=== PATIENT | female | born 1965 | race Caucasian/White ===

== ENCOUNTER 2020-06-05 17:18 | Outpatient (REF) | payer OTHER, SELFPAY | END 2020-06-05 17:19 | disposition home or self-care (01) | LOC: HO.LAB 17:18 | PROVIDERS: Visit Provider Internal Medicine | DX: Z20.828 Contact with and (suspected) exposure to other viral communicable diseases (principal) | CPT/HCPCS: U0003 ==

== ENCOUNTER 2020-06-27 13:36 | Outpatient (REF) | payer OTHER, SELFPAY | END 2020-06-27 13:37 | disposition home or self-care (01) | LOC: HO.LAB 13:36 | PROVIDERS: Visit Provider Internal Medicine | DX: Z20.828 Contact with and (suspected) exposure to other viral communicable diseases (principal) | CPT/HCPCS: C9803; U0003 ==

== ENCOUNTER 2021-07-04 11:01 | Emergency (ER) | payer MEDICAID, SELFPAY ==
--- NOTE | ~2021-07-04 | XR_ITS ---
EXAMINATION: XR CHEST CLINICAL INFORMATION: Chest pain. COMPARISON: None TECHNIQUE: AP view of the chest was obtained. FINDINGS: No significant abnormality is noted involving the heart, lungs, mediastinum, bony thorax or soft tissues. XR/XR chest 1V IMPRESSION: No acute cardiopulmonary findings.
[2021-07-04 12:46] VITALS: BP 167/83; PULSE 75; RESP 20; TEMP 36.7; O2SAT 98; BMI 32.6
--- NOTE | 2021-07-04 13:14 | ECG_ITS ---
Test Reason : CHEST PAIN Blood Pressure : / mmHG Vent. Rate : 072 BPM Atrial Rate : 072 BPM P-R Int : 200 ms QRS Dur : 078 ms QT Int : 418 ms P-R-T Axes : 026 017 006 degrees QTc Int : 457 ms Normal sinus rhythm Nonspecific T wave abnormality Abnormal ECG No previous ECGs available Referred By: Freddie Lopez Electronically Signed By:Enrique Daugherty
--- NOTE | 2021-07-04 13:46 | ED_ITS ---
HPI - Chest Pain General Chief Complaint: Chest Pain Stated Complaint: PCC referral xrays Time Seen by Provider: 07/04/21 13:45 Source: patient Mode of arrival: ambulatory Limitations: no limitations History of Present Illness HPI narrative: 56-year-old female presenting with 1 week of chest pain, back pain, vomiting, shortness of breath with cough productive of green phlegm. She reports going to an urgent care clinic last night and they told her to come to the ER for additional testing for the evaluation of her symptoms. She has had no known sick contacts. She is vaccinated against COVID-19. She has had no fever or chills at home. She vomited once 2 days ago and has had none since. She reports worst part of her symptoms is the chest wall pain and back pain that occur when she coughs or moves. No pain at rest. MD complaint: chest pain and other (Productive cough, back pain, shortness of breath) Onset (ago): week(s) (1) Timing of current episode: episodic Onset: other (After coughing for a week) Pain location: left chest and right chest Pain radiation: back Severity: moderate Quality: aching Relieving factors: rest Exacerbating factors: palpation, movement and other (Coughing) Associated symptoms: vomiting (X1) and cough Treatment prior to arrival: none Risk Factors Coronary artery disease risk factors: none Thoracic aortic dissection risk factors: none Related Data On Oral Contraceptives: No Previous Rx's Medication Instructions Recorded azithromycin 250 mg tablet See Rx Instructions .ROUTE 07/04/21 (Zithromax Z-Ramirez) .COMPLEX #6 tab benzonatate 100 mg capsule 100 mg PO TID PRN #14 cap 07/04/21 prednisone 20 mg tablet 40 mg PO DAILY #10 tab 07/04/21 Allergies Allergy/AdvReac Type Severity Reaction Status Date / Time No Known Allergies Allergy Unverified 03/23/20 19:43 [No Known Allergies*] Review of Systems Review of Systems: Constitutional: No Fever, No Chills ENT/Mouth: No sore throat, No Rhinorrhea, No Swallowing Difficulty Cardiovascular: + Chest Pain, + SOB, No Orthopnea, No Edema Respiratory: + Cough, + Sputum, No Wheezing, No dyspnea Gastrointestinal: No Nausea, + Vomiting, No Diarrhea, No abdominal Pain, No Hematochezia, No Melena Genitourinary: No Dysuria, No Urinary Frequency, No Hematuria Musculoskeletal: No joint pain, + Myalgias Skin: No Skin Lesions, No rash Neuro: No Weakness, No Numbness, No Dizziness, + Headache Psych: + Anxiety/Panic, No Depression Heme/Lymph: No Bruising, No Lymphadenopathy Endocrine: No Polyuria, No Polydipsia [facility] Past Medical History Medical History (Updated 07/04/21 @ 14:46 by CARROLL Franco) Asthma Hypertension Hypothyroidism Social History Social History Patient : No Physical Exam Vital Signs: Vital Signs: Last Vital Signs Temp 98.1 F 07/04/21 12:46 Pulse 75 07/04/21 12:46 Resp 20 07/04/21 12:46 BP 167/83 H 07/04/21 12:46 Pulse Ox 98 07/04/21 12:46 BMI result Body Mass Index 32.6 Appearance: Alert. Oriented X3. No acute distress. Eyes: Pupils equal, round and reactive to light. ENT: Pharynx normal. Tonsils are normal in appearance without exudate or erythema. Normal tympanic membranes bilaterally. Neck: Normal inspection. Neck supple. No lymphadenopathy. CVS: Normal heart rate and rhythm. Pulses normal. Anterior chest wall tendern ess throughout. Respiratory: No respiratory distress. Breath sounds normal. Abdomen: Soft and nontender. +BS x4 Skin: Skin warm and dry. Normal skin color. Normal skin turgor. No rashes. Extremities: No lower extremity edema. No calf tenderness. Neuro: Oriented X 3. No motor deficit. No sensory deficit. Course Course Course Narrative: 56-year-old female presenting with productive cough, chest pain, back pain and 1 episode of vomiting a couple of days ago. Her vital signs are normal on exam she is in no respiratory distress and her examination is benign. Will check CBC, chemistry, troponin, EKG and chest x-ray. Will also check COVID swab. She states she currently has no pain at this time. Reevaluation(s) Reevaluation #1: Chest x-ray is clear. EKG without any ischemic changes. Her troponin is less than 5 which is reassuring against any cardiac etiology of her pain. This seems to be muscular in nature due to her coughing for about a week now. Encouraged to start trial of NSAID for anti-inflammatory effect. Will treat for acute bronchitis with prednisone, Z-Ramirez, Tessalon. Encourage follow- up with her primary care doctor this week. Stable for discharge home with supportive care and outpatient follow-up. MDM - Chest Pain Lab Data Result diagrams: 07/04/21 14:08 07/04/21 14:08 Labs: Lab Results 07/04/21 07/04/21 07/04/21 Range/Units 14:08 14:08 14:08 WBC 9.0 (4.8-10.8) X10*3/uL RBC 4.23 (4.20-5.50) X10*6/uL Hgb 10.9 L (12.0-16.0) g/dl Hct 35.0 L (37.0-47.0) % MCV 82.7 (80.0-98.0) fL MCH 25.8 L (27.0-33.0) pg MCHC 31.1 (31.0-35.0) g/dl RDW 17.1 H (11.0-16.0) % Plt Count 228 (160-400) X10*3/uL MPV 11.1 (9.4-12.3) fL Immature Gran % (Auto) 0.2 (0.0-0.4) % Neut % (Auto) 48.1 (45-73) % Lymph % (Auto) 38.6 (20-40) % [place] % (Auto) 6.3 (2-11) % Eos % (Auto) 6.1 H (0-4) % Baso % (Auto) 0.7 (0-2) % Lymph # (Auto) 3.5 (1.2-4.9) X10*3/uL [place] # (Auto) 0.6 (0.1-1.2) X10*3/uL Eos # (Auto) 0.6 H (0.0-0.4) X10*3/uL Baso # (Auto) 0.1 (0.0-0.2) X10*3/uL Abs Immat Gran (auto) 0.02 (0.00-0.03) X10*3/uL Absolute Neuts (auto) 4.3 (2.0-8.3) x10*3/uL Absolute Nucleated RBC 0.000 (0.0-0.012) X10*3/uL Nucleated RBC % (auto) 0.0 (0.0-0.2) /100WBC Sodium 139 (135-145) mmol/L Potassium 4.3 (3.3-5.1) mmol/L Chloride 105 (96-108) mmol/L Carbon Dioxide 28 (22-29) mmol/L Anion Gap 10 L (12-20) BUN 12 (9-16) mg/dL Creatinine 0.79 (0.5-1.4) mg/dL Estim Creat Clear Calc 96.1 Estimated GFR > 60 Random Glucose 115 (60-115) mg/dL Calcium 9.5 (8.4-10.2) mg/dL Troponin I High Sens 4.7 (<3.5-17.0) ng/L COVID-19 (NATASHA) (Negative) COVID-19 Clin Com 07/04/21 Range/Units 14:08 WBC (4.8-10.8) X10*3/uL RBC (4.20-5.50) X10*6/uL Hgb (12.0-16.0) g/dl Hct (37.0-47.0) % MCV (80.0-98.0) fL MCH (27.0-33.0) pg MCHC (31.0-35.0) g/dl RDW (11.0-16.0) % Plt Count (160-400) X10*3/uL MPV (9.4-12.3) fL Immature Gran % (Auto) (0.0-0.4) % Neut % (Auto) (45-73) % Lymph % (Auto) (20-40) % [place] % (Auto) (2-11) % Eos % (Auto) (0-4) % Baso % (Auto) (0-2) % Lymph # (Auto) (1.2-4.9) X10*3/uL [place] # (Auto) (0.1-1.2) X10*3/uL Eos # (Auto) (0.0-0.4) X10*3/uL Baso # (Auto) (0.0-0.2) X10*3/uL Abs Immat Gran (auto) (0.00-0.03) X10*3/uL Absolute Neuts (auto) (2.0-8.3) x10*3/uL Absolute Nucleated RBC (0.0-0.012) X10*3/uL Nucleated RBC % (auto) (0.0-0.2) /100WBC Sodium (135-145) mmol/L Potassium (3.3-5.1) mmol/L Chloride (96-108) mmol/L Carbon Dioxide (22-29) mmol/L Anion Gap (12-20) BUN (9-16) mg/dL Creatinine (0.5-1.4) mg/dL Estim Creat Clear Calc Estimated GFR Random Glucose (60-115) mg/dL Calcium (8.4-10.2) mg/dL Troponin I High Sens (<3.5-17.0) ng/L COVID-19 (NATASHA) Negative (Negative) COVID-19 Clin Com See Note Critical Care Time Critical Care Time Critical Care Time: No Discharge Plan Discharge Clinical Impression: Acute bronchitis Qualifiers: Bronchitis organism: unspecified organism Qualified Code(s): J20.9 - Acute bronchitis, unspecified Patient Disposition: Home, Self-Care Instructions: Acute Bronchitis (ED) Additional Instructions: Your chest x-ray was normal. You were negative for COVID-19. Your EKG and lab workup was normal. Take all of the prescribed mediations as directed for acute bronchitis. Follow up with your doctor in 1 week. If you develop new or worsening symptoms call 911 or come back to the ER for further evaluation. Prescriptions: New azithromycin [Zithromax Z-Ramirez] 250 mg tablet See Rx Instructions .ROUTE .COMPLEX Qty: 6 RF: 0 prednisone 20 mg tablet 40 mg PO DAILY Qty: 10 RF: 0 benzonatate 100 mg capsule 100 mg PO TID PRN (Reason: cough) Qty: 14 RF: 0 Interventions: ED Discharge Assessment Last Done: 07/04/21 15:11 Print Language: Turkmen
[2021-07-04 14:16] LABS: MANUAL DIFF FLAG NO
[2021-07-04 14:17] LABS: Basophils Absolute Auto 0.1 X10*3/uL (0.0-0.2); Basophils Percent Auto 0.7 % (0-2); Eosinophils Absolute Auto 0.6 X10*3/uL (0.0-0.4); Eosinophils Percent Auto 6.1 % (0-4); Hemoglobin 10.9 g/dl (12.0-16.0); Imm Gran Abs Auto 0.02 X10*3/uL (0.00-0.03); Imm Gran Pct Auto 0.2 % (0.0-0.4); Lymphocytes Absolute Auto 3.5 X10*3/uL (1.2-4.9); Lymphocytes Percent Auto 38.6 % (20-40); Mean Corpuscular HGB Conc 31.1 g/dl (31.0-35.0); Mean Corpuscular Hemoglobin 25.8 pg (27.0-33.0); Mean Corpuscular Volume 82.7 fL (80.0-98.0); Mean Platelet Volume 11.1 fL (9.4-12.3); Monocytes Absolute Auto 0.6 X10*3/uL (0.1-1.2); Monocytes Percent Auto 6.3 % (2-11); Neutrophils Absolute Auto 4.3 x10*3/uL (2.0-8.3); Neutrophils Percent Auto 48.1 % (45-73); Platelet Count 228 X10*3/uL (160-400); Red Blood Count 4.23 X10*6/uL (4.20-5.50); Red Cell Distribution Width 17.1 % (11.0-16.0)
[2021-07-04 14:29] LABS: Anion Gap 10 (12-20); Blood Urea Nitrogen 12 mg/dL (9-16); Calcium 9.5 mg/dL (8.4-10.2); Carbon Dioxide 28 mmol/L (22-29); Chloride 105 mmol/L (96-108); Creatinine Clr Calc Pharmacy 96.1; Estimated Glomerular Filt Rate > 60; Glucose Random 115 mg/dL (60-115); Potassium 4.3 mmol/L (3.3-5.1); Sodium 139 mmol/L (135-145)
[2021-07-04 14:34] LABS: COVID-19 Test Negative (Negative); IDNOW Serial# 9DD0AD1C
[2021-07-04 14:35] LABS: Troponin-I High Sensitivity 4.7 ng/L (<3.5-17.0)
== END 2021-07-04 16:11 | disposition home or self-care (01) ==
PROVIDERS: Physician Assistant; Emergency Provider Emergency Medicine
DX: J20.9 Acute bronchitis, unspecified (principal); Z20.822 Contact with and (suspected) exposure to COVID-19; I10 Essential (primary) hypertension; J45.909 Unspecified asthma, uncomplicated
CPT/HCPCS: 36415; 71045; 80048; 84484; 85025; 87635; 93005; 99283; 99284

== ENCOUNTER 2022-02-15 14:57 | Outpatient (REF) | payer MEDICAID, SELFPAY ==
[2022-02-15 15:20] LABS: Hematocrit 36.6 % (37.0-47.0); Hemoglobin 11.5 g/dl (12.0-16.0); Mean Corpuscular HGB Conc 31.4 g/dl (31.0-35.0); Mean Corpuscular Hemoglobin 26.7 pg (27.0-33.0); Mean Corpuscular Volume 84.9 fL (80.0-98.0); Mean Platelet Volume 11.9 fL (9.4-12.3); Platelet Count 247 X10*3/uL (160-400); Red Blood Count 4.31 X10*6/uL (4.20-5.50); Red Cell Distribution Width 17.2 % (11.0-16.0); White Blood Count 10.1 X10*3/uL (4.8-10.8)
[2022-02-15 15:57] LABS: TSH reflex Free T4 9.43 uIU/mL (0.32-4.0)
[2022-02-15 16:29] LABS: Free T4 (Free Thyroxine) 0.73 ng/dL (0.71-1.85)
[2022-02-16 02:46] LABS: CT PCR NOT DETECTED (Not Detect.); NG PCR NOT DETECTED (Not Detect.)
[2022-02-16 15:07] LABS: BV Int Neg Control Negative (Negative); BV Int Pos Control Positive (Positive)
[2022-02-20 22:07] LABS: HPV mRNA E6/E7 rflx Not Detected (Not Detected)
== END 2022-02-15 14:58 | disposition home or self-care (01) ==
LOC: HO.LAB 14:57
PROVIDERS: PCP Registered Nurse Community Health; Visit Provider Advanced Practice Midwife
DX: N92.0 Excessive and frequent menstruation with regular cycle (principal); Z01.411 Encounter for gynecological examination (general) (routine) with abnormal findings; Z11.51 Encounter for screening for human papillomavirus (HPV)
CPT/HCPCS: 36415; 84439; 84443; 85027; 87480; 87491; 87510; 87591; 87624; 87660; 88142; 99202

== ENCOUNTER 2022-02-18 12:53 | Outpatient (REF) | payer MEDICAID, SELFPAY ==
--- NOTE | 2022-03-28 10:28 | MHC.AU.MED ---
Medical Clearance for Hearing Instrumentation Date: 03/28/22 Patient Name: Carmen Vaughn Date of : 1965 Referring Provider: Sheri Kidd NP We have seen your patient on 02/18/22 and have determined that they are a candidate for amplification (See accompanying report). Specifically, they would benefit from: Hearing aid use in both ears There is a statute that addresses Medical Evaluation Requirements prior to fitting a patient with a hearing aid. According to [place] statute 265 CMR:6.03(1), (a) General. Except as provided in 265 CMR 6.03(1)(b), a feeder tender shall not sell a hearing aid unless the prospective user has presented to the feeder tender a written statement signed by a licensed physician that states that the patient's hearing loss has been medically evaluated and the patient may be considered a candidate for a hearing aid. The medical evaluation must have taken place within the preceding six months. Please note: Due to the [place] Statute referenced above, we cannot accept a signature other than that of a licensed physician. YARD FOREMAN and PA signatures cannot be accepted. I am in agreement with the above recommendation. There is no medical contraindication for hearing instrumentation. Physician Signature Date Physician Name (Printed)
--- NOTE | 2022-03-28 10:29 | MHC.AU.HAS ---
Hearing Aid Evaluation Date of Visit: 02/18/22 Electroencephalographic Technologist Used: Hong Konger Historical Information: Description of Hearing: Profound sensorineural hearing loss Current personal amplification information, if applicable: None Summary: Patient was seen for audiological evaluation. See separate report for details. Patient reports she has tried hearing aids a long time ago, but did not find them beneficial at the time. She communicates with spoken Hong Konger and relies almost exclusively on lip reading. She is ready to try hearing aids again, as she has been struggling significantly with her communication in daily life. Hearing Aid Prescription: Based on the individual?s shared listening needs, communication environments, dexterity, desire for connectivity, and personal preferences, the following prescription for amplification has been made: Right ear: Flavoring Oil Filterer: Phonak Model: Danielle P70-UP Battery Size: 675 Color: Silver Type of Mold: Microsonic Skeleton M2000 Left ear: Flavoring Oil Filterer: Phonak Model: Danielle P70-UP Battery Size: 675 Color: Silver Type of Mold: Microsonic Skeleton M2000 Action Taken/Action Needed: Earmold Impressions Taken Medical Clearance to be requested from PCP/ENT Hearing Instrument Fitting to be scheduled when materials arrive Patient NEEDS an in-person aerial photograph interpreter. Primary Diagnosis: H90.3 Bilateral Sensorineural Hearing Loss Signature: Provider: Pamella Willis, CCC-A
--- NOTE | 2022-03-28 10:29 | MHC.AU.AEV ---
Adult Audiological Evaluation Date of Visit: 02/18/22 Black Top Raker Used: Malaysian Reason for Appointment: History of congenital profound hearing loss. Patient communicates with spoken Malaysian and relies almost exclusively on lip reading. She has tried hearing aids in the past, but it has been many years since. She is interested in trying amplification again. She also reports severe tinnitus that she finds highly distressing. Hearing Handicap Inventory Does a hearing problem cause you to feel embarrassed when meeting new people?: Yes Does a hearing problem cause you to feel frustrated when talking to members of your family?: Yes Do you have difficulty when someone speaks in a whisper?: Yes Do you feel handicapped by a hearing problem?: Yes Does a hearing problem cause you difficulty when visiting friends, relatives, or neighbors?: Yes Does a hearing problem cause you to attend christianity service services less often than you would like?: Yes Does a hearing problem cause you to have arguments with family members?: Yes Does a hearing problem cause you difficulty when listening to TV or radio?: Yes Do you feel that any difficult with your hearing limits or hampers your personal or social life?: Yes Does a hearing problem cause you difficulty when in a restaurants with relatives or friends?: Yes HHIE SCORE: 40 Based on HHIE score, patient has: Severe perceived hearing handicap Ear History: Family History of Hearing Loss?: Yes Bothersome Tinnitus/Ringing/Noises in Ears: Both Ears History of occupational noise exposure?: No History: No Medical History: Medical History: Hypertension, history of stroke 3 years ago, speech difficulties related to the stroke Otoscopy: Right Ear: Unremarkable Left Ear: Unremarkable Tympanometry: Tympanometry performed due to: To assess integrity of the middle ear system Right Ear: Normal Middle Ear System (Type A) Left Ear: Normal Middle Ear System (Type A) Hearing Evaluation: Transducer(s) Used: Insert Earphones Method: Conventional Audiometry Stimuli Used: Pure Tones Right Ear: Description of Hearing: Profound sensorineural hearing loss Left Ear: Description of Hearing: Profound sensorineural hearing loss Speech Recognition Threshold (SRT): Could not test Word Discrimination: Could not test Recommendations: Audiological re-evaluation in one year. Patient is interested in trying hearing aids again. See Hearing Aid Evaluation report for more details. Patient is also interested in cochlear implants. She reports that awhile ago she was told she should not get cochlear implants, but is unsure why. I was unable to obtain previous ENT records. If she still feels strongly about the implants, she should follow-up with her ENT to discuss the reasons behind the decision and see if her candidacy has since changed. Diagnosis: Primary Diagnosis: H90.3 Bilateral Sensorineural Hearing Loss Signature: Provider: Pamella Willis, CCC-A
== END 2022-02-18 12:54 | disposition home or self-care (01) ==
LOC: HO.SH 12:53
PROVIDERS: PCP Registered Nurse Community Health; Visit Provider Registered Nurse Community Health
DX: H90.3 Sensorineural hearing loss, bilateral (principal)
CPT/HCPCS: 92553; 92567; 92591; V5275

== ENCOUNTER 2022-06-17 12:45 | Outpatient (REF) | payer MEDICAID, SELFPAY ==
--- NOTE | 2022-06-17 15:35 | MHC.AU.HA2 ---
Hearing Instrument Fitting- Adult- Binaural Date of Visit: 06/17/22 Hearing Instruments Dispensed: Right Ear: Make, Model, Color, Serial Number: Ekta Santos P70-UP SN: [id number] Color: Silver [employer] Technical Photographer Repair Warranty: 07/16/2025 Technical Photographer Loss and Damage Warranty: 07/16/2025 [facility] [place] Service Plan: 06/17/2023 Battery Size: 675 Earmold/Dome/CShell/SlimTip: Microsonic M35 Skeleton Left Ear: Make, Model, Color, Serial Number: Ekta Santos P70-UP SN: [id number] Color: Silver [place] Technical Photographer Repair Warranty: 07/16/2025 Technical Photographer Loss and Damage Warranty: 07/16/2025 [facility] [place] Service Plan: 06/17/2023 Battery Size: 675 Earmold/Dome/CShell/SlimTip: Microsonic M35 Skeleton Summary of Fitting: Feedback it disaster recovery manager and real ear measurements performed. Adjusted gain level to 80% at Carmen's request due to overall volume. Discussed care and use including changing battery, volume control use, and inserting/removing hearing aid and earmold. Carmen was extremely grateful for the hearing aids and ability to hear again. Explained realistic expectations in relation to severity of hearing loss as well as the acclimatization period to adjust to hearing aids again. Paired to cellphone and confirmed successful connection with a phone call in office. Carmen's inquired about a cochlear implant - advised to discuss with [facility] to determine candidacy. He reported it may be possible that she already had a CI evaluation but he was not sure. Carmen is leaving for [place] tomorrow. She returns on July 20, 2022 - a follow up appointment will be scheduled after that date. Recommendations: A hearing instrument follow-up was scheduled. Please call our clinic with any questions or concerns. Diagnosis Code(s): Primary Diagnosis: H90.3 Bilateral Sensorineural Hearing Loss Signature: Provider: Serg Stone, [facility]
== END 2022-06-17 12:46 | disposition home or self-care (01) ==
LOC: HO.HAP 12:45
PROVIDERS: Visit Provider Registered Nurse Community Health
DX: Z46.1 Encounter for fitting and adjustment of hearing aid (principal); H90.3 Sensorineural hearing loss, bilateral
CPT/HCPCS: V5011; V5020; V5160; V5261; V5264; V5266

== ENCOUNTER 2022-08-02 12:44 | Outpatient (REF) | payer MEDICAID, SELFPAY ==
--- NOTE | ~2022-08-02 | US_ITS ---
EXAMINATION: US PELVIS CLINICAL INFORMATION: Excessive and frequent menstruation with irregular cycle COMPARISON: None TECHNIQUE: Ultrasound of the pelvis is performed using both transabdominal and transvaginal transducers along with Doppler. Transvaginal imaging is performed due to inadequate visualization transabdominally. FINDINGS: Uterus: The uterus is anteverted, retroflexed and measures 10.8 x 4.8 x 4.9 cm The double wall endometrial thickness is 1.2 cm and is heterogeneous. The uterus is smooth in contour and has normal myometrial echogenicity. No visible fibroid. There are numerous anechoic cysts seen in the cervix Adnexa: Both ovaries are visualized. There is normal color flow to the adnexa. There is no ovarian torsion. There is no pelvic ascites or fluid collection. Right ovary measures 4.0 x 3.4 x 3.2 cm and volume 22.8 mL. There is anechoic simple cyst measuring 2.7 x 2.3 x 2.7 cm. Left ovary measures 2.4 x 1.7 x 2.0 cm on transabdominal view only. There is no free fluid in the cul-de-sac. US/US pelvic and transvaginal IMPRESSION: 1. Simple cyst right ovary. 2. Unremarkable left ovary. 3. Multiple nabothian cysts in the cervix. 4. The uterus is unremarkable. 5. There is no free fluid in the cul-de-sac.
== END 2022-08-02 12:45 | disposition home or self-care (01) ==
LOC: HO.US 12:44
PROVIDERS: PCP Registered Nurse Community Health; Visit Provider Advanced Practice Midwife
DX: N92.0 Excessive and frequent menstruation with regular cycle (principal)
CPT/HCPCS: 76830; 76856

== ENCOUNTER 2022-08-22 14:49 | Outpatient (REF) | payer MEDICAID, SELFPAY ==
[2022-08-22 18:04] LABS: Hematocrit 35.5 % (37.0-47.0); Hemoglobin 11.4 g/dl (12.0-16.0); Mean Corpuscular HGB Conc 32.1 g/dl (31.0-35.0); Mean Corpuscular Hemoglobin 26.8 pg (27.0-33.0); Mean Corpuscular Volume 83.3 fL (80.0-98.0); Mean Platelet Volume 12.3 fL (9.4-12.3); Platelet Count 261 X10*3/uL (160-400); Red Blood Count 4.26 X10*6/uL (4.20-5.50); Red Cell Distribution Width 15.4 % (11.0-16.0); White Blood Count 8.5 X10*3/uL (4.8-10.8)
[2022-08-23 22:28] LABS: Follicle Stimulating Hormone 4.4 mIU/mL
== END 2022-08-22 14:50 | disposition home or self-care (01) ==
LOC: HO.LAB 14:49
PROVIDERS: PCP Registered Nurse Community Health; Visit Provider Advanced Practice Midwife
DX: N92.0 Excessive and frequent menstruation with regular cycle (principal); N93.9 Abnormal uterine and vaginal bleeding, unspecified
CPT/HCPCS: 36415; 58100; 81025; 83001; 85027; 88305

== ENCOUNTER 2022-08-22 16:16 | Outpatient (REF) | payer MEDICAID, SELFPAY | END 2022-08-22 16:17 | disposition home or self-care (01) | LOC: HO.HAP 16:16 | PROVIDERS: Visit Provider Registered Nurse Community Health | DX: Z46.1 Encounter for fitting and adjustment of hearing aid (principal); H90.3 Sensorineural hearing loss, bilateral | CPT/HCPCS: V5266 ==

== ENCOUNTER → 2022-09-04 12:49 | Outpatient (BNVA) | payer MEDICAID, SELFPAY | PROVIDERS: PCP Registered Nurse Community Health; Visit Provider Advanced Practice Midwife | DX: Z71.2 Person consulting for explanation of examination or test findings (principal); N71.1 Chronic inflammatory disease of uterus; N92.0 Excessive and frequent menstruation with regular cycle | CPT/HCPCS: 99212 ==

== ENCOUNTER 2022-09-04 14:13 | Emergency (ER) | payer MEDICAID, SELFPAY ==
--- NOTE | ~2022-09-04 | XR_ITS ---
EXAMINATION: XR CHEST CLINICAL INFORMATION: Chest pain COMPARISON: July 04, 2021 TECHNIQUE: 2 views of the chest were obtained. FINDINGS: No significant abnormality is noted involving the heart, lungs, mediastinum, bony thorax or soft tissues. XR/XR chest 2V IMPRESSION: No acute disease.
[2022-09-04 14:28] VITALS: BP 173/95; PULSE 83; RESP 20; TEMP 36.8; O2SAT 98; BMI 29.0
--- NOTE | 2022-09-04 14:33 | ED.GENADULT ---
HPI - General Adult General Chief complaint: Chest Pain Stated complaint: HBP/Headache/Blurry vision Related Data Home Medications Medication Instructions Recorded Confirmed baclofen 5 mg tablet 5 mg PO TID 02/15/22 yfwdfjdaik-ewhifnhfufhyl-zundbjnl 1 - 2 tab PO Q6H PRN migraine 02/15/22 50 mg-325 mg-40 mg tablet chlorthalidone 15 mg tablet 15 mg PO DAILY 02/15/22 (Thalitone) ergocalciferol (vitamin D2) 1,250 1,250 mcg PO QWEEK 02/15/22 mcg (50,000 unit) capsule escitalopram oxalate 10 mg tablet 10 mg PO DAILY 02/15/22 ferrous sulfate 325 mg (65 mg 325 mg PO DAILY 02/15/22 iron) tablet (FeroSul) levothyroxine 112 mcg tablet 112 mcg PO DAILY 02/15/22 loratadine 10 mg tablet 10 mg PO DAILY 02/15/22 mirtazapine 30 mg tablet 30 mg PO BEDTIME 02/15/22 Previous Rx's Medication Instructions Recorded benzonatate 100 mg capsule 100 mg PO TID PRN cough #14 caps 07/04/21 Allergies Allergy/AdvReac Type Severity Reaction Status Date / Time No Known Allergies Allergy Verified 02/25/23 13:38 [No Known Allergies*] PMFSH Past Medical History Medical History Anemia Asthma Chronic back pain Depression Hearing trouble Heavy menstrual bleeding Hypertension Hypothyroidism Migraine Stroke Tinnitus Urinary incontinence in female Surgical History Hx of section Social History Social History Household Members: Spouse Housing: Apartment Alcohol intake: never Patient Tobacco Use Status: Former Tobacco user Physical Exam ED Vital Signs: BMI result Body Mass Index 29.0 Course Course Course Narrative: ROSE- 57-year-old primarily English-speaking female presents for evaluation of numerous complaints including chest pressure, headache, cough, phlegm, visual changes. She also complains of high blood pressure. History exam consistent with anxiety, however given her age and risk factors will get labs, chest xray, EKG Medical Decision Making Lab Data 09/04/22 16:25 09/04/22 16:25 Labs: Lab Results 09/04/22 09/04/22 09/04/22 Range/Units 16:25 16:25 16:25 WBC 8.9 (4.8-10.8) X10*3/uL RBC 4.39 (4.20-5.50) X10*6/uL Hgb 11.7 L (12.0-16.0) g/dl Hct 36.8 L (37.0-47.0) % MCV 83.8 (80.0-98.0) fL MCH 26.7 L (27.0-33.0) pg MCHC 31.8 (31.0-35.0) g/dl RDW 15.8 (11.0-16.0) % Plt Count 242 (160-400) X10*3/uL MPV 11.1 (9.4-12.3) fL Immature Gran % (Auto) 0.3 (0.0-0.4) % Neut % (Auto) 44.2 L (45-73) % Lymph % (Auto) 44.3 H (20-40) % [place] % (Auto) 6.4 (2-11) % Eos % (Auto) 4.0 (0-4) % Baso % (Auto) 0.8 (0-2) % Lymph # (Auto) 4.0 (1.2-4.9) X10*3/uL [place] # (Auto) 0.6 (0.1-1.2) X10*3/uL Eos # (Auto) 0.4 (0.0-0.4) X10*3/uL Baso # (Auto) 0.1 (0.0-0.2) X10*3/uL Abs Immat Gran (auto) 0.03 (0.00-0.03) X10*3/uL Absolute Neuts (auto) 3.9 (2.0-8.3) x10*3/uL Absolute Nucleated RBC 0.000 (0.0-0.012) X10*3/uL Nucleated RBC % (auto) 0.0 (0.0-0.2) /100WBC PT 12.3 (10.0-13.1) SEC INR 1.1 (0.9-1.1) APTT 29.2 (26.0-36.4) SEC Sodium 139 (135-145) mmol/L Potassium 3.8 (3.3-5.1) mmol/L Chloride 104 (96-108) mmol/L Carbon Dioxide 26 (22-29) mmol/L Anion Gap 13 (12-20) BUN 10 (9-16) mg/dL Creatinine 0.77 (0.5-1.4) mg/dL Estim Creat Clear Calc 107.9 Estimated GFR > 60 Random Glucose 91 (60-115) mg/dL Calcium 9.7 (8.4-10.2) mg/dL Magnesium 1.9 (1.6-2.6) mg/dL Total Bilirubin 0.3 (0.0-1.0) mg/dL AST 50 H (5-31) U/L ALT 80 H (0-31) U/L Alkaline Phosphatase 58 (39-117) U/L Troponin I High Sens (<3.5-17.0) ng/L Total Protein 7.9 (6.5-8.0) g/dL Albumin 4.2 (3.5-5.0) g/dL Influenza Type A (PCR) (Negative) Influenza Type B (PCR) (Negative) RSV RNA Qual (PCR) (Negative) SARS-CoV-2 RNA (RT-PCR) (Negative) 09/04/22 09/04/22 09/04/22 Range/Units 16:25 16:25 21:02 WBC (4.8-10.8) X10*3/uL RBC (4.20-5.50) X10*6/uL Hgb (12.0-16.0) g/dl Hct (37.0-47.0) % MCV (80.0-98.0) fL MCH (27.0-33.0) pg MCHC (31.0-35.0) g/dl RDW (11.0-16.0) % Plt Count (160-400) X10*3/uL MPV (9.4-12.3) fL Immature Gran % (Auto) (0.0-0.4) % Neut % (Auto) (45-73) % Lymph % (Auto) (20-40) % [place] % (Auto) (2-11) % Eos % (Auto) (0-4) % Baso % (Auto) (0-2) % Lymph # (Auto) (1.2-4.9) X10*3/uL [place] # (Auto) (0.1-1.2) X10*3/uL Eos # (Auto) (0.0-0.4) X10*3/uL Baso # (Auto) (0.0-0.2) X10*3/uL Abs Immat Gran (auto) (0.00-0.03) X10*3/uL Absolute Neuts (auto) (2.0-8.3) x10*3/uL Absolute Nucleated RBC (0.0-0.012) X10*3/uL Nucleated RBC % (auto) (0.0-0.2) /100WBC PT (10.0-13.1) SEC INR (0.9-1.1) APTT (26.0-36.4) SEC Sodium (135-145) mmol/L Potassium (3.3-5.1) mmol/L Chloride (96-108) mmol/L Carbon Dioxide (22-29) mmol/L Anion Gap (12-20) BUN (9-16) mg/dL Creatinine (0.5-1.4) mg/dL Estim Creat Clear Calc Estimated GFR Random Glucose (60-115) mg/dL Calcium (8.4-10.2) mg/dL Magnesium (1.6-2.6) mg/dL Total Bilirubin (0.0-1.0) mg/dL AST (5-31) U/L ALT (0-31) U/L Alkaline Phosphatase (39-117) U/L Troponin I High Sens < 3.5 < 3.5 (<3.5-17.0) ng/L Total Protein (6.5-8.0) g/dL Albumin (3.5-5.0) g/dL Influenza Type A (PCR) NEGATIVE (Negative) Influenza Type B (PCR) NEGATIVE (Negative) RSV RNA Qual (PCR) NEGATIVE (Negative) SARS-CoV-2 RNA (RT-PCR) NEGATIVE (Negative) Discharge Plan Discharge Clinical Impression: Chest pain Patient Disposition: Elopement Prescriptions: No Action benzonatate 100 mg capsule 100 mg PO TID PRN (Reason: cough) Qty: 14 0RF baclofen 5 mg tablet 5 mg PO TID Thalitone 15 mg tablet 15 mg PO DAILY mirtazapine 30 mg tablet 30 mg PO BEDTIME ergocalciferol (vitamin D2) 1,250 mcg (50,000 unit) capsule 1,250 mcg PO QWEEK levothyroxine 112 mcg tablet 112 mcg PO DAILY ferrous sulfate [FeroSul] 325 mg (65 mg iron) tablet 325 mg PO DAILY loratadine 10 mg tablet 10 mg PO DAILY yxuujeepzb-chdmjjgfkygyp-qssh 50-325-40 mg tablet 1 - 2 tab PO Q6H PRN (Reason: migraine) escitalopram oxalate 10 mg tablet 10 mg PO DAILY Discharge Date/Time: 09/05/22 00:45
--- NOTE | 2022-09-04 14:35 | ECG_ITS ---
Test Reason : chest pain/ tightness Blood Pressure : / mmHG Vent. Rate : 073 BPM Atrial Rate : 073 BPM P-R Int : 190 ms QRS Dur : 086 ms QT Int : 410 ms P-R-T Axes : 046 004 020 degrees QTc Int : 451 ms Normal sinus rhythm Normal ECG When compared with ECG of 04-JUL-2021 13:25, T wave inversion no longer evident in Anterior leads Referred By: Vito Gaspar Electronically Signed By:TORI LORA MD
[2022-09-04 16:31] LABS: MANUAL DIFF FLAG NO
[2022-09-04 16:33] LABS: Basophils Absolute Auto 0.1 X10*3/uL (0.0-0.2); Basophils Percent Auto 0.8 % (0-2); Eosinophils Absolute Auto 0.4 X10*3/uL (0.0-0.4); Hematocrit 36.8 % (37.0-47.0); Hemoglobin 11.7 g/dl (12.0-16.0); Imm Gran Abs Auto 0.03 X10*3/uL (0.00-0.03); Imm Gran Pct Auto 0.3 % (0.0-0.4); Lymphocytes Percent Auto 44.3 % (20-40); Mean Corpuscular HGB Conc 31.8 g/dl (31.0-35.0); Mean Corpuscular Hemoglobin 26.7 pg (27.0-33.0); Mean Corpuscular Volume 83.8 fL (80.0-98.0); Mean Platelet Volume 11.1 fL (9.4-12.3); Monocytes Absolute Auto 0.6 X10*3/uL (0.1-1.2); Monocytes Percent Auto 6.4 % (2-11); Neutrophils Absolute Auto 3.9 x10*3/uL (2.0-8.3); Neutrophils Percent Auto 44.2 % (45-73); Platelet Count 242 X10*3/uL (160-400); Red Blood Count 4.39 X10*6/uL (4.20-5.50); Red Cell Distribution Width 15.8 % (11.0-16.0); White Blood Count 8.9 X10*3/uL (4.8-10.8)
[2022-09-04 16:40] LABS: INTERNATIONAL NORM RATIO 1.1 (0.9-1.1); Prothrombin Time 12.3 SEC (10.0-13.1)
[2022-09-04 16:42] LABS: Partial Thromboplastin Time 29.2 SEC (26.0-36.4)
[2022-09-04 17:06] LABS: Alanine Aminotransferase 80 U/L (0-31); Albumin Level 4.2 g/dL (3.5-5.0); Alkaline Phosphatase 58 U/L (39-117); Anion Gap 13 (12-20); Aspartate Amino Transferase 50 U/L (5-31); Bilirubin Total 0.3 mg/dL (0.0-1.0); Blood Urea Nitrogen 10 mg/dL (9-16); Calcium 9.7 mg/dL (8.4-10.2); Carbon Dioxide 26 mmol/L (22-29); Chloride 104 mmol/L (96-108); Creatinine Clr Calc Pharmacy 107.9; Estimated Glomerular Filt Rate > 60; Glucose Random 91 mg/dL (60-115); Magnesium 1.9 mg/dL (1.6-2.6); Potassium 3.8 mmol/L (3.3-5.1); Sodium 139 mmol/L (135-145); Total Protein 7.9 g/dL (6.5-8.0)
[2022-09-04 17:10] LABS: Influenza A PCR NEGATIVE (Negative); Influenza B PCR NEGATIVE (Negative); Resp Syncy Virus RNA Qual PCR NEGATIVE (Negative); SARS COV2 PCR INHOUSE NEGATIVE (Negative)
[2022-09-04 17:13] LABS: Troponin-I High Sensitivity < 3.5 ng/L (<3.5-17.0)
[2022-09-04 21:33] LABS: Troponin-I High Sensitivity < 3.5 ng/L (<3.5-17.0)
== END 2022-09-05 00:45 | disposition left against medical advice (07) ==
PROVIDERS: Physician Assistant; Emergency Provider Emergency Medicine; PCP General Practice
DX: F41.9 Anxiety disorder, unspecified (principal); I10 Essential (primary) hypertension; R51.9 Headache, unspecified; H53.8 Other visual disturbances; Z20.822 Contact with and (suspected) exposure to COVID-19; Z20.828 Contact with and (suspected) exposure to other viral communicable diseases; Z87.891 Personal history of nicotine dependence; Z79.899 Other long term (current) drug therapy
CPT/HCPCS: 0241U; 36415; 71046; 80053; 83735; 84484; 85025; 85610; 85730; 93005; 99281; 99283

== ENCOUNTER 2022-09-27 10:51 | Outpatient (REF) | payer MEDICAID, SELFPAY | END 2022-09-27 10:52 | disposition home or self-care (01) | LOC: HO.MRI 10:51 | PROVIDERS: PCP General Practice; Visit Provider Registered Nurse | DX: Z13.89 Encounter for screening for other disorder (principal) ==

== ENCOUNTER 2022-12-05 13:51 | Outpatient (REF) | payer MEDICAID, SELFPAY | END 2022-12-05 13:52 | disposition home or self-care (01) | LOC: HO.HAP 13:51 | PROVIDERS: Visit Provider General Practice | DX: Z13.89 Encounter for screening for other disorder (principal) ==

== ENCOUNTER 2022-12-09 14:22 | Outpatient (REF) | payer MEDICAID, SELFPAY | END 2022-12-09 14:23 | disposition home or self-care (01) | LOC: HO.HAP 14:22 | PROVIDERS: Visit Provider General Practice | DX: Z46.1 Encounter for fitting and adjustment of hearing aid (principal); H90.3 Sensorineural hearing loss, bilateral | CPT/HCPCS: V5266 ==

== ENCOUNTER 2022-12-19 13:23 | Outpatient (REF) | payer MEDICAID, SELFPAY ==
--- NOTE | ~2022-12-19 | MM_ITS ---
EXAMINATION: MM SCREENING DIGITAL BREAST TOMOSYNTHESIS, BILATERAL CLINICAL INFORMATION: Screening. Asymptomatic. The lifetime risk of breast cancer based on the Tyrer-Cuzick Model is 9%. COMPARISON: Outside mammography: 02/05/2021 ([facility]) TECHNIQUE: Digital breast tomosynthesis is performed in both the craniocaudal and mediolateral oblique views along with computer-aided detection (CAD). Synthesized 2D images are generated from the tomosynthesis. FINDINGS: There are scattered areas of fibroglandular density (ACR BI-RADS breast composition Category b). There are no significant masses, abnormal calcifications, or other abnormalities. Parenchymal pattern is similar to prior outside exam. No developing density or architectural abnormality. The axilla and skin contours are unremarkable. MM/MM tomosynthesis screening BI IMPRESSION: No mammographic evidence of malignancy. ASSESSMENT: BI-RADS 1: Negative RECOMMENDATION: Routine annual mammography screening. This patient's information was entered into a reminder system with a target due date for their next mammogram.
== END 2022-12-19 13:24 | disposition home or self-care (01) ==
LOC: HO.MAMMO 13:23
PROVIDERS: PCP General Practice; Visit Provider General Practice
DX: Z12.31 Encounter for screening mammogram for malignant neoplasm of breast (principal)
CPT/HCPCS: 77063; 77067

== ENCOUNTER 2023-02-25 13:27 | Outpatient (REF) | payer MEDICAID, SELFPAY ==
[2023-02-27 21:53] LABS: HPV mRNA E6/E7 rflx Not Detected (Not Detected)
== END 2023-02-25 13:28 | disposition home or self-care (01) ==
LOC: HO.LNP 13:27
PROVIDERS: PCP General Practice; Visit Provider Advanced Practice Midwife
DX: Z01.419 Encounter for gynecological examination (general) (routine) without abnormal findings (principal); Z11.51 Encounter for screening for human papillomavirus (HPV); R32 Unspecified urinary incontinence
CPT/HCPCS: 87624; 88142; 99396

== ENCOUNTER 2023-02-25 13:27 | Outpatient (AMB) | payer MEDICAID, SELFPAY ==
--- NOTE | 2023-02-25 13:30 | A.OFFVIS_ITS ---
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 Scribed for VASILIY Talavera by Shivani York medical information officer, on 02/25/2023 at 1:48 pm EST. Marketing Assistant Required: Yes Marketing Assistant Language: Principal Systems Architect Name: Luzma Information Interpreted: non-clinical & clinical Water Resource Engineer: Water Resource Engineer Present (Luzma) Allergies No Known Allergies [No Known Allergies*] Allergy (Verified 02/25/23 13:38) Post menopausal: Yes HPI HPI Comments History of Present Illness Details She is a premenopausal woman presenting for annual exam. Reports urinary incontinence when she sneezes/coughs and has not seen Urologist; she mentioned it to her PCP. Patient admits she tries to eat a healthy diet including Calcium and Vitamin D. She stays active with exercise. Regular monthly menses lasting 6 days but flow has lessen. LMP was last month. Hx of EMB. Currently sexually active. Denies vaginal itching and irritation. STD screening offered; she declines. Denies family hx of breast, colon and ovarian cancer. Last pap smear 02/15/22. Last mammogram 12/19/22. UTD on colonoscopy. [facility] Medical History Anemia Asthma Chronic back pain Depression Hearing trouble Heavy menstrual bleeding Hypertension Hypothyroidism Migraine Stroke Tinnitus Urinary incontinence in female Surgical History Hx of section Social History Household Members: Spouse Housing: Apartment Alcohol intake: never Patient Tobacco Use Status: Former Tobacco user Female Reproductive History Menstrual Date of last pap smear: 02/15/22 ([facility] neg hpv) Date of Mammogram: 12/19/22 Physical Exam Vital Signs: Last Vital Signs BP 110/80 02/25/23 13:34 BMI result Body Mass Index 33.7 Const General: cooperative, healthy appearing, no acute distress, well developed and alert Orientation/consciousness: patient oriented x3 HEENT Head: Yes normal to inspection Eyes General: appearance normal, both eyes and all related structures Neck Neck: Yes normal visual inspection Thyroid: Thyroid normal Chest Chest palpation & inspection: normal inspection of the chest Breast/axilla inspection: normal inspection of the breasts (no puckering, dimpling, peau de orange, retraction, discharge, masses) Breast/axilla palpation: normal palpation of the breasts Resp Effort & Inspection: normal respiratory effort GI Inspection: Yes normal to inspection and Yes obesity Palpation (GI): Soft to palpation (to palpation) Rectal Exam - Female: deferred General: Yes bladder normal to inspection External Female Exam: normal external appearance and normal appearance of the urethra Speculum Exam - Vagina: normal appearance of the vagina, normal palpation and normal vaginal discharge Speculum Exam - Cervix: normal appearance of the cervix and normal palpation Bimanual exam- vagina & uterus: normal palpation and normal palpation Bimanual Exam- Adnexa, other: normal adnexae and no masses Skin General skin exam: no rashes or lesions noted Neuro General: patient oriented x3 Cognition (Neuro): normal cognition Extrem General: Yes normal to inspection Psych Attitude: cooperative Thought process: Normal thought process present Assessment & Plan Assessment & Plan (1) Encounter for well woman exam: Code(s): Z01.419 - Encounter for gynecological examination (general) (routine) without abnormal findings Plan: Discussed: Current recommendations for pap smears per ASCCP guidelines. Breast awareness and periodic self breast exams. Encouraged yearly mammograms. Maintaining a healthy lifestyle including a well balanced diet including Calcium and Vitamin D and routine exercise. Counseled re: perimenopause vs menopause. Monitor periods, report any unscheduled bleeding, bleeding episodes less than 21 days apart or heavy prolonged menstrual bleeding. FSH lab work ordered to be done in the next 6 months. All of her questions and concerns were addressed to the best of my ability RTO in 1 year for AG. (2) Urinary incontinence in female: Code(s): R32 - Unspecified urinary incontinence Plan: Referral sent to Urologist for urinary incontinence. Orders: Orders Follicle Stimulating Hormone 6 Months R23.2 - Flushing Pap Smear Today Z01.419 - Encounter for gynecological examination (general) (routine) without abnormal findings Referrals Urology Referral R32 - Unspecified urinary incontinence Coding Level of Care Code Est Pt Prev Care 40-64y(48432) Diagnoses Encounter for well woman exam Z01.419 Urinary incontinence in female R32
[2023-02-25 13:34] VITALS: BP 110/80; BMI 33.7
== END 2023-02-25 14:09 | disposition home or self-care (01) ==
LOC: HO.HWS 13:27
PROVIDERS: PCP General Practice; Visit Provider Advanced Practice Midwife
DX: Z01.419 Encounter for gynecological examination (general) (routine) without abnormal findings (principal); R32 Unspecified urinary incontinence
CPT/HCPCS: 99396

== ENCOUNTER 2023-03-03 14:44 | Outpatient (REF) | payer MEDICAID, SELFPAY ==
[2023-03-03 17:02] LABS: TSH reflex Free T4 7.47 uIU/mL (0.32-4.0)
[2023-03-03 17:45] LABS: Free T4 (Free Thyroxine) 0.66 ng/dL (0.71-1.85)
== END 2023-03-03 14:45 | disposition home or self-care (01) ==
LOC: HO.HHCL 14:44
PROVIDERS: Visit Provider General Practice
DX: E03.9 Hypothyroidism, unspecified (principal)
CPT/HCPCS: 36415; 84439; 84443

== ENCOUNTER 2023-03-03 15:09 | Outpatient (REF) | payer MEDICAID, SELFPAY ==
--- NOTE | ~2023-03-03 | XR_ITS ---
EXAMINATION: XR ELBOW, RIGHT CLINICAL INFORMATION: Pain. COMPARISON: None available. TECHNIQUE: AP, lateral, and oblique views of the right elbow. FINDINGS: The bones and soft tissues are normal. No fracture or joint effusion. Alignment is anatomic. Joint spaces are maintained. XR/XR elbow RT min 3V IMPRESSION: Normal right elbow.
--- NOTE | ~2023-03-03 | XR_ITS ---
EXAMINATION: XR SHOULDER, RIGHT CLINICAL INFORMATION: Pain. COMPARISON: None available. TECHNIQUE: AP external rotation, Grashey, scapular Y, and axillary views of the right shoulder. FINDINGS: The bones and soft tissues are normal. No fracture. Glenohumeral and acromioclavicular alignment is anatomic with normal joint space. No abnormal soft tissue calcifications. XR/XR shoulder RT min 2V IMPRESSION: Normal right shoulder.
== END 2023-03-03 15:10 | disposition home or self-care (01) ==
LOC: HO.HHCX 15:09
PROVIDERS: Visit Provider General Practice
DX: M79.601 Pain in right arm (principal)
CPT/HCPCS: 73030; 73080

== ENCOUNTER 2023-04-17 12:51 | Outpatient (REF) | payer SELFPAY | END 2023-04-17 12:52 | disposition home or self-care (01) | LOC: HO.HAP 12:51 | PROVIDERS: Visit Provider General Practice | DX: Z13.89 Encounter for screening for other disorder (principal) ==

== ENCOUNTER 2023-04-18 14:41 | Outpatient (REF) | payer MEDICAID, SELFPAY | END 2023-04-18 14:42 | disposition home or self-care (01) | LOC: HO.HAP 14:41 | PROVIDERS: Visit Provider General Practice | DX: Z46.1 Encounter for fitting and adjustment of hearing aid (principal); H90.3 Sensorineural hearing loss, bilateral | CPT/HCPCS: V5266 ==

== ENCOUNTER 2023-06-09 16:48 | Outpatient (REF) | payer MEDICAID, SELFPAY ==
[2023-06-09 18:14] LABS: TSH reflex Free T4 5.28 uIU/mL (0.32-4.0)
[2023-06-09 19:04] LABS: Free T4 (Free Thyroxine) 0.81 ng/dL (0.71-1.85)
== END 2023-06-09 16:49 | disposition home or self-care (01) ==
LOC: HO.HHCL 16:48
PROVIDERS: Visit Provider General Practice
DX: N91.2 Amenorrhea, unspecified (principal)
CPT/HCPCS: 36415; 84439; 84443

== ENCOUNTER 2023-07-28 13:45 | Outpatient (AMB) | payer MEDICAID, SELFPAY ==
[2023-07-28 14:02] VITALS: BP 130/64; PULSE 82; BMI 33.7
--- NOTE | 2023-07-28 14:02 | A.OFFVIS_ITS ---
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 pt its feeling fine she having no symptoms at the moment. Wire Preparation Worker Required: Yes Wire Preparation Worker Name: jovan/mason Accompanied by: Spouse Allergies No Known Allergies [No Known Allergies*] Allergy (Verified 02/25/23 13:38) Medication List - Last Reconciled 07/28/23 by Nicholas Cantu MD benzonatate 100 mg PO TID PRN hjbunccwaz-nebzwtzvjuron-ileb 50-325-40 mg 1 - 2 tabs PO Q6H PRN chlorthalidone (Thalitone) 15 mg PO DAILY cholecalciferol (vitamin D3) (Vitamin D3) 50 mcg PO DAILY ciprofloxacin-dexamethasone 0.3-0.1 % drps otic (ear) right cyanocobalamin (vitamin B-12) 1,000 mcg IM escitalopram oxalate 10 mg PO DAILY ferrous sulfate (FeroSul) 325 mg PO DAILY levothyroxine 112 mcg PO DAILY loratadine 10 mg PO DAILY mirtazapine 30 mg PO BEDTIME HPI HPI Comments History of Present Illness Details Carmen was referred here for symptoms of palpitations. Despite does career coordinator and her in the room she is the extremely poor historian. She said during the section she had lot of bleeding and sub sequently had suffered heart attacks. She recently started having symptoms of palpitations. On further enquiring about symptoms of palpitation she has not further able to describe but says she had rapid heart rate. This happened but is not happening currently. Was not further able to elucidate any further history. She does get exertional shortness of breath. He is referred for your further evaluation. She is longstanding history of hypertension. [facility] Medical History (Updated 07/28/23 @ 14:32 by Nicholas Cantu MD) Urinary incontinence in female Chronic back pain Tinnitus Anemia Depression Migraine Stroke Heavy menstrual bleeding Hearing trouble Hypothyroidism Hypertension Asthma Surgical History Hx of section Social History Household Members: Spouse Housing: Apartment Alcohol intake: never Patient Tobacco Use Status: Former Tobacco user Review of Systems Const Reports chills, Reports fatigue, Reports fever(s), Reports frequent falls, Reports weakness, Reports weight gain and Reports weight loss ENT Reports dizziness Card Reports chest pain, Reports leg edema, Reports lightheadedness, Reports palpitations, Reports dyspnea, Reports dyspnea on exertion and Reports orthopnea Resp Reports cough, Reports dyspnea and Reports dyspnea on exertion GI Reports bloating and Reports change in bowel habits Musc Reports muscle weakness, Reports numbness and Reports tingling Neuro Reports dizziness, Reports frequent falls, Reports numbness, Reports tingling and Reports weakness Endo Reports fatigue and Reports palpitations Physical Exam Vital Signs: Last Vital Signs Pulse 82 07/28/23 14:02 BP 130/64 07/28/23 14:02 BMI result Body Mass Index 33.7 Const General: cooperative, comfortable, no acute distress, alert and awake Nutritional Appearance: obese Orientation/consciousness: patient oriented x3 HEENT Head: Yes normocephalic and Yes atraumatic Neck Neck: Yes trachea midline, Yes supple and Yes no JVD Resp Effort & Inspection: normal respiratory effort Auscultation: clear to auscultation bilaterally Cardio Jugular venous distension: no JVD Rate: regular rate Rhythm: regular rhythm Heart sounds: S1 normal heart sound present, S2 normal heart sound present, no click, no gallops, no murmurs and no rubs GI Inspection: Yes obesity Auscultation: normal bowel sounds Skin General skin exam: no rashes or lesions noted Neuro General: patient oriented x3 and no focal motor deficits Extrem General: Yes no clubbing, cyanosis or edema Office Procedures EKG Details: EKG shows normal sinus rhythm with T-wave inversion inferior lead could represent repolarization abnormality or ischemia. [id number], Complete Assessment & Plan Assessment & Plan (1) Palpitations: Code(s): R00.2 - Palpitations Plan: Symptoms of palpitation this woman could be related to atrial fibrillation. This needs to be ruled out. Will suggest a 30 day event monitor to further assess for the same. Avoidance of stimulants was discussed. Stress mitigation strategies were discussed. Consider workup for sleep apnea. Continue aggressive risk factor modification including aggressive weight loss program uncontrolled blood pressure. This was discussed with her. Further management based on the findings of cardiac event monitor. No pharmacotherapy is being recommended at this point in time. (2) Abnormal EKG: Code(s): R94.31 - Abnormal electrocardiogram [ECG] [EKG] Plan: Abnormal EKG this woman with multiple risk factors. Will suggest a workup for structural heart disease including vasodilating myocardial perfusion imaging to rule out ischemia echocardiogram to evaluate LV systolic and diastolic function to evaluate for hypertensive heart disease and biatrial chamber size. Further management based on the findings of the test. (3) Hypertension: Code(s): I10 - Essential (primary) hypertension Plan: Hypertension which is currently well optimized advised to monitor blood pressure at home maintain a log. Goal blood pressure less than 130/84. Advised low- salt diet. Consider workup for sleep apnea. Continue current therapy. Follow up in the clinic in 6 weeks time, sooner p.r.n.. Thank you for allowing me to partake in the care Orders: Orders ECG 30 day event monitor Today R00.2 - Palpitations CA echo transthoracic complete Today R94.31 - Abnormal electrocardiogram [ECG] [EKG] CA lexiscan stress w tracie Today R94.31 - Abnormal electrocardiogram [ECG] [EKG] Coding Level of Care Code New Pt Level 4 (15137) Diagnoses Palpitations R00.2 Abnormal EKG R94.31 Hypertension I10 CPT Codes EKG - CPT: [id number], Complete ([id number])
== END 2023-07-28 14:36 | disposition home or self-care (01) ==
PROVIDERS: PCP General Practice; Referring Provider General Practice; Visit Provider Internal Medicine Cardiovascular Disease
DX: R00.2 Palpitations (principal); R94.31 Abnormal electrocardiogram [ECG] [EKG]; I10 Essential (primary) hypertension
CPT/HCPCS: 93010; 99214

== ENCOUNTER → 2023-07-28 13:45 | Outpatient (BNVA) | payer MEDICAID, SELFPAY | PROVIDERS: PCP General Practice; Visit Provider Internal Medicine Cardiovascular Disease | DX: R00.2 Palpitations (principal); R94.31 Abnormal electrocardiogram [ECG] [EKG]; I10 Essential (primary) hypertension | CPT/HCPCS: 93005; 99212 ==

== ENCOUNTER → 2023-08-18 07:47 | Outpatient (REF) | payer MEDICAID, SELFPAY ==
--- NOTE | 2023-08-18 07:54 | HM_ITS ---
Cardiac event monitor Indication: Palpitations Technique: Patient was hooked to cardiac event monitor on 08/18/2023 for total period of 30 days with poor compliance of about 27%. I was requested to read this study on 09/29/2023. Findings: Baseline was normal sinus rhythm with lowest heart rate of 42 beats per minute in sinus bradycardia and maximum heart rate of 107 beats per minute sinus tachycardia. Rare PACs noted. No other significant arrhythmias noted. No significant pauses noted Patient activated the button 20 2 times with reported 4 symptoms. One of the symptoms recorded as flutter correlated with sinus rhythm. Three symptoms of palpitation skipped heartbeat correlated with sinus rhythm. Conclusion: 1. Baseline was normal sinus rhythm with no significant pauses 2. Rare PACs noted without significant tachy or Juvencio arrhythmias 3. Patient reported 4 symptoms correlated with sinus rhythm MTDD
--- NOTE | 2023-08-18 07:54 | CA_ITS ---
Transthoracic Echocardiogram Patient (Last, First, Middle): Carmen Johnson, Gender: Female Date of : 1965 Age: 58 Procedure Date: 08/18/2023 Procedure Type: Transthoracic Echocardiogram Location: OP Height: 175.26 cm Weight: 94.35 kg BSA: 2.10 m2 Heart Rate: bpm BP: 124 / 78 mmHg Shanker Out: Referring MD: Nicholas Cantu MD Symptoms: R94.31 - Abnormal electrocardiogram [ECG] [EKG] Study Quality: Fair ECG Rhythm: Sinus Conclusions: - The left ventricular systolic function is normal. The calculated ejection fraction is 63% by biplane method. - No obvious valvular pathology seen on this study. Findings Left Ventricle Normal left ventricular cavity size. There is mildly increased left ventricular wall thickness. The left ventricular systolic function is normal. The calculated ejection fraction is 63% by biplane method. There is no evidence of regional wall motion abnormalities. Diastolic function is normal for age. Right Ventricle Normal right ventricular cavity size and systolic function. Atria Both atria are normal in size. Aortic Valve There is a normal trileaflet aortic valve. There is no aortic valve stenosis. There is no aortic valve regurgitation. Mitral Valve The mitral valve appears normal. There is no mitral valve regurgitation. There is no mitral valve stenosis. Pulmonic Valve The pulmonic valve is likely normal. Tricuspid Valve Normal tricuspid valve structure. There is no tricuspid valve regurgitation. There is no evidence of pulmonary hypertension. Great Vessels The asc aorta is normal in size. Venous The inferior vena cava is normal in size and collapses less than 50% with inspiration. Pericardium/Pleural There is no evidence of pericardial effusion. Prior Study Comparison No prior study available for comparison. Recommendations, Care & Conclusions No obvious valvular pathology seen on this study. Measurements 2D Linear Measurements IVSd: 1.15 0.6-0.9/0.6-1.0 cm LVIDd: 4.27 3.9-5.3/4.2-5.9 cm LVIDd Index: 2.03 2.4-3.2/2.2-3.1 cm/m2 LVIDs: 2.65 2.0-3.6 cm LVPWd: 1.01 0.7-1.1 cm Ao Root: 2.90 2.1-3.5 cm LA Diam: 3.10 2.7-3.8/3.0-4.0 cm LAIDs Index: 1.48 1.5-2.3 cm/m2 LV Mass: 195.51 67-162/88-224 g LV Mass Index: 93.10 43-95/49-115 g/m2 LVOT Diam: 2.00 3.0+(-)1.3 cm 2D Systolic Function EF 4C: 60.70 >55% EF 2C: 59.80 >55% EF BiP: 62.60 >55% Mitral Valve MV Pk E: 0.44 MV PK A: 0.81 MV Decel Time: 106.00 E/A: 0.50 E'Lateral: 7.62 E'Medial: 6.20 E/E' Med: 7.10 E/E' Lat: 5.80 PHT: 31.00 MVA PHT: 7.10 Decel Vilas: 7.26 Aortic Valve AoV Pk Kodi: 1.22 AoV Mn Kodi: 0.75 AoV VTI: 0.27 AoV Pk Grad: 6.00 Aov Mn Grad: 3.00 TEJINDER Cont.VTI: 2.28 LVOT LVOT Pk Kodi: 0.79 LVOT Mn Kodi: 0.57 LVOT VTI: 0.20 LVOT Pk Grad: 2.00 LVOT Mn Grad: 2.00 LVOT Diam: 2.00 LVOT Area: 3.14 Diastolic Function MV Pk E: 0.44 MV Pk A: 0.81 E/A: 0.50 E'Medial: 6.20 E/E' Med: 7.10 E' Laterial: 7.62 E/E' Lat: 5.80 Right Ventricle TAPSE (mm): 26.00 TVS' Kodi: 11.00 Tricuspid Valve TR Pk Kodi: 1.56 TR Pk Grad: 10.00 RA Press: 3.00 RVSP: 13.00 Great Vessels Aorta Ao Root-2D: 2.90 2.0-3.7 cm Ao Asc: 3.00 2.1-3.4 cm Pulmonary Valve PV Pk Kodi: 1.05 Peak PV Grad: 4.00 Updated in Other Vendor System with Status of Final Bobo De Leon MD electronically signed on 08/18/2023 6:18:18 AM with status of Final
== END ==
LOC: HO.CARD 07:47
PROVIDERS: PCP General Practice; Visit Provider Internal Medicine Cardiovascular Disease
DX: R00.2 Palpitations (principal); R94.31 Abnormal electrocardiogram [ECG] [EKG]
CPT/HCPCS: 93270; 93306

== ENCOUNTER → 2023-08-18 07:54 | Outpatient (BNV) | payer MEDICAID, SELFPAY | PROVIDERS: PCP General Practice; Visit Provider Internal Medicine | DX: R00.2 Palpitations (principal) | CPT/HCPCS: 93272; 93306 ==

== ENCOUNTER → 2023-09-04 07:49 | Outpatient (REF) | payer MEDICAID, SELFPAY | LOC: HO.CARD 07:49 | PROVIDERS: PCP General Practice; Visit Provider Internal Medicine Cardiovascular Disease | DX: Z13.89 Encounter for screening for other disorder (principal) ==

== ENCOUNTER 2023-09-04 09:26 | Outpatient (REF) | payer MEDICAID, SELFPAY | END 2023-09-04 09:27 | disposition home or self-care (01) | LOC: HO.HAP 09:26 | PROVIDERS: Visit Provider General Practice | DX: Z13.89 Encounter for screening for other disorder (principal) ==

== ENCOUNTER 2023-09-08 15:28 | Outpatient (REF) | payer MEDICAID, SELFPAY | END 2023-09-08 15:29 | disposition home or self-care (01) | LOC: HO.HAP 15:28 | PROVIDERS: Visit Provider General Practice | DX: Z46.1 Encounter for fitting and adjustment of hearing aid (principal); H90.3 Sensorineural hearing loss, bilateral | CPT/HCPCS: 92593; 99499 ==

== ENCOUNTER 2023-10-30 12:47 | Outpatient (AMB) | payer MEDICAID, SELFPAY ==
[2023-10-30 13:09] VITALS: BP 120/84; PULSE 85; BMI 33.6
--- NOTE | 2023-10-30 13:09 | MHC.OFFVIS ---
Vital Signs 10/30/23 13:09 Height 5 ft 7 in Weight 214 lb 4.629 oz BMI 33.6 BP 120/84 Blood Pressure Location Rt brachial Position Sitting Pulse 85 Pulse Source Pulse Oximeter Intake Visit Reasons: r/s 10/14/23 followup echo/holter/stress 3Rd Mate Required: Yes 3Rd Mate Language: Bonderizer Operator Name: mason Ivan [id number] Allergies No Known Allergies [No Known Allergies*] Allergy (Verified 10/30/23 13:12) Medication List - Last Reconciled 10/30/23 by Citlaly Monroe LUMBER DRIVER-C albuterol sulfate 90 mcg/actuation (Ventolin HFA) 2 puffs inhalation QID oxujdeoobo-snysajaaqqnjn-xlgf 50-325-40 mg 1 - 2 tabs PO Q6H PRN chlorthalidone (Thalitone) 15 mg PO DAILY cholecalciferol (vitamin D3) (Vitamin D3) 50 mcg PO DAILY ciprofloxacin-dexamethasone 0.3-0.1 % drps otic (ear) right cyanocobalamin (vitamin B-12) 1,000 mcg IM escitalopram oxalate 10 mg PO DAILY ferrous sulfate (FeroSul) 325 mg PO DAILY hydroxyzine pamoate 25 mg PO Q12H PRN levothyroxine 100 mcg PO QAM loratadine 10 mg PO DAILY mirtazapine 30 mg PO BEDTIME HPI HPI r/s 10/14/23 followup echo/holter/stress: Details: Carmen is a 58-year-old female with past medical history of obesity, hypertension, reported history of prior [place] who was recently evaluated for heart palpitations, exertional shortness of breath. She underwent a echocardiogram and cardiac event monitor now presents for follow-up. A nuclear stress test was ordered however she was not able to complete due to claustrophobia. Today she reports that she still feels her heart going fast at times. Her description of this is quite vague even with the use of a recruiting team lead. She is not having any clear chest discomfort. She does report shortness of breath when walking. Admits to being mostly sedentary. No lightheadedness, presyncope, syncope, falls. No PND, orthopnea or edema. is present. Certified recruiting team lead used. [facility] Medical History Urinary incontinence in female Chronic back pain Tinnitus Anemia Depression Migraine Stroke Heavy menstrual bleeding Hearing trouble Hypothyroidism Hypertension Asthma Surgical History Hx of section Social History Household Members: Spouse Housing: Apartment Alcohol intake: never Patient Tobacco Use Status: Former Tobacco user Review of Systems Const All systems reviewed & are unremarkable except as noted in HPI and below ENT Denies dizziness Card Denies chest pain, Denies chest pain at rest, Denies chest pain with activity, Reports rapid heart rate, Denies pedal edema, Denies edema, Denies leg edema, Denies lightheadedness, Denies palpitations, Denies dyspnea, Denies dyspnea on exertion and Denies orthopnea Resp Denies cough, Denies dyspnea and Denies dyspnea on exertion GI Denies hematochezia and Denies change in stool character Musc Denies abnormal gait, Denies limited range of motion, Denies muscle cramps, Denies muscle weakness, Denies numbness, Denies radiating pain into limb, Denies stiffness and Denies tingling Neuro Denies abnormal gait, Denies dizziness, Denies numbness and Denies tingling Endo Denies palpitations Physical Exam Vital Signs: Last Vital Signs Pulse 85 10/30/23 13:09 BP 120/84 10/30/23 13:09 BMI result Body Mass Index 33.6 Const General: cooperative, healthy appearing, comfortable and no acute distress Orientation/consciousness: patient oriented x3 Neck Neck: Yes normal visual inspection and Yes no JVD Resp Effort & Inspection: normal respiratory effort Auscultation: clear to auscultation bilaterally, no crackles, no rales, no rhonchi and no wheezes Cardio Jugular venous distension: no JVD Rate: regular rate Rhythm: regular rhythm Heart sounds: S1 normal heart sound present, S2 normal heart sound present, no murmurs and no rubs Neuro General: patient oriented x3 Extrem General: Yes normal to inspection and No no pedal edema Psych Appearance: grossly normal Mental Status: mental status grossly normal Speech and movement: Normal speech and movement present Assessment & Plan Assessment & Plan (1) Palpitations: Code(s): R00.2 - Palpitations Category: Medical Plan: Report of heart palpitations where her heart is going fast, vague description. EKG done last visit shows sinus rhythm with T-wave abnormality inferiorly, rate 82. She had echocardiogram on 08/18/2023 showing normal EF 63%, normal valves and no regional wall motion abnormality reported. Cardiac event monitor for 30 days done on 08/18/2023, compliance was only 27%, showing sinus rhythm with heart rate range 42 to 107, rare PACs, symptoms correlated with sinus rhythm. Test results reviewed with her in detail. Pulse is normal range today. Offered reassurance. Instructed on reduction in caffeinated beverages. Increasing physical activity as tolerated. Maintaining good hydration and getting adequate rest at night. (2) Abnormal EKG: Code(s): R94.31 - Abnormal electrocardiogram [ECG] [EKG] Category: Medical Plan: EKG done last visit did show T-wave abnormalities suggesting possible inferior ischemia. She has no reports of chest discomfort. She does report some shortness of breath with exertion which could be related to deconditioning and obesity. She was not able to complete the pharmacological nuclear stress test due to report of claustrophobia. This will also exclude getting a CTA of the coronary arteries on her. She says she can not tolerate machines or being restricted in her motion. She does ambulate steadily and is willing to try an exercise stress test. Will order an ETT to evaluate for possible ischemia. She is requesting to have this done in December as she will be going to [place] soon and not coming back until the end of November. (3) Hypertension: Code(s): I10 - Essential (primary) hypertension Category: Medical Plan: Well controlled at this time. No medication changes made. (4) Obesity: Code(s): E66.9 - Obesity, unspecified Category: Medical Plan: Benefit of weight loss and increasing physical activity reviewed with her. Plan Time spent on chart review, documentation, interview and assessment Orders: Orders CA stress test 12/08/23 R00.2 - Palpitations, R94.31 - Abnormal electrocardiogram [ECG] [EKG] Coding Level of Care Code Est Pt Level 3 (50052) Diagnoses Palpitations R00.2 Abnormal EKG R94.31 Hypertension I10 Obesity E66.9 Time Spent (min) 24
== END 2023-10-30 14:05 | disposition home or self-care (01) ==
PROVIDERS: PCP General Practice; Visit Provider Nurse Practitioner Family
DX: R00.2 Palpitations (principal); R94.31 Abnormal electrocardiogram [ECG] [EKG]; I10 Essential (primary) hypertension; E66.9 Obesity, unspecified
CPT/HCPCS: 99213

== ENCOUNTER → 2023-10-30 12:47 | Outpatient (BNVA) | payer MEDICAID, SELFPAY | PROVIDERS: PCP General Practice; Visit Provider Nurse Practitioner Family | DX: R00.2 Palpitations (principal); R94.31 Abnormal electrocardiogram [ECG] [EKG]; I10 Essential (primary) hypertension; E66.9 Obesity, unspecified; Z68.33 Body mass index [BMI] 33.0-33.9, adult | CPT/HCPCS: 99212 ==

== ENCOUNTER 2024-01-19 13:42 | Outpatient (AMB) | payer MEDICAID, SELFPAY ==
--- NOTE | 2024-01-19 13:52 | MHC.OFFVIS ---
Vital Signs 01/19/24 13:53 Height 5 ft 7 in Weight 211 lb 3.245 oz BMI 33.1 BP 122/70 Blood Pressure Location Lt brachial Position Sitting Pulse 85 Pulse Source Pulse Oximeter Intake Visit Reasons: r/s 01/01/24 3 mos followup stress test Health Care Recruiter Required: Yes Health Care Recruiter Language: Guyanese Allergies No Known Allergies [No Known Allergies*] Allergy (Verified 01/19/24 13:56) Medication List - Last Reconciled 01/19/24 by TATYANA Knox albuterol sulfate 90 mcg/actuation (Ventolin HFA) 2 puffs inhalation QID acafmykdyq-dpvczuocwqekp-qmfv 50-325-40 mg 1 - 2 tabs PO Q6H PRN chlorthalidone (Thalitone) 15 mg PO DAILY cholecalciferol (vitamin D3) (Vitamin D3) 50 mcg PO DAILY ciprofloxacin-dexamethasone 0.3-0.1 % drps otic (ear) right cyanocobalamin (vitamin B-12) 1,000 mcg IM diphenhydramine HCl (Mira-Dryl) 25 - 50 mg PO BEDTIME PRN escitalopram oxalate 10 mg PO DAILY hydroxyzine pamoate 25 mg PO Q12H PRN ketotifen fumarate 0.025%(0.035%) (Eye Itch Relief) 1 drp ophthalmic (eye) BID levothyroxine 100 mcg PO QAM loratadine 10 mg PO DAILY mirtazapine 30 mg PO BEDTIME HPI HPI r/s 01/01/24 3 mos followup stress test: Details: Carmen is a 58-year-old female with past medical history of obesity, hypertension, reported history of prior [place] who was recently evaluated for heart palpitations, exertional shortness of breath. She underwent a echocardiogram and cardiac event monitor Which showed no acute abnormalities. A nuclear stress test was ordered however she was not able to complete due to claustrophobia. On last visit an exercise stress test was ordered however not completed. Today she reports that she has had some issues with her asthma recently. She uses her pump and says it helps. She has been having occasional heart palpitations but overall this symptom is less than what was previously reported. She reports her chest is sore it at times if she presses on it. She denies getting chest discomfort that is brought on by walking. No lightheadedness, presyncope, syncope, falls. No PND, orthopnea or edema. Certified operations systems specialist used. FORMERLY [facility], 1928–1983 Medical History Urinary incontinence in female Chronic back pain Tinnitus Anemia Depression Migraine Stroke Heavy menstrual bleeding Hearing trouble Hypothyroidism Hypertension Asthma Surgical History Hx of section Social History Household Members: Spouse Housing: Apartment Alcohol intake: never Patient Tobacco Use Status: Former Tobacco user Review of Systems Const All systems reviewed & are unremarkable except as noted in HPI and below ENT Denies dizziness Card Details: occassional heart palpitations Denies chest pain, Denies chest pain at rest, Denies chest pain with activity, Denies rapid heart rate, Denies pedal edema, Denies edema, Denies leg edema, Denies lightheadedness, Denies palpitations, Reports dyspnea, Denies dyspnea on exertion and Denies orthopnea Resp Denies cough, Reports dyspnea and Denies dyspnea on exertion GI Denies hematochezia and Denies change in stool character Musc Denies abnormal gait, Denies limited range of motion, Denies muscle cramps, Denies muscle weakness, Denies numbness, Denies radiating pain into limb, Denies stiffness and Denies tingling Neuro Denies abnormal gait, Denies dizziness, Denies numbness and Denies tingling Endo Denies palpitations Physical Exam Vital Signs: Last Vital Signs Pulse 85 01/19/24 13:53 BP 122/70 01/19/24 13:53 BMI result Body Mass Index 33.1 Const General: cooperative, healthy appearing, comfortable and no acute distress Orientation/consciousness: patient oriented x3 Neck Neck: Yes normal visual inspection and Yes no JVD Resp Effort & Inspection: normal respiratory effort Auscultation: clear to auscultation bilaterally, no crackles, no rales, no rhonchi and no wheezes Cardio Jugular venous distension: no JVD Rate: regular rate Rhythm: regular rhythm Heart sounds: S1 normal heart sound present, S2 normal heart sound present, no murmurs and no rubs Neuro General: patient oriented x3 Extrem General: Yes normal to inspection and No no pedal edema Psych Appearance: grossly normal Mental Status: mental status grossly normal Speech and movement: Normal speech and movement present Assessment & Plan Assessment & Plan (1) Palpitations: Code(s): R00.2 - Palpitations Category: Medical Plan: Prior reports of heart palpitations where her heart is going fast, vague description. EKG done last visit shows sinus rhythm with T-wave abnormality inferiorly, rate 82. She had echocardiogram on 08/18/2023 showing normal EF 63%, normal valves and no regional wall motion abnormality reported. Cardiac event monitor for 30 days done on 08/18/2023, compliance was only 27%, showing sinus rhythm with heart rate range 42 to 107, rare PACs, symptoms correlated with sinus rhythm. Test results reviewed with her in detail. Today she reports that her palpitations have lessened and only occur occasionally. No Lightheadedness, presyncope, syncope. offered reassurance that no significant abnormalities identified. Reviewed reduction in caffeinated beverages. Increasing physical activity as tolerated. Maintaining good hydration and getting adequate rest at night. (2) Abnormal EKG: Code(s): R94.31 - Abnormal electrocardiogram [ECG] [EKG] Category: Medical Plan: EKG done on prior visit did show T-wave abnormalities suggesting possible inferior ischemia. She has no reports of exertionalchest discomfort. She does report some shortness of breath with exertion which could be related to asthma, deconditioning and obesity. She was not able to complete the pharmacological nuclear stress test due to report of claustrophobia. This will also exclude getting a CTA of the coronary arteries on her. She says she can not tolerate machines or being restricted in her motion. She does ambulate steadily and is willing to try an exercise stress test. Exercise stress test ordered on her last visit to evaluate for ischemia and not a completed as of yet. Will send request centralized scheduling to have them call her with appointment. Plan to review test results with her at time of procedure. Currently will plan for cardiology follow-up in 6 months, sooner if needed. (3) Hypertension: Code(s): I10 - Essential (primary) hypertension Category: Medical Plan: Well controlled at this time. No medication changes made. (4) Obesity: Code(s): E66.9 - Obesity, unspecified Category: Medical Plan: Benefit of weight loss and increasing physical activity reviewed with her. Plan Time spent on chart review, documentation, interview and assessment Coding Level of Care Code Est Pt Level 4 (40345) Diagnoses Palpitations R00.2 Abnormal EKG R94.31 Hypertension I10 Obesity E66.9 Time Spent (min) 28
[2024-01-19 13:53] VITALS: BP 122/70; PULSE 85; BMI 33.1
== END 2024-01-19 14:54 | disposition home or self-care (01) ==
PROVIDERS: PCP General Practice; Visit Provider Nurse Practitioner Family
DX: R00.2 Palpitations (principal); R94.31 Abnormal electrocardiogram [ECG] [EKG]; I10 Essential (primary) hypertension; E66.9 Obesity, unspecified
CPT/HCPCS: 99214

== ENCOUNTER → 2024-01-19 13:42 | Outpatient (BNVA) | payer MEDICAID, SELFPAY | PROVIDERS: PCP General Practice; Visit Provider Nurse Practitioner Family | DX: R00.2 Palpitations (principal); R94.31 Abnormal electrocardiogram [ECG] [EKG]; I10 Essential (primary) hypertension; E66.9 Obesity, unspecified; Z68.33 Body mass index [BMI] 33.0-33.9, adult | CPT/HCPCS: 99212 ==

== ENCOUNTER 2024-03-17 14:44 | Outpatient (REF) | payer MEDICAID, SELFPAY ==
--- NOTE | ~2024-03-17 | MM_ITS ---
EXAMINATION: MM SCREENING DIGITAL BREAST TOMOSYNTHESIS, BILATERAL CLINICAL INFORMATION: Screening. Asymptomatic. COMPARISON: Mammography: Comparison is made with available priors TECHNIQUE: Digital breast mammography with tomosynthesis is performed in both the craniocaudal and mediolateral oblique views along with computer-aided detection (CAD). FINDINGS: The breasts are heterogeneously dense, which may obscure small masses (ACR BI-RADS breast composition Category c). There are no significant masses, abnormal calcifications, or other abnormalities. MM/MM tomosynthesis screening BI IMPRESSION: No mammographic evidence of malignancy. ASSESSMENT: BI-RADS BI-RADS 1 - Negative RECOMMENDATION: Routine annual mammography screening. 1 year F/U This examination should not preclude the clinical evaluation of a suspicious palpable abnormality. This patient's information was entered into a reminder system with a target due date for their next mammogram. Electronically signed by: Cyndi Thompson DO 03/31/2024 12:49 PM EDT
== END 2024-03-17 14:45 | disposition home or self-care (01) ==
LOC: HO.MAMMO 14:44
PROVIDERS: PCP General Practice; Visit Provider General Practice
DX: Z12.31 Encounter for screening mammogram for malignant neoplasm of breast (principal)
CPT/HCPCS: 77063; 77067

== ENCOUNTER → 2024-03-17 14:45 | Outpatient (BNV) | payer MEDICAID, SELFPAY | PROVIDERS: PCP General Practice; Visit Provider Internal Medicine | DX: Z12.31 Encounter for screening mammogram for malignant neoplasm of breast (principal) | CPT/HCPCS: 77063; 77067 ==

== ENCOUNTER 2024-04-26 14:31 | Outpatient (REF) | payer MEDICAID, SELFPAY ==
--- NOTE | ~2024-04-26 | XR_ITS ---
EXAMINATION: XR CHEST CLINICAL INFORMATION: Cough for 8 days. COMPARISON: None available. TECHNIQUE: PA and lateral views of the chest were obtained. FINDINGS: The study is limited by suboptimal inspiration. Bibasilar patchy densities and frontal view are not substantiated on lateral view. No focal infiltrate, effusion, or pneumothorax is appreciated as such. The cardiovascular structures, mediastinum, diaphragm, bones, and soft tissues appear unremarkable. XR/XR chest 2V IMPRESSION: No acute finding. Electronically signed by: Pedro Lockhart MD 04/26/2024 04:59 PM EDT
== END 2024-04-26 14:32 | disposition home or self-care (01) ==
LOC: HO.HHCX 14:31
PROVIDERS: Visit Provider Internal Medicine
DX: R05.1 Acute cough (principal)
CPT/HCPCS: 36415; 71046; 85025

== ENCOUNTER 2024-04-26 15:05 | Outpatient (REF) | payer MEDICAID, SELFPAY ==
[2024-04-26 16:38] LABS: MANUAL DIFF FLAG NO
[2024-04-26 16:47] LABS: Basophils Absolute Auto 0.1 X10*3/uL (0.0-0.2); Basophils Percent Auto 0.8 % (0-2); Eosinophils Absolute Auto 0.4 X10*3/uL (0.0-0.4); Eosinophils Percent Auto 4.2 % (0-4); Hematocrit 35.6 % (37.0-47.0); Hemoglobin 11.1 g/dl (12.0-16.0); Imm Gran Abs Auto 0.03 X10*3/uL (0.00-0.03); Imm Gran Pct Auto 0.3 % (0.0-0.4); Lymphocytes Absolute Auto 3.6 X10*3/uL (1.2-4.9); Lymphocytes Percent Auto 38.8 % (20-40); Mean Corpuscular HGB Conc 31.2 g/dl (31.0-35.0); Mean Corpuscular Hemoglobin 25.2 pg (27.0-33.0); Mean Corpuscular Volume 80.9 fL (80.0-98.0); Mean Platelet Volume 12.3 fL (9.4-12.3); Monocytes Absolute Auto 0.6 X10*3/uL (0.1-1.2); Monocytes Percent Auto 6.1 % (2-11); Neutrophils Absolute Auto 4.6 x10*3/uL (2.0-8.3); Neutrophils Percent Auto 49.8 % (45-73); Platelet Count 275 X10*3/uL (160-400); Red Cell Distribution Width 15.9 % (11.0-16.0); White Blood Count 9.3 X10*3/uL (4.8-10.8)
== END 2024-04-26 15:06 | disposition home or self-care (01) ==
LOC: HO.HHCL 15:05
PROVIDERS: Visit Provider Internal Medicine
DX: R05.1 Acute cough (principal)
CPT/HCPCS: 36415; 85025

== ENCOUNTER 2024-05-10 13:29 | Outpatient (REF) | payer MEDICAID, SELFPAY ==
--- NOTE | 2024-05-11 10:42 | MHC.AU.HA3 ---
Hearing Instrument Follow-Up- Binaural Date of Visit: 05/11/24 Right Ear: Make, Model, Color, Serial Number: Ekta Santos [id number] SN: [id number] Color: Silver [place]vo Proj Engineer Repair Warranty: 07/16/2025 Proj Engineer Loss and Damage Warranty: 07/16/2025 [facility] Service Plan: 06/17/2023 Battery Size: 675 Earmold/Dome/CShell/SlimTip:Microsonic M35 Skeleton Dispensed By: [facility] Date of Fittin06/17/2022 Left Ear: Make, Model, Color, Serial Number: Ekta Santos [id number] SN: [id number] Color: Silver Calvo Proj Engineer Repair Warranty: 07/16/2025 Proj Engineer Loss and Damage Warranty: 07/16/2025 [facility] Service Plan: 06/17/2023 Battery Size: 675 Earmold/Dome/CShell/SlimTip: Microsonic M35 Skeleton Dispensed By: [facility] Date of Fittin06/17/2022 Follow-Up Summary: Aids dropped off. Found tubes hard, debris in tubes. Cleaned aids, cleaned earmolds, ran aids through dehumidifier. Replaced tubing and tone hooks. Listening check positive. Recommendations: Recommendations: Hearing instrument maintenance in 6 months, or sooner if needed. Diagnosis Code(s): Primary Diagnosis: H90.3 Bilateral Sensorineural Hearing Loss Signature: Provider: Serg Burns, [facility]
== END 2024-05-10 13:30 | disposition home or self-care (01) ==
LOC: HO.HAP 13:29
PROVIDERS: Visit Provider General Practice
DX: Z13.89 Encounter for screening for other disorder (principal)

== ENCOUNTER 2024-05-12 14:50 | Outpatient (REF) | payer MEDICAID, SELFPAY | END 2024-05-12 14:51 | disposition home or self-care (01) | LOC: HO.HAP 14:50 | PROVIDERS: Visit Provider General Practice | DX: Z46.1 Encounter for fitting and adjustment of hearing aid (principal); H90.3 Sensorineural hearing loss, bilateral | CPT/HCPCS: 92593; 99499; V5266 ==

== ENCOUNTER 2024-05-12 14:58 | Outpatient (REF) | payer MEDICAID, SELFPAY | END 2024-05-12 14:59 | disposition home or self-care (01) | LOC: HO.HAP 14:58 | PROVIDERS: Visit Provider General Practice | DX: Z13.89 Encounter for screening for other disorder (principal) ==

== ENCOUNTER 2024-05-18 11:04 | Outpatient (REF) | payer MEDICAID, SELFPAY ==
[2024-05-18 13:45] LABS: MANUAL DIFF FLAG NO
[2024-05-18 13:47] LABS: Basophils Absolute Auto 0.1 X10*3/uL (0.0-0.2); Basophils Percent Auto 0.9 % (0-2); Eosinophils Absolute Auto 0.5 X10*3/uL (0.0-0.4); Eosinophils Percent Auto 4.9 % (0-4); Hematocrit 34.2 % (37.0-47.0); Hemoglobin 10.7 g/dl (12.0-16.0); Imm Gran Abs Auto 0.05 X10*3/uL (0.00-0.03); Imm Gran Pct Auto 0.5 % (0.0-0.4); Immature Retic Fraction 28.6 % (3.0-15.9); Lymphocytes Absolute Auto 4.1 X10*3/uL (1.2-4.9); Lymphocytes Percent Auto 40.9 % (20-40); Mean Corpuscular HGB Conc 31.3 g/dl (31.0-35.0); Mean Corpuscular Hemoglobin 25.7 pg (27.0-33.0); Mean Corpuscular Volume 82.2 fL (80.0-98.0); Monocytes Absolute Auto 0.5 X10*3/uL (0.1-1.2); Monocytes Percent Auto 5.2 % (2-11); Neutrophils Absolute Auto 4.8 x10*3/uL (2.0-8.3); Neutrophils Percent Auto 47.6 % (45-73); Platelet Count 260 X10*3/uL (160-400); Red Blood Count 4.16 X10*6/uL (4.20-5.50); Red Cell Distribution Width 16.4 % (11.0-16.0); Reticulocyte Percent 1.5 % (0.5-1.8); Reticulocytes Absolute 0.063 X10*6/uL (0.026-0.095); White Blood Count 10.1 X10*3/uL (4.8-10.8)
[2024-05-18 13:56] LABS: Estimated Average Glucose 143 mg/dL; Hemoglobin A1C 141.7785 umol/L; Hemoglobin A1c % 6.6 % (<6.0); Total Hemoglobin (HGBA1C) 2909.0758 umol/L
[2024-05-18 14:26] LABS: Alanine Aminotransferase 47 U/L (0-31); Albumin Level 4.1 g/dL (3.5-5.0); Alkaline Phosphatase 52 U/L (39-117); Anion Gap 12 (12-20); Aspartate Amino Transferase 41 U/L (5-31); Bilirubin Total 0.2 mg/dL (0.0-1.0); Blood Urea Nitrogen 15 mg/dL (9-16); Calcium 9.7 mg/dL (8.4-10.2); Carbon Dioxide 26 mmol/L (22-29); Chloride 106 mmol/L (96-108); Cholesterol 196 mg/dL (<200); Estimated Glomerular Filt Rate > 60; Glucose Random 123 mg/dL (60-115); HDL Cholesterol 35 mg/dL (>40); Iron 28 mcg/dL (30-160); LDL Cholesterol Calculated 127 mg/dL (<100); Percent Iron Saturation 7 % (15-50); Potassium 3.9 mmol/L (3.3-5.1); Sodium 140 mmol/L (135-145); Total Iron Binding Capacity 397 mcg/dL (228-428); Triglycerides 174 mg/dL (<150); Unsaturated Iron Binding 369 ug/dL
[2024-05-18 14:33] LABS: Ferritin 16 ng/mL (10-250)
[2024-05-18 15:19] LABS: Free T4 (Free Thyroxine) 0.72 ng/dL (0.71-1.85)
[2024-05-20 00:38] LABS: Follicle Stimulating Hormone 12.3 mIU/mL
== END 2024-05-18 11:05 | disposition home or self-care (01) ==
LOC: HO.HHCL 11:04
PROVIDERS: Advanced Practice Midwife; Internal Medicine; Visit Provider General Practice
DX: D50.9 Iron deficiency anemia, unspecified (principal); R23.2 Flushing; I10 Essential (primary) hypertension
CPT/HCPCS: 36415; 80053; 80061; 82728; 83001; 83036; 83540; 84439; 84443; 85025; 85045

== ENCOUNTER 2024-07-22 13:42 | Outpatient (AMB) | payer MEDICAID, SELFPAY ==
[2024-07-22 13:46] VITALS: BP 132/80; PULSE 88; BMI 33.6
--- NOTE | 2024-07-22 13:46 | MHC.OFFVIS ---
Vital Signs 07/22/24 13:46 Height 5 ft 7 in Weight 214 lb 4.629 oz BMI 33.6 BP 132/80 Blood Pressure Location Lt brachial Position Sitting Pulse 88 Pulse Source Pulse Oximeter Intake Visit Reasons: 6 mth f/up Telegraph Service Rater Required: Yes Telegraph Service Rater Language: Clinical Outcomes Manager Name: voice gomez [id number] Computer Repairer: Computer Repairer Present Allergies No Known Allergies [No Known Allergies*] Allergy (Verified 07/22/24 13:48) Medication List - Last Reconciled 07/22/24 by TATYANA Knox albuterol sulfate 90 mcg/actuation (Ventolin HFA) 2 puffs inhalation QID chlorthalidone (Thalitone) 15 mg PO DAILY cholecalciferol (vitamin D3) (Vitamin D3) 50 mcg PO DAILY ciprofloxacin-dexamethasone 0.3-0.1 % drps otic (ear) right cyanocobalamin (vitamin B-12) 1,000 mcg IM diphenhydramine HCl (Mira-Dryl) 25 - 50 mg PO BEDTIME PRN escitalopram oxalate 10 mg PO DAILY hydroxyzine pamoate 25 mg PO Q12H PRN ketotifen fumarate 0.025%(0.035%) (Eye Itch Relief) 1 drp ophthalmic (eye) BID levothyroxine 100 mcg PO QAM loratadine 10 mg PO DAILY losartan 25 mg PO DAILY metformin ER 500 mg PO DAILY mirtazapine 30 mg PO BEDTIME HPI HPI 6 mth f/up: Details: Carmen is a 59-year-old female with past medical history of obesity, hypertension, reported history of prior [place], who has been evaluated for heart palpitations, exertional shortness of breath. She underwent a echocardiogram and cardiac event monitor which showed no acute abnormalities. A nuclear stress test was ordered however she was not able to complete due to claustrophobia. On last visit an exercise stress test was ordered however not completed. Today she reports that she has been doing well since her last visit in January. She have some issues with shortness of breath which she relates to her asthma. She will feel an occasional scared feeling in her chest. No chest discomfort at rest or with activity. No heart palpitations like what she previously described. No lightheadedness, presyncope, syncope. No PND, orthopnea or edema. Taking meds as directed. Hard of hearing. Certified bilingual interpreter used. present. PFSH Medical History Urinary incontinence in female Chronic back pain Tinnitus Anemia Depression Migraine Stroke Heavy menstrual bleeding Hearing trouble Hypothyroidism Hypertension Asthma Surgical History Hx of section Social History Household Members: Spouse Housing: Apartment Alcohol intake: never Patient Tobacco Use Status: Former Tobacco user Review of Systems Const All systems reviewed & are unremarkable except as noted in HPI and below ENT Denies dizziness Card Details: scared feeling in her chest randomly Denies chest pain, Denies chest pain at rest, Denies chest pain with activity, Denies rapid heart rate, Denies pedal edema, Denies edema, Denies leg edema, Denies lightheadedness, Denies palpitations, Reports dyspnea (when it is very cold outside), Denies dyspnea on exertion and Denies orthopnea Resp Denies cough, Reports dyspnea (when it is very cold outside) and Denies dyspnea on exertion GI Denies hematochezia and Denies change in stool character Musc Denies abnormal gait, Denies limited range of motion, Denies muscle cramps, Denies muscle weakness, Denies numbness, Denies radiating pain into limb, Denies stiffness and Denies tingling Neuro Denies abnormal gait, Denies dizziness, Denies numbness and Denies tingling Endo Denies palpitations Physical Exam Vital Signs: Last Vital Signs Pulse 88 07/22/24 13:46 BP 132/80 07/22/24 13:46 BMI result Body Mass Index 33.6 Const General: cooperative, healthy appearing, comfortable and no acute distress Orientation/consciousness: patient oriented x3 Neck Neck: Yes normal visual inspection and Yes no JVD Resp Effort & Inspection: normal respiratory effort Auscultation: clear to auscultation bilaterally, no crackles, no rales, no rhonchi and no wheezes Cardio Jugular venous distension: no JVD Rate: regular rate Rhythm: regular rhythm Heart sounds: S1 normal heart sound present, S2 normal heart sound present, no murmurs and no rubs Neuro General: patient oriented x3 Extrem General: Yes normal to inspection and No no pedal edema Psych Appearance: grossly normal Mental Status: mental status grossly normal Speech and movement: Normal speech and movement present Assessment & Plan Assessment & Plan (1) Palpitations: Code(s): R00.2 - Palpitations Category: Medical Plan: Prior reports of heart palpitations where her heart is going fast, vague description. EKG done on prior visit shows sinus rhythm with T-wave abnormality inferiorly, rate 82. She had echocardiogram on 08/18/2023 showing normal EF 63%, normal valves and no regional wall motion abnormality reported. Cardiac event monitor for 30 days done on 08/18/2023, compliance was only 27%, showing sinus rhythm with heart rate range 42 to 107, rare PACs, symptoms correlated with sinus rhythm. Test results reviewed with her in detail. Palpitations most likely related to extrasystoles, PACs. Today she reports that she has not been having palpitations recently. She does describe having an occasional scared feeling in her chest which is brief and resolves on its own. Unknown triggers. This could still be extrasystoles like PVCs. With her normal EF she was offered reassurance that her symptoms are benign. Reviewed reduction in caffeinated beverages. Increasing physical activity as tolerated. Maintaining good hydration and getting adequate rest at night. (2) Abnormal EKG: Code(s): R94.31 - Abnormal electrocardiogram [ECG] [EKG] Category: Medical Plan: EKG done on prior visit did show T-wave abnormalities suggesting possible inferior lateral ischemia. She has no no known cardiac history. No reports of exertional chest discomfort. She does report some shortness of breath with exertion which could be related to asthma, deconditioning and obesity. She was not able to complete the pharmacological nuclear stress test due to report of claustrophobia. This will also exclude getting a CTA of the coronary arteries on her. She says she can not tolerate machines or being restricted in her motion. She does ambulate steadily and previously said she was willing to try an exercise stress test. Exercise stress test ordered last visit and not completed as of yet. Will send message to our technical spec. Plan to discuss results with her at the time of the stress test. At this time will plan for cardiology follow-up, to be determined. If stress is entirely normal then will likely be as needed follow-up. (3) Hypertension: Code(s): I10 - Essential (primary) hypertension Category: Medical Plan: Well controlled at this time. No medication changes made. (4) Obesity: Code(s): E66.9 - Obesity, unspecified Category: Medical Plan: Benefit of weight loss and increasing physical activity reviewed with her. Plan Time spent on chart review, documentation, interview and assessment Coding Level of Care Code Est Pt Level 4 (91336) Complex EM visit Add On G2211 Diagnoses Palpitations R00.2 Abnormal EKG R94.31 Hypertension I10 Obesity E66.9 Time Spent (min) 30
== END 2024-07-22 15:01 | disposition home or self-care (01) ==
PROVIDERS: PCP General Practice; Visit Provider Nurse Practitioner Family
DX: R00.2 Palpitations (principal); R94.31 Abnormal electrocardiogram [ECG] [EKG]; I10 Essential (primary) hypertension; E66.9 Obesity, unspecified
CPT/HCPCS: 99214

== ENCOUNTER → 2024-07-22 13:42 | Outpatient (BNVA) | payer MEDICAID, SELFPAY | PROVIDERS: PCP General Practice; Visit Provider Nurse Practitioner Family | DX: R94.31 Abnormal electrocardiogram [ECG] [EKG] (principal); R00.2 Palpitations; I10 Essential (primary) hypertension; E66.9 Obesity, unspecified; Z68.33 Body mass index [BMI] 33.0-33.9, adult | CPT/HCPCS: 99212 ==

== ENCOUNTER → 2024-07-30 09:21 | Outpatient (REF) | payer MEDICAID, SELFPAY ==
--- NOTE | 2024-07-30 09:23 | CA_ITS ---
Acquisition Time: 2024-07-30 09:38:16 Total Exercise Time: 00:06:32 Test Indications: ABN EKG,Dyspnea PALPITATIONS Medications: SEE H&P Protocol: ZHOU Max HR: 117 BPM 71% of Pred: 163 BPM Max BP: 134/78 mmHG Max Work Load: 2.7 METS Exercise Stress Test with exercise 5 secs of Zhou Protocol, stopped and switched to manual with no incline and speed at 0.2mph, unable to walk, achieving 62% mPHR, without any anginal symptoms, without any arrythmias. No EKG changes, baseline t wave inversions inferiorly and anterolaterally. Test reviewed with Dr. Cantu. Referred By: Citlaly Monroe Electronically Signed By: Rafael Guzman
== END ==
LOC: HO.CARD 09:21
PROVIDERS: PCP General Practice; Visit Provider Nurse Practitioner Family
DX: R00.2 Palpitations (principal); R94.31 Abnormal electrocardiogram [ECG] [EKG]
CPT/HCPCS: 93017

== ENCOUNTER 2025-01-03 10:41 | Outpatient (REF) | payer MEDICAID, SELFPAY ==
--- OUTSIDE RECORDS SUMMARY | 2025-01-03 11:26 | XMS_ITS | Encounter Summary ---
Author Organization [employer] Address [address] [facility] [address] [place] [address] Care Team Providers Care Catering Director Name Role Phone Mesha Ruff MD Primary Care Provider [phone] Reason for Visit * Reason Comments Pre-visit Planning SDOH negative. Tobac co screening negative. Encounter Details Date Type Department Care Team ([facility] st Contact Info) Description 12/31/2024 Patient Outreach [facility] [address] [place], [place] [phone] Mesha Ruff MD [address] [place] [address] Pre-visit Planning (SDOH negative. Tobacco screening negative. ) Social History Tobacco Use Types Packs/Day Years Used Date Smoking Tobacco: Never Smokeless Tobacco: Never Alcohol Use Standard Drinks/Week Comments Never 0 (1 standard drink = 0.6 oz pur e alcohol) Depression Answer Date Recorded Patient Health Questionnaire-9 Score 0 06/08/2024 Patient Health Questionnaire-9 Score 0 06/08/2024 Last PHQ-9: Questionnaire Data Not on file 1 08/09/2023 Housing Stability Answer Date Recorded What is your housing situation today? I have phyllis magdaleno 06/08/[address] you li ve. Do you have problems with any of the following? None of the above 06/08/2024 Food Insecurity Answer Date Recorded Within the past 12 months, y ou worried that your food would run out before you got money to buy more: Never True 06/08/2024 Within the past 12 months,th e food you bought just didn't last and you didn't have enough money to get more: Never True 09/2023 Transportation Answer Date Recorded In the past 12 months, has l ack of transportation kept you from medical appts, meetings, work or from getting things needed for daily living? No 06/08/2024 Utilities Answer Date Recorded In the past 12 months, has t he electric, gas, oil or water company threatened to shut off services in your home? No 06/08/2024 Depression Answer Date Recorded Patient Health Questionnaire-2 Score 0 06/08/2024 Internet Access Answer Date Recorded Internet Access Q1 Yes 06/08/2024 Internet Access Q2 Not on file 06/08/2024 Comments Unknown Sex and Gender Information Value Date Recorded Sex Assigned at Female 05/06/2022 10:39 AM EDT Legal Sex Female 10:39 AM EDT Gender Identity Female 05/06/2022 10:39 AM EDT Sexual Orientation Straight 05/06/2022 10 :39 AM EDT documented as of this encounter Progress Notes * Mae Santoyo - 12/31/2024 1:59 PM EDT CC Mae Fox placed successful outbound call to patient for pre-visit planning. Patient name and confirmed. Patient confirms appt date and time, and has transportation arrangements. Biggest concern for appointment at this time is headaches. Appropriate screenings completed in anticipation of appointment. documented in this encounter Plan of Treatment Upcoming Encounters Date Type Department Care Team (Late st Contact Info) Description 01/05/2025 11:00 AM EDT Clinical Support [facility] [address] [place] [address] 01/06/2025 9:00 AM EDT Office Visit [facility] [address] [place] [address] Feli Singleton OD [address] [place] [address] 01/10/2025 3:15 PM EDT Office Visit [facility] [address] [place] [address] Mesha Ruff MD [address] [place] [address] documented as of this encounter Visit Diagnoses Not on filedocumented in this encounter Additional Health Concerns Assessment Noted Time PHQ-9 Depression Total Score: 0 06/08/20 24 11:56 AM EST documented as of this encounter Care Teams Catering Director Relationship Specialty Start Date End Date Mesha Ruff MD [address] [place] [address] PCP - General Family Medicine 03/05/22 documented as of this encounter
[2025-01-03 13:10] LABS: MANUAL DIFF FLAG NO
[2025-01-03 13:25] LABS: Basophils Absolute Auto 0.1 X10*3/uL (0.0-0.2); Basophils Percent Auto 0.9 % (0-2); Eosinophils Absolute Auto 0.4 X10*3/uL (0.0-0.4); Eosinophils Percent Auto 4.2 % (0-4); Hematocrit 40.6 % (37.0-47.0); Imm Gran Abs Auto 0.02 X10*3/uL (0.00-0.03); Imm Gran Pct Auto 0.2 % (0.0-0.4); Lymphocytes Absolute Auto 4.1 X10*3/uL (1.2-4.9); Lymphocytes Percent Auto 45.8 % (20-40); Mean Corpuscular Volume 90.6 fL (80.0-98.0); Mean Platelet Volume 12.2 fL (9.4-12.3); Monocytes Absolute Auto 0.5 X10*3/uL (0.1-1.2); Monocytes Percent Auto 5.3 % (2-11); Neutrophils Absolute Auto 3.9 x10*3/uL (2.0-8.3); Neutrophils Percent Auto 43.6 % (45-73); Platelet Count 255 X10*3/uL (160-400); Red Blood Count 4.48 X10*6/uL (4.20-5.50); Red Cell Distribution Width 14.5 % (11.0-16.0); White Blood Count 8.9 X10*3/uL (4.8-10.8)
[2025-01-03 14:03] LABS: HBS Num1 0.72 mIU/mL (0-7.99); ~Hepatitis B Surface Antibody NONREACTIVE (Nonreactive)
[2025-01-03 14:12] LABS: Alanine Aminotransferase 84 U/L (0-31); Albumin Level 4.4 g/dL (3.5-5.0); Alkaline Phosphatase 60 U/L (39-117); Anion Gap 13 (12-20); Aspartate Amino Transferase 53 U/L (5-31); Bilirubin Total 0.3 mg/dL (0.0-1.0); Blood Urea Nitrogen 14 mg/dL (9-16); Calcium 9.4 mg/dL (8.4-10.2); Carbon Dioxide 27 mmol/L (22-29); Chloride 105 mmol/L (96-108); Estimated Glomerular Filt Rate > 60; Glucose Random 136 mg/dL (60-115); Potassium 4.2 mmol/L (3.3-5.1); Sodium 141 mmol/L (135-145); TSH reflex Free T4 19.28 uIU/mL (0.32-4.0); Total Protein 7.9 g/dL (6.5-8.0)
[2025-01-03 14:19] LABS: Folate 10.8 ng/mL (> or = 4.0); Vitamin B12 540 pg/mL (200-900)
[2025-01-03 15:04] LABS: Free T4 (Free Thyroxine) 0.73 ng/dL (0.71-1.85)
[2025-01-06 19:03] LABS: Rubeola IgG (Measles) >300.00 AU/mL
== END 2025-01-03 10:42 | disposition home or self-care (01) ==
LOC: HO.HHCL 10:41
PROVIDERS: PCP General Practice; Visit Provider General Practice
DX: D51.8 Other vitamin B12 deficiency anemias (principal); E03.9 Hypothyroidism, unspecified; D50.9 Iron deficiency anemia, unspecified; I10 Essential (primary) hypertension
CPT/HCPCS: 36415; 80053; 82607; 82746; 84439; 84443; 85025; 86706; 86735; 86762; 86765; 86787

== ENCOUNTER 2025-01-13 11:59 | Outpatient (REF) | payer MEDICAID, SELFPAY ==
--- OUTSIDE RECORDS SUMMARY | 2025-01-13 12:26 | XMS_ITS | Encounter Summary ---
Author Organization [employer] Address [address] [facility] [address] [place] [address] Care Team Providers Care Diamond Setter Apprentice Name Role Phone Mesha Ruff MD Primary Care Provider [phone] Encounter Details Date Type Department Care Team (Late Contact Info) Description 03/27/2023 Orders Only [facility] [address] [place] [address] [phone] Provider, MD Melissa Social History Tobacco Use Types Packs/Day Years Used Date Smoking Tobacco: Never Smokeless Tobacco: Never Alcohol Use Standard Drinks/Week Comments Never 0 (1 standard drink = 0.6 oz pur e alcohol) Depression Answer Date Recorded Patient Health Questionnaire-9 Score 23 10/30/2022 Depression Answer Date Recorded Patient Health Questionnaire-2 Score 6 10/30/2022 Comments Unknown Sex and Gender Information Value Date Recorded Sex Assigned at Female 05/06/2022 10:39 AM EDT Legal Sex Female 10:39 AM EDT Gender Identity Female 05/06/2022 10:39 AM EDT Sexual Orientation Straight 05/06/2022 10 :39 AM EDT documented as of this encounter Plan of Treatment Upcoming Encounters Date Type Department Care Team (Late Contact Info) Description 02/07/2025 11:00 AM EDT Clinical Support [facility] [address] [place] [address] [phone] 02/09/2025 9:30 AM EDT Office Visit [facility] [address] [place] [address] [phone] Tegan Lopez DDS [address] [place], [place] [phone] 06/09/2025 1:00 PM EST Office Visit [facility] [address] [place], [place] [phone] Feli Singleton, MARTHA [address] [place] [address] documented as of this encounter Procedures Procedure Name Priority Date/Time Associated Diagnosis Comments HM PAP/HPV Routine 02/15/2022 documented in this encounter Results * Hm Pap Smear (02/15/2022) us Historical Provider HEALTH MAINTENANCE Final Result documented in this encounter Visit Diagnoses Not on filedocumented in this encounter Additional Health Concerns Assessment Noted Time PHQ-9 Depression Total Score: 23 023 4:04 PM EDT documented as of this encounter Care Teams Diamond Setter Apprentice Relationship Specialty Start Date End Date Mesha Ruff MD [address] [place] [address] PCP - General Family Medicine 03/05/22 documented as of this encounter
--- OUTSIDE RECORDS SUMMARY | 2025-01-13 12:26 | XMS_ITS | Clinical Summary ---
Author Organization [facility] Address [address] [place] [address] Care Team Providers Care Hostess Name Role Phone Unavailable Primary Care Provider Unavailabl e Source Comments PLEASE NOTE, if this patient is a minor, it may be UNLAWFUL to discuss sensitive information that is contained in these records (such as FAMILY PLANNING, MENTAL HEALTH or SUBSTANCE ABUSE) with the minor patient's parent or other person without the patient's specific authorization.[facility] Allergies No known active allergies Medications acetaminophen (TYLENOL) 500 mg tabletIndications: Acute nonsuppurative otitis media of right ear Take 1 Tab by mouth every 6 (six) hours as needed for pain 60 Tab 07/31/19 19 Active escitalopram oxalate (LEXAPRO) 10 mg tablet TK 1 T PO QD FOR DEPRESSIN AND ANXIETY 2 01/15/20 19 Active docusate sodium (COLACE) 100 mg capsuleIndications :Constipation, unspecified constipation type Take 1 Cap by mouth 2 (two) times daily 60 Cap 3 01/06/20 20 Active fluticasone propionate (FLONASE) 50 mcg/actuation nasal sprayIndications:S easonal allergic rhinitis due to other allergic trigger Place 1 [place] in both nostrils once daily 16 g 3 01/06/20 20 Active loratadine (CLARITIN) 10 mg tabletIndications: Seasonal allergic rhinitis due to other allergic trigger Take 1 Tab by mouth once daily as needed for allergies 90 Tab 1 01/06/20 20 Active miscellaneous medical supply miscIndications:Bi lateral carpal tunnel syndrome Needs bilateral hand/wrist splints. Wears splints at bedtime. Dx:G56.03 LOS: 11 2 Each 01/25/20 20 Active compress.stocking, knee,reg,medIndica tions:Lymphedema Needs 2 pairs of compression stockings (15-20 mmHg). Wear daily. Do no sleep with stockings on. Dx:I89 LOS: 11 2 Each 01/25/20 Active hydrocortisone 2.5 % creamIndications:D ermatitis Apply topically 2 (two) times daily Apply small amount to rash on arms. 28 g 01/25/20 Active diphenhydrAMINE HCL (BENADRYL) 25 mg capsuleIndications :Dermatitis Take 1 Cap by mouth every 6 (six) hours as needed for itching 30 Cap 01/25/20 20 Active ibuprofen 800 mg tabletIndications: Chronic suppurative otitis media of both ears, unspecified otitis media location Take 1 Tablet by mouth 3 (three) times daily as needed for pain 30 Tablet 08/15/19 Active levothyroxine 112 mcg tabletIndications: Hypothyroidism, unspecified type TAKE 1 TABLET BY MOUTH EVERY DAY 90 Tablet 1 08/18/19 Active ferrous sulfate 325 mg (65 mg iron) tabletIndications: Iron deficiency anemia secondary to inadequate dietary iron intake Take 1 Tablet by mouth 2 (two) times daily with a meal 60 Tablet 2 08/20/19 Active Hospital, Clinic, or Other Facility Administered Medication Ordered Dose Route Frequency Start Date End Date Status cyanocobalamin (vitamin B-12) 1,000 mcg/mL injectionIndications:Vitamin B deficiency 1000 mcg IM Weekly 01/17/2020 Active Active Problems Problem Noted Date Diagnosed Date Iron deficiency anemia 08/20/2020 Vitamin B deficiency 01/17/2020 Bilateral hearing loss 01/06/2020 Overview (01/06/2020): Per pt's , pt has congenital hearing loss and was evaluated in [facility] for hearing devices and surgery but was told she was not a candidate for either Major depressive disorder with single episode Overview (02/05/2019): Sees Psychiatry on medication Mixed hyperlipidemia 07/30/2018 Hypothyroidism 06/18/2018 Immunizations Immunization Administration Dates Next Due Flu, Preservative Free 08/15/2020 TDAP 10/30/2018 Social History Tobacco Use Types Packs/Day Years Used Date Smoking Tobacco: Never Smokeless Tobacco: Never Alcohol Use Standard Drinks/Week Comments No 0 (1 standard drink = 0.6 oz pur e alcohol) Social Connections Answer Date Recorded Social Connections and Isolation 0 03/01/2019 Financial Resource Strain Answer Date R ecorded Financial Resource Strain 0 2018 Stress Answer Date Recorded Stress 0 03/01/2019 Physical Activity Answer Date Recorded Physical Activity 0 03/01/2019 Food Insecurity Answer Date Recorded Food 0 03/01/2019 Transportation Needs Answer Date Record ed Transportation 0 03/01/2019 Housing Stability Answer Date Recorded Housing 0 03/01/2019 Safety and Environment Answer Date Barrie rded Safety 0 03/01/2019 Utilities Answer Date Recorded Utilities 0 03/01/2019 Employment Answer Date Recorded Employment 0 03/01/2019 Comments No Sex and Gender Information Value Date Recorded Sex Assigned at Female 03/02/2018 8:35 AM PDT Legal Sex Female 10:25 AM PDT Gender Identity Female 03/02/2018 8:35 AM PDT Sexual Orientation Straight 03/02/2018 8: 35 AM PDT Last Filed Vital Signs Vital Sign Reading Time Taken Comments Blood Pressure 128/86 08/15/2020 9:18 AM EST Pulse 76 08/15/2020 9:18 AM EST Temperature 36.7 C (98.1 F) 08/15/2020 9:18 AM EST Respiratory Rate 19 08/15/2020 9:18 AM EST Oxygen Saturation - - Inhaled Oxygen Concentration - - Weight 90.6 kg (199 lb 12.8 oz) 08/15/2020 9:18 AM EST Height 160 cm (5' 3 ) 08/15/2020 9:18 AM EST Body Mass Index 35.39 08/15/2020 9:18 AM EST Plan of Treatment Health Maintenance Due Date Last Done Comments Anxiety Screening 1967 HPV Screening 1967 Tobacco Screening 1967 Imm-Hepatitis B (1 of 3 - 19 + 3-dose series) 1986 CT Colonography 2012 Colonoscopy 2012 Fecal DNA 2012 Flexible Sigmoidoscopy 2012 Imm-Pneumococcal 50+ (1 of 1 - PCV) 2017 Imm-Zoster, Recombinant (1 of 2) 2017 Annual Wellness (Adult): Indicated (All Coverage) 10/31/2019 10/30/2018 Colorectal Cancer Screening 12/04/2019 FIT/gFOBT 12/04/2019 12/03/2018 Diabetes Screening 01/11/2021 01/12/2020, 0 01/12/2020, 06/18/2018 Hypertension Screening (#1) 08/15/2021 TSH Monitoring 08/15/2021 08/15/2020, 03/07, 01/12/2020, Additional history exists Cervical Cancer Screening 11/13/2021 Pap + HPV 11/13/2021 Pap Smear 11/13/2021 11/13/2018 Breast Cancer Screening (Mammogram) 02/05/2023 02/05/2021, 02/05/2021 [id number] ( season) 2024 05/24/2022, 11/21/2020, 10/25/2020 Alcohol and Drug Screen 07/07/2024 08/15/19 21, 01/25/2020, 10/30/2018 Depression Annual Screen 07/07/2024 Lipid Screening 01/11/2025 01/12/2020, 10/06, 06/18/2018 Imm-Influenza (#1) 2025 05/24/2022, 08/15/2020 Imm-DTaP/Tdap/Td (2 - Td or Tdap) 10/30/2028 019 HIV Screening Completed 10/30/2018 Hepatitis C Screening Completed 08/15/2020 Cervical Ablation/Cold-Knife Conization Discontinued Cervical Cryotherapy Discontinued Colposcopy Discontinued Endometrial Biopsy Discontinued Excision/Leep Discontinued HPV Genotyping Discontinued Vaginal Pap Discontinued Vulvoscopy Discontinued Procedures Procedure Name Priority Date/Time Associated Diagnosis Comments REFERRAL FOR MAMMOGRAM Routine 02/05/2021 3:08 PM EDT Encounter for screening mammogram for malignant neoplasm of breast THYROID CASCADE PROFILE Routine 08/15/2020 9:45 AM EST Acquired hypothyroidism HEPATITIS C ANTIBODY Routine 08/15/2020 9:45 AM EST Screening for viral disease COMPREHENSIVE METABOLIC PANEL Routine 01/12/2020 10:56 AM EDT Mixed hyperlipidemia LIPID PANEL Routine 01/12/2020 10:56 AM EDT Mixed hyperlipidemia FECAL OCCULT BLOOD HEMOCCULT X3, BERTHA LILLIE (POCT) Routine 12/03/2018 4:30 PM EDT Health care maintenance PAP, LIQUID BASED Routine 11/13/2018 2:0 7 PM EDT Encounter for gynecological examination with Papanicolaou smear of cervix ANTIBODY HIV-1&HIV-2 SINGLE RESULT Routine 10/30/2018 11:13 AM EDT Health care maintenance from Last 3 Months or Most Recently Relevant to Health Maintenance Results * REFERRAL FOR MAMMOGRAM SCREENING (02/05/2021 3:08 PM EDT) Jill MCKINNEY IMG RFL MAMMO Edited Result - Final * (ABNORMAL) THYROID CASCADE PROFILE (08/15/2020 9:45 AM EST) TSH CASCADE 26.57(H) 0.40 - 4.00 uIU/ml [facility] Blood Blood / Unknown 08/15/2020 9 :45 AM EST 08/15/2020 9:47 AM EST [employer] [facility] - 08/15/2020 12:56 PM EST [employer], [place] [address] Data Warehousing Manager - Priti Cage MD PT ID [id number] ORD# [id number] Jill MCKINNEY LAB - BLOOD DRAW Final Result [address] [address], * HEPATITIS C ANTIBODY (08/15/2020 9:45 AM EST) Pathologist [facility] HEPATITIS C VIRUS SCREEN NEGATIVE NEGATIVE [facility] Blood Blood / Unknown 08/15/2020 9 :45 AM EST 08/15/2020 9:47 AM EST [employer] [facility] - 08/15/2020 1:35 PM EST [employer], a member of [address] [address] Data Warehousing Manager - Priti Cage MD PT ID [id number] ORD# [id number] Jill MCKINNEY LAB - BLOOD DRAW Final Result Performing Organization Address [facility] Co de Phone Number [address] [address], [place] [phone] * (ABNORMAL) LIPID PANEL (01/12/2020 10:56 AM EDT) CHOLESTEROL 173 0 - 200 mg/dL [facility] TRIGLYCERIDES 206(H) 0 - 150 mg/dL [facility] HDL CHOLESTEROL 31(L) >40 mg/dL [facility] LDL CALCULATED 101(H) 0 - 100 mg/dL [facility] TC-HDLC RATIO 5.6(H) 0 - 4.4 mg/dL [facility] Blood specimen (specimen) Blood / Unknown 01/12/2020 10:56 AM EDT 01/12/2020 3:51 PM EDT Narrative [facility] - 01/12/2020 5:13 PM EDT [employer], [place] [address] Data Warehousing Manager - Priti Cage MD PT ID [id number] ORD# [id number] Jill MCKINNEY LAB - BLOOD DRAW Edited Result - Final Performing Organization Address [facility]/ZIP Co de Phone Number [address] [address], [place] [phone] * COMPRE METAB PANEL (CMP) (01/12/2020 10:56 AM EDT) GLUCOSE 96 70 - 100 mg/dL [facility] Comment:Reference range appl icable to fasting specimens only BUN 12 5 - 25 mg/dL [facility] CREAT 0.71 0.5 - 1.1 mg/dL [facility] GLOMERULAR FILTRATION RATE > 60 [facility] Comment: If patient is -Nicaraguan, multiply result by 1.21 Chronic Kidney Disease: < 60 ml/min/1.73 square meters Kidney Failure: < 15 ml/min/1.73 square meters SODIUM 137 135 - 145 mEq/L [facility] POTASSIUM 4.0 3.5 - 5.5 mmol/L [facility] CHLORIDE 107 96 - 110 mmol/L [facility] CO2 25 21 - 32 mmol/L [facility] ANION GAP 5 3 - 11 [facility] CALCIUM 9.1 8.5 - 10.5 mg/dL [facility] TOTAL PROTEIN 7.7 6.0 - 8.0 G/dL [facility] ALBUMIN 3.5 3.2 - 5.0 G/dL [facility] BILI, TOTAL 0.2 0.0 - 1.4 mg/dL [facility] SGOT 39 10 - 42 U/L [facility] SGPT 56 10 - 60 U/L [facility] ALK PHOS 55 42 - 121 U/L [facility] Blood specimen (specimen) Blood / Unknown 01/12/2020 10:56 AM EDT 01/12/2020 3:51 PM EDT Narrative [facility] - 01/12/2020 5:13 PM EDT [facility] [employer], [place] [address] Data Warehousing Manager - Priti Cage MD PT ID [id number] ORD# [id number] Jill HUDDLESTONP LAB - BLOOD DRAW Edited [place] [address], * STOOL OCCULT BLOOD (POCT) (12/03/2018 4:30 PM EDT) FECAL OCCULT BLOOD NEGATIVE NEGATIVE [facility] POCT FECAL OCCULT BLOOD #2 NEGATIVE NEGATIVE [facility] POCT FECAL OCCULT BLOOD #3 NEGATIVE NEGATIVE [facility] POCT Stool specimen (specimen) Stool specimen / Unknown 12/03/2018 4:30 PM EDT Jose Stafford MD LAB - BLOOD DRAW Final Result [facility] POCT * PAP, LIQUID BASED (11/13/2018 2:07 PM EDT) Swab of endocervix (specimen) Endocervical structure / Unknown 11/13/2018 2:07 PM EDT [facility] - 11/13/2018 2:07 PM EDT Thinprep pap: Negative for squamous intraepithelial lesion and malignancy Reactive cellular changes HPV: negative Emily Bangura CHIEF LOCK OPERATOR LAB - PATHOLOGY AND CYTOLOG Y AMBULATORY Final Result Performing Organization Address City/[facility] Co de Phone Number [facility] [address] [address], * HIV future (10/30/2018 11:13 AM EDT) HIV 1 AND 2 ANTIBODY SCREEN NEGATIVE NEGATIVE [facility] Comment: This assay is a 4th generation assay allowing for earlier detection of HIV infection by detecting the presence of the HIV-1 p24 antigen as well as the traditional antibodies to HIV type 1 (including group O) and type 2. Use of a 4th generation assay is the current CDC recommendation for HIV screening. Blood specimen (specimen) Blood / Unknown 10/30/2018 11:13 AM EDT 10/30/2018 12:23 PM EDT Narrative [facility] - 10/30/2018 8:08 PM EDT [employer], a member of [address] [address] Data Warehousing Manager - Kimberlee Trujillo MD PT ID [id number] ORD# [id number] Jose Stafford MD LAB - BLOOD DRAW Final Result [facility] [address] [place] [address], from Last 3 Months or Most Recently Relevant to Health Maintenance Insurance [facility] [place] [address] HEALTH SAFETY NET DENTAL
[2025-01-13 15:02] LABS: Microalbum/Creatinine Ratio Ur 12.6 ug/mg cr (<30)
[2025-01-13 15:40] LABS: Free T4 (Free Thyroxine) 0.79 ng/dL (0.71-1.85)
== END 2025-01-13 12:00 | disposition home or self-care (01) ==
LOC: HO.HHCL 11:59
PROVIDERS: PCP General Practice; Visit Provider General Practice
DX: E11.9 Type 2 diabetes mellitus without complications (principal); E03.9 Hypothyroidism, unspecified
CPT/HCPCS: 36415; 82043; 82570; 84439; 84443

== ENCOUNTER 2025-02-25 10:39 | Outpatient (REF) | payer MEDICAID, SELFPAY ==
--- OUTSIDE RECORDS SUMMARY | 2025-02-25 10:43 | XMS_ITS | Clinical Summary ---
Author Organization [facility] Address [address] [place] [address] Care Team Providers Care Radiotelegraphist Name Role Phone Unavailable Primary Care Provider [...] due to other allergic trigger Place 1 [place] in both nostrils once daily 16 g [...] congenital hearing loss and was evaluated in [facility] for hearing devices and surgery but [...] Breast Cancer Screening (Mammogram) 02/05/2023 02/05/2021, 02/05/2021 [id number] ( season) 2024 05/24/2022, 11/21/2020, 10/25/2020 Alcohol [...] TSH CASCADE 26.57(H) 0.40 - 4.00 uIU/ml [facility] Blood Blood / Unknown 08/15/2020 9 :45 AM EST 08/15/2020 9:47 AM EST [facility] - 08/15/2020 12:56 PM EST [employer], [place] [address] Manual Machinist - Priti Cage MD PT ID [id number] ORD# [id number] Jill MCKINNEY LAB - BLOOD DRAW Final Result [address] [address], * HEPATITIS C ANTIBODY (08/15/2020 9:45 AM EST) Pathologist [facility] HEPATITIS C VIRUS SCREEN NEGATIVE NEGATIVE [facility] Blood Blood / Unknown 08/15/2020 9 :45 AM EST 08/15/2020 9:47 AM EST Chain [facility] - 08/15/2020 1:35 PM EST [employer], a member of [address] [address] Manual Machinist - Priti Cage MD PT ID [id number] ORD# [id number] Jill MCKINNEY LAB - BLOOD DRAW Final Result Performing Organization Address [facility] Co de Phone Number [address] [address], [place] [phone] * (ABNORMAL) LIPID PANEL (01/12/2020 10:56 AM EDT) CHOLESTEROL 173 0 - 200 mg/dL [facility] TRIGLYCERIDES 206(H) 0 - 150 mg/dL [facility] HDL CHOLESTEROL 31(L) >40 mg/dL [facility] LDL CALCULATED 101(H) 0 - 100 mg/dL [facility] TC-HDLC RATIO 5.6(H) 0 - 4.4 mg/dL [facility] Blood specimen (specimen) Blood / Unknown 01/12/2020 10:56 AM EDT 01/12/2020 3:51 PM EDT Narrative [facility] - 01/12/2020 5:13 PM EDT [employer], [place] [address] Manual Machinist - Priti Cage MD PT ID [id number] ORD# [id number] Jill MCKINNEY LAB - BLOOD DRAW Edited Result - Final Performing Organization Address [facility]/ZIP Co de Phone Number [address] [address], [place] [phone] * COMPRE METAB PANEL (CMP) (01/12/2020 10:56 AM EDT) GLUCOSE 96 70 - 100 mg/dL [facility] Comment:Reference range appl icable to fasting specimens only BUN 12 5 - 25 mg/dL [facility] CREAT 0.71 0.5 - 1.1 mg/dL [facility] GLOMERULAR FILTRATION RATE > 60 [facility] Comment: If patient is -Fijian, multiply result by 1.21 Chronic Kidney Disease: < 60 ml/min/1.73 square meters Kidney Failure: < 15 ml/min/1.73 square meters SODIUM 137 135 - 145 mEq/L [facility] POTASSIUM 4.0 3.5 - 5.5 mmol/L [facility] CHLORIDE 107 96 - 110 mmol/L [facility] CO2 25 21 - 32 mmol/L [facility] ANION GAP 5 3 - 11 [facility] CALCIUM 9.1 8.5 - 10.5 mg/dL [facility] TOTAL PROTEIN 7.7 6.0 - 8.0 G/dL [facility] ALBUMIN 3.5 3.2 - 5.0 G/dL [facility] BILI, TOTAL 0.2 0.0 - 1.4 mg/dL [facility] SGOT 39 10 - 42 U/L [facility] SGPT 56 10 - 60 U/L [facility] ALK PHOS 55 42 - 121 U/L [facility] Blood specimen (specimen) Blood / Unknown 01/12/2020 10:56 AM EDT 01/12/2020 3:51 PM EDT Narrative [facility] - 01/12/2020 5:13 PM EDT [facility] [employer], [place] [address] Manual Machinist - Priti Cage MD PT ID [id number] ORD# [id number] Jill HUDDLESTONP LAB - BLOOD DRAW [place] [address], * STOOL OCCULT BLOOD (POCT) (12/03/2018 4:30 PM EDT) FECAL OCCULT BLOOD NEGATIVE NEGATIVE [facility] POCT FECAL OCCULT BLOOD #2 NEGATIVE NEGATIVE [facility] POCT FECAL OCCULT BLOOD #3 NEGATIVE NEGATIVE [facility] POCT Stool specimen (specimen) Stool specimen / Unknown 12/03/2018 4:30 PM EDT Jose Stafford MD LAB BODY FLUIDS AND STOOLS AMBU LATORY Final Result [facility] POCT * PAP, LIQUID BASED (11/13/2018 2:07 PM EDT) Swab of endocervix (specimen) Endocervical structure / Unknown 11/13/2018 2:07 PM EDT Impressions [facility] - 11/13/2018 2:07 PM EDT Thinprep pap: Negative for squamous intraepithelial lesion and malignancy Reactive cellular changes HPV: negative Emily Bangura FRANKFURTER INSPECTOR LAB - PATHOLOGY AND CYTOLOG Y AMBULATORY Final Result Performing Organization Address City/[facility] Co de Phone Number [facility] [address] [address], * HIV future (10/30/2018 11:13 AM EDT) HIV 1 AND 2 ANTIBODY SCREEN NEGATIVE NEGATIVE [facility] [employer] [facility] Comment: This assay is a 4th generation [...] AM EDT 10/30/2018 12:23 PM EDT Narrative [facility] - 10/30/2018 8:08 PM EDT [employer], a member of [address] [address] Manual Machinist - Kimberlee Trujillo MD PT ID [id number] ORD# [id number] Jose Stafford MD LAB - BLOOD DRAW Final Result [facility] [address] [place] [address], from Last 3 Months or Most Recently Relevant to Health Maintenance Insurance [facility] [facility] [place] [address] [facility] SAFETY NET DENTAL
--- OUTSIDE RECORDS SUMMARY | 2025-02-25 10:43 | XMS_ITS | Encounter Summary ---
Author Organization [employer] Address [address] [facility] [address] [place] [address] Care Team Providers Care Log Washer Name Role Phone Mesha Ruff MD Primary Care Provider [phone] Encounter Details Date Type Department Care Team (Late Contact Info) Description 03/27/2023 Orders Only [facility] MEDICINE [address] [place] [address] [phone] Provider, MD Melissa Social History Tobacco Use [...] Department Care Team (Late Contact Info) Description 03/10/2025 11:00 AM EDT Clinical Support [facility] MEDICINE [address] [place], [place] [phone] 06/09/2025 1:00 PM EST Office Visit [facility] OPTOMETRY [address] [place], [place] [phone] Feli Singleton, OD [address] [place], [place] [phone] documented as of this encounter Procedures Procedure Name Priority Date/Time Associated Diagnosis Comments PAP/HPV Routine 02/15/2022 documented in this encounter Results * Pap Smear (02/15/2022) us Historical Provider HEALTH MAINTENANCE Final Result documented in this encounter Visit Diagnoses Not on filedocumented in this encounter Additional Health Concerns Assessment Noted Time PHQ-9 Depression Total Score: 23 023 4:04 PM EDT documented as of this encounter Care Teams Log Washer Relationship Specialty Start Date End Date Mesha Ruff MD [address] [place] [address] PCP - General Family Medicine 03/05/22 documented as of this encounter
[2025-02-25 14:14] LABS: Free T4 (Free Thyroxine) 0.70 ng/dL (0.71-1.85)
== END 2025-02-25 10:40 | disposition home or self-care (01) ==
LOC: HO.HHCL 10:39
PROVIDERS: PCP General Practice; Visit Provider General Practice
DX: E03.9 Hypothyroidism, unspecified (principal)
CPT/HCPCS: 36415; 84439; 84443

== ENCOUNTER 2025-03-02 08:49 | Outpatient (AMB) | payer MEDICAID, SELFPAY ==
--- NOTE | 2025-03-02 08:53 | MHC.OFFVIS ---
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 Phlebotomy Supervisor concerns: none. LMP 2 yrs. ago. Currently sexually active occasionally. Denies any vaginal dryness or irritation. STI testing offered; she declined. Attempting to eat a healthy diet and stays active with walking. Last pap smear; 2022, negative. Last mammogram; 2023. ColoGard is UTD. Denies any family history of breast, ovarian or colon cancer. [facility] Medical History Urinary incontinence in female Chronic back pain Tinnitus Anemia Depression Migraine Stroke Heavy menstrual bleeding Hearing trouble Hypothyroidism Hypertension Asthma Surgical History Hx of section Social History Household Members: Spouse Housing: Apartment Alcohol intake: never Patient Tobacco Use Status: Former Tobacco user Female Reproductive History Menstrual Full term: 1 Number of Living Children: 1 Date of last pap smear: 02/25/23 (neg pap and hpv) History of abnormal pap smear: Yes (02/25 ascus) Date of Mammogram: 03/17/24 (Birad 1) Review of Systems Const All systems reviewed & are unremarkable except as noted in HPI and below Reports as per HPI Eyes Reports no additional complaints ENT Reports no additional complaints Card Reports no additional complaints Resp Reports no additional complaints GI Reports as per HPI and Reports no additional complaints Reports as per HPI Musc Reports no additional complaints Skin/Breast Reports as per HPI Neuro Reports no additional complaints Psych Reports no additional complaints Endo Reports no additional complaints Bharat/Lymph Reports no additional complaints Aller/Immun Reports no additional complaints Physical Exam Vital Signs: Last Vital Signs BP 144/86 H 03/02/25 08:54 BMI result Body Mass Index 33.5 Const General: cooperative, healthy appearing, no acute distress, well developed and alert Orientation/consciousness: patient oriented x3 HEENT Head: Yes normal to inspection Eyes General: appearance normal, both eyes and all related structures Neck Neck: Yes normal visual inspection Thyroid: Thyroid normal Chest Chest palpation & inspection: normal inspection of the chest and other (no puckering, dimpling, peau de orange, retraction, discharge, masses) Breast/axilla inspection: normal inspection of the breasts Breast/axilla palpation: normal palpation of the breasts Resp Effort & Inspection: normal respiratory effort GI Inspection: Yes scar Palpation (GI): Soft to palpation Rectal Exam - Female: deferred General: Yes bladder normal to palpation External Female Exam: normal external appearance and normal appearance of the urethra Speculum Exam - Vagina: normal appearance of the vagina, normal palpation and normal vaginal discharge Speculum Exam - Cervix: normal appearance of the cervix and normal palpation Bimanual exam- vagina & uterus: normal bimanual exam, normal palpation, uterine size normal, bladder normal to palpation, normal palpation and non-tender Bimanual Exam- Adnexa, other: no masses Skin General skin exam: no rashes or lesions noted Rashes: no rashes Neuro General: patient oriented x3 Cognition (Neuro): normal cognition Extrem General: Yes normal to inspection Psych Attitude: cooperative Thought process: Normal thought process present Assessment & Plan Assessment & Plan (1) Encounter for well woman exam with routine gynecological exam: Code(s): Z01.419 - Encounter for gynecological examination (general) (routine) without abnormal findings Category: Medical Plan Discussed: Current recommendations for pap smears per ASCCP guidelines. Breast awareness, periodic self breast exams and yearly mammogram. Maintain a healthy lifestyle, well balanced diet including Calcium 1,200 mg and Vitamin D 600 IU daily, and routine exercise. Contact the office with any postmenopausal bleeding. Patient verbalizes understanding and agrees to the plan of care. She was given opportunity to ask questions and all questions were answered to the best of my ability. RTO in 1 year for annual airworthiness safety inspector exam. This note is constructed using voice recognition software. While every effort has been made to ensure accuracy, fire equipment operator errors may have been included. Coding Level of Care Code Est Pt Prev Care 40-64y(31628) Diagnoses Encounter for well woman exam with routine gynecological exam Z01.419
[2025-03-02 08:54] VITALS: BP 144/86; BMI 33.5
--- OUTSIDE RECORDS SUMMARY | 2025-03-02 09:14 | XMS_ITS | Clinical Summary ---
Author Organization [employer] Address [address] [facility] [address] [place] [address] Care Team Providers Care Agricultural Lender Name Role Phone Mesha Ruff MD Primary Care Provider [phone] Allergies No known active allergies Medications ascorbic acid (Vitamin C) 250 MG tablet take 1 tablet by oral route 1 time every day with ferrous sulfate tablet. 12/05/19 22 Active triamcinolone (Kenalog) 0.1 % cream APPLY TO THE AFFECTED AREA(S) (piel externa de la vulva) TWICE DAILY FOR 7 DAYS 05/19/20 23 Active SM All Day Allergy Relief 10 MG tablet TAKE 1 TABLET BY MOUTH EVERY DAY NEEDED FOR CONGESTION 90 tablet 3 06/09/20 23 Active Acetaminophen Extra Strength 500 MG tabletIndicatio ns:Pain of right upper extremity TAKE 1 TABLET BY MOUTH EVERY 6 TO 8 HOURS NEEDED FOR PAIN OR FEVER NO MORE THAN 8 TABLETS IN 24 HOURS 60 tablet 08/08/19 24 Active albuterol 108 (90 Base) MCG/ACT inhaler Inhale 2 puffs every 4 (four) hours. 18 g 11 10/21/19 24 Active cholecalciferol (D3 Super Strength) 50 MCG (2000 UT) capsule Take 1 capsule (50 mcg) by mouth in the morning. 90 capsule 3 10/21/19 24 Active escitalopram (Lexapro) 10 MG tablet Take 1 tablet (10 mg) by mouth at bedtime. 90 tablet 3 10/21/19 24 Active fluticasone (Flonase) 50 MCG/ACT nasal spray INSTILL 1-2 SPRAYS IN EACH NOSTRIL ONCE DAILY SHAKE GENTLY 16 g 2 03/01/20 24 Active cyanocobalamin (Vitamin B-12) 1000 MCG/ML injection INJECT 1 ML INTRAMUSCULARLY EVERY 30 DAYS 1 mL 11 04/28/20 24 Active ferrous gluconate (Fergon) 324 (38 Fe) MG tabletIndicatio ns:Iron deficiency anemia, unspecified iron deficiency anemia type Take 1 tablet (324 mg) by mouth with breakfast. 90 tablet 3 05/19/20 24 Active olmesartan (Benicar) 5 MG tablet Take 1 tablet (5 mg) by mouth Once per day. 90 tablet 3 06/08/20 24 025 Active Eye Itch Relief 0.035 % solution INSTILL 1 DROP INTO THE AFFECTED EYE(S) TWICE DAILY 10 mL 1 12/25/19 25 Active metFORMIN (Glucophage) 500 MG tabletIndicatio ns:Controlled type 2 diabetes mellitus without complication, without long-term current use of insulin (CMS/[facility]) TAKE 1 TABLET BY MOUTH TWICE DAILY WITH BREAKFAST AND WITH DINNER 180 tablet 1 01/06/20 25 Active levothyroxine (Synthroid) 125 MCG tablet Take 1 tablet (125 mcg) by mouth before breakfast. 90 tablet 01/07/20 25 026 Active Hospital, Clinic, or Other Facility Administered Medication Ordered Dose Route Frequency Start Date End Date Status cyanocobalamin (Vitamin B-12) injection 1,000 mcgIndications:Vitamin B12 deficiency (dietary) anemia 1000 mcg IM Every 30 days 12/08/2024 11/03/2025 Activ e Active Problems Problem Noted Date Diagnosed Date Vitamin B12 deficiency (dietary) anemia 06/08/20 24 Controlled type 2 diabetes m ellitus without complication, without long-term current use of insulin 05/25/2024 Assessment & Plan (06/08/2024 7:56 PM EST): Current A1c: 6.6 BMP: Microalbumin: DUE Foot Exam: Complete at follow up Eye Exam: Discuss at follow up Statin: Discuss at next visit ASA: Discuss at next visit MARVA/ARB: Yes, Olmesartan 5mg Encouraged regular aerobic exercise for improved glycemic control Encouraged daily foot checks Encouraged lean protein snacks and to avoid foods high in sugar and simple carbohydrates Treatment Goals: A1c goal: <7% FBG goal: <130 2 hour post prandial goal: <180 Dental root caries 04/07/2024 Impacted cerumen, bilateral 10/21/2023 Assessment & Plan (10/21/2023 8:34 AM EDT): Attempted to clear in office, not able to with irrigation alone Pain of right upper extremity 03/06/2023 Encounter for screening mamm ogram for malignant neoplasm of breast 11/01/2022 Cerumen impaction 11/01/2022 Assessment & Plan (06/12/2023 10:14 AM EST): With irritation of ear canal To add ciprodex BID x 5 days Wash ear gently in the shower Left otitis media 11/01/2022 Bilateral tinnitus 10/29/2022 Hearing problem 10/29/2022 Elevated LFTs 09/20/2022 Hypertensive disorder 09/20/2022 Assessment & Plan (06/08/2024 7:53 PM EST): Maintenance: Chlorthalidone 25mg, not at goal, add Olmesartan 5mg daily BMP: Lab Results Component Value Date CREATININE 0.76 05/18/2024 K 3.9 05/18/2024 Lipid Panel: ASCVD Risk: The 10-year ASCVD risk score (J Luis DK, et al., 2019) is: 13.5% Values used to calculate the score: Age: 59 years Sex: Female Is Non- : No Diabetic: Yes Tobacco smoker: No Systolic Blood Pressure: 160 mmHg Is BP treated: Yes HDL Cholesterol: 35 mg/dL Total Cholesterol: 196 mg/dL EKG: T wave abnl on EKG suggest possible inferior ischemia - Aerobic exercise to reduce BP. Initial goal of 30 min walk 3-5x/week. Increase as tolerated. - low-sodium diet (goal: <2g/day) and heart healthy diet such as DASH to reduce BP and prevent ASCVD. - Home BP monitoring 1-2 x day with goal of <140/90. - Seek immediate medical attention for chest pain, palpitations, SOB, syncope, or sudden changes in mental status. - Do not change or discontinue current prescriptions without first consulting health care provider Assessment & Plan (10/21/2023 8:36 AM EDT): Maintenance: BMP: Lab Results Component Value Date CREATININE 0.77 09/04/2022 K 3.8 09/04/2022 Lipid Panel: ASCVD Risk: Calculate pending updated labs EKG: Obtain baseline at f/u - Aerobic exercise to reduce BP. Initial goal of 30 min walk 3-5x/week. Increase as tolerated. - low-sodium diet (goal: <2g/day) and heart healthy diet such as DASH to reduce BP and prevent ASCVD. - Home BP monitoring 1-2 x day with goal of <140/90. - Seek immediate medical attention for chest pain, palpitations, SOB, syncope, or sudden changes in mental status. 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 02/05/2019 Assessment & Plan (10/21/2023 8:35 AM EDT): Continue Lexapro 10mg nightly Add hydroxyzine for prn anxiety No SI/HI, ER or CRISIS if so Assessment & Plan (06/12/2023 10:13 AM EST): Will restart Lexapro 10mg as this seems to have fallen off No SI/HI, ER or CRISIS if so F/u in 3 month or so to evaluate changes Mixed hyperlipidemia 07/30/2018 Hypothyroidism 06/18/2018 Resolved Problems Problem Noted Date Diagnosed Date Resolved Date Vaginal irritation 10/30/2022 Prediabetes 12/05/2021 06/08/2024 Encounters Date Type Department Care Team Description 02/25/2025 Orders Only [facility] [address] [place] [address] Mesha Ruff MD 02/07/2025 11:00 AM EDT Clinical Support [facility] [address] [place] [address] Sammie Jimenez, RN Encounter for immunization 02/07/2025 Travel 01/13/2025 11:15 AM EDT Office Visit [facility] [address] [place] [address] Mesha Ruff MD Acute bilateral low back pain with right-sided sciatica (Primary Dx); Dietary counseling; Exercise counseling; Class 2 severe obesity with serious comorbidity and body mass index (BMI) of 36.0 to 36.9 in adult, unspecified obesity type (CMS/HCC); 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 prior episode ([facility]); Mild intermittent asthma without complication; Controlled type 2 diabetes mellitus without complication, without long-term current use of insulin ([facility]); Encounter for screening for cervical cancer; Hypothyroidism, unspecified type 01/13/2025 Orders Only [facility] [address] [place] [address] Mesha Ruff MD 01/13/2025 Travel 01/12/2025 Telephone [facility] [address] [place] [address] Mesha Ruff MD Chart prep 01/10/2025 Telephone [facility] [address] [place] [address] Mesha Ruff MD telephone call 01/06/2025 Telephone [facility] [address] [place] [phone] Mesha Ruff MD chart prep 01/06/2025 Telephone [facility] [address] [place] [phone] Feli Singleton, MARTHA 01/05/2025 11:00 AM EDT Clinical Support [facility] [address] [place] [address] Sammie Jimenez, SHERLY Encounter for immunization 01/05/2025 Travel 01/05/2025 Refill [facility] [address] [place] [address] Mesha Ruff MD Controlled type 2 diabetes mellitus without complication, without long-term current use of insulin ([facility]) 01/04/2025 Results Follow-Up [facility] [address] [place] [address] Shandra Rose FNP Vitamin B12/Folate, Serum Panel, TSH W/Reflex to FT4 01/03/2025 Orders Only [facility] [address] [place] [address] Mesha Ruff MD 12/31/2024 Patient Outreach [facility] [address] [place], [place] [phone] Mesha Ruff MD Pre-visit Planning (SDOH negative. Tobacco screening negative. ) 12/22/2024 Refill [facility] [address], [place] [phone] Mesha Ruff MD 12/08/2024 11:00 AM EDT Clinical Support [facility] [address], [place] [phone] Sammie Jimenez RN Need for viral immunization (Primary Dx); Vitamin B12 deficiency (dietary) anemia 12/08/2024 Travel from Last 3 Months Immunizations Immunization Administration Dates Next Due Hep B, adult 02/07/2025,01/05/2025 Influenza injectable quadrivalent preservative f ree 05/24/2022,08/15/2020 Influenza, seasonal, injectable, preservative fr ee 05/10/2024 Pfizer Covid-19 Vaccine 12+ 05/10/2024 Tdap 10/30/2018 Family History Medical History Relation Name Comments Cataracts Mother Relation Name Status Comments Mother Social History Tobacco Use Types Packs/Day Years Used Date Smoking Tobacco: Never Smokeless Tobacco: Never Tobacco Cessation:Counseling Given: Not Answered Alcohol Use Standard Drinks/Week Comments Never 0 (1 standard drink = 0.6 oz pur e alcohol) Depression Answer Date Recorded Patient Health Questionnaire-9 Score 0 06/08/2024 Patient Health Questionnaire-9 Score 0 06/08/2024 Last PHQ-9: Questionnaire Data Not on file 1 08/09/2023 Housing Stability Answer Date Recorded What is your housing situation today? I have phyllis dolan 06/08/[address] you li [...] Access Q2 Not on file 06/08/2024 Comments No Sex and Gender Information Value Date Recorded Sex Assigned at Female 05/06/2022 10:39 AM EDT Legal Sex Female 10:39 AM EDT Gender Identity Female 05/06/2022 10:39 AM EDT Sexual Orientation Straight 05/06/2022 10 :39 AM EDT Last Filed Vital Signs Vital Sign Reading Time Taken Comments Blood Pressure 124/70 01/13/2025 11:30 AM EDT Pulse 80 01/13/2025 11:30 AM EDT Temperature 36.4 C (97.6 F) 01/13/2025 11:30 AM EDT Respiratory Rate 19 01/13/2025 11:30 AM EDT Oxygen Saturation 98% 01/13/2025 11:30 AM EDT Inhaled Oxygen Concentration - - Weight 98.9 kg (218 lb) 01/13/2025 11:30 AM EDT Height 175.3 cm (5' 9 ) 01/13/2025 11:30 AM EDT Body Mass Index 32.19 01/13/2025 11:30 AM EDT Plan of Treatment Upcoming Encounters Date Type Department Care Team (Late st Contact Info) Description 03/10/2025 11:00 AM EDT Clinical Support [address] [address] 06/09/2025 1:00 PM EST Office Visit [facility] [address] [place] [address] Feli Singleton, OD [address] [place] [address] Health Maintenance Due Date Last Done Comments CT Colonography 1967 Colonoscopy 1967 Dental Oral Exam 1967 Dental Prophylaxis 1967 Dental X-Ray: Full Mouth 1967 FIT DNA/Cologuard 1967 FIT 1967 Sigmoidoscopy 1967 Diabetes: Foot Exam 1977 Pneumococcal Vaccine: 50+ Years (1 of 2 - PCV) 1986 Zoster Vaccines (1 of 2) 2017 Colorectal Cancer Screening 12/21/2022 FOBT 12/21/2022 HPV/Cotest 02/15/2023 02/15/2022, 02/15/2022 Cervical Cancer Screening 02/26/2024 Pap Smear 02/26/2024 02/25/2023, 02/15/2022 Dental X-Ray: Bitewings 12/10/2024 12/10/2023 Eye Exam 12/19/2024 12/19/2022, 12/05, 12/19/2022, Additional history exists Influenza Vaccine (#1) 2025 , 05/24/2022, 08/15/2020 Mammogram 03/17/2025 03/17/2024, 12/05, 12/19/2022 Lipid Panel 05/18/2025 05/18/2024, 12/04/2021 Depression Screening 06/08/2025 06/08/2024, 06/08/20 24 Hepatitis B Vaccines (3 of 3 - 19+ 3-dose series) 07/08/2025 02/07/2025, 01/05/2025 Diabetes: Hemoglobin A1C 07/16/2025 07 025, 05/18/2024, 12/04/2021 SDOH Screening 12/31/2025 12/31/2024 Alcohol/Substance Use Screening 01/13/2026 01/13/2025 Diabetes: Urine Protein Screening 01/13/2026 01/13/2025 Disability Screening 01/13/2026 01/13/2025 Tobacco Screening 01/17/2026 01/17/2025 DTaP/Tdap/Td Vaccines (2 - Td or Tdap) 10/30/2028 10/30/2018 RSV Patients and Patients Aged 60 years or older (1 - 1-dose 75+ series) 2042 HIV Screening Completed 12/04/2021, 10/30/2018 Hepatitis C Screening Completed 12/04/2021 COVID-19 Vaccine Completed 05/10/2024, , 11/21/2020, Additional history exists HIB Vaccines Aged Out No longer eligi ble based on patient's age to complete this topic HPV Vaccines Aged Out No longer eligi ble based on patient's age to complete this topic Hepatitis A Vaccines Aged Out No long er eligible based on patient's age to complete this topic IPV Vaccines Aged Out No longer eligi ble based on patient's age to complete this topic Meningococcal B Vaccine Aged Out No l onger eligible based on patient's age to complete this topic Meningococcal Vaccine Aged Out No ron arminda eligible based on patient's age to complete this topic RSV under 20 months Aged Out No longe r eligible based on patient's age to complete this topic Rotavirus Vaccines Aged Out No longer eligible based on patient's age to complete this topic Procedures Procedure Name Priority Date/Time Associated Diagnosis Comments T4, FREE Routine 02/25/2025 10:54 AM EDT TSH W/REFLEX TO FT4 Routine 02/25/2025 1 0:54 AM EDT Hypothyroidism, unspecified type T4, FREE Routine 01/13/2025 12:05 PM EDT ALBUMIN, RANDOM URINE W/CREATININE Routine 01/13/2025 12:05 PM EDT Controlled type 2 diabetes mellitus without complication, without long-term current use of insulin ([facility]) TSH W/REFLEX TO FT4 Routine 01/13/2025 1 2:05 PM EDT Hypothyroidism, unspecified type POCT GLYCATED HEMOGLOBIN, TOTAL Routine 01/13/2025 11:34 AM EDT Controlled type 2 diabetes mellitus without complication, without long-term current use of insulin (CMS/HCC) POCT GLUCOSE Routine 01/13/2025 11:34 AM EDT Controlled type 2 diabetes mellitus without complication, without long-term current use of insulin (CMS/HCC) T4, FREE Routine 01/03/2025 10:46 AM EDT COMPREHENSIVE METABOLIC PANEL Routine 01/03/2025 10:46 AM EDT MEASLES, MUMPS, AND RUBELLA (MMR) AB (IGG) PANEL, IMMUNE STATUS Routine 01/03/2025 10:46 AM EDT Need for viral immunization HEPATITIS B SURFACE ANTIBODY, QUALITATIVE Routine 01/03/2025 10:46 AM EDT Need for viral immunization TSH W/REFLEX TO FT4 Routine 01/03/2025 1 0:46 AM EDT Hypothyroidism, unspecified type VITAMIN B12/FOLATE, SERUM PANEL Routine 01/03/2025 10:46 AM EDT Vitamin B12 deficiency (dietary) anemia CBC WITH AUTO DIFFERENTIAL Routine 01/03/2025 10:46 AM EDT Iron deficiency anemia, unspecified iron deficiency anemia type VARICELLA ZOSTER ANTIBODY, IGG Routine 01/03/2025 10:44 AM EDT Need for viral immunization LIPID PANEL, STANDARD Routine 05/18/2024 11:10 AM EST Primary hypertension BI MAMMOGRAM SCREENING TOMOSYNTHESIS BILATERAL Routine 03/17/2024 3:00 PM EDT BITEWING - SINGLE RADIOGRAPHIC IMAGE Routine 12/10/2023 9:45 AM EDT Dental abscess Periodontal disease PAP SMEAR Routine 02/25/2023 2:04 PM EDT ZZZ HISTORICAL HPV E6/E7 RFLX KATHYA 16 18/45 Routine 02/15/2022 2:57 PM EDT ZZZ HISTORICAL HEPATITIS C AB W/REFL TO HCV RNA, QN, PCR Routine 12/04/2021 3:34 PM EDT HIV 1/2 ANTIGEN/ANTIBODY, FOURTH GENERATION W/RFL Routine 12/04/2021 3:34 PM EDT from Last 3 Months or Most Recently Relevant to Health Maintenance Results * (ABNORMAL) TSH W/Reflex to FT4 (02/25/2025 10:54 AM EDT) Only the most recent of3 resultswithin the time period is included. TSH reflex Free T4 12.91(H) 0.32 - 4.0 uIU/mL [facility] Blood Venous blood specimen / Unknown 02/25/2025 10:54 AM EDT 02/25/2025 11:51 AM EDT us Mesha Ruff MD LAB BLOOD ORDERABLES Final Res ult Performing Organization Address [facility]/ZIP Co de Phone Number [facility] [address] [place] [address] [phone] * (ABNORMAL) T4, Free (02/25/2025 10:54 AM EDT) Only the most recent of3 resultswithin the time period is included. Free T4 (Free Thyroxine) 0.70(L) 0.71 - 1.85 ng/dL [facility] 02/25/2025 10:5 4 AM EDT 02/25/2025 11:51 AM EDT us Mesha Ruff MD LAB BLOOD ORDERABLES Final Res ult Performing Organization Address City/[facility]/ZIP Co de Phone Number [facility] [address] [place] [address] [phone] * Albumin, Random Urine W/Creatinine (01/13/2025 12:05 PM EDT) Creatinine, Urine 229.46 mg/dL [facility] Microalbumin Urine 29.0 mg/L [facility] Microalbum Creatinine Ratio Ur 12.6 <30 ug/mg cr [facility] Comment:Albumin/Creatinine R atio Reference Ranges: Normal: < 30 ug/mg creatinine Microalbuminuria: 30 - 300 ug/mg creatinineClinical Albuminuria: > 300 ug/mg creatinine Urine (Urine, Random) 01/13/2025 12:05 PM EDT 01/13/2025 2:02 PM EDT us Mesha Ruff MD LAB URINE ORDERABLES Final Res ult [facility] [address] [place] [phone] * (ABNORMAL) POCT HGB A1C (01/13/2025 11:34 AM EDT) Hemoglobin A1C 6.7(A) 4.0 - 5.7 % QC Media Lot # [id number] Lot# Expiration Date Blood 01/13/2025 11:3 4 AM EDT us Mesha Ruff MD POINT OF CARE TEST ENTER/EDIT ORDERABLES Final Result * POCT Glucose (01/13/2025 11:34 AM EDT) Glucose Blood, POC 129 60 - 200 mg/dL QC Media Lot # [id number] Lot# Expiration Date Blood Capillary blood specimen / Unknown 01/13/2025 11:34 AM EDT us Mesha Ruff MD POINT OF CARE TEST ENTER/EDIT ORDERABLES Final Result * Vitamin B12/Folate, Serum Panel (01/03/2025 10:46 AM EDT) Vitamin B12 540 200 - 900 pg/mL [facility] Comment:NORMAL 200-900 PG/ML INDETERMINATE 160-199 PG/ML DEFICIENT < 160 PG/ML Folate 10.8 > or = 4.0 ng/mL [facility] Comment:Reference Values:> o r = 4.0 ng/mL< 4.0 ng/mL suggests folate deficiency Methotrexate, aminopterin and folinic acid(leucovorin) are chemotherapeutic agents whose molecularstructures are similar to folate; therefore, the Architectfolate assay cannot be used for patients using these drugs. Blood Venous blood specimen / Unknown 01/03/2025 10:46 AM EDT 01/03/2025 1:06 PM EDT us Mesha Ruff MD LAB BLOOD ORDERABLES Final Res ult [facility] [address] [place] [phone] * Measles, Mumps, and Rubella (MMR) Antibodies??(IgG) Panel, Immune Status (01/03/2025 10:46 AM EDT) Pathologist [facility] Mumps Virus IgG Antibody 272.00 AU/mL [facility] Comment:AU/mL Interpretation ------- <9.00 Not consistent with immunity9.00-10.99 Equivocal>10.99 Consistent with immunityThe presence of mumps IgG antibody suggests immunizationor past or current infection with mumps virus. Rubella IgG Antibody 29.20 Index [facility] Comment:Index Interpretation ----- <0.90 Not consistent with immunity 0.90-0.99 Equivocal > or = 1.00 Consistent with immunityThe presence of rubella IgG antibody suggestsimmunization or past or current infection withrubella virus.THIS TEST WAS PERFORMED AT:[facility] [place] [phone] BROWNING MD Rubeola IgG (Measles) >300.00 AU/mL [facility] Comment:AU/mL Interpretation ----- <13.50 Not consistent with cwxszxeo00.50-16.49 Equivocal>16.49 Consistent with immunityThe presence of measles IgG suggests immunization orpast or current infection with measles virus.For additional information, please refer [email or web address](This link is being provided for informational/educational purposes only.) Blood Venous blood specimen / Unknown 01/03/2025 10:46 AM EDT 01/03/2025 1:06 PM EDT us Mesha Ruff MD LAB BLOOD ORDERABLES Final Res ult [facility] [address] [place] [phone] * (ABNORMAL) CBC auto differential (01/03/2025 10:46 AM EDT) White Blood Count 8.9 4.8 - 10.8 X10*3/uL [facility] Red Blood Count 4.48 4.20 - 5.50 X10*6/uL [facility] Hemoglobin 13.0 12.0 - 16.0 g/dl [facility] Hematocrit 40.6 37.0 - 47.0 % [facility] Mean Corpuscular Volume 90.6 80.0 - 98.0 fL [facility] Mean Corpuscular Hemoglobin 29.0 27.0 - 33.0 pg [facility] Mean Corpuscular HGB Conc 32.0 31.0 - 35.0 g/dl [facility] Red Cell Distribution Width 14.5 11.0 - 16.0 % [facility] Platelet Count 255 160 - 400 X10*3/uL [facility] Mean Platelet Volume 12.2 9.4 - 12.3 fL [facility] Neutrophils Percent Auto 43.6(L) 45 - 73 % [facility] Imm Gran Pct Auto 0.2 0.0 - 0.4 % [facility] Lymphocytes Percent Auto 45.8(H) 20 - 40 % [facility] Monocytes Percent Auto 5.3 2 - 11 % [facility] Eosinophils Percent Auto 4.2(H) 0 - 4 % [facility] Basophils Percent Auto 0.9 0 - 2 % [facility] NRBC Pct Auto 0.0 0.0 - 0.2 /100WBC [facility] Neutrophils Absolute Auto 3.9 2.0 - 8.3 x10*3/uL [facility] Imm Gran Abs Auto 0.02 0.00 - 0.03 X10*3/uL [facility] Lymphocytes Absolute Auto 4.1 1.2 - 4.9 X10*3/uL [facility] Monocytes Absolute Auto 0.5 0.1 - 1.2 X10*3/uL [facility] Eosinophils Absolute Auto 0.4 0.0 - 0.4 X10*3/uL [facility] Basophils Absolute Auto 0.1 0.0 - 0.2 X10*3/uL [facility] NRBC Abs Auto 0.000 0.0 - 0.012 X10*3/uL [facility] Blood Venous blood specimen / Unknown 01/03/2025 10:46 AM EDT 01/03/2025 1:06 PM EDT us Mesha Ruff MD LAB BLOOD ORDERABLES Final Res ult [facility] [address] [place] [phone] [phone] * Hepatitis B Surface Antibody, Qualitative (01/03/2025 10:46 AM EDT) ~Hepatitis B Surface Antibody NONREACTIVE Nonreactive [facility] Comment:Nonreactive: < 8.00 mIU/mL Blood Venous blood specimen / Unknown 01/03/2025 10:46 AM EDT 01/03/2025 1:06 PM EDT us Mesha Ruff MD LAB BLOOD ORDERABLES Final Res ult Performing Organization Address City/[facility]/ZIP Co de Phone Number [facility] [address] [place] [phone] * (ABNORMAL) Comprehensive Metabolic Panel (01/03/2025 10:46 AM EDT) Sodium 141 135 - 145 mmol/L [facility] Potassium 4.2 3.3 - 5.1 mmol/L [facility] Chloride 105 96 - 108 mmol/L [facility] Carbon Dioxide 27 22 - 29 mmol/L [facility] Anion Gap 13 12 - 20 [facility] Urea Nitrogen (BUN) 14 9 - 16 mg/dL [facility] Creatinine, Serum 0.69 0.5 - 1.4 mg/dL [facility] Estimated Glomerular Filt Rate >60 [facility] Comment:Chronic Kidney Disea se: Estimated GFR < 60 mL/min/[id number] Kidney Disease: Estimated GFR < 15 mL/min/1.73m2 Glucose 136(H) 60 - 115 mg/dL [facility] Calcium 9.4 8.4 - 10.2 mg/dL [facility] Bilirubin, Total 0.3 0.0 - 1.0 mg/dL [facility] Aspartate Amino Transferase 53(H) 5 - 31 U/L [facility] Alanine Aminotransferase 84(H) 0 - 31 U/L [facility] Total Protein 7.9 6.5 - 8.0 g/dL [facility] Albumin Level 4.4 3.5 - 5.0 g/dL [facility] Alkaline Phosphatase 60 39 - 117 U/L [facility] 01/03/2025 10:4 6 AM EDT 01/03/2025 1:06 PM EDT us Mesha Ruff MD LAB BLOOD ORDERABLES Final Res ult [facility] [address] [place] [address] [phone] * Varicella Zoster Antibody, IgG (01/03/2025 10:44 AM EDT) Varicella IgG Antibody 12.80 S/CO [facility] Comment:Signal to Cut-off S/ CO Interpretation --------- <1.00 Negative - Antibody not detected > or = 1.00 Positive - Antibody detected A positive result indicates that the patient has antibody to VZV but does not differentiate between an active or past infection. The clinical diagnosis must be interpreted in conjunction with the clinical signs and symptoms of the patient. This assay reliably measures immunity due to previous infection but may not be sensitive enough to detect antibodies induced by vaccination. Thus, a negative result in a vaccinated individual does not necessarily indicate susceptibility to VZV infection. A more sensitive test for vaccination-induced immunity is Varicella Zoster Virus Antibody Immunity Screen, ACIF.THIS TEST WAS PERFORMED AT:[facility] [place] [phone] BROWNING MD Blood Venous blood specimen / Unknown 01/03/2025 10:44 AM EDT 01/03/2025 1:06 PM EDT us Mesha Ruff MD LAB BLOOD ORDERABLES Final Res ult [facility] [address] [place] [address] [phone] * (ABNORMAL) Lipid Panel, Standard (05/18/2024 11:10 AM EST) Triglycerides 174(H) <150 mg/dL [facility] Comment:Desirable Triglyceri de: less than 150 mg/dLBorderline High Triglyceride 150-199 mg/dLHigh Triglyceride: 200-499 mg/dLVery High Triglyceride: greater than or equal to 5OO mg/dL Cholesterol 196 <200 mg/dL [facility] Comment:Desirable Cholestero l: less than 200 mg/dLBorderline High Cholesterol: 200-239 mg/dLHigh Cholesterol: greater than 239 mg/dL LDL Cholesterol Calculated 127(H) <100 mg/dL [facility] Comment:Desirable LDL: less than 100 mg/dLNear Optimal/Above Optimal LDL: 110- 129 mg/dLBorderline High LDL: 130-159 mg/dLHigh LDL: 160-189 mg/dLVery High LDL: greater than or equal to 190 mg/dL HDL Cholesterol 35(L) >40 mg/dL [facility] Comment:Desirable HDL: great er than 40 mg/dL Note: This HDL assay may give artificially low results in patients with liver disease. Blood Venous blood specimen / Unknown 05/18/2024 11:10 AM EST 05/18/2024 1:45 PM EST Mesha Ruff MD LAB BLOOD ORDERABLES Final Res ult [facility] [address] [place] [phone] * BI Mammogram Screening Tomosynthesis Bilateral (03/17/2024 3:00 PM EDT) Anatomical Region Laterality Modality Breast Bilateral Mammography 03/17/2024 3:00 PM EDT Narrative 03/31/2024 12:52 PM EDT [facility] [address] [place] [address] Mammography Report Signed Patient: Carmen Johnson MR#: [id number] : 1965 Acct:[id number] Age/Sex: 58 / F ADM Date: 03/17/24 Loc: HO.MAMMO Attending Dr: Mesha Ruff MD Ordering Physician: Mesha Ruff Results: 1Negative Date of Service: 03/17/24 Follow Up: 1 Year From Orig inal Mammogram Procedure(s): MM tomosynthesis screening BI Accession Number(s): [id number] cc: Mesha Ruff EXAMINATION: MM SCREENING DIGITAL BREAST TOMOSYNTHESIS, BILATERAL CLINICAL INFORMATION: Screening. Asymptomatic. COMPARISON: Mammography: Comparison is made with available priors TECHNIQUE: Digital breast mammography with tomosynthesis is performed in both the craniocaudal and mediolateral oblique views along with computer-aided detection (CAD). FINDINGS: The breasts are heterogeneously dense, which may obscure small masses (ACR BI-RADS breast composition Category c). There are no significant masses, abnormal calcifications, or other abnormalities. MM/MM tomosynthesis screening BI IMPRESSION: No mammographic evidence of malignancy. ASSESSMENT: BI-RADS BI-RADS 1 - Negative RECOMMENDATION: Routine annual mammography screening. 1 year F/U This examination should not preclude the clinical evaluation of a suspicious palpable abnormality. This patient's information was entered into a reminder system with a target due date for their next mammogram. Electronically signed by: Cyndi Thompson DO 03/31/2024 12:49 PM EDT Dictated By: Cyndi Thompson DO Signed By: <Electronically signed by Cyndi Thompson DO in OV> 03/31/24 1249 DD/ 1500 TD/TT: 03/17/24 1513 Purse Seiner: Procedure Note Donotuseinterpreter, Image - 03/31/2024 [facility] [address] [place], [place] [address] Mammography Report Signed Patient: Carmen Johnson#: [id number] : 1965Acct:[id number] Age/Sex: 58 / FADM Date: 03/17/24 Loc: [place] Attending Dr: Mesha Ruff MD Ordering Physician: Ben Ruffults: 1Negative Date of Service: 03/17/24Follow Up: 1 Year From Orig inal Mammogram Procedure(s): MM tomosynthesis screening BI Accession Number(s): [id number] cc: Mesha Ruff EXAMINATION: MM SCREENING DIGITAL BREAST TOMOSYNTHESIS, BILATERAL CLINICAL INFORMATION: Screening. Asymptomatic. COMPARISON: Mammography: Comparison is made with available priors TECHNIQUE: Digital breast mammography with tomosynthesis is performed in both the craniocaudal and mediolateral oblique views along with computer-aided detection (CAD). FINDINGS: The breasts are heterogeneously dense, which may obscure small masses (ACR BI-RADS breast composition Category c). There are no significant masses, abnormal calcifications, or other abnormalities. MM/MM tomosynthesis screening BI IMPRESSION: No mammographic evidence of malignancy. ASSESSMENT: BI-RADS BI-RADS 1 - Negative RECOMMENDATION: Routine annual mammography screening. 1 year F/U This examination should not preclude the clinical evaluation of a suspicious palpable abnormality. This patient's information was entered into a reminder system with a target due date for their next mammogram. Electronically signed by: yCndi Thompson DO 03/31/2024 12:49 PM EDT RP Dictated By: Cyndi Thompson DO Signed By: <Electronically signed by Cyndi Thompson DO in OV> 03/31/24 1249 DD/ 1500 TD/TT: 03/17/24 1513 Purse Seiner: us Mesha Ruff MD IMG BI PROCEDURES Edited Resul t - Final * Pap Smear (02/25/2023 2:04 PM EDT) 02/25/2023 2:04 PM EDT 02/26/2023 8:55 AM EDT [facility] - 03/14/2023 9:59 AM EDT ----- ------- Name: Natanael MarieeCarmen sung Age/Sex: 57/F : 1965 Unit#: [id number] Attend Dr: Terese Hartmann [facility] Re02/25/23 Status: DEP REF Location: [facility] Disch: ----- ------- SPEC : [id number] RECD: 02/26/23 STATUS: NETO COTTO NUM: [id number] DEANNA: 02/25/23-[address] [facility] [address]: Terese Hartmann [facility] ENTERED: 02/26/23112 SP TYPE: Pap Smr OT DR: Mesha Ruff ORDERED: Pap Smear Interpretation Satisfactory for evaluation. Negative for intraepithelial lesion or malignancy. HPV mRNA E6/E7: NOT DETECTED This assay detects E6/E7 viral messenger RNA (mRNA) from 14 high-risk HPV types (16, 18, 31, 33, 35, 39, 45, 51, 52, 56, 58, 59, 66, 68) HPV testing performed by [facility], [place], [place]. See reference laboratory pion of the EMR for entire report. Clinical Information LMP: Menopausal Previous PAP test: 2021, ASCUS Material Received ThinPrep-Cervical Copies To: Mesha Ruff [address] [place] [address] Terese Hartmann [address] Estrada [address] [place] [phone] ----- ------- Signed (signature on file) MILLY Weeks ([facility]) 03/14/23 0959 ----- ------- END OF REPORT [facility] External Provider LAB CYT OLOGY ORDERABLES Final Result Performing Organization Address City/[facility]/ZIP Co de Phone Number [facility] [address] [place] [address] [phone] * HPV E6/E7 RFLX KATHYA 16 18/45 (02/15/2022 2:57 PM EDT) HPV mRNA E6/E7 rflx Not Detected Not Detected [facility] Comment: Methodology: Pediatric Physician-Mediated Amplification This assay detects E6/E7 viral messenger RNA (mRNA) from 14 high-risk HPV types (16,18,31,33,35,39,45,51,52,56,58,59,66,68). Cervical sources are required for HPV testing. If a vaginal source from a patient who has had a total hysterectomy with removal of cervix was submitted, please contact the testing laboratory for alternative testing options. For additional information, please refer to http://education.Vision Critical/faq/JXL783u0 (This link if provided for information/ educational purposes only.) THIS TEST WAS PERFORMED AT: [facility] [address] [place] [address],[place] [address] DAVID BROWNING MD 02/15/2022 2:57 PM EDT Terese Hartmann HISTORICAL/NON ORDERABLE LABS Fi nal Result Performing Organization Address City/[facility]/ZIP Co de Phone Number [facility] [address] * HEPATITIS C AB W/REFL TO HCV RNA, QN, PCR (12/04/2021 3:34 PM EDT) HEPATITIS C ANTIBODY NON-REACT EVELYN NON-REACT EVELYN [facility] INDEX 0.02 <1.00 [facility] Comment: HCV antibody was non-reactive. There is no laboratory evidence of HCV infection. In most cases, no further action is required. However, if recent HCV exposure is suspected, a test for HCV RNA (test code 09776) is suggested. For additional information please refer to http://Dynamic Yield.Vision Critical/faq/REX14t8 (This link is being provided for informational/ educational purposes only.) 12/04/2021 3:34 PM EDT Sheri Marti SHAFFER HISTORICAL/NON ORDERABLE LABS Final Result Performing Organization Address [facility] de Phone Number [facility] [address] * HIV 1/2 ANTIGEN/ANTIBODY,FOURTH GENERATION W/RFL (12/04/2021 3:34 PM EDT) Pathologist [facility] HIV-1/2 ANTIGEN AND ANTIBODIES, 4TH GENERATION W/ REFLEX NON-REACT EVELYN NON-REACT EVELYN [facility] Comment: HIV-1 antigen and HIV-1/HIV-2 antibodies were not detected. There is no laboratory evidence of HIV infection. PLEASE NOTE: This information has been disclosed to you from records whose confidentiality may be protected by state law. If your state requires such protection, then the state law prohibits you from making any further disclosure of the information without the specific written consent of the person to whom it pertains, or as otherwise permitted by law. A general authorization for the release of medical or other information is NOT sufficient for this purpose. For additional information please refer to http://Dynamic Yield.Simphatic.Pzoom/faq/PND502 (This link is being provided for informational/ educational purposes only.) The performance of this assay has not been clinically validated in patients less than 2 years old. 12/04/2021 3:34 PM EDT Sheri Kidd NP LAB BLOOD ORDERABLES Final Res ult Performing Organization Address [facility] Co de Phone Number [facility] [address] from Last 3 Months or Most Recently Relevant to Health Maintenance Insurance [place] [facility] MEDICAID STAND ADULT * Guarantor: Carmen Johnson Account Type Relation to Patient Date of Phone Billing Address Personal/Family Self [address] Care Teams Agricultural Lender Relationship Specialty Start Date End Date Mesha Ruff MD [address] [place] [address] PCP - General Family Medicine 03/05/22
--- OUTSIDE RECORDS SUMMARY | 2025-03-02 09:14 | XMS_ITS | Encounter Summary ---
Author Organization [employer] Address 75 [facility] 7t [place] [address] Care Team Providers Care Stylist Apprentice Name Role Phone Mesha Ruff MD Primary Care Provider [phone] Encounter Details Date Type Department Care Team ([facility] st Contact Info) Description 02/25/2025 Orders Only [facility] [address], [place] [phone] Mehsa Ruff MD [address] [place], [place] [phone] Social History Tobacco Use Types Packs/Day Years [...] Description 03/10/2025 11:00 AM EDT Clinical Support [facility] [address] [place] [address] 06/09/2025 1:00 PM EST Office Visit [facility] OPTOMETRY [address] [place] [address] Feli Singleton, OD [address] [place] [address] documented as of this encounter Procedures Procedure Name Priority Date/Time Associated Diagnosis Comments T4, FREE Routine 02/25/2025 10:54 AM EDT documented in this encounter Results * (ABNORMAL) T4, Free (02/25/2025 10:54 AM EDT) Free T4 (Free Thyroxine) 0.70(L) 0.71 - 1.85 ng/dL [facility] 02/25/2025 10:5 4 AM EDT 02/25/2025 11:51 AM EDT us Mesha Ruff MD LAB BLOOD ORDERABLES Final Res ult [facility] [address] [place] [phone] documented in this encounter Visit Diagnoses Not on filedocumented in this encounter Additional Health Concerns Assessment Noted Time PHQ-9 Depression Total Score: 0 06/08/20 24 11:56 AM EST documented as of this encounter Care Teams Stylist Apprentice Relationship Specialty Start Date End Date Mesha Ruff MD [address] [place] [address] PCP - General Family Medicine 03/05/22 documented as of this encounter
--- OUTSIDE RECORDS SUMMARY | 2025-03-02 09:14 | XMS_ITS | Clinical Summary ---
Author Organization [facility] Address [address] [place] [address] Care Team Providers Care Log Peeler Name Role Phone Unavailable Primary Care Provider [...] due to other allergic trigger Place 1 [place] in both nostrils once daily 16 g [...] congenital hearing loss and was evaluated in [facility] for hearing devices and surgery but was [...] Breast Cancer Screening (Mammogram) 02/05/2023 02/05/2021, 02/05/2021 Buy-TTQIB-56 ( season) 2024 05/24/2022, 11/21/2020, 10/25/2020 Alcohol [...] TSH CASCADE 26.57(H) 0.40 - 4.00 uIU/ml [facility] Blood Blood / Unknown 08/15/2020 9 :45 AM EST 08/15/2020 9:47 AM EST [employer] [facility] - 08/15/2020 12:56 PM EST [employer], [place] [address] Junior Assistant Manager - Priti Cage MD PT ID [id number] ORD# [id number] Jill MCKINNEY LAB - BLOOD DRAW Final Result [address] [address], * HEPATITIS C ANTIBODY (08/15/2020 9:45 AM EST) Pathologist [facility] HEPATITIS C VIRUS SCREEN NEGATIVE NEGATIVE [facility] Blood Blood / Unknown 08/15/2020 9 :45 AM EST 08/15/2020 9:47 AM EST [employer] [facility] - 08/15/2020 1:35 PM EST [employer], a member of [address] [address] Junior Assistant Manager - Priti Cage MD PT ID [id number] ORD# [id number] Jill MCKINNEY [facility] - BLOOD DRAW Final Result Performing Organization Address [facility]/[place] [facility] Co de Phone Number [address] [address], [place] [phone] * (ABNORMAL) LIPID PANEL (01/12/2020 10:56 AM EDT) CHOLESTEROL 173 0 - 200 mg/dL [facility] TRIGLYCERIDES 206(H) 0 - 150 mg/dL [facility] HDL CHOLESTEROL 31(L) >40 mg/dL [facility] LDL CALCULATED 101(H) 0 - 100 mg/dL [facility] TC-HDLC RATIO 5.6(H) 0 - 4.4 mg/dL [facility] Blood specimen (specimen) Blood / Unknown 01/12/2020 10:56 AM EDT 01/12/2020 3:51 PM EDT Narrative [facility] - 01/12/2020 5:13 PM EDT [employer] [address] Junior Assistant Manager - Priti Cage MD PT ID [id number] ORD# [id number] Jill MCKINNEY [facility] - BLOOD DRAW Edited Result - Final Performing Organization Address [facility]/[place] [facility]/ZIP Co de Phone Number [address] [address], [place] [phone] * COMPRE METAB PANEL (CMP) (01/12/2020 10:56 AM EDT) GLUCOSE 96 70 - 100 mg/dL [facility] Comment:Reference range appl icable to fasting specimens only BUN 12 5 - 25 mg/dL [facility] CREAT 0.71 0.5 - 1.1 mg/dL [facility] GLOMERULAR FILTRATION RATE > 60 [facility] Comment: If patient is -Greek, multiply result by 1.21 Chronic Kidney Disease: < 60 ml/min/1.73 square meters Kidney Failure: < 15 ml/min/1.73 square meters SODIUM 137 135 - 145 mEq/L [facility] POTASSIUM 4.0 3.5 - 5.5 mmol/L [facility] CHLORIDE 107 96 - 110 mmol/L [facility] CO2 25 21 - 32 mmol/L [facility] ANION GAP 5 3 - 11 [facility] CALCIUM 9.1 8.5 - 10.5 mg/dL [facility] TOTAL PROTEIN 7.7 6.0 - 8.0 G/dL [facility] ALBUMIN 3.5 3.2 - 5.0 G/dL [facility] BILI, TOTAL 0.2 0.0 - 1.4 mg/dL [facility] SGOT 39 10 - 42 U/L [facility] SGPT 56 10 - 60 U/L [facility] ALK PHOS 55 42 - 121 U/L [facility] Blood specimen (specimen) Blood / Unknown 01/12/2020 10:56 AM EDT 01/12/2020 3:51 PM EDT Narrative [facility] - 01/12/2020 5:13 PM EDT [facility], [place] [address] Junior Assistant Manager - Priti Cage MD PT ID [id number] ORD# [id number] Jill [facility] - BLOOD DRAW Edited [place] [address], * STOOL OCCULT BLOOD (POCT) (12/03/2018 4:30 [...] / Unknown 11/13/2018 2:07 PM EDT [facility] - 11/13/2018 2:07 PM EDT Thinprep pap: Negative for squamous intraepithelial lesion and malignancy Reactive cellular changes HPV: negative Emily Bangrua AGRICULTURAL ENGINEERING TEACHER LAB - PATHOLOGY AND CYTOLOG Y AMBULATORY Final Result Performing Organization Address City/[facility] Co de Phone Number [facility] [address] [address], * HIV future (10/30/2018 11:13 AM EDT) HIV 1 AND 2 ANTIBODY SCREEN NEGATIVE NEGATIVE [facility] Comment: This assay is a 4th [...] AM EDT 10/30/2018 12:23 PM EDT Narrative [facility] - 10/30/2018 8:08 PM EDT [employer], a member of [address] [address] Junior Assistant Manager - Kimberlee Trujillo MD PT ID [id number] ORD# [id number] Jose Stafford MD LAB - BLOOD DRAW Final Result [facility] [address] [place] [address], from Last 3 Months or Most Recently Relevant to Health Maintenance Insurance [facility] [employer] [place] [address] [facility] SAFETY NET DENTAL
--- OUTSIDE RECORDS SUMMARY | 2025-03-02 09:14 | XMS_ITS | Encounter Summary ---
Author Organization [employer] Address [address] [place] [address] [address] [place] [address] Care Team Providers Care Asl Interpreter Name Role Phone Mesha Ruff MD Primary Care Provider [phone] Reason for Referral * Consultation (Routine) - Authorized Specialty Diagnoses / Procedures Referred By Contlorna t Referred To Contact Gastroenterology Diagnoses Iron deficiency anemia, unspecified iron deficiency anemia type Sandhya Subramanian MD [address] [place] [address] Phone: tel: fax: Janice Waldron MD [address] [place] [address] Phone: tel: fax: Referral ID Status Reason Start Date Expiration Date Visits Requested Visits Authorized [id number] Authorized Specialty Services Required 4 05/18/2025 1 1 Encounter Details Date Type Department Care Team (Late st Contact Info) Description 05/18/2024 Orders Only [facility] [address] [place], [place] [phone] Sandhya Subramanian MD [address] [place], [place] [phone] Iron deficiency anemia, unspecified iron deficiency anemia type (Primary Dx) Social History Tobacco Use Types Packs/Day Years Used Date Smoking Tobacco: Never Smokeless Tobacco: Never Alcohol Use Standard Drinks/Week Comments Never 0 (1 standard drink = 0.6 oz pur e alcohol) Depression Answer Date Recorded Patient Health Questionnaire-9 Score 24 06/09/2023 Patient Health Questionnaire-9 Score 24 06/09/2023 Last PHQ-9: Questionnaire Data Not on file 1 08/10/2022 Housing Stability Answer Date Recorded What is your housing situation today? I have phyllis dolan 05/01/[address] you li ve. Do you have problems with any of the following? None of the above 05/01/2023 Food Insecurity Answer Date Recorded Within the past 12 months, y ou worried that your food would run out before you got money to buy more: Never True 05/01/2023 Within the past 12 months,th e food you bought just didn't last and you didn't have enough money to get more: Never True Transportation Answer Date Recorded In the past 12 months, has l ack of transportation kept you from medical appts, meetings, work or from getting things needed for daily living? Yes, it has kept me from medical appointments or getting medications. 04/15/2023 Utilities Answer Date Recorded In the past 12 months, has t he electric, gas, oil or water company threatened to shut off services in your home? No 05/01/2023 Depression Answer Date Recorded Patient Health Questionnaire-2 Score 6 06/09/2023 Comments Unknown Sex and Gender Information Value [...] Description 03/10/2025 11:00 AM EDT Clinical Support [facility] MED[facility]INE [address] [place] [address] 06/09/2025 1:00 PM EST Office Visit [facility] OPTOMETRY [address] [place] [address] Feli Singleton, OD [address] [place] [address] Scheduled Referrals Name Type Priority Associated Diagnoses Order Schedule Referral to Gastroenterology Outpatient Referral Routine Iron deficiency anemia, unspecified iron deficiency anemia type Expected: 05/18/2024 (Approximate), Expires: 05/18/2025 documented as of this encounter Procedures Procedure Name Priority Date/Time Associated Diagnosis Comments FSH Routine 05/18/2024 11:10 AM EST Iron deficiency anemia, unspecified iron deficiency anemia type documented in this encounter Results * FSH (05/18/2024 11:10 AM EST) Follicle Stimulating Hormone 12.3 mIU/mL [facility] Comment:Reference Range Foll icular Phase 2.5-10.2 Mid-cycle Peak 3.1-17.7 Luteal Phase 1.5- 9.1 Postmenopausal 23.0-116.3THIS TEST WAS PERFORMED AT:[employer] [address] [place] [id number] BROWNING MD 05/18/2024 11:1 0 AM EST 05/18/2024 1:45 PM EST us Generic External Data Provider LAB BLOOD ORDERAB LES Final Result [facility] [address] [place] [phone] documented in this encounter Visit Diagnoses Diagnosis Iron deficiency anemia, unspecified iron deficiency anemia type- Primary documented in this encounter Additional Health Concerns Assessment Noted Time PHQ-9 Depression Total Score: 24 023 3:33 PM EST documented as of this encounter Care Teams Asl Interpreter Relationship Specialty Start Date End Date Mesha Ruff MD [address] [place] [address] PCP - General Family Medicine 03/05/22 documented as of this encounter
--- OUTSIDE RECORDS SUMMARY | 2025-03-02 09:14 | XMS_ITS | Encounter Summary ---
Author Organization [employer] Address [address] [facility] 7t [place] [address] Care Team Providers Care Finish Carpenter Name Role Phone Mesha Ruff MD Primary Care Provider [phone] Encounter Details Date Type Department Care Team (Late Contact Info) Description 03/07/2023 Orders Only [facility] MEDICINE [address] [place] [phone] Mesha Ruff MD [address] [place] [address] Social History Tobacco Use Types Packs/Day Years [...] Description 03/10/2025 11:00 AM EDT Clinical Support [facility] [address] [place], [place] [phone] 06/09/2025 1:00 PM EST Office Visit [facility] OPTOMETRY [address] [place] [phone] Feli Singleton, OD [address] [place] [address] documented as of this encounter Visit Diagnoses Not on filedocumented in this encounter Additional Health Concerns Assessment Noted Time PHQ-9 Depression Total Score: 23 023 4:04 PM EDT documented as of this encounter Care Teams Finish Carpenter Relationship Specialty Start Date End Date Mesha Ruff MD [address] [place] [address] PCP - General Family Medicine 03/05/22 documented as of this encounter
--- OUTSIDE RECORDS SUMMARY | 2025-03-02 09:14 | XMS_ITS | Encounter Summary ---
Author Organization [employer] Address [address] [facility] 7 [place] [address] Care Team Providers Care Physician Practice Consultant Name Role Phone Mesha Ruff MD Primary Care Provider [phone] Encounter Details Date Type Department Care Team (Late Contact Info) Description 08/05/2022 Orders Only [facility] MEDICINE [address] [place] [address] [phone] Mesha Ruff MD [address] [place] [address] Other specified hypothyroidism (Primary Dx); Blurry vision Social History Tobacco Use Types Packs/Day Years Used Date Smoking Tobacco: Never Assessed Comments Unknown Sex and Gender Information Value [...] Description 03/10/2025 11:00 AM EDT Clinical Support [facility] MEDICINE [address] [place], [place] [phone] 06/09/2025 1:00 PM EST Office Visit [facility] OPTOMETRY [address], [place] [phone] Feli Singleton, OD [address] [place] [address] documented as of this encounter Procedures Procedure Name Priority Date/Time Associated Diagnosis Comments HIGH SENSITIVITY TROPONIN I Routine 09/04/2022 9:02 PM EST Other specified hypothyroidism HIGH SENSITIVITY TROPONIN I Routine 09/04/2022 4:25 PM EST Other specified hypothyroidism SARS COV2/INFLUENZA A/B AND RSV RNA QL NAAT Routine 09/04/2022 4:25 PM EST Other specified hypothyroidism CBC WITH AUTO DIFFERENTIAL Routine 09/04/2022 4:25 PM EST Other specified hypothyroidism APTT Routine 09/04/2022 4:25 PM EST Other specified hypothyroidism PROTHROMBIN TIME-INR Routine 09/04/2022 4:25 PM EST Other specified hypothyroidism MAGNESIUM Routine 09/04/2022 4:25 PM EST Other specified hypothyroidism COMPREHENSIVE METABOLIC PANEL Routine 09/04/2022 4:25 PM EST Other specified hypothyroidism documented in this encounter Results * HIGH SENSITIVITY TROPONIN I (09/04/2022 9:02 PM EST) [facility] TROPONIN I HIGH SENSITIVITY <3.5 <3.5 - 17.0 ng/L [facility] Comment:The [place] high sens itivity Troponin-I results should beused in conjunction with other diagnostic information suchas ECG, clinical observations and information, and patientsymptoms to aid in the diagnosis of DE. 09/04/2022 9:02 PM EST 09/04/2022 9:09 PM EST us [facility] External Provider LAB BLO OD ORDERABLES Final Result [facility] [address] [place] [phone] * HIGH SENSITIVITY TROPONIN I (09/04/2022 4:25 PM EST) [facility] TROPONIN I HIGH SENSITIVITY <3.5 <3.5 - 17.0 ng/L [facility] Comment:The [place] high sens itivity Troponin-I results should beused in conjunction with other diagnostic information suchas ECG, clinical observations and information, and patientsymptoms to aid in the diagnosis of DE. 09/04/2022 4:25 PM EST 09/04/2022 4:30 PM EST [facility] External Provider LAB BLO OD ORDERABLES Final Result Performing Organization Address [facility] Co de Phone Number [facility] [address] [place] [phone] * SARS-CoV-2 RNA, Influenza A/B, and RSV RNA, Ql NAAT (09/04/2022 4:25 PM EST) Influenza A PCR NEGATIVE Negative [facility] Influenza B PCR NEGATIVE Negative [facility] Resp Syncy Virus RNA Qual PCR NEGATIVE Negative [facility] SARS COV2 PCR NEGATIVE Negative [facility] SARS/Flu/RSV Note See Note [facility] Comment:All test results mus t be correlated with clinical findings.Negative results do not preclude SARS-CoV2, influenza Avirus, influenza B virus and/or RSV infectionand should not be used as the sole basis for treatment orother patient management decisions. Negative results must becombined with clinical observations, patient history, andepidemiological information.This test has not been evaluated for monitoring treatment ofinfection.This test has been authorized by the FDA under an EmergencyUse Authorization (EUA) for use by authorized laboratories.Testing performed on the [facility] Gene[employer]pert utilizingreal-time RT-PCR.All SARS CoV2 and positive influenza A/B results arereported to [facility]. 09/04/2022 4:25 PM EST 09/04/2022 4:30 PM EST [facility] Exter nal Provider LAB MICROBIOLOGY - GENERAL ORDERABLES Final Result Performing Organization Address City/[facility]/ZIP Co de Phone Number [facility] [address] [place] [address] [phone] * Magnesium (09/04/2022 4:25 PM EST) Magnesium 1.9 1.6 - 2.6 mg/dL [facility] 09/04/2022 4:25 PM EST 09/04/2022 4:30 PM EST us [facility] External Provider LAB BLO OD ORDERABLES Final Result [facility] [address] [place] [address] [phone] * (ABNORMAL) Comprehensive Metabolic Panel (09/04/2022 4:25 PM EST) Sodium 139 135 - 145 mmol/L [facility] Potassium 3.8 3.3 - 5.1 mmol/L [facility] Chloride 104 96 - 108 mmol/L [facility] Carbon Dioxide 26 22 - 29 mmol/L [facility] Anion Gap 13 12 - 20 [facility] Urea Nitrogen (BUN) 10 9 - 16 mg/dL [facility] Creatinine, Serum 0.77 0.5 - 1.4 mg/dL [facility] Creatinine Clr Calc Pharmacy 107.9 [facility] Comment:Provided height and weight: 182.88 cm,97.3 kg.eGFR (calculated from the MDRD study equation) and eCrCl(calculated from the Cockcroft-Gault equation) are based ondifferent parameters and may not yield comparable results.If eCrCl result is absurd, please check patient'sheight/weight. Estimated Glomerular Filt Rate >60 [facility] Comment:NOTE: For -Am erican individuals, multiply the result by 1.210.Chronic Kidney Disease: Estimated GFR < 60 mL/min/1.89r8Nlrzrh Kidney Disease: Estimated GFR < 15 mL/min/1.73m2 Glucose 91 60 - 115 mg/dL [facility] Calcium 9.7 8.4 - 10.2 mg/dL [facility] Bilirubin, Total 0.3 0.0 - 1.0 mg/dL [facility] Aspartate Amino Transferase 50(H) 5 - 31 U/L [facility] Alanine Aminotransferase 80(H) 0 - 31 U/L [facility] Total Protein 7.9 6.5 - 8.0 g/dL [facility] Albumin Level 4.2 3.5 - 5.0 g/dL [facility] Alkaline Phosphatase 58 39 - 117 U/L [facility] 09/04/2022 4:25 PM EST 09/04/2022 4:30 PM EST [facility] External Provider LAB BLO OD ORDERABLES Final Result Performing Organization Address [facility] Co de Phone Number [facility] [address] [place] [phone] * APTT (09/04/2022 4:25 PM EST) Partial Thromboplastin Time 29.2 26.0 - 36.4 SEC [facility] 09/04/2022 4:25 PM EST 09/04/2022 4:30 PM EST [facility] External Provider LAB BLO OD ORDERABLES Final Result Performing Organization Address [facility] Co de Phone Number [facility] [address] [place] [phone] * Prothrombin Time-INR (09/04/2022 4:25 PM EST) Prothrombin Time 12.3 10.0 - 13.1 SEC [facility] INTERNATIONAL NORM RATIO 1.1 0.9 - 1.1 [facility] Comment:INTERNATIONAL NORMAL IZED RATIO (INR) REFERENCE RANGES Reference RangeFor patients not on anticoagulant therapy: 0.9 - 1.1INR ranges for oral anticoagulanttherapy:For prevention and treatment of venous thrombosis and pulmonary embolism: 2.0 - 3.0For acute myocardial infarction with aspirin therapy: 2.0 - 3.0For acute myocardial infarction without aspirin therapy: 3.0 - 4.0For patients with mechanical prosthetic heart valves: 2.5 - 3.5 09/04/2022 4:25 PM EST 09/04/2022 4:30 PM EST [facility] External Provider LAB BLO OD ORDERABLES Final Result [facility] [address] [place] [phone] * (ABNORMAL) CBC auto differential (09/04/2022 4:25 PM EST) White Blood Count 8.9 4.8 - 10.8 X10*3/uL [facility] Red Blood Count 4.39 4.20 - 5.50 X10*6/uL [facility] Hemoglobin 11.7(L) 12.0 - 16.0 g/dl [facility] Hematocrit 36.8(L) 37.0 - 47.0 % [facility] Mean Corpuscular Volume 83.8 80.0 - 98.0 fL [facility] Mean Corpuscular Hemoglobin 26.7(L) 27.0 - 33.0 pg [facility] Mean Corpuscular HGB Conc 31.8 31.0 - 35.0 g/dl [facility] Red Cell Distribution Width 15.8 11.0 - 16.0 % [facility] Platelet Count 242 160 - 400 X10*3/uL [facility] Mean Platelet Volume 11.1 9.4 - 12.3 fL [facility] Neutrophils Percent Auto 44.2(L) 45 - 73 % [facility] Imm Gran Pct Auto 0.3 0.0 - 0.4 % [facility] Lymphocytes Percent Auto 44.3(H) 20 - 40 % [facility] Monocytes Percent Auto 6.4 2 - 11 % [facility] Eosinophils Percent Auto 4.0 0 - 4 % [facility] Basophils Percent Auto 0.8 0 - 2 % [facility] NRBC Pct Auto 0.0 0.0 - 0.2 /100WBC [facility] Neutrophils Absolute Auto 3.9 2.0 - 8.3 x10*3/uL [facility] Imm Gran Abs Auto 0.03 0.00 - 0.03 X10*3/uL [facility] Lymphocytes Absolute Auto 4.0 1.2 - 4.9 X10*3/uL [facility] Monocytes Absolute Auto 0.6 0.1 - 1.2 X10*3/uL [facility] Eosinophils Absolute Auto 0.4 0.0 - 0.4 X10*3/uL [facility] Basophils Absolute Auto 0.1 0.0 - 0.2 X10*3/uL [facility] NRBC Abs Auto 0.000 0.0 - 0.012 X10*3/uL [facility] 09/04/2022 4:25 PM EST 09/04/2022 4:30 PM EST us [facility] External Provider LAB BLO OD ORDERABLES Final Result Performing Organization Address City/State/[facility] Co de Phone Number [facility] [address] [place] [address] [phone] documented in this encounter Visit Diagnoses Diagnosis Other specified hypothyroidism- Primary Blurry vision Other specified visual disturbances documented in this encounter Care Teams Physician Practice Consultant Relationship Specialty Start Date End Date Mesha Ruff MD [address] [place] [phone] PCP - General Family Medicine 03/05/22 documented as of this encounter
--- OUTSIDE RECORDS SUMMARY | 2025-03-02 09:14 | XMS_ITS | Encounter Summary ---
Author Organization [employer] Address [address] [facility] 7t [place] [address] Care Team Providers Care Day Care Assistant Name Role Phone Mesha Ruff MD Primary Care Provider [phone] Encounter Details Date Type Department Care Team ([facility] Contact Info) Description 11/25/2022 Orders Only [facility] MEDICINE [address] [place], [place] [phone] Mesha Ruff MD [address] [place] [address] Vitamin B deficiency Social History Tobacco Use Types Packs/Day Years [...] Orientation Straight 05/06/2022 10 :39 AM EDT COVID-19 Exposure Response Date Recorded In the last 10 days, have yo u been in contact with someone who was confirmed or suspected to have Coronavirus/COVID-19? No / Unsure 11/25/2022 10:00 AM EDT documented as of this encounter Plan of Treatment Upcoming Encounters Date Type Department Care Team ([facility] Contact Info) Description 03/10/2025 11:00 AM EDT Clinical Support [facility] [address] [facility] [place] [address] 06/09/2025 1:00 PM EST Office Visit [facility] OPTOMETRY [address] [facility] [place] [address] Feli Singleton, OD [address] [facility] [place] [address] documented as of this encounter Procedures Procedure Name Priority Date/Time Associated Diagnosis Comments BI MAMMOGRAM SCREENING TOMOSYNTHESIS BILATERAL Routine 12/19/2022 1:46 PM EDT documented in this encounter Results * BI Mammogram Screening Tomosynthesis Bilateral (12/19/2022 1:46 PM EDT) Anatomical Region Laterality Modality Breast Bilateral Mammography 12/19/2022 1:46 PM EDT Narrative 12/23/2022 7:53 AM EDT [facility] [address] [place] [address] Mammography Report Signed Patient: Carmen Johnson MR#: [id number] : 1965 Acct:[id number] Age/Sex: 57 / F ADM Date: 12/19/22 Loc: HO.MAMMO Attending Dr: Mesha Ruff MD Ordering Physician: Mesha Ruff Results: 1Negative Date of Service: 12/19/22 Follow Up: 1 Year From Orig inal Mammogram Procedure(s): MM tomosynthesis screening BI Accession Number(s): [id number] cc: Mesha Ruff EXAMINATION: MM SCREENING DIGITAL BREAST TOMOSYNTHESIS, BILATERAL CLINICAL INFORMATION: Screening. Asymptomatic. The lifetime risk of breast cancer based on the Tyrer-Cuzick Model is 9%. COMPARISON: Outside mammography: 02/05/2021 ([facility]) TECHNIQUE: Digital breast tomosynthesis is performed in both the craniocaudal and mediolateral oblique views along with computer-aided detection (CAD). Synthesized 2D images are generated from the tomosynthesis. FINDINGS: There are scattered areas of fibroglandular density (ACR BI-RADS breast composition Category b). There are no significant masses, abnormal calcifications, or other abnormalities. Parenchymal pattern is similar to prior outside exam. No developing density or architectural abnormality. The axilla and skin contours are unremarkable. MM/MM tomosynthesis screening BI IMPRESSION: No mammographic evidence of malignancy. ASSESSMENT: BI-RADS 1: Negative RECOMMENDATION: Routine annual mammography screening. This patient's information was entered into a reminder system with a target due date for their next mammogram. Dictated By: Maury Kennedy MD Signed By: <Electronically signed by Maury Kennedy MD in OV> 12/23/22 0750 DD/ 1346 TD/TT: Residential Care Facility Manager: SANDRA Procedure Note Donotuseinterpreter, Image - 01/02/2023 [facility] [address] [place] [address] Mammography Report Signed Patient: Carmen JohnsonMR#: [id number] : 1965Acct:[id number] Age/Sex: 57 / FADM Date: 12/19/22 Loc: HO.MAMMO Attending Dr: Mesha Ruff MD Ordering Physician: Ben Ruffults: 1Negative Date of Service: 12/19/22Follow Up: 1 Year From Orig ina Mammogram Procedure(s): MM tomosynthesis screening BI Accession Number(s): [id number] cc: Mesha Ruff EXAMINATION: MM SCREENING DIGITAL BREAST TOMOSYNTHESIS, BILATERAL CLINICAL INFORMATION: Screening. Asymptomatic. The lifetime risk of breast cancer based on the Tyrer-Cuzick Model is 9%. COMPARISON: Outside mammography: 02/05/2021 ([facility]) TECHNIQUE: Digital breast tomosynthesis is performed in both the craniocaudal and mediolateral oblique views along with computer-aided detection (CAD). Synthesized 2D images are generated from the tomosynthesis. FINDINGS: There are scattered areas of fibroglandular density (ACR BI-RADS breast composition Category b). There are no significant masses, abnormal calcifications, or other abnormalities. Parenchymal pattern is similar to prior outside exam. No developing density or architectural abnormality. The axilla and skin contours are unremarkable. MM/MM tomosynthesis screening BI IMPRESSION: No mammographic evidence of malignancy. ASSESSMENT: BI-RADS 1: Negative RECOMMENDATION: Routine annual mammography screening. This patient's information was entered into a reminder system with a target due date for their next mammogram. Dictated By: Maury Kennedy MD Signed By: <Electronically signed by Maury Kennedy MD in OV> 12/23/22 0750 DD/ 1346 TD/TT: Residential Care Facility Manager: BOAZ [facility] External Provider IMG BI PROCEDURES Final Result documented in this encounter Visit Diagnoses Diagnosis Vitamin B deficiency Unspecified vitamin B deficiency documented in this encounter Additional Health Concerns Assessment Noted Time PHQ-9 Depression Total Score: 23 023 4:04 PM EDT documented as of this encounter Care Teams Day Care Assistant Relationship Specialty Start Date End Date Mesha Ruff MD [address] [place] [phone] PCP - General Family Medicine 03/05/22 documented as of this encounter
--- OUTSIDE RECORDS SUMMARY | 2025-03-02 09:14 | XMS_ITS | Encounter Summary ---
Author Organization [employer] Address [address] [facility] 7t [place] [address] Care Team Providers Care Buttermilk Drier Operator Name Role Phone Mesha Ruff MD Primary Care Provider [phone] Encounter Details Date Type Department Care Team (Late Contact Info) Description 03/27/2023 Orders Only [facility] MEDICINE [address] [place] [address] [phone] Provider, MD Melissa Social History Tobacco Use [...] Description 03/10/2025 11:00 AM EDT Clinical Support [facility] MEDICINE [address] [place], [place] [phone] 06/09/2025 1:00 PM EST Office Visit [facility] OPTOMETRY [address] [place], [place] [phone] Feli Singleton, OD [address] [place], [place] [phone] documented as of this encounter Procedures Procedure [...] documented as of this encounter Care Teams Buttermilk Drier Operator Relationship Specialty Start Date End Date Mesha Ruff MD [address] [place] [address] PCP - General Family Medicine 03/05/22 documented as of this encounter
--- OUTSIDE RECORDS SUMMARY | 2025-03-02 09:14 | XMS_ITS | Encounter Summary ---
Author Organization [employer] Address [address] [facility] 7t [place] [address] Care Team Providers Care Weathercaster Name Role Phone Mesha Ruff MD Primary Care Provider [phone] Encounter Details Date Type Department Care Team ([facility] st Contact Info) Description 05/19/2024 Orders Only [facility] MEDICINE [address] [place], [place] [phone] Mesha Ruff MD [address] [place], [place] [phone] Iron deficiency anemia, unspecified iron deficiency anemia type (Primary Dx); Vitamin B deficiency; Controlled type 2 diabetes mellitus without complication, without long-term current use of insulin ([facility]) Social History Tobacco Use Types Packs/Day Years [...] Description 03/10/2025 11:00 AM EDT Clinical Support [facility] MEDICINE [address] [place] [address] 06/09/2025 1:00 PM EST Office Visit [facility] OPTOMETRY [address] [place] [address] Feli Singleton, OD [address] [place] [address] Scheduled Orders Name Type Priority Associated Diagnoses Orde r Schedule Vitamin B12/Folate, Serum Panel Lab Routine Vitamin B deficiency Expected: 05/19/2024, Expires: 05/19/2025 documented as of this encounter Procedures Procedure Name Priority Date/Time Associated Diagnosis Comments CBC WITH AUTO DIFFERENTIAL Routine 01/03/2025 10:46 AM EDT Iron deficiency anemia, unspecified iron deficiency anemia type documented in this encounter Results * (ABNORMAL) CBC auto differential (01/03/2025 10:46 AM EDT) White Blood Count 8.9 4.8 - 10.8 X10*3/uL [facility] Red Blood Count 4.48 4.20 - 5.50 X10*6/uL [facility] Hemoglobin 13.0 12.0 - 16.0 g/dl [facility] Hematocrit 40.6 37.0 - 47.0 % [facility] Mean Corpuscular Volume 90.6 80.0 - 98.0 fL [facility] Mean Corpuscular Hemoglobin 29.0 27.0 - 33.0 pg [facility] Mean Corpuscular HGB Conc 32.0 31.0 - 35.0 g/dl [facility] Red Cell Distribution Width 14.5 11.0 - 16.0 % [facility] Platelet Count 255 160 - 400 X10*3/uL [facility] Mean Platelet Volume 12.2 9.4 - 12.3 fL [facility] Neutrophils Percent Auto 43.6(L) 45 - 73 % [facility] Imm Gran Pct Auto 0.2 0.0 - 0.4 % [facility] Lymphocytes Percent Auto 45.8(H) 20 - 40 % [facility] Monocytes Percent Auto 5.3 2 - 11 % [facility] Eosinophils Percent Auto 4.2(H) 0 - 4 % [facility] Basophils Percent Auto 0.9 0 - 2 % [facility] NRBC Pct Auto 0.0 0.0 - 0.2 /100WBC [facility] Neutrophils Absolute Auto 3.9 2.0 - 8.3 x10*3/uL [facility] Imm Gran Abs Auto 0.02 0.00 - 0.03 X10*3/uL [facility] Lymphocytes Absolute Auto 4.1 1.2 - 4.9 X10*3/uL [facility] Monocytes Absolute Auto 0.5 0.1 - 1.2 X10*3/uL [facility] Eosinophils Absolute Auto 0.4 0.0 - 0.4 X10*3/uL [facility] Basophils Absolute Auto 0.1 0.0 - 0.2 X10*3/uL [facility] NRBC Abs Auto 0.000 0.0 - 0.012 X10*3/uL [facility] Blood Venous blood specimen / Unknown 01/03/2025 10:46 AM EDT 01/03/2025 1:06 PM EDT us Mesha Ruff MD LAB BLOOD ORDERABLES Final Res ult [facility] [address] [place] [address] [phone] documented in this encounter Visit Diagnoses Diagnosis Iron deficiency anemia, unspecified iron deficiency anemia type- Primary Vitamin B deficiency Unspecified vitamin B deficiency Controlled type 2 diabetes mellitus without complication, without long-term current use of insulin ([facility]) documented in this encounter Additional Health Concerns Assessment Noted Time PHQ-9 Depression Total Score: 24 023 3:33 PM EST documented as of this encounter Care Teams Weathercaster Relationship Specialty Start Date End Date Mesha Ruff MD [address] [place] [address] PCP - General Family Medicine 03/05/22 documented as of this encounter
--- OUTSIDE RECORDS SUMMARY | 2025-03-02 09:14 | XMS_ITS | Encounter Summary ---
Author Organization [employer] Address [address] [facility] 7t [place] [address] Care Team Providers Care Svp Digital Sales Name Role Phone Mesha Ruff MD Primary Care Provider [phone] Encounter Details Date Type Department Care Team (Late Contact Info) Description 03/07/2023 Abstract [facility] MEDICINE [address] [place] [phone] Mesha Ruff MD [address] [place] [address] Social History Tobacco Use Types Packs/Day Years [...] 03/10/2025 11:00 AM EDT Clinical Support [facility] MEDICINE [address] [place], [place] [phone] 06/09/2025 1:00 PM EST Office Visit [facility] OPTOMETRY [address] [place] [address] [phone] Feli Singleton, OD [address] [place] [address] documented as of this encounter Visit Diagnoses Not on filedocumented in this encounter Additional Health Concerns Assessment Noted Time PHQ-9 Depression Total Score: 23 023 4:04 PM EDT documented as of this encounter Care Teams Svp Digital Sales Relationship Specialty Start Date End Date Mesha Ruff MD [address] [place] [address] PCP - General Family Medicine 03/05/22 documented as of this encounter
--- OUTSIDE RECORDS SUMMARY | 2025-03-02 09:14 | XMS_ITS | Encounter Summary ---
Author Organization [employer] Address [address] [facility] 7t [place] [address] Care Team Providers Care Air Traffic Control Operator Name Role Phone Mesha Ruff MD Primary Care Provider [phone] Encounter Details Date Type Department Care Team ([facility] Contact Info) Description 11/14/2022 Orders Only [facility] MEDICINE [address] [place], [place] [phone] Mesha Ruff MD [address] [place] [address] Vitamin B deficiency (Primary Dx) Social History Tobacco Use Types [...] suspected to have Coronavirus/COVID-19? No / Unsure 10/30/2022 3:50 PM EDT documented as of this encounter Plan of Treatment Upcoming Encounters Date Type Department Care Team ([facility] Contact Info) Description 03/10/2025 11:00 AM EDT Clinical Support [facility] MEDICINE [address] [place] [address] 06/09/2025 1:00 PM EST Office Visit [facility] OPTOMETRY [address] [place] [address] Feli Singleton, MARTHA [address] [place] [address] documented as of this encounter Visit Diagnoses Diagnosis Vitamin B deficiency- Primary Unspecified vitamin B deficiency documented in this encounter Additional Health Concerns Assessment Noted Time PHQ-9 Depression Total Score: 23 023 4:04 PM EDT documented as of this encounter Care Teams Air Traffic Control Operator Relationship Specialty Start Date End Date Mesha Ruff MD [address] [place] [address] PCP - General Family Medicine 03/05/22 documented as of this encounter
== END 2025-03-02 10:47 | disposition home or self-care (01) ==
LOC: HO.HWS 08:49
PROVIDERS: Visit Provider Advanced Practice Midwife
DX: Z01.419 Encounter for gynecological examination (general) (routine) without abnormal findings (principal)
CPT/HCPCS: 99396; 99459

== ENCOUNTER → 2025-03-02 08:49 | Outpatient (BNVA) | payer MEDICAID, SELFPAY | PROVIDERS: Visit Provider Advanced Practice Midwife | DX: Z01.419 Encounter for gynecological examination (general) (routine) without abnormal findings (principal) | CPT/HCPCS: 99396; 99459 ==

== ENCOUNTER 2025-03-21 15:40 | Outpatient (REF) | payer MEDICAID, SELFPAY ==
--- NOTE | ~2025-03-21 | XR_ITS ---
EXAMINATION: XR CHEST CLINICAL INFORMATION: SOB, orthopnea COMPARISON: 04/26/2024. TECHNIQUE: 2 views of the chest were obtained. FINDINGS: The cardiac, hilar, and mediastinal contours are normal. The lungs are clear bilaterally. There is no pneumothorax or pleural effusion. There is no focal osseous or soft tissue abnormality. XR/XR chest 2V IMPRESSION: No active pulmonary disease. Electronically signed by: Juan Jose Rice MD 03/21/2025 04:13 PM EDT
--- OUTSIDE RECORDS SUMMARY | 2025-03-21 14:00 | XMS_ITS | Encounter Summary ---
Author Organization [employer] Address [address] [facility] 7[address] [place] [address] Care Team Providers Care Charging Operator Name Role Phone Mesha Ruff MD Primary Care Provider [phone] Reason for Visit * Reason Comments Headache Back Pain Abdominal Pain Encounter Details Date Type Department Care Team (Latest Contact Info) Description 03/21/2025 2:00 PM EDT Office Visit [facility] [address] [place] [phone] Lorraine Phillip ANP [address] [place] [address] Nonintractable headache, unspecified chronicity pattern, unspecified headache type (Primary Dx); Acute low back pain, unspecified back pain laterality, unspecified whether sciatica present; Primary hypertension; Anxiety; Hypothyroidism, unspecified type; Migraine without aura and with status migrainosus, not intractable; Swelling; Pain of right upper extremity; Orthopnea Social History Tobacco Use Types Packs/Day Years [...] the past 12 months, has t he [employer], gas, oil or water [employer] threatened to shut off services in your [...] AM EDT documented as of this encounter Last Filed Vital Signs Vital Sign Reading Time Taken Comments Blood Pressure 154/84 03/21/2025 2:30 PM EDT Pulse 77 03/21/2025 2:30 PM EDT Temperature 36.7 C (98.1 F) 03/21/2025 2:30 PM EDT Respiratory Rate 16 03/21/2025 2:30 PM EDT Oxygen Saturation 95% 03/21/2025 2:30 PM EDT Inhaled Oxygen Concentration - - Weight 101 kg (222 lb) 03/21/2025 2:30 PM EDT Height - - Body Mass Index 32.78 01/13/2025 11:30 AM EDT documented in this encounter Patient Instructions * Patient Instructions* CHARITY Andrew - 03/21/2025 2:00 PM EDT documented in this encounter Progress Notes * CHARITY Andrew - 03/21/2025 2:20 PM EDT Carmen Vaughn is 59 y.o. patient here today for sick visit. HPI PMH incl T2DM, hypothyroid, anemia, HTN Lab Results Component Value Date HGBA1C 6.7 (A) 01/13/2025 Has GAO, feels like vision went out a few times in last few days. Lasts a few minutes but sx improved when she relaxed. Does feel very stressed. Established w/ therapist but would like to see someone today. Headache did wake her from sleeping. Associated symptoms include vision change. Does not include nausea, dizziness, vomiting, other neurological symptoms. Did have similar sx years ago but doesnot recall what the dx was She does feel swollen all over including in hands and legs. Does also feel like she is suffocating when she lays flat. Denies dyspnea on exertion. She has been reports she has had a few episodes ofchest pain. Not worse with exertion not associated with nausea or diaphoresis or pain radiating anywhere else. Regarding headache: D/t high risk feature incl new pattern in pt > 50, vision loss, recommend ED- they decline for now but will do work up here and absolutely will go to ED if sx recur. Patient feels her symptoms are related to stress and though she has therapist she would like to see behavioral health counselor today here. Also w/ low back pain radiating to RLE, acute on chronic Taking APAP w/ some effect Pain worse w/ bending over, ROM She reports taking meds as rx'd but multiple meds incl olmesartan and metformin refill hx suggests non-compliance Noah BROOKS provided Hungarian interpretation. Review of Systems Constitutional: Negative for chills and fever. HENT: Negative for congestion, sinus pressure and sore throat. Eyes: Positive for photophobia and visual disturbance. Negative for pain. Respiratory: Positive for shortness of breath. Negative for cough and wheezing. Cardiovascular: Positive for chest pain and leg swelling. Gastrointestinal: Negative for abdominal pain, constipation and diarrhea. Endocrine: Negative for polydipsia, polyphagia and polyuria. Genitourinary: Negative for dysuria. Musculoskeletal: Positive for arthralgias and back pain. Neurological: Positive for headaches. Negative for dizziness, facial asymmetry, weakness, light-headedness and numbness. Psychiatric/Behavioral: Positive for sleep disturbance. 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) Encounter for screening mammogram for malignant neoplasm of breast Cerumen impaction Left otitis media Pain of right upper extremity Impacted cerumen, bilateral Dental root caries Controlled type 2 diabetes mellitus without complication, without long-term current use of insulin ([facility]) Vitamin B12 deficiency (dietary) anemia Objective BP (!) 154/84 (BP Location: Right arm, Patient Position: Sitting, BP Cuff Size: Large adult) Pulse 77 Temp 98.1 ??F (36.7 ??C) (Oral) Resp 16 Wt 222 lb (101 kg) SpO2 95% BMI 32.78 kg/m?? Blood pressure remained elevated on repeat Physical Exam Constitutional: General: She is not in acute distress. Appearance: Normal appearance. She is obese. She is not ill-appearing. HENT: Head: Normocephalic and atraumatic. Ears: Comments: Hearing aids in place Eyes: General: No scleral icterus. Extraocular Movements: Extraocular movements intact. Pupils: Pupils are equal, round, and reactive to light. Cardiovascular: Rate and Rhythm: Normal rate and regular rhythm. Pulmonary: Effort: Pulmonary effort is normal. No accessory muscle usage or respiratory distress. Breath sounds: Normal breath sounds. No wheezing or rhonchi. Musculoskeletal: General: No swelling. Right lower leg: No edema. Left lower leg: No edema. Skin: General: Skin is warm and dry. Neurological: Mental Status: She is alert and oriented to person, place, and time. Comments: Bilateral upper extremities with beauty counselor strength less than expected, symmetric. Psychiatric: Mood and Affect: Mood normal. Behavior: Behavior normal. Diagnoses and all orders for this visit: Nonintractable headache, unspecified chronicity pattern, unspecified headache type Atypical migraine or ocular migraine versus GCA (no jaw claudication) vs tension type headache (yesstress, tension in upper back but unusual to have ocular sx) versus neurological lesion versus IHH or IOP, glaucoma (no eye pain however) R/o GCA and check labs as below ED eval if sx recur - Sed Rate by Modified Westergren; Future - C-reactive Protein; Future - Acetaminophen Extra Strength 500 MG tablet; TAKE 1 TABLET BY MOUTH EVERY 6 TO 8 HOURS NEEDED FOR PAIN OR FEVER NO MORE THAN 8 TABLETS IN 24 HOURS Acute low back pain, unspecified back pain laterality, unspecified whether sciatica present - Acetaminophen Extra Strength 500 MG tablet; TAKE 1 TABLET BY MOUTH EVERY 6 TO 8 HOURS NEEDED FOR PAIN OR FEVER NO MORE THAN 8 TABLETS IN 24 HOURS - lidocaine (Lidoderm) 5 % patch; Apply 1 patch topically Once per day. Remove & discard patch within 12 hours or as directed by MD. Primary hypertension Comments: pt says she took med but med fill hx suggests noncompliance, encouraged to fill, cont low salt diet Reinforced need for daily med, follow-up w/ PCP Anxiety Clinician Allegra (Christen Puckett) to room. Hypothyroidism, unspecified type Update TSH Migraine without aura and with status migrainosus, not intractable Hydrate well, APAP as needed, could also take excedrin Swelling Not appreciable on exam but pt not previously known to me will check labs as below for thyroid dysfunction, electrolyte abn, CHF - TSH W/Reflex to FT4; Future - B Type Natriuretic Peptide (BNP); Future - Comprehensive Metabolic Panel; Future - CBC auto differential; Future - Acetaminophen Extra Strength 500 MG tablet; TAKE 1 TABLET BY MOUTH EVERY 6 TO 8 HOURS NEEDED FOR PAIN OR FEVER NO MORE THAN 8 TABLETS IN 24 HOURS Orthopnea Lungs CTAB. Check BNP, labs as ordered, check chest XR - XR Chest 2 Views; Future documented in this encounter Plan of Treatment Upcoming Encounters Date Type Department Care Team (Late st Contact Info) Description 04/11/2025 11:00 AM EDT Clinical Support [facility] [address] [place] [address] 06/09/2025 1:00 PM EST Office Visit [facility] [address] [place] [address] Feli Singleton, OD [address] [place] [address] Scheduled Orders Name Type Priority Associated Diagnoses Orde r Schedule Sed Rate by Modified Westergren Lab Routine Nonintractable headache, unspecified chronicity pattern, unspecified headache type Expected: 03/21/2025, Expires: 03/21/2026 C-reactive Protein Lab Routine Nonintractable headache, unspecified chronicity pattern, unspecified headache type Expected: 03/21/2025 (Approximate), Expires: 03/21/2026 TSH W/Reflex to FT4 Lab Routine Swelling Expected: 03/21/2025 (Approximate), Expires: 03/21/2026 B Type Natriuretic Peptide (BNP) Lab Routine Swelling Expected: 03/21/2025, Expires: 03/21/2026 Comprehensive Metabolic Panel Lab Routine Swelling Expected: 03/21/2025 (Approximate), Expires: 03/21/2026 CBC auto differential Lab Routine Swelling Expected: 03/21/2025 (Approximate), Expires: 03/21/2026 documented as of this encounter Procedures Procedure Name Priority Date/Time Associated Diagnosis Comments XR CHEST 2 VIEWS Routine 03/21/2025 4:03 PM EDT Orthopnea documented in this encounter Results * XR Chest 2 Views (03/21/2025 4:03 PM EDT) Anatomical Region Laterality Modality Chest Radiographic Mercedes ging 03/21/2025 4:03 PM EDT Narrative 03/21/2025 4:16 PM EDT [facility] [address] [place] [address] XRay Report Signed Patient: Carmen Johnson MR#: [id number] : 1965 Acct:[id number] Age/Sex: 59 / F ADM Date: 03/21/25 Loc: HO.HHCX Attending Dr: Lorraine Phillip NP Ordering Physician: LORRAINE PHILLIP NP Date of Service: 03/21/25 Procedure(s): XR chest 2V Accession Number(s): [id number] cc: LORRAINE PHILLIP NP Reason for Exam: SOB, orthopnea EXAMINATION: XR CHEST CLINICAL INFORMATION: SOB, orthopnea COMPARISON: 04/26/2024. TECHNIQUE: 2 views of the chest were obtained. FINDINGS: The cardiac, hilar, and mediastinal contours are normal. The lungs are clear bilaterally. There is no pneumothorax or pleural effusion. There is no focal osseous or soft tissue abnormality. XR/XR chest 2V IMPRESSION: No active pulmonary disease. Electronically signed by: Juan Jose Rice MD 03/21/2025 04:13 PM EDT RP Dictated By: Juan Jose Rice MD Signed By: <Electronically signed by Juan Jose Rice MD in OV> 03/21/25 1613 DD/ 1603 TD/TT: 03/21/25 1605 Call Worker: Procedure Note Donotuseinterpreter, Image - 03/21/2025 [place] [address] XRay Report Signed Patient: Cesar Johnson#: [id number] : 1965Acct:[id number] Age/Sex: 59 / FADM Date: 03/21/25 Loc: HO.HHCX Attending Dr: Lorraine Phillip NP Ordering Physician: LORRAINE PHILLIP NP Date of Service: 03/21/25 Procedure(s): XR chest 2V Accession Number(s): [id number] cc: LORRAINE PHILLIP NP Reason for Exam: SOB, orthopnea EXAMINATION: XR CHEST CLINICAL INFORMATION: SOB, orthopnea COMPARISON: 04/26/2024. TECHNIQUE: 2 views of the chest were obtained. FINDINGS: The cardiac, hilar, and mediastinal contours are normal. The lungs are clear bilaterally. There is no pneumothorax or pleural effusion. There is no focal osseous or soft tissue abnormality. XR/XR chest 2V IMPRESSION: No active pulmonary disease. Electronically signed by: Juan Jose Rice MD 03/21/2025 04:13 PM EDT RP Dictated By: Juan Jose Rice MD Signed By: <Electronically signed by Juan Jose Rice MD in OV> 03/21/25 1613 DD/ 1603 TD/TT: 03/21/25 1605 Call Worker: Lorraine NASH IMG XR PROCEDURES Final Result documented in this encounter Visit Diagnoses Diagnosis Nonintractable headache, unspecified chronicity pattern, unspecified headache type- Primary Acute low back pain, unspecified back pain laterality, unspecified whether sciatica present Primary hypertension Unspecified essential hypertension Anxiety Anxiety state, unspecified Hypothyroidism, unspecified type Migraine without aura and with status migrainosus, not intractable Swelling Localized superficial swelling, mass, or lump Pain of right upper extremity Orthopnea documented in this encounter Additional Health Concerns Assessment Noted Time PHQ-9 Depression Total Score: 0 06/08/20 24 11:56 AM EST documented as of this encounter Care Teams Charging Operator Relationship Specialty Start Date End Date Mesha Ruff MD [address] [place] [address] PCP - General Family Medicine 03/05/22 documented as of this encounter
--- OUTSIDE RECORDS SUMMARY | 2025-03-21 21:00 | XMS_ITS | Encounter Summary ---
Author Organization [employer] Address [address] [facility] 7t [place] [address] Care Team Providers Care Coal Pulverizing Operator Name Role Phone Mesha Ruff MD Primary Care Provider [phone] Encounter Details Date Type Department Care Team (Late Contact Info) Description 03/07/2023 Orders Only [facility] MEDICINE [address] [place] [address] [phone] Mesha Ruff MD [address] [place] [address] Social History Tobacco Use Types Packs/Day Years [...] Department Care Team (Late Contact Info) Description 04/11/2025 11:00 AM EDT Clinical Support [facility] MEDICINE [address] [place], [place] [phone] 06/09/2025 1:00 PM EST Office Visit [facility] OPTOMETRY [address] [place] [address] [phone] Feli Singleton, OD [address] [place] [address] documented as of this encounter Visit Diagnoses Not on filedocumented in this encounter Additional Health Concerns Assessment Noted Time PHQ-9 Depression Total Score: 23 023 4:04 PM EDT documented as of this encounter Care Teams Coal Pulverizing Operator Relationship Specialty Start Date End Date Mesha Ruff MD [address] [place] [address] PCP - General Family Medicine 03/05/22 documented as of this encounter
--- OUTSIDE RECORDS SUMMARY | 2025-03-21 21:00 | XMS_ITS | Clinical Summary ---
Author Organization [facility] Address [address] [place] [address] Care Team Providers Care Retail Sales Professional Name Role Phone Unavailable Primary Care Provider [...] due to other allergic trigger Place 1 [place] in both nostrils once daily 16 g [...] congenital hearing loss and was evaluated in [facility] for hearing devices and [...] Breast Cancer Screening (Mammogram) 02/05/2023 02/05/2021, 02/05/2021 Alcohol and Drug Screen 07/07/2024 08/15/19 21, 01/25/2020, 10/30/2018 Depression Annual Screen 07/07/2024 Lipid Screening 01/11/2025 01/12/2020, 10/06, 06/18/2018 [id number] ( season) 2025 05/24/2022, 11/21/2020, 10/25/2020 Imm-Influenza (#1) 2025 05/24/2022, 08/15/2020 Imm-DTaP/Tdap/Td (2 [...] TSH CASCADE 26.57(H) 0.40 - 4.00 uIU/ml [facility] Blood Blood / Unknown 08/15/2020 9 :45 AM EST 08/15/2020 9:47 AM EST [facility]SC[facility] - 08/15/2020 12:56 PM EST [employer], [place] [address] Civil Structural Engineer - Priti Cage MD PT ID [id number] ORD# [id number] Jill MCKINNEY LAB - BLOOD DRAW Final Result [address] [address], * HEPATITIS C ANTIBODY (08/15/2020 9:45 AM EST) Pathologist [facility] HEPATITIS C VIRUS SCREEN NEGATIVE NEGATIVE [facility] Blood Blood / Unknown 08/15/2020 9 :45 AM EST 08/15/2020 9:47 AM EST [facility] - 08/15/2020 1:35 PM EST [employer], a member of [address] [address] Civil Structural Engineer - Priti Cage MD PT ID [id number] ORD# [id number] Jill [facility]CK[facility] - BLOOD DRAW Final Result Performing Organization Address [facility] Co de Phone Number [address] [address], [place] [phone] * (ABNORMAL) LIPID PANEL (01/12/2020 10:56 AM EDT) CHOLESTEROL 173 0 - 200 mg/dL [facility] TRIGLYCERIDES 206(H) 0 - 150 mg/dL [facility] HDL CHOLESTEROL 31(L) >40 mg/dL [facility] LDL CALCULATED 101(H) 0 - 100 mg/dL [facility] TC-HDLC RATIO 5.6(H) 0 - 4.4 mg/dL [facility] Blood specimen (specimen) Blood / Unknown 01/12/2020 10:56 AM EDT 01/12/2020 3:51 PM EDT Narrative [facility] - 01/12/2020 5:13 PM EDT [employer], [place] [address] Civil Structural Engineer - Priti Cage MD PT ID [id number] ORD# [id number] Jill [facility]CK[facility] - BLOOD DRAW Edited Result - Final Performing Organization Address [facility]/ZIP Co de Phone Number [address] [address], [place] [phone] * COMPRE METAB PANEL (CMP) (01/12/2020 10:56 AM EDT) GLUCOSE 96 70 - 100 mg/dL [facility] Comment:Reference range appl icable to fasting specimens only BUN 12 5 - 25 mg/dL [facility] CREAT 0.71 0.5 - 1.1 mg/dL [facility] GLOMERULAR FILTRATION RATE > 60 [facility] Comment: If patient is -Micronesian, multiply result by 1.21 Chronic Kidney Disease: < 60 ml/min/1.73 square meters Kidney Failure: < 15 ml/min/1.73 square meters SODIUM 137 135 - 145 mEq/L [facility] POTASSIUM 4.0 3.5 - 5.5 mmol/L [facility] CHLORIDE 107 96 - 110 mmol/L [facility] CO2 25 21 - 32 mmol/L [facility] ANION GAP 5 3 - 11 [facility] CALCIUM 9.1 8.5 - 10.5 mg/dL [facility] TOTAL PROTEIN 7.7 6.0 - 8.0 G/dL [facility] ALBUMIN 3.5 3.2 - 5.0 G/dL [facility] BILI, TOTAL 0.2 0.0 - 1.4 mg/dL [facility] SGOT 39 10 - 42 U/L [facility] SGPT 56 10 - 60 U/L [facility] ALK PHOS 55 42 - 121 U/L [facility] Blood specimen (specimen) Blood / Unknown 01/12/2020 10:56 AM EDT 01/12/2020 3:51 PM EDT Narrative [facility] - 01/12/2020 5:13 PM EDT [facility] [employer], [place] [address] Civil Structural Engineer - Priti Cage MD PT ID [id number] ORD# [id number] Jill [facility] - BLOOD DRAW [place] [address], * STOOL OCCULT BLOOD (POCT) (12/03/2018 4:30 [...] / Unknown 11/13/2018 2:07 PM EDT Impressions [facility] - 11/13/2018 2:07 PM EDT Thinprep pap: Negative for squamous intraepithelial lesion and malignancy Reactive cellular changes HPV: negative Emily Bangura REPAIR SERVICER LAB - PATHOLOGY AND CYTOLOG Y AMBULATORY Final Result Performing Organization Address City/[facility] Co de Phone Number [facility] [address] [address], * HIV future (10/30/2018 11:13 AM EDT) HIV 1 AND 2 ANTIBODY SCREEN NEGATIVE NEGATIVE [facility] [employer] [facility] Comment: This assay is a 4th [...] AM EDT 10/30/2018 12:23 PM EDT Narrative [facility] - 10/30/2018 8:08 PM EDT [employer], a member of [address] [address] Civil Structural Engineer - Kimberlee Trujillo MD [place] ID [id number] ORD# [id number] Jose Stafford MD LAB - BLOOD DRAW Final Result [facility] [address] [place] [address], from Last 3 Months or Most Recently Relevant to Health Maintenance Insurance [employer] [facility] [place] [address] [facility] [employer] NET DENTAL
--- OUTSIDE RECORDS SUMMARY | 2025-03-21 21:00 | XMS_ITS | Encounter Summary ---
Author Organization [employer] Address [address] [facility] 7t [place] [address] Care Team Providers Care Medical Assembler Name Role Phone Mesha Ruff MD Primary Care Provider [phone] Encounter Details Date Type Department Care Team ([facility] Contact Info) Description 11/25/2022 Orders Only [facility] MEDICINE [address] [place], [place] [phone] Mesha Ruff MD [address] [place] [address] Vitamin B deficiency Social History Tobacco Use [...] Upcoming Encounters Date Type Department Care Team ([facility] Contact Info) Description 04/11/2025 11:00 AM EDT Clinical Support [facility] MEDICINE [address] [facility] [place] [address] 06/09/2025 1:00 PM EST Office Visit [facility] OPTOMETRY [address] [facility] [place] [address] Feli Singleton, OD [address] [facility] [place] [address] documented as of this encounter Procedures Procedure Name Priority Date/Time Associated Diagnosis Comments BI MAMMOGRAM SCREENING TOMOSYNTHESIS BILATERAL Routine 12/19/2022 1:46 PM EDT documented in this encounter Results * BI Mammogram Screening Tomosynthesis Bilateral (12/19/2022 1:46 PM EDT) Anatomical Region Laterality Modality Breast Bilateral Mammography 12/19/2022 1:46 PM EDT Narrative 12/23/2022 7:53 AM EDT [facility] [address] [place] [address] Mammography Report Signed Patient: Carmen Johnson MR#: [id number] : 1965 Acct:[id number] Age/Sex: 57 / F ADM Date: 12/19/22 Loc: HO.MAMMO Attending Dr: Mesha Ruff MD Ordering Physician: Mesha Ruff Results: 1Negative Date of Service: 12/19/22 Follow Up: 1 Year From Orig inal Mammogram Procedure(s): MM tomosynthesis screening BI Accession Number(s): [id number] cc: Mesha Ruff EXAMINATION: MM SCREENING DIGITAL BREAST TOMOSYNTHESIS, BILATERAL CLINICAL INFORMATION: Screening. Asymptomatic. The lifetime risk of breast cancer based on the Tyrer-Cuzick Model is 9%. COMPARISON: Outside mammography: 02/05/2021 ([facility]) TECHNIQUE: Digital breast tomosynthesis is performed in [...] in OV> 12/23/22 0750 DD/ 1346 TD/TT: [employer] Placing Supervisor: SANDRA Procedure Note Donotuseinterpreter, Image - 01/02/2023 [facility] [address] [place] [address] Mammography Report Signed Patient: Carmen JohnsonMR#: [id number] : 1965Acct:[id number] Age/Sex: 57 / FADM Date: 12/19/22 Loc: HO.MAMMO Attending Dr: Mesha Ruff MD Ordering Physician: Ben Ruffults: 1Negative Date of Service: 12/19/22Follow Up: 1 Year From Orig ina Mammogram Procedure(s): MM tomosynthesis screening BI Accession Number(s): [id number] cc: Mesha Ruff EXAMINATION: MM SCREENING DIGITAL BREAST TOMOSYNTHESIS, BILATERAL CLINICAL INFORMATION: Screening. Asymptomatic. The lifetime risk of breast cancer based on the Tyrer-Cuzick Model is 9%. COMPARISON: Outside mammography: 02/05/2021 ([facility]) TECHNIQUE: Digital breast tomosynthesis is performed in [...] in OV> 12/23/22 0750 DD/ 1346 TD/TT: [employer] Supervisor: BOAZ [facility] External Provider IMG BI PROCEDURES Final Result documented in this encounter Visit Diagnoses Diagnosis Vitamin B deficiency Unspecified vitamin B deficiency documented in this encounter Additional Health Concerns Assessment Noted Time PHQ-9 Depression Total Score: 23 023 4:04 PM EDT documented as of this encounter Care Teams Medical Assembler Relationship Specialty Start Date End Date Mesha Ruff MD [address] [place] [address] PCP - General Family Medicine 03/05/22 documented as of this encounter
--- OUTSIDE RECORDS SUMMARY | 2025-03-21 21:00 | XMS_ITS | Encounter Summary ---
Author Organization [employer] Address [address] [place] [address] [facility] [place] [address] Care Team Providers Care Book Store Associate Name Role Phone Mesha Ruff MD Primary Care Provider [phone] Reason for Referral * Consultation (Routine) - Authorized Specialty Diagnoses / Procedures Referred By Contlorna t Referred To Contact Gastroenterology Diagnoses Iron deficiency anemia, unspecified iron deficiency anemia type Sandhya Subramanian MD [address] [place] [address] Phone: tel: fax: Janice Waldron MD [address] [place] [address] Phone: tel: fax: Referral ID Status Reason Start Date Expiration Date Visits Requested Visits Authorized [id number] Authorized Specialty Services Required 4 05/18/2025 1 1 Encounter Details Date Type Department Care Team (Late st Contact Info) Description 05/18/2024 Orders Only [facility] [address] [place], [place] [phone] Sandhya Subramanian MD [address] [place], [place] [phone] Iron deficiency anemia, unspecified iron deficiency anemia [...] Description 04/11/2025 11:00 AM EDT Clinical Support [facility] MEDICINE [address] [place] [address] 06/09/2025 1:00 PM EST Office Visit [facility] OPTOMETRY [address] [place] [address] Feli Singleton, OD [address] [place] [address] Scheduled Referrals Name Type Priority Associated Diagnoses [...] AM EST) Follicle Stimulating Hormone 12.3 mIU/mL [facility] Comment:Reference Range Foll icular Phase 2.5-10.2 Mid-cycle Peak 3.1-17.7 Luteal Phase 1.5- 9.1 Postmenopausal 23.0-116.3THIS TEST WAS PERFORMED AT:[employer] [place] [phone] BROWNING MD 05/18/2024 11:1 0 AM EST 05/18/2024 1:45 PM EST us Generic External Data Provider LAB BLOOD ORDERAB LES Final Result [facility] [address] [place] [phone] documented in this encounter Visit Diagnoses Diagnosis Iron deficiency anemia, unspecified iron deficiency anemia type- Primary documented in this encounter Additional Health Concerns Assessment Noted Time PHQ-9 Depression Total Score: 24 023 3:33 PM EST documented as of this encounter Care Teams Book Store Associate Relationship Specialty Start Date End Date Mesha Ruff MD [address] [place] [address] PCP - General Family Medicine 03/05/22 documented as of this encounter
--- OUTSIDE RECORDS SUMMARY | 2025-03-21 21:00 | XMS_ITS | Encounter Summary ---
Author Organization [employer] Address [address] [facility] [address] [place] [address] Care Team Providers Care Avionics Installer Name Role Phone Mesha Ruff MD Primary Care Provider [phone] Encounter Details Date Type Department Care Team ([facility] st Contact Info) Description 05/19/2024 Orders Only [facility] [address] [place], [place] [phone] Mesha Ruff MD [address] [place], [place] [phone] Iron deficiency anemia, unspecified iron deficiency anemia type (Primary Dx); Vitamin B deficiency; Controlled type 2 diabetes mellitus without complication, without long-term current use of insulin ([facility]) Social History Tobacco Use Types Packs/Day Years [...] 11:00 AM EDT Clinical Support [facility] [address] [place] [address] 06/09/2025 1:00 PM EST Office Visit [facility] OPT[facility] [address] [place] [address] Feli Singleton, OD [address] [place] [address] Scheduled Orders Name Type Priority Associated Diagnoses [...] Blood Count 8.9 4.8 - 10.8 X10*3/uL [facility] Red Blood Count 4.48 4.20 - 5.50 X10*6/uL [facility] Hemoglobin 13.0 12.0 - 16.0 g/dl [facility] Hematocrit 40.6 37.0 - 47.0 % [facility] Mean Corpuscular Volume 90.6 80.0 - 98.0 fL [facility] Mean Corpuscular Hemoglobin 29.0 27.0 - 33.0 pg [facility] Mean Corpuscular HGB Conc 32.0 31.0 - 35.0 g/dl [facility] Red Cell Distribution Width 14.5 11.0 - 16.0 % [facility] Platelet Count 255 160 - 400 X10*3/uL [facility] Mean Platelet Volume 12.2 9.4 - 12.3 fL [facility] Neutrophils Percent Auto 43.6(L) 45 - 73 % [facility] Imm Gran Pct Auto 0.2 0.0 - 0.4 % [facility] Lymphocytes Percent Auto 45.8(H) 20 - 40 % [facility] Monocytes Percent Auto 5.3 2 - 11 % [facility] Eosinophils Percent Auto 4.2(H) 0 - 4 % [facility] Basophils Percent Auto 0.9 0 - 2 % [facility] NRBC Pct Auto 0.0 0.0 - 0.2 /100WBC [facility] Neutrophils Absolute Auto 3.9 2.0 - 8.3 x10*3/uL [facility] Imm Gran Abs Auto 0.02 0.00 - 0.03 X10*3/uL [facility] Lymphocytes Absolute Auto 4.1 1.2 - 4.9 X10*3/uL [facility] Monocytes Absolute Auto 0.5 0.1 - 1.2 X10*3/uL [facility] Eosinophils Absolute Auto 0.4 0.0 - 0.4 X10*3/uL [facility] Basophils Absolute Auto 0.1 0.0 - 0.2 X10*3/uL [facility] NRBC Abs Auto 0.000 0.0 - 0.012 X10*3/uL [facility] Blood Venous blood specimen / Unknown 01/03/2025 10:46 AM EDT 01/03/2025 1:06 PM EDT us Mesha Ruff MD LAB BLOOD ORDERABLES Final Res ult [facility] [address] [place] [address] [phone] documented in this encounter Visit Diagnoses Diagnosis Iron deficiency anemia, unspecified iron deficiency anemia type- Primary Vitamin B deficiency Unspecified vitamin B deficiency Controlled type 2 diabetes mellitus without complication, without long-term current use of insulin ([facility]) documented in this encounter Additional Health Concerns Assessment Noted Time PHQ-9 Depression Total Score: 24 023 3:33 PM EST documented as of this encounter Care Teams Avionics Installer Relationship Specialty Start Date End Date Mesha Ruff MD [address] [place] [phone] PCP - General Family Medicine 03/05/22 documented as of this encounter
--- OUTSIDE RECORDS SUMMARY | 2025-03-21 21:00 | XMS_ITS | Encounter Summary ---
Author Organization [employer] Address [address] [facility] [address] [place] [address] Care Team Providers Care Fruit Stuffer Name Role Phone Mesha Ruff MD Primary Care Provider [phone] Encounter Details Date Type Department Care Team ([facility] Contact Info) Description 11/14/2022 Orders Only [facility] [address] [place], [place] [phone] Mesha Ruff MD [address] [place] [address] Vitamin B deficiency (Primary Dx) Social History [...] Upcoming Encounters Date Type Department Care Team ([facility] Contact Info) Description 04/11/2025 11:00 AM EDT Clinical Support [facility] [address] [place] [address] 06/09/2025 1:00 PM EST Office Visit [facility] OPTOMETRY [address] [place] [address] Feli Singleton, MARTHA [address] [place] [address] documented as of this encounter Visit Diagnoses Diagnosis Vitamin B deficiency- Primary Unspecified vitamin B deficiency documented in this encounter Additional Health Concerns Assessment Noted Time PHQ-9 Depression Total Score: 23 023 4:04 PM EDT documented as of this encounter Care Teams Fruit Stuffer Relationship Specialty Start Date End Date Mesha Ruff MD [address] [place] [address] PCP - General Family Medicine 03/05/22 documented as of this encounter
--- OUTSIDE RECORDS SUMMARY | 2025-03-21 21:00 | XMS_ITS | Encounter Summary ---
Author Organization [employer] Address [address] [facility] [address] [place] [address] Care Team Providers Care Manufacturing Team Member Name Role Phone Mesha Ruff MD Primary Care Provider [phone] Encounter Details Date Type Department Care Team (Latest Contact Info) Description 03/21/2025 Travel Social History Tobacco Use Types Packs/Day Years [...] is your housing situation today? I have phyllisjorge dolan 06/08/[address] you [...] Description 04/11/2025 11:00 AM EDT Clinical Support [facility] [address] [place] [address] 06/09/2025 1:00 PM EST Office Visit [facility] OPTOMET[facility] [address] [place] [address] Feli Singleton, OD [address] [place] [address] documented as of this encounter Visit Diagnoses Not on filedocumented in this encounter Additional Health Concerns Assessment Noted Time PHQ-9 Depression Total Score: 0 06/08/20 24 11:56 AM EST documented as of this encounter Care Teams Manufacturing Team Member Relationship Specialty Start Date End Date Mesha Ruff MD [address] [place] [address] PCP - General Family Medicine 03/05/22 documented as of this encounter
--- OUTSIDE RECORDS SUMMARY | 2025-03-21 21:00 | XMS_ITS | Clinical Summary ---
Author Organization [employer] Address [address] [facility] [address] [place] [address] Care Team Providers Care Apron Man Name Role Phone Mesha Ruff MD Primary Care Provider Allergies No known active allergies Medications ascorbic acid (Vitamin C) 250 MG tablet take 1 tablet by oral route 1 time every day with ferrous sulfate tablet. 022 Active triamcinolone (Kenalog) 0.1 % cream APPLY TO THE AFFECTED AREA(S) (piel externa de la vulva) TWICE DAILY FOR 7 DAYS 023 Active SM All Day Allergy Relief 10 MG tablet TAKE 1 TABLET BY MOUTH EVERY DAY NEEDED FOR CONGESTION 90 tablet 3 023 Active albuterol 108 (90 Base) MCG/ACT inhaler Inhale 2 puffs every 4 (four) hours. 18 g 11 024 Active cholecalcifero l (D3 Super Strength) 50 MCG (2000 UT) capsule Take 1 capsule (50 mcg) by mouth in the morning. 90 capsule 3 024 Active cyanocobalamin (Vitamin B-12) 1000 MCG/ML injection INJECT 1 ML INTRAMUSCULARLY EVERY 30 DAYS 1 mL 11 024 Active ferrous gluconate (Fergon) 324 (38 Fe) MG tabletIndicati ons:Iron deficiency anemia, unspecified iron deficiency anemia type Take 1 tablet (324 mg) by mouth with breakfast. 90 tablet 3 024 Active olmesartan (Benicar) 5 MG tablet Take 1 tablet (5 mg) by mouth Once per day. 90 tablet 3 024 2024 Active Eye Itch Relief 0.035 % solution INSTILL 1 DROP INTO THE AFFECTED EYE(S) TWICE DAILY 10 mL 1 Active metFORMIN (Glucophage) 500 MG tabletIndicati ons:Controlled type 2 diabetes mellitus without complication, without long-term current use of insulin (CMS/HCC) TAKE 1 TABLET BY MOUTH TWICE DAILY WITH BREAKFAST AND WITH DINNER 180 tablet 1 Active levothyroxine (Synthroid) 125 MCG tablet Take 1 tablet (125 mcg) by mouth before breakfast. 90 tablet 025 2025 Active fluticasone (Flonase) 50 MCG/ACT nasal spray INSTILL 1-2 SPRAYS IN EACH NOSTRIL ONCE DAILY 16 g 2 025 Active Acetaminophen Extra Strength 500 MG tabletIndicati ons:Nonintract able headache, unspecified chronicity pattern, unspecified headache type,Acute low back pain, unspecified back pain laterality, unspecified whether sciatica present,Pain of right upper extremity TAKE 1 TABLET BY MOUTH EVERY 6 TO 8 HOURS NEEDED FOR PAIN OR FEVER NO MORE THAN 8 TABLETS IN 24 HOURS 60 tablet 025 Active lidocaine (Lidoderm) 5 % patchIndicatio ns:Acute low back pain, unspecified back pain laterality, unspecified whether sciatica present Apply 1 patch topically Once per day. Remove & discard patch within 12 hours or as directed by MD. 30 patch 2 Active aspirin-acetam inophen-caffei ne (Excedrin Migraine) 250-250-65 MG tabletIndicati ons:Migraine without aura and with status migrainosus, not intractable Take 2 tablets as needed once for headache, do not take more than once in 24 hours 20 tablet 025 Active Acetaminophen Extra Strength 500 MG tabletIndicati ons:Pain of right upper extremity TAKE 1 TABLET BY MOUTH EVERY 6 TO 8 HOURS NEEDED FOR PAIN OR FEVER NO MORE THAN 8 TABLETS IN 24 HOURS 60 tablet 024 2024 Discontinued(R eorder (will not trigger notification to Pharmacy)) escitalopram (Lexapro) 10 MG tablet Take 1 tablet (10 mg) by mouth at bedtime. 90 tablet 3 024 2024 Discontinued(I neffective) fluticasone (Flonase) 50 MCG/ACT nasal spray INSTILL 1-2 SPRAYS IN EACH NOSTRIL ONCE DAILY SHAKE GENTLY 16 g 2 024 2024 Discontinued Hospital, Clinic, or Other Facility Administered Medication [...] The 10-year ASCVD risk score (J Luis WITT, et al., 2019) is: 13.5% Values used [...] congenital hearing loss and was evaluated in [facility] for hearing devices and surgery but was told she was not a candidate for either Current severe episode of ma ananya depressive disorder without psychotic features without [...] Encounters Date Type Department Care Team Description 03/21/2025 2:00 PM EDT Office Visit [facility] [address] [place] [phone] Lorraine Phillip ANP Nonintractable headache, unspecified chronicity pattern, unspecified headache type (Primary Dx); Acute low back pain, unspecified back pain laterality, unspecified whether sciatica present; Primary hypertension; Anxiety; Hypothyroidism, unspecified type; Migraine without aura and with status migrainosus, not intractable; Swelling; Pain of right upper extremity; Orthopnea 03/21/2025 Travel 03/15/2025 Refill [facility] [address] [place] [address] Mesha Ruff MD 03/10/2025 11:00 AM EDT Clinical Support [facility] [address] [place] [phone] Sharlene Jasmine RN Vitamin B12 deficiency (dietary) anemia 03/10/2025 Travel 03/07/2025 Results Follow-Up [address] [address] Mesha Ruff MD Albumin, Random Urine W/Creatinine, POCT Glucose, POCT HGB A1C, TSH W/Reflex to FT4 02/25/2025 Orders Only [address] [address] Mesha Ruff MD 02/07/2025 11:00 AM EDT Clinical Support [address] [address] Sammie Jimenez, RN Encounter for immunization 02/07/2025 Travel 01/13/2025 11:15 AM EDT Office Visit [address] [address] Mesha Ruff MD Acute bilateral low back pain with right-sided sciatica (Primary Dx); Dietary counseling; Exercise counseling; Class 2 severe obesity with serious comorbidity and body mass index (BMI) of 36.0 to 36.9 in adult, unspecified obesity type ([facility]/HCC); 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 prior episode ([facility]); Mild intermittent asthma without complication; Controlled type 2 diabetes mellitus without complication, without long-term current use of insulin ([facility]); Encounter for screening for cervical cancer; Hypothyroidism, unspecified type 01/13/2025 Orders Only [address] [address] Mesha Ruff MD 01/13/2025 Travel 01/12/[address] [address] Mesha Ruff MD Chart prep 01/10/2025 Telephone [facility] [address] [place] [address] Mesha Ruff MD telephone call 01/06/2025 Telephone [facility] [address] [place] [phone] Mesha Ruff MD chart prep 01/06/2025 Telephone [facility] [address] [place] [address] Feli Singleton, MARTHA 01/05/2025 11:00 AM EDT Clinical Support [address] [address] Sammie Jimenez, SHERLY Encounter for immunization 01/05/2025 Travel 01/05/2025 Refill [facility] [address] [place] [address] Mesha Ruff MD Controlled type 2 diabetes mellitus without complication, without long-term current use of insulin ([facility]) 01/04/2025 Results Follow-Up [facility] [address], [place] [phone] Shandra Rose FNP Vitamin B12/Folate, Serum Panel, TSH W/Reflex to FT4 01/03/2025 Orders Only [facility] [address] [place], [place] [phone] Mesha Ruff MD 12/31/2024 Patient Outreach [facility] [address], [place] [phone] Mesha Ruff MD Pre-visit Planning (SDOH negative. Tobacco screening negative. ) 12/22/2024 Refill [facility] [address] [place], [place] [phone] Mesha Ruff MD from Last 3 Months Immunizations Immunization Administration [...] (222 lb) 03/21/2025 2:30 PM EDT Height 175.3 cm (5' 9 ) 01/13/2025 11:30 AM EDT Body Mass Index 32.78 01/13/2025 11:30 AM EDT Plan of Treatment Upcoming Encounters Date Type Department Care Team (Late st Contact Info) Description 04/11/2025 11:00 AM EDT Clinical Support [address] [address] 06/09/2025 1:00 PM EST Office Visit [facility] [address] [place] [address] Feli Singleton, OD [address] [place] [address] Health Maintenance Due Date Last Done Comments [...] 01/13/2025 Disability Screening 01/13/2026 01/13/2025 Tobacco Screening 03/21/2026 03/21/2025 DTaP/Tdap/Td Vaccines (2 - Td or Tdap) [...] this topic Meningococcal Vaccine Aged Out No orn arminda eligible based on patient's age to complete this topic RSV under 20 months Aged Out No longe r eligible based on patient's age to complete this topic Rotavirus Vaccines Aged Out No longer eligible based on patient's age to complete this topic Procedures Procedure Name Priority Date/Time Associated Diagnosis Comments XR CHEST 2 VIEWS Routine 03/21/2025 4:03 PM EDT Orthopnea T4, FREE Routine 02/25/2025 10:54 AM EDT TSH W/REFLEX TO FT4 Routine 02/25/2025 1 0:54 AM EDT Hypothyroidism, unspecified type T4, FREE Routine 01/13/2025 12:05 PM EDT ALBUMIN, RANDOM URINE W/CREATININE Routine 01/13/2025 12:05 PM EDT Controlled type 2 diabetes mellitus without complication, without long-term current use of insulin ([facility]) TSH W/REFLEX TO FT4 Routine 01/13/2025 1 2:05 PM EDT Hypothyroidism, unspecified type POCT GLYCATED HEMOGLOBIN, TOTAL Routine 01/13/2025 11:34 AM EDT Controlled type 2 diabetes mellitus without complication, without long-term current use of insulin ([facility]/HCC) POCT GLUCOSE Routine 01/13/2025 11:34 AM EDT Controlled type 2 diabetes mellitus without complication, without long-term current use of insulin ([facility]/HCC) T4, FREE Routine 01/03/2025 10:46 AM EDT [...] Recently Relevant to Health Maintenance Results * XR Chest 2 Views (03/21/2025 4:03 PM EDT) Anatomical Region Laterality Modality Chest Radiographic Mercedes ging 03/21/2025 4:03 PM EDT Narrative 03/21/2025 4:16 [place] [address] XRay Report Signed Patient: Carmen Johnson MR#: [id number] : 1965 Acct:[id number] Age/Sex: 59 / F ADM Date: 03/21/25 Loc: HO.HHCX Attending Dr: Lorraine Phillip NP Ordering Physician: LORRAINE PHILLIP NP Date of Service: 03/21/25 Procedure(s): XR chest 2V Accession Number(s): [id number] cc: LORRAINE PHILLIP NP Reason for Exam: [...] 03/21/25 1613 DD/ 1603 TD/TT: 03/21/25 1605 Cement Finisher Helper: Procedure Note Taliter, Image - 03/21/[address] [address] XRay Report Signed Patient: Carmen JohnsonMR#: [id number] : 1965Acct:[id number] Age/Sex: 59 / FADM Date: 03/21/25 Loc: HO.HHCX Attending Dr: Lorraine Phillip NP Ordering Physician: LORRAINE PHILLIP NP Date of Service: 03/21/25 Procedure(s): XR chest 2V Accession Number(s): [id number] cc: LORRAINE PHILLIP NP Reason for Exam: [...] 03/21/25 1613 DD/ 1603 TD/TT: 03/21/25 1605 Cement Finisher Helper: Lorraine Phillip ANP IMG XR PROCEDURES Final Result * (ABNORMAL) TSH W/Reflex to FT4 (02/25/2025 10:54 AM EDT) Only the most recent of3 resultswithin the time period is included. TSH reflex Free T4 12.91(H) 0.32 - 4.0 uIU/mL [facility] Blood Venous blood specimen / Unknown 02/25/2025 10:54 AM EDT 02/25/2025 11:51 AM EDT Mesha Ruff MD LAB BLOOD ORDERABLES Final Res ult Performing Organization Address [facility]/ZIP Co de Phone Number [facility] [address] [place] [phone] * (ABNORMAL) T4, Free (02/25/2025 10:54 AM EDT) Only the most recent of3 resultswithin the time period is included. Free T4 (Free Thyroxine) 0.70(L) 0.71 - 1.85 ng/dL [facility] 02/25/2025 10:5 4 AM EDT 02/25/2025 11:51 AM EDT Mesha Ruff MD LAB BLOOD ORDERABLES Final Res ult Performing Organization Address [facility] Co de Phone Number [facility] [address] [place] [phone] * Albumin, Random Urine W/Creatinine (01/13/2025 12:05 PM EDT) Creatinine, Urine 229.46 mg/dL [facility] Microalbumin Urine 29.0 mg/L [facility] Microalbum Creatinine Ratio Ur 12.6 <30 ug/mg cr [facility] Comment:Albumin/Creatinine R atio Reference Ranges: Normal: < 30 ug/mg creatinine Microalbuminuria: 30 - 300 ug/mg creatinineClinical Albuminuria: > 300 ug/mg creatinine Urine (Urine, Random) 01/13/2025 12:05 PM EDT 01/13/2025 2:02 PM EDT Mesha Ruff MD LAB URINE ORDERABLES Final Res ult Performing Organization Address [facility] Co de Phone Number [facility] [address] [place] [phone] * (ABNORMAL) POCT HGB A1C (01/13/2025 11:34 AM EDT) Hemoglobin A1C 6.7(A) 4.0 - 5.7 % QC Media Lot # [id number] Lot# Expiration Date Blood 01/13/2025 11:3 4 AM EDT Mesha Ruff MD POINT OF CARE TEST ENTER/EDIT ORDERABLES Final Result * POCT Glucose (01/13/2025 11:34 AM EDT) Glucose Blood, POC 129 60 - 200 mg/dL QC Media Lot # [id number] Lot# Expiration Date Blood Capillary blood specimen / Unknown 01/13/2025 11:34 AM EDT Mesha Ruff MD POINT OF CARE TEST ENTER/EDIT ORDERABLES Final Result * Vitamin B12/Folate, Serum Panel (01/03/2025 10:46 AM EDT) Vitamin B12 540 200 - 900 pg/mL [facility] Comment:NORMAL 200-900 PG/ML INDETERMINATE 160-199 PG/ML DEFICIENT < 160 PG/ML Folate 10.8 > or = 4.0 ng/mL [facility] Comment:Reference Values:> o r = 4.0 ng/mL< 4.0 ng/mL suggests folate deficiency Methotrexate, aminopterin and folinic acid(leucovorin) are chemotherapeutic agents whose molecularstructures are similar to folate; therefore, the Architectfolate assay cannot be used for patients using these drugs. Blood Venous blood specimen / Unknown 01/03/2025 10:46 AM EDT 01/03/2025 1:06 PM EDT Mesha Ruff MD LAB BLOOD ORDERABLES Final Res ult [facility] [address] [place] [phone] * Measles, Mumps, and Rubella (MMR) Antibodies??(IgG) Panel, Immune Status (01/03/2025 10:46 AM EDT) Mumps Virus IgG Antibody 272.00 AU/mL [facility] Comment:AU/mL Interpretation ------- <9.00 Not consistent with immunity9.00-10.99 Equivocal>10.99 Consistent with immunityThe presence of mumps IgG antibody suggests immunizationor past or current infection with mumps virus. Rubella IgG Antibody 29.20 Index [facility] Comment:Index Interpretation ----- <0.90 Not consistent with immunity 0.90-0.99 Equivocal > or = 1.00 Consistent with immunityThe presence of rubella IgG antibody suggestsimmunization or past or current infection withrubella virus.THIS TEST WAS PERFORMED AT:[facility] [place] [phone] BROWNING MD Rubeola IgG (Measles) >300.00 AU/mL [facility] Comment:AU/mL Interpretation ----- <13.50 Not consistent with tykgyoth61.50-16.49 Equivocal>16.49 Consistent with immunityThe presence of measles IgG suggests immunization orpast or current infection with measles virus.For additional information, please refer [email or web address].Sciencescape/faq/NKE699(This link is being provided for informational/educational purposes only.) Blood Venous blood specimen / Unknown 01/03/2025 10:46 AM EDT 01/03/2025 1:06 PM EDT us Mehsa Rfuf MD LAB BLOOD ORDERABLES Final Res ult [facility] [address] [place] [phone] * (ABNORMAL) CBC auto differential (01/03/2025 10:46 AM EDT) White Blood Count 8.9 4.8 - 10.8 X10*3/uL [facility] Red Blood Count 4.48 4.20 - 5.50 X10*6/uL [facility] Hemoglobin 13.0 12.0 - 16.0 g/dl [facility] Hematocrit 40.6 37.0 - 47.0 % [facility] Mean Corpuscular Volume 90.6 80.0 - 98.0 fL [facility] Mean Corpuscular Hemoglobin 29.0 27.0 - 33.0 pg [facility] Mean Corpuscular HGB Conc 32.0 31.0 - 35.0 g/dl [facility] Red Cell Distribution Width 14.5 11.0 - 16.0 % [facility] Platelet Count 255 160 - 400 X10*3/uL [facility] Mean Platelet Volume 12.2 9.4 - 12.3 fL [facility] Neutrophils Percent Auto 43.6(L) 45 - 73 % [facility] Imm Gran Pct Auto 0.2 0.0 - 0.4 % [facility] Lymphocytes Percent Auto 45.8(H) 20 - 40 % [facility] Monocytes Percent Auto 5.3 2 - 11 % [facility] Eosinophils Percent Auto 4.2(H) 0 - 4 % [facility] Basophils Percent Auto 0.9 0 - 2 % [facility] NRBC Pct Auto 0.0 0.0 - 0.2 /100WBC [facility] Neutrophils Absolute Auto 3.9 2.0 - 8.3 x10*3/uL [facility] Imm Gran Abs Auto 0.02 0.00 - 0.03 X10*3/uL [facility] Lymphocytes Absolute Auto 4.1 1.2 - 4.9 X10*3/uL [facility] Monocytes Absolute Auto 0.5 0.1 - 1.2 X10*3/uL [facility] Eosinophils Absolute Auto 0.4 0.0 - 0.4 X10*3/uL [facility] Basophils Absolute Auto 0.1 0.0 - 0.2 X10*3/uL [facility] NRBC Abs Auto 0.000 0.0 - 0.012 X10*3/uL [facility] Blood Venous blood specimen / Unknown 01/03/2025 10:46 AM EDT 01/03/2025 1:06 PM EDT Mesha Ruff MD LAB BLOOD ORDERABLES Final Res ult Performing Organization Address [facility]/ZIP Co de Phone Number [facility] [address] [place] [phone] * Hepatitis B Surface Antibody, Qualitative (01/03/2025 10:46 AM EDT) ~Hepatitis B Surface Antibody NONREACTIVE Nonreactive [facility] Comment:Nonreactive: < 8.00 mIU/mL Blood Venous blood specimen / Unknown 01/03/2025 10:46 AM EDT 01/03/2025 1:06 PM EDT Mesha Ruff MD LAB BLOOD ORDERABLES Final Res ult Performing Organization Address [facility] Co de Phone Number [facility] [address] [place] [phone] * (ABNORMAL) Comprehensive Metabolic Panel (01/03/2025 10:46 AM EDT) Sodium 141 135 - 145 mmol/L [facility] Potassium 4.2 3.3 - 5.1 mmol/L [facility] Chloride 105 96 - 108 mmol/L [facility] Carbon Dioxide 27 22 - 29 mmol/L [facility] Anion Gap 13 12 - 20 [facility] Urea Nitrogen (BUN) 14 9 - 16 mg/dL [facility] Creatinine, Serum 0.69 0.5 - 1.4 mg/dL [facility] Estimated Glomerular Filt Rate >60 [facility] Comment:Chronic Kidney Disea se: Estimated GFR < 60 mL/min/1.86o0Noitfr Kidney Disease: Estimated GFR < 15 mL/min/1.73m2 Glucose 136(H) 60 - 115 mg/dL [facility] Calcium 9.4 8.4 - 10.2 mg/dL [facility] Bilirubin, Total 0.3 0.0 - 1.0 mg/dL [facility] Aspartate Amino Transferase 53(H) 5 - 31 U/L [facility] Alanine Aminotransferase 84(H) 0 - 31 U/L [facility] Total Protein 7.9 6.5 - 8.0 g/dL [facility] Albumin Level 4.4 3.5 - 5.0 g/dL [facility] Alkaline Phosphatase 60 39 - 117 U/L [facility] 01/03/2025 10:4 6 AM EDT 01/03/2025 1:06 PM EDT us Mesha Ruff MD LAB BLOOD ORDERABLES Final Res ult [facility] [address] [place] [address] [phone] * Varicella Zoster Antibody, IgG (01/03/2025 10:44 AM EDT) Varicella IgG Antibody 12.80 S/CO [facility] Comment:Signal to Cut-off S/ CO Interpretation [...] Antibody Immunity Screen, ACIF.THIS TEST WAS PERFORMED AT:[facility] [place] [phone] BROWNING MD Blood Venous blood specimen / Unknown 01/03/2025 10:44 AM EDT 01/03/2025 1:06 PM EDT Mesha Ruff MD LAB BLOOD ORDERABLES Final Res ult Performing Organization Address [facility] de Phone Number [facility] [address] [place] [phone] * (ABNORMAL) Lipid Panel, Standard (05/18/2024 11:10 AM EST) Triglycerides 174(H) <150 mg/dL [facility] Comment:Desirable Triglyceri de: less than 150 mg/dLBorderline High Triglyceride 150-199 mg/dLHigh Triglyceride: 200-499 mg/dLVery High Triglyceride: greater than or equal to 5OO mg/dL Cholesterol 196 <200 mg/dL [facility] Comment:Desirable Cholestero l: less than 200 mg/dLBorderline High Cholesterol: 200-239 mg/dLHigh Cholesterol: greater than 239 mg/dL LDL Cholesterol Calculated 127(H) <100 mg/dL [facility] Comment:Desirable LDL: less than 100 mg/dLNear Optimal/Above Optimal LDL: 110- 129 mg/dLBorderline High LDL: 130-159 mg/dLHigh LDL: 160-189 mg/dLVery High LDL: greater than or equal to 190 mg/dL HDL Cholesterol 35(L) >40 mg/dL [facility] Comment:Desirable HDL: great er than 40 mg/dL Note: This HDL assay may give artificially low results in patients with liver disease. Blood Venous blood specimen / Unknown 05/18/2024 11:10 AM EST 05/18/2024 1:45 PM EST Mesha Ruff MD LAB BLOOD ORDERABLES Final Res ult Performing Organization Address [facility] Co de Phone Number [facility] [address] [place] [phone] * BI Mammogram Screening Tomosynthesis Bilateral (03/17/2024 3:00 PM EDT) Anatomical Region Laterality Modality Breast Bilateral Mammography 03/17/2024 3:00 PM EDT Narrative 03/31/2024 12:52 PM EDT [facility] [address] [place] [address] Mammography Report Signed Patient: Carmen Johnson MR#: [id number] : 1965 Acct:[id number] Age/Sex: 58 / F ADM Date: 03/17/24 Loc: HO.MAMMO Attending Dr: Mesha Ruff MD Ordering Physician: Mesha Ruff Results: 1Negative Date of Service: 03/17/24 Follow Up: 1 Year From Orig ina Mammogram Procedure(s): MM tomosynthesis screening BI Accession Number(s): [id number] cc: Mesha Ruff EXAMINATION: MM SCREENING DIGITAL [...] OV> 03/31/24 1249 DD/ 1500 TD/TT: 03/17/24 151 Cement Finisher Helper: Procedure Note Donotuseinterpreter, Image - 03/31/2024 [facility] [address] [place], [place] [address] Mammography Report Signed Patient: Cesar Johnson#: MM [id number] : 1965Acct:[id number] Age/Sex: 58 / FADM Date: 03/17/24 Loc: HO.MAMMO Attending Dr: Mesha Ruff MD Ordering Physician: Ben Ruffults: 1Negative Date of Service: 03/17/24Follow Up: 1 Year From Orig inal Mammogram Procedure(s): MM tomosynthesis screening BI Accession Number(s): [id number] cc: Mesha Ruff EXAMINATION: MM SCREENING DIGITAL [...] OV> 03/31/24 1249 DD/ 1500 TD/TT: 03/17/24 151 Cement Finisher Helper: Mesha Ruff MD IMG BI PROCEDURES Edited Resul t - Final * Pap Smear (02/25/2023 2:04 PM EDT) 02/25/2023 2:04 PM EDT 02/26/2023 8:55 AM EDT [facility] - 03/14/2023 9:59 AM EDT ----- ------- Name: Natanael Marieeana liliaCarmen Age/Sex: 57/F : 1965 Unit#: [id number] Attend Dr: Terese Hartmann CNM Re02/25/23 Status: DEP REF Location: [facility] Disch: ----- ------- SPEC : [id number] RECD: 02/26/23 STATUS: NETO COTTO NUM: [id number] DEANNA: 02/25/23-1404 [facility] DR: Terese Hartmann CNM ENTERED: 02/26/23-1120 SP TYPE: Pap Smr [facility] DR: Mesha Ruff ORDERED: Pap Smear Interpretation Satisfactory for evaluation. Negative for intraepithelial lesion or malignancy. HPV mRNA E6/E7: NOT DETECTED This assay detects E6/E7 viral messenger RNA (mRNA) from 14 high-risk HPV types (16, 18, 31, 33, 35, 39, 45, 51, 52, 56, 58, 59, 66, 68) HPV testing performed by [facility], [place], [place]. See reference laboratory pion of the EMR for entire report. Clinical Information LMP: Menopausal Previous PAP test: 2021, ASCUS Material Received ThinPrep-Cervical Copies To: Mesha Ruff [address] [place] [address] Terese Hartmann [address] [place] [address] ----- ------- Signed (signature on file) MILLY Weeks (ASCP) 03/14/23 0959 ----- ------- END OF REPORT [facility] External Provider LAB [facility] ORDER[facility]LES Final Result [facility] [address] [place] [address] [phone] * HPV E6/E7 RFLX KATHYA 16 18/45 (02/15/2022 2:57 PM EDT) HPV mRNA E6/E7 rflx Not Detected Not Detected [facility] Matter and Form SYSTEM Comment: Methodology: Automatic Print Developer-Mediated Amplification This assay detects E6/E7 viral messenger RNA (mRNA) from 14 high-risk HPV types (16,18,31,33,35,39,45,51,52,56,58,59,66,68). Cervical sources are required for HPV testing. If a vaginal source from a patient who has had a total hysterectomy with removal of cervix was submitted, please contact the testing laboratory for alternative testing options. For additional information, please refer to http://Virtual City.[employer]/faq/EAH423x9 (This link if provided for information/ educational purposes only.) THIS TEST WAS PERFORMED AT: [facility] [address] [place] [address],[place] [address] DAVID BROWNING MD 02/15/2022 2:57 PM EDT Terese Hartmann HISTORICAL/NON ORDERABLE LABS Fi nal Result Performing Organization Address [facility] de Phone Number [facility] [address] [place] [address], * HEPATITIS C AB W/REFL TO HCV RNA, QN, PCR (12/04/2021 3:34 PM EDT) HEPATITIS C ANTIBODY NON-REACT EVELYN NON-REACT EVELYN [facility] INDEX 0.02 <1.00 [facility] Comment: HCV antibody was non-reactive. There is no laboratory evidence of HCV infection. In most cases, no further action is required. However, if recent HCV exposure is suspected, a test for HCV RNA (test code 64788) is suggested. For additional information please refer to http://[employer] [place].[employer]/faq/NWS75w0 (This link is being provided for informational/ educational purposes only.) 12/04/2021 3:34 PM EDT Sheri Orozcoabisai SHAFFER HISTORICAL/NON ORDERABLE LABS Final Result Performing Organization Address [facility] Co de Phone Number [facility] [address] [place] [address], * HIV 1/2 ANTIGEN/ANTIBODY,FOURTH GENERATION W/RFL (12/04/2021 3:34 PM EDT) HIV-1/2 ANTIGEN AND ANTIBODIES, 4TH GENERATION W/ REFLEX NON-REACT [facility] NON-REACT [facility] Comment: HIV-1 antigen and HIV-1/HIV-2 [...] purpose. For additional information please refer to http://education.Solvonics/faq/BTA376 (This link is being provided for informational/ educational purposes only.) The performance of this assay has not been clinically validated in patients less than 2 years old. 12/04/2021 3:34 PM EDT us Sheri Kidd NP LAB BLOOD ORDERABLES Final Res ult Performing Organization Address City/State/[facility] Co de Phone Number [facility] Formerly [facility], [facility] [address] from Last 3 Months or Most Recently Relevant to Health Maintenance Insurance [facility] ST[facility] ADULT Care Teams Apron Man Relationship Specialty Start Date End Date Mesha Ruff MD [address] [place] [address] PCP - General Family Medicine 03/05/22
--- OUTSIDE RECORDS SUMMARY | 2025-03-21 21:00 | XMS_ITS | Encounter Summary ---
Author Organization [email or web address] Address 75 [facility] 7t [place] [address] Care Team Providers Care Alteration Tailor Apprentice Name Role Phone Mesha Ruff MD Primary Care Provider [phone] Reason for Visit * Reason Comments Med Refill Encounter Details Date Type Department Care Team ([facility] Contact Info) Description 03/15/2025 Refill [facility] MED[facility] [address] [place] [address] Mesha Ruff MD [address] [place] [address] Social History Tobacco Use Types Packs/Day Years [...] Description 04/11/2025 11:00 AM EDT Clinical Support [facility] [address] [place] [address] 06/09/2025 1:00 PM EST Office Visit [facility] OPTOMETRY [address] [place] [address] Feli Singleton OD [address] [place] [address] documented as of this encounter Visit Diagnoses Not on filedocumented in this encounter Additional Health Concerns Assessment Noted Time PHQ-9 Depression Total Score: 0 06/08/20 24 11:56 AM EST documented as of this encounter Care Teams Alteration Tailor Apprentice Relationship Specialty Start Date End Date Mesha Ruff MD [address] [place] [address] PCP - General Family Medicine 03/05/22 documented as of this encounter
--- OUTSIDE RECORDS SUMMARY | 2025-03-21 21:00 | XMS_ITS | Encounter Summary ---
Author Organization [employer] Address 75 [facility] 7 [place] [address] Care Team Providers Care Finisher Map And Chart Name Role Phone Mesha Ruff MD Primary Care Provider [phone] Encounter Details Date Type Department Care Team (Late Contact Info) Description 08/05/2022 Orders Only [facility] MEDICINE [address] [place] [address] [phone] Mesha Ruff MD [address] [place] [address] Other specified hypothyroidism (Primary Dx); Blurry vision [...] Description 04/11/2025 11:00 AM EDT Clinical Support [facility] MEDICINE [address] [place], [place] [phone] 06/09/2025 1:00 PM EST Office Visit [facility] OPTOMETRY [address] [place], [place] [phone] Feli Singleton, OD [address] [place] [address] documented as of this encounter Procedures Procedure [...] SENSITIVITY TROPONIN I (09/04/2022 9:02 PM EST) [facility] TROPONIN I HIGH SENSITIVITY <3.5 <3.5 - 17.0 ng/L [facility] Comment:The [place] high sens itivity Troponin-I results should beused in conjunction with other diagnostic information suchas ECG, clinical observations and information, and patientsymptoms to aid in the diagnosis of VT. 09/04/2022 9:02 PM EST 09/04/2022 9:09 PM EST us [facility] External Provider LAB BLO OD ORDERABLES Final Result [facility] [address] [place] [phone] * HIGH SENSITIVITY TROPONIN I (09/04/2022 4:25 PM EST) [facility] TROPONIN I HIGH SENSITIVITY <3.5 <3.5 - 17.0 ng/L [facility] Comment:The [place] high sens itivity Troponin-I results should beused in conjunction with other diagnostic information suchas ECG, clinical observations and information, and patientsymptoms to aid in the diagnosis of VT. 09/04/2022 4:25 PM EST 09/04/2022 4:30 PM EST [facility] External Provider LAB BLO OD ORDERABLES Final Result Performing Organization Address [facility] Co de Phone Number [facility] [address] [place] [phone] * SARS-CoV-2 RNA, Influenza A/B, and RSV RNA, Ql NAAT (09/04/2022 4:25 PM EST) Influenza A PCR NEGATIVE Negative [facility] Influenza B PCR NEGATIVE Negative [facility] Resp Syncy Virus RNA Qual PCR NEGATIVE Negative [facility] SARS COV2 PCR NEGATIVE Negative [facility] SARS/Flu/RSV Note See Note [facility] Comment:All test results mus [...] use by authorized laboratories.Testing performed on the [employer] GeneXpert utilizingreal-time RT-PCR.All SARS CoV2 and positive influenza A/B results arereported to [facility]. 09/04/2022 4:25 PM EST 09/04/2022 4:30 PM EST [facility] Exter nal Provider LAB MICROBIOLOGY - GENERAL ORDERABLES Final Result Performing Organization Address City/[facility]/ZIP Co de Phone Number [facility] [address] [place] [address] [phone] * Magnesium (09/04/2022 4:25 PM EST) Magnesium 1.9 1.6 - 2.6 mg/dL [facility] 09/04/2022 4:25 PM EST 09/04/2022 4:30 PM EST us [facility] External Provider LAB BLO OD ORDERABLES Final Result [facility] [address] [place] [address] [phone] * (ABNORMAL) Comprehensive Metabolic Panel (09/04/2022 4:25 PM EST) Sodium 139 135 - 145 mmol/L [facility] Potassium 3.8 3.3 - 5.1 mmol/L [facility] Chloride 104 96 - 108 mmol/L [facility] Carbon Dioxide 26 22 - 29 mmol/L [facility] Anion Gap 13 12 - 20 [facility] Urea Nitrogen (BUN) 10 9 - 16 mg/dL [facility] Creatinine, Serum 0.77 0.5 - 1.4 mg/dL [facility] Creatinine Clr Calc Pharmacy 107.9 [facility] Comment:Provided height and weight: 182.88 cm,97.3 kg.eGFR (calculated from the MDRD study equation) and eCrCl(calculated from the Cockcroft-Gault equation) are based ondifferent parameters and may not yield comparable results.If eCrCl result is absurd, please check patient'sheight/weight. Estimated Glomerular Filt Rate >60 [facility] Comment:NOTE: For -Am erican individuals, multiply the result by 1.210.Chronic Kidney Disease: Estimated GFR < 60 mL/min/1.04s9Scodhk Kidney Disease: Estimated GFR < 15 mL/min/1.73m2 Glucose 91 60 - 115 mg/dL [facility] Calcium 9.7 8.4 - 10.2 mg/dL [facility] Bilirubin, Total 0.3 0.0 - 1.0 mg/dL [facility] Aspartate Amino Transferase 50(H) 5 - 31 U/L [facility] Alanine Aminotransferase 80(H) 0 - 31 U/L [facility] Total Protein 7.9 6.5 - 8.0 g/dL [facility] Albumin Level 4.2 3.5 - 5.0 g/dL [facility] Alkaline Phosphatase 58 39 - 117 U/L [facility] 09/04/2022 4:25 PM EST 09/04/2022 4:30 PM EST [facility] External Provider LAB BLO OD ORDERABLES Final Result Performing Organization Address [facility] Co de Phone Number [facility] [address] [place] [phone] * APTT (09/04/2022 4:25 PM EST) Partial Thromboplastin Time 29.2 26.0 - 36.4 SEC [facility] 09/04/2022 4:25 PM EST 09/04/2022 4:30 PM EST [facility] External Provider LAB BLO OD ORDERABLES Final Result Performing Organization Address [facility] Co de Phone Number [facility] [address] [place] [phone] * Prothrombin Time-INR (09/04/2022 4:25 PM EST) Prothrombin Time 12.3 10.0 - 13.1 SEC [facility] INTERNATIONAL NORM RATIO 1.1 0.9 - 1.1 [facility] Comment:INTERNATIONAL NORMAL IZED RATIO (INR) [...] 4:25 PM EST 09/04/2022 4:30 PM EST [facility] External Provider LAB BLO OD ORDERABLES Final Result [facility] [address] [place] [phone] * (ABNORMAL) CBC auto differential (09/04/2022 4:25 PM EST) White Blood Count 8.9 4.8 - 10.8 X10*3/uL [facility] Red Blood Count 4.39 4.20 - 5.50 X10*6/uL [facility] Hemoglobin 11.7(L) 12.0 - 16.0 g/dl [facility] Hematocrit 36.8(L) 37.0 - 47.0 % [facility] Mean Corpuscular Volume 83.8 80.0 - 98.0 fL [facility] Mean Corpuscular Hemoglobin 26.7(L) 27.0 - 33.0 pg [facility] Mean Corpuscular HGB Conc 31.8 31.0 - 35.0 g/dl [facility] Red Cell Distribution Width 15.8 11.0 - 16.0 % [facility] Platelet Count 242 160 - 400 X10*3/uL [facility] Mean Platelet Volume 11.1 9.4 - 12.3 fL [facility] Neutrophils Percent Auto 44.2(L) 45 - 73 % [facility] Imm Gran Pct Auto 0.3 0.0 - 0.4 % [facility] Lymphocytes Percent Auto 44.3(H) 20 - 40 % [facility] Monocytes Percent Auto 6.4 2 - 11 % [facility] Eosinophils Percent Auto 4.0 0 - 4 % [facility] Basophils Percent Auto 0.8 0 - 2 % [facility] NRBC Pct Auto 0.0 0.0 - 0.2 /100WBC [facility] Neutrophils Absolute Auto 3.9 2.0 - 8.3 x10*3/uL [facility] Imm Gran Abs Auto 0.03 0.00 - 0.03 X10*3/uL [facility] Lymphocytes Absolute Auto 4.0 1.2 - 4.9 X10*3/uL [facility] Monocytes Absolute Auto 0.6 0.1 - 1.2 X10*3/uL [facility] Eosinophils Absolute Auto 0.4 0.0 - 0.4 X10*3/uL [facility] Basophils Absolute Auto 0.1 0.0 - 0.2 X10*3/uL [facility] NRBC Abs Auto 0.000 0.0 - 0.012 X10*3/uL [facility] 09/04/2022 4:25 PM EST 09/04/2022 4:30 PM EST us [facility] External Provider LAB BLO OD ORDERABLES Final Result Performing Organization Address City/State/[facility] Co de Phone Number [facility] [address] [place] [address] [phone] documented in this encounter Visit Diagnoses Diagnosis Other specified hypothyroidism- Primary Blurry vision Other specified visual disturbances documented in this encounter Care Teams Finisher Map And Chart Relationship Specialty Start Date End Date Mesha Ruff MD [address] [place] [phone] PCP - General Family Medicine 03/05/22 documented as of this encounter
--- OUTSIDE RECORDS SUMMARY | 2025-03-21 21:00 | XMS_ITS | Encounter Summary ---
Author Organization [employer] Address 75 [facility] 7t [place] [address] Care Team Providers Care Textile Dyer Name Role Phone Mesha Ruff MD Primary Care Provider [phone] Encounter Details Date Type Department Care Team (Late Contact Info) Description 03/07/2023 Abstract [facility] MEDICINE [address] [place] [address] [phone] Mesha Ruff MD [address] [place] [address] Social History Tobacco Use Types Packs/Day Years [...] Description 04/11/2025 11:00 AM EDT Clinical Support [facility] MEDICINE [address] [place], [place] [phone] 06/09/2025 1:00 PM EST Office Visit [facility] OPTOMETRY [address] [place] [address] [phone] Feli Singleton, OD [address] [place] [address] documented as of this encounter Visit Diagnoses Not on filedocumented in this encounter Additional Health Concerns Assessment Noted Time PHQ-9 Depression Total Score: 23 023 4:04 PM EDT documented as of this encounter Care Teams Textile Dyer Relationship Specialty Start Date End Date Mesha Ruff MD [address] [place] [address] PCP - General Family Medicine 03/05/22 documented as of this encounter
--- OUTSIDE RECORDS SUMMARY | 2025-03-21 21:00 | XMS_ITS | Encounter Summary ---
Author Organization [employer] Address 75 [facility] 7t [place] [address] Care Team Providers Care Cigarette Carton Sealer Name Role Phone Mesha Ruff MD Primary Care Provider Encounter Details Date Type Department Care Team (Late Contact Info) Description 03/27/2023 Orders Only [facility] MEDICINE [address] [place] [address] [phone] Provider, MD Melissa Social History Tobacco Use [...] Description 04/11/2025 11:00 AM EDT Clinical Support [facility] MEDICINE [address] [place], [place] [phone] 06/09/2025 1:00 PM EST Office Visit [facility] OPTOMETRY [address] [place], [place] [phone] Feli Singleton, OD [address] [place], [place] [phone] documented as of this encounter Procedures Procedure [...] documented as of this encounter Care Teams Cigarette Carton Sealer Relationship Specialty Start Date End Date Mesha Ruff MD [address] [place] [address] PCP - General Family Medicine 03/05/22 documented as of this encounter
== END 2025-03-21 15:41 | disposition home or self-care (01) ==
LOC: HO.HHCX 15:40
PROVIDERS: Visit Provider Nurse Practitioner Primary Care
DX: R06.01 Orthopnea (principal)
CPT/HCPCS: 71046

== ENCOUNTER → 2025-03-21 15:40 | Outpatient (BNV) | payer MEDICAID, SELFPAY | PROVIDERS: Visit Provider Radiology Diagnostic Radiology | DX: R06.02 Shortness of breath (principal) | CPT/HCPCS: 71046 ==

== ENCOUNTER 2025-03-22 11:13 | Outpatient (REF) | payer MEDICAID, SELFPAY ==
--- OUTSIDE RECORDS SUMMARY | 2025-03-21 14:00 | XMS_ITS | Encounter Summary ---
Author Organization [employer] Address [address] [facility] 7t [place] [address] Care Team Providers Care Radiologist Chief Of Breast Imaging Name Role Phone Mesha Ruff MD Primary Care Provider [phone] Reason for Visit * Reason Comments Headache Back Pain Abdominal Pain Encounter Details Date Type Department Care Team (Latest Contact Info) Description 03/21/2025 2:00 PM EDT Office Visit [facility] [address] [place] [phone] Lorraine Phillip ANP [address] [place] [address] Nonintractable headache, unspecified chronicity pattern, unspecified headache [...] the past 12 months, has t he [employer], gas, oil or water [employer] threatened to shut off services in your [...] refill hx suggests non-compliance Noah BROOKS provided Syriac interpretation. 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 Comments: Bilateral upper extremities with dressing room attendant strength less than expected, symmetric. Psychiatric: Mood [...] Description 04/11/2025 11:00 AM EDT Clinical Support [facility] MEDICINE [address] [place] [address] 06/09/2025 1:00 PM EST Office Visit [facility] OPTOMETRY [address] [place] [address] Feli Singleton, OD [address] [place] [address] documented as of this encounter Procedures Procedure [...] Blood Count 7.4 4.8 - 10.8 X10*3/uL [facility] Red Blood Count 4.17(L) 4.20 - 5.50 X10*6/uL [facility] Hemoglobin 12.2 12.0 - 16.0 g/dl [facility] Hematocrit 37.6 37.0 - 47.0 % [facility] Mean Corpuscular Volume 90.2 80.0 - 98.0 fL [facility] Mean Corpuscular Hemoglobin 29.3 27.0 - 33.0 pg [facility] Mean Corpuscular HGB Conc 32.4 31.0 - 35.0 g/dl [facility] Red Cell Distribution Width 13.5 11.0 - 16.0 % [facility] Platelet Count 202 160 - 400 X10*3/uL [facility] Mean Platelet Volume 11.8 9.4 - 12.3 fL [facility] Neutrophils Percent Auto 49.7 45 - 73 % [facility] Imm Gran Pct Auto 0.5(H) 0.0 - 0.4 % [facility] Lymphocytes Percent Auto 38.3 20 - 40 % [facility] Monocytes Percent Auto 6.6 2 - 11 % [facility] Eosinophils Percent Auto 4.0 0 - 4 % [facility] Basophils Percent Auto 0.9 0 - 2 % [facility] NRBC Pct Auto 0.0 0.0 - 0.2 /100WBC [facility] Neutrophils Absolute Auto 3.7 2.0 - 8.3 x10*3/uL [facility] Imm Gran Abs Auto 0.04(H) 0.00 - 0.03 X10*3/uL [facility] Lymphocytes Absolute Auto 2.9 1.2 - 4.9 X10*3/uL [facility] Monocytes Absolute Auto 0.5 0.1 - 1.2 X10*3/uL [facility] Eosinophils Absolute Auto 0.3 0.0 - 0.4 X10*3/uL [facility] Basophils Absolute Auto 0.1 0.0 - 0.2 X10*3/uL [facility] NRBC Abs Auto 0.000 0.0 - 0.012 X10*3/uL [facility] Blood Venous blood specimen / Unknown 03/22/2025 11:35 AM EDT 03/22/2025 1:13 PM EDT Lorraine Phillip [facility] BLOOD ORDERABLES Final Resul t [facility] [address] [place], [place] [phone] * (ABNORMAL) Comprehensive Metabolic Panel (03/22/2025 11:35 AM EDT) Sodium 140 135 - 145 mmol/L [facility] Potassium 3.8 3.3 - 5.1 mmol/L [facility] Chloride 107 96 - 108 mmol/L [facility] Carbon Dioxide 27 22 - 29 mmol/L [facility] Anion Gap 10(L) 12 - 20 [facility] Urea Nitrogen (BUN) 13 9 - 16 mg/dL [facility] Creatinine, Serum 0.72 0.5 - 1.4 mg/dL [facility] Estimated Glomerular Filt Rate >60 [facility] Comment:Chronic Kidney Disea se: Estimated GFR < 60 mL/min/1.51j0Npzbam Kidney Disease: Estimated GFR < 15 mL/min/1.73m2 Glucose 107 60 - 115 mg/dL [facility] Calcium 9.9 8.4 - 10.2 mg/dL [facility] Bilirubin, Total 0.3 0.0 - 1.0 mg/dL [facility] Aspartate Amino Transferase 62(H) 5 - 31 U/L [facility] Alanine Aminotransferase 99(H) 0 - 31 U/L [facility] Total Protein 7.7 6.5 - 8.0 g/dL [facility] Albumin Level 4.3 3.5 - 5.0 g/dL [facility] Alkaline Phosphatase 60 39 - 117 U/L [facility] Blood Venous blood specimen / Unknown 03/22/2025 11:35 AM EDT 03/22/2025 1:20 PM EDT us Lorraine Phillip [facility] BLOOD ORDERABLES Final Resul t [facility] [address] [place], [place] [phone] * B Type Natriuretic Peptide (BNP) (03/22/2025 11:35 AM EDT) B Type Natriuretic Peptide 34 <100 pg/mL [facility] Blood Venous blood specimen / Unknown 03/22/2025 11:35 AM EDT 03/22/2025 1:07 PM EDT Lorraine Phillip ANP LAB BLOOD ORDERABLES Final Resul t Performing Organization Address [facility] Phone Number [facility] [address] [place] [phone] * (ABNORMAL) TSH W/Reflex to FT4 (03/22/2025 11:35 AM EDT) TSH reflex Free T4 10.30(H) 0.32 - 4.0 uIU/mL [facility] Blood Venous blood specimen / Unknown 03/22/2025 11:35 AM EDT 03/22/2025 1:20 PM EDT us Lorraine Phillip [facility] BLOOD ORDERABLES Final Resul t Performing Organization Address [facility] Phone Number [facility] [address] [place] [phone] * (ABNORMAL) C-reactive Protein (03/22/2025 11:35 AM EDT) C Reactive Protein 1.01(H) < or = 0.50 mg/dL [facility] Blood Venous blood specimen / Unknown 03/22/2025 11:35 AM EDT 03/22/2025 1:20 PM EDT Lorraine Phillip ANP LAB BLOOD ORDERABLES Final Resul t Performing Organization Address [facility] de Phone Number [facility] [address] [place] [phone] * Sed Rate by Josafat Maya (03/22/2025 11:35 AM EDT) Erythrocyte Sedimentation Rate 18 0 - 20 MM/HR [facility] Comment:Patients with polycy themia and many hemoglobin abnormalitiesmay have depressed sed rates whereas patients with anemiamay have elevated sed rates. Blood Venous blood specimen / Unknown 03/22/2025 11:35 AM EDT 03/22/2025 1:13 PM EDT Lorraine Phillip ANP LAB BLOOD ORDERABLES Final Resul t [facility] [address] [place] [phone] * XR Chest 2 Views (03/21/2025 4:03 PM EDT) Anatomical Region Laterality Modality Chest Radiographic Mercedes ging 03/21/2025 4:03 PM EDT Narrative 03/21/2025 4:16 PM EDT [address] [address] XRay Report Signed Patient: Carmen Johnson MR#: [id number] : 1965 Acct:[id number] Age/Sex: 59 / F ADM Date: 03/21/25 Loc: HO.HHCX Attending Dr: Lorraine Phillip NP Ordering Physician: LORRAINE PHILLIP NP Date of Service: 03/21/25 Procedure(s): XR chest 2V Accession Number(s): [id number] cc: LORRAINE PHILLIP NP Reason for Exam: [...] 03/21/25 1613 DD/ 1603 TD/TT: 03/21/25 1605 Credit Rating Checker: Procedure Note Donotuseinterpreter, Image - 03/21/2025 [facility] [address] [place] [address] XRay Report Signed Patient: Carmen JohnsonMR#: [id number] : 1965Acct:[id number] Age/Sex: 59 / FADM Date: 03/21/25 Loc: HO.HHCX Attending Dr: Lorraine Phillip CHRISTIAN SCIENCE NURSE Ordering Physician: LORRAINE PHILLIP NP Date of Service: 03/21/25 Procedure(s): XR chest 2V Accession Number(s): [id number] cc: LORRAINE PHILLIP NP Reason for Exam: [...] 03/21/25 1613 DD/ 1603 TD/TT: 03/21/25 1605 Credit Rating Checker: Lorraine Phillip ANP IMG XR PROCEDURES Final [...] documented as of this encounter Care Teams Radiologist Chief Of Breast Imaging Relationship Specialty Start Date End Date Mesha Ruff MD [address] [place] [phone] PCP - General Family Medicine 03/05/22 documented as of this encounter
[2025-03-22 13:20] LABS: MANUAL DIFF FLAG NO
[2025-03-22 13:23] LABS: Hematocrit 37.6 % (37.0-47.0); Hemoglobin 12.2 g/dl (12.0-16.0); Imm Gran Abs Auto 0.04 X10*3/uL (0.00-0.03); Imm Gran Pct Auto 0.5 % (0.0-0.4); Lymphocytes Absolute Auto 2.9 X10*3/uL (1.2-4.9); Mean Corpuscular HGB Conc 32.4 g/dl (31.0-35.0); Mean Corpuscular Hemoglobin 29.3 pg (27.0-33.0); Mean Corpuscular Volume 90.2 fL (80.0-98.0); NRBC Abs Auto 0.000 X10*3/uL (0.0-0.012); NRBC Pct Auto 0.0 /100WBC (0.0-0.2); Platelet Count 202 X10*3/uL (160-400); Red Blood Count 4.17 X10*6/uL (4.20-5.50); White Blood Count 7.4 X10*3/uL (4.8-10.8)
[2025-03-22 13:32] LABS: B Type Natriuretic Peptide 34 pg/mL (<100)
[2025-03-22 14:27] LABS: Alanine Aminotransferase 99 U/L (0-31); Albumin Level 4.3 g/dL (3.5-5.0); Alkaline Phosphatase 60 U/L (39-117); Anion Gap 10 (12-20); Aspartate Amino Transferase 62 U/L (5-31); Blood Urea Nitrogen 13 mg/dL (9-16); Calcium 9.9 mg/dL (8.4-10.2); Carbon Dioxide 27 mmol/L (22-29); Chloride 107 mmol/L (96-108); Estimated Glomerular Filt Rate > 60; Potassium 3.8 mmol/L (3.3-5.1); Sodium 140 mmol/L (135-145); Total Protein 7.7 g/dL (6.5-8.0)
--- OUTSIDE RECORDS SUMMARY | 2025-03-22 15:19 | XMS_ITS | Encounter Summary ---
Author Organization [employer] Address 75 [facility] 7t [place] [address] Care Team Providers Care Calender Supervisor Name Role Phone Mesha Ruff MD Primary Care Provider [phone] Encounter Details Date Type Department Care Team [...] Description 04/11/2025 11:00 AM EDT Clinical Support [facility] MEDICINE [address] [place] [address] 06/09/2025 1:00 PM EST Office Visit [facility] OPTOMETRY [address] [place] [address] Feli Singleton, OD [address] [place] [address] documented as of this encounter Visit Diagnoses Not on filedocumented in this encounter Additional Health Concerns Assessment Noted Time PHQ-9 Depression Total Score: 0 06/08/20 24 11:56 AM EST documented as of this encounter Care Teams Calender Supervisor Relationship Specialty Start Date End Date Mesha Ruff MD [address] [place] [address] PCP - General Family Medicine 03/05/22 documented as of this encounter
--- OUTSIDE RECORDS SUMMARY | 2025-03-22 15:19 | XMS_ITS | Encounter Summary ---
Author Organization [employer] Address 75 [facility] 7t [place] [address] Care Team Providers Care Laborer Cutting Tool Name Role Phone Mesha Ruff MD Primary Care Provider [phone] Encounter Details Date Type Department Care Team (Late Contact Info) Description 03/07/2023 Abstract [facility] MEDICINE [address] [place] [address] [phone] Mesha Ruff MD [address] [place] [address] Social History Tobacco Use Types Packs/Day Years [...] Description 04/11/2025 11:00 AM EDT Clinical Support [facility] MEDICINE [address] [place], [place] [phone] 06/09/2025 1:00 PM EST Office Visit [facility] OPTOMETRY [address] [place] [address] [phone] Feli Singleton, OD [address] [place] [address] documented as of this encounter Visit Diagnoses Not on filedocumented in this encounter Additional Health Concerns Assessment Noted Time PHQ-9 Depression Total Score: 23 023 4:04 PM EDT documented as of this encounter Care Teams Laborer Cutting Tool Relationship Specialty Start Date End Date Mesha Ruff MD [address] [place] [address] PCP - General Family Medicine 03/05/22 documented as of this encounter
--- OUTSIDE RECORDS SUMMARY | 2025-03-22 15:19 | XMS_ITS | Encounter Summary ---
Author Organization [employer] Address 75 [facility] 7t [place] [address] Care Team Providers Care Account Technician Name Role Phone Mesha Ruff MD Primary Care Provider [phone] Encounter Details Date Type Department Care Team (Late Contact Info) Description 03/27/2023 Orders Only [facility] MEDICINE [address] [place] [address] [phone] Provider, MD Melissa Social History Tobacco Use [...] Description 04/11/2025 11:00 AM EDT Clinical Support [facility] MEDICINE [address] [place], [place] [phone] 06/09/2025 1:00 PM EST Office Visit [facility] OPTOMETRY [address] [place], [place] [phone] Feli Singleotn, OD [address] [place], [place] [phone] documented as of this encounter Procedures Procedure [...] documented as of this encounter Care Teams Account Technician Relationship Specialty Start Date End Date Mesha Ruff MD [address] [place] [address] PCP - General Family Medicine 03/05/22 documented as of this encounter
--- OUTSIDE RECORDS SUMMARY | 2025-03-22 15:19 | XMS_ITS | Encounter Summary ---
Author Organization [employer] Address [address] [place] [address] Care Team Providers Care Traffic Routing Engineer Name Role Phone Mesha Ruff MD Primary Care Provider [phone] Encounter Details Date Type Department Care Team ([facility] st Contact Info) Description 05/19/2024 Orders Only [facility] MEDICINE [address] [place], [place] [phone] Mesha Ruff MD [address] [place], [place] [phone] Iron deficiency anemia, unspecified iron deficiency anemia type (Primary Dx); Vitamin B deficiency; Controlled type 2 diabetes mellitus without complication, without long-term current use of insulin ([facility]) Social History Tobacco Use Types [...] Description 04/11/2025 11:00 AM EDT Clinical Support [facility]INE [address] [place] [address] 06/09/2025 1:00 PM EST Office Visit [facility] OPTOMETRY [address] [place] [address] Feli Singleton, OD [address] [place] [address] Scheduled Orders Name Type Priority Associated Diagnoses [...] Blood Count 8.9 4.8 - 10.8 X10*3/uL [facility] Red Blood Count 4.48 4.20 - 5.50 X10*6/uL [facility] Hemoglobin 13.0 12.0 - 16.0 g/dl [facility] Hematocrit 40.6 37.0 - 47.0 % [facility] Mean Corpuscular Volume 90.6 80.0 - 98.0 fL [facility] Mean Corpuscular Hemoglobin 29.0 27.0 - 33.0 pg [facility] Mean Corpuscular HGB Conc 32.0 31.0 - 35.0 g/dl [facility] Red Cell Distribution Width 14.5 11.0 - 16.0 % [facility] Platelet Count 255 160 - 400 X10*3/uL [facility] Mean Platelet Volume 12.2 9.4 - 12.3 fL [facility] Neutrophils Percent Auto 43.6(L) 45 - 73 % [facility] Imm Gran Pct Auto 0.2 0.0 - 0.4 % [facility] Lymphocytes Percent Auto 45.8(H) 20 - 40 % [facility] Monocytes Percent Auto 5.3 2 - 11 % [facility] Eosinophils Percent Auto 4.2(H) 0 - 4 % [facility] Basophils Percent Auto 0.9 0 - 2 % [facility] NRBC Pct Auto 0.0 0.0 - 0.2 /100WBC [facility] Neutrophils Absolute Auto 3.9 2.0 - 8.3 x10*3/uL [facility] Imm Gran Abs Auto 0.02 0.00 - 0.03 X10*3/uL [facility] Lymphocytes Absolute Auto 4.1 1.2 - 4.9 X10*3/uL [facility] Monocytes Absolute Auto 0.5 0.1 - 1.2 X10*3/uL [facility] Eosinophils Absolute Auto 0.4 0.0 - 0.4 X10*3/uL [facility] Basophils Absolute Auto 0.1 0.0 - 0.2 X10*3/uL [facility] NRBC Abs Auto 0.000 0.0 - 0.012 X10*3/uL [facility] Blood Venous blood specimen / Unknown 01/03/2025 10:46 AM EDT 01/03/2025 1:06 PM EDT us Mesha Ruff MD LAB BLOOD ORDERABLES Final Res ult [facility] [address] [place] [phone] documented in this encounter Visit Diagnoses Diagnosis Iron deficiency anemia, unspecified iron deficiency anemia type- Primary Vitamin B deficiency Unspecified vitamin B deficiency Controlled type 2 diabetes mellitus without complication, without long-term current use of insulin ([facility]) documented in this encounter Additional Health Concerns Assessment Noted Time PHQ-9 Depression Total Score: 24 023 3:33 PM EST documented as of this encounter Care Teams Traffic Routing Engineer Relationship Specialty Start Date End Date Mesha Ruff MD [address] [place] [phone] PCP - General Family Medicine 03/05/22 documented as of this encounter
--- OUTSIDE RECORDS SUMMARY | 2025-03-22 15:19 | XMS_ITS | Encounter Summary ---
Author Organization [employer] Address [address] [facility] 7[address] [place] [address] Care Team Providers Care Contemporary Or Modern Dancer Name Role Phone Mesha Ruff MD Primary Care Provider [phone] Encounter Details Date Type Department Care Team (Late Contact Info) Description 03/07/2023 Orders Only [facility] MEDICINE [address] [place] [address] [phone] Mesha Ruff MD [address] [place] [address] Social History Tobacco Use Types Packs/Day Years [...] 11:00 AM EDT Clinical Support [facility] [address] [place], [place] [phone] 06/09/2025 1:00 PM EST Office Visit [facility] OPTOMETRY [address] [place] [address] [phone] Feli Singleton, OD [address] [place] [address] documented as of this encounter Visit Diagnoses Not on filedocumented in this encounter Additional Health Concerns Assessment Noted Time PHQ-9 Depression Total Score: 23 023 4:04 PM EDT documented as of this encounter Care Teams Contemporary Or Modern Dancer Relationship Specialty Start Date End Date Mesha Ruff MD [address] [place] [address] PCP - General Family Medicine 03/05/22 documented as of this encounter
--- OUTSIDE RECORDS SUMMARY | 2025-03-22 15:19 | XMS_ITS | Encounter Summary ---
Author Organization [employer] Address [address] [facility] 7[address] [place] [address] Care Team Providers Care Auto Hauler Name Role Phone Mesha Ruff MD Primary Care Provider [phone] Encounter Details Date Type Department Care Team ([facility] st Contact Info) Description 03/22/2025 Results Follow-Up [facility] MEDICINE [address] [place] [address] Veronica Ny, ANP [address] [place] [address] XR Chest 2 Views Social History Tobacco Use Types Packs/Day Years [...] AM EDT documented as of this encounter Miscellaneous Notes * Telephone Encounter - Fransisca Marcus RN - 03/22/2025 9:21 AM EDT Tc to pt to let them know per covering provider Hi - XR was negative/normal. Please remind her toget labs if she has not already. Direct to ED iuf she feels any worse. Thanks . No answer, lvm to return call and ask to speak to walk in center nurses. Telecommunications Professional will re-attempt outreach in the PM. * Telephone Encounter - Fransisca Marcus RN - 03/22/2025 9:21 AM EDT ----- Message from Veronica Ny sent at 03/22/2025 8:48 AM EDT ----- Hi - XR was negative/normal. Please remind her to get labs if she has not already. Direct to ED iufshe feels any worse. thanks ----- Message ----- From: Pee Lucero Results In Sent: 03/21/2025 4:17 PM EDT To: CHARITY Andrew * Result Encounter Note - CHARITY Andrew - 03/22/2025 8:48 AM EDT Hi - XR was negative/normal. Please remind her to get labs if she has not already. Direct to ED iufshe feels any worse. thanks documented in this encounter Plan of Treatment Upcoming Encounters Date Type Department Care Team (Late st Contact Info) Description 04/11/2025 11:00 AM EDT Clinical Support [facility] MEDICINE [address] [place] [address] 06/09/2025 1:00 PM EST Office Visit [facility] OPTOMETRY [address] [place] [address] Feli Singleton, MARTHA [address] [place] [address] documented as of this encounter Visit Diagnoses Not on filedocumented in this encounter Additional Health Concerns Assessment Noted Time PHQ-9 Depression Total Score: 0 06/08/20 24 11:56 AM EST documented as of this encounter Care Teams Auto Hauler Relationship Specialty Start Date End Date Mesha Ruff MD [address] [place] [address] PCP - General Family Medicine 03/05/22 documented as of this encounter
--- OUTSIDE RECORDS SUMMARY | 2025-03-22 15:19 | XMS_ITS | Encounter Summary ---
Author Organization [employer] Address [address] [facility] 7 [place] [address] Care Team Providers Care Lens Assistant Name Role Phone Mseha Ruff MD Primary Care Provider [phone] Encounter Details Date Type Department Care Team (Late Contact Info) Description 08/05/2022 Orders Only [facility] MEDICINE [address] [place] [address] [phone] Mesha Ruff MD [address] [place] [address] Other specified hypothyroidism (Primary Dx); Blurry vision [...] 11:00 AM EDT Clinical Support [facility] MEDICINE [address] [place], [place] [phone] 06/09/2025 1:00 PM EST Office Visit [facility] OPTOMETRY [address] [place], [place] [phone] Feli Singleton, OD [address] [place] [address] documented as of this encounter Procedures Procedure [...] SENSITIVITY TROPONIN I (09/04/2022 9:02 PM EST) [facility] TROPONIN I HIGH SENSITIVITY <3.5 <3.5 - 17.0 ng/L [facility] Comment:The [place] high sens itivity Troponin-I results should beused in conjunction with other diagnostic information suchas ECG, clinical observations and information, and patientsymptoms to aid in the diagnosis of HI. 09/04/2022 9:02 PM EST 09/04/2022 9:09 PM EST us [facility] External Provider LAB BLO OD ORDERABLES Final Result [facility] [address] [place] [phone] * HIGH SENSITIVITY TROPONIN I (09/04/2022 4:25 PM EST) [facility] TROPONIN I HIGH SENSITIVITY <3.5 <3.5 - 17.0 ng/L [facility] Comment:The [place] high sens itivity Troponin-I results should beused in conjunction with other diagnostic information suchas ECG, clinical observations and information, and patientsymptoms to aid in the diagnosis of HI. 09/04/2022 4:25 PM EST 09/04/2022 4:30 PM EST [facility] External Provider LAB BLO OD ORDERABLES Final Result Performing Organization Address [facility] Co de Phone Number [facility] [address] [place] [phone] * SARS-CoV-2 RNA, Influenza A/B, and RSV RNA, Ql NAAT (09/04/2022 4:25 PM EST) Influenza A PCR NEGATIVE Negative [facility] Influenza B PCR NEGATIVE Negative [facility] Resp Syncy Virus RNA Qual PCR NEGATIVE Negative [facility] SARS COV2 PCR NEGATIVE Negative [facility] SARS/Flu/RSV Note See Note [facility] Comment:All test results mus t [...] use by authorized laboratories.Testing performed on the [employer] GeneXpert utilizingreal-time RT-PCR.All SARS CoV2 and positive influenza A/B results arereported to [facility]. 09/04/2022 4:25 PM EST 09/04/2022 4:30 PM EST [facility] Exter nal Provider LAB MICROBIOLOGY - GENERAL ORDERABLES Final Result Performing Organization Address City/[facility]/ZIP Co de Phone Number [facility] [address] [place] [address] [phone] * Magnesium (09/04/2022 4:25 PM EST) Magnesium 1.9 1.6 - 2.6 mg/dL [facility] 09/04/2022 4:25 PM EST 09/04/2022 4:30 PM EST us [facility] External Provider LAB BLO OD ORDERABLES Final Result [facility] [address] [place] [phone] * (ABNORMAL) Comprehensive Metabolic Panel (09/04/2022 4:25 PM EST) Sodium 139 135 - 145 mmol/L [facility] Potassium 3.8 3.3 - 5.1 mmol/L [facility] Chloride 104 96 - 108 mmol/L [facility] Carbon Dioxide 26 22 - 29 mmol/L [facility] Anion Gap 13 12 - 20 [facility] Urea Nitrogen (BUN) 10 9 - 16 mg/dL [facility] Creatinine, Serum 0.77 0.5 - 1.4 mg/dL [facility] Creatinine Clr Calc Pharmacy 107.9 [facility] Comment:Provided height and weight: 182.88 cm,97.3 kg.eGFR (calculated from the MDRD study equation) and eCrCl(calculated from the Cockcroft-Gault equation) are based ondifferent parameters and may not yield comparable results.If eCrCl result is absurd, please check patient'sheight/weight. Estimated Glomerular Filt Rate >60 [facility] Comment:NOTE: For -Am erican individuals, multiply the result by 1.210.Chronic Kidney Disease: Estimated GFR < 60 mL/min/1.87v0Alskca Kidney Disease: Estimated GFR < 15 mL/min/1.73m2 Glucose 91 60 - 115 mg/dL [facility] Calcium 9.7 8.4 - 10.2 mg/dL [facility] Bilirubin, Total 0.3 0.0 - 1.0 mg/dL [facility] Aspartate Amino Transferase 50(H) 5 - 31 U/L [facility] Alanine Aminotransferase 80(H) 0 - 31 U/L [facility] Total Protein 7.9 6.5 - 8.0 g/dL [facility] Albumin Level 4.2 3.5 - 5.0 g/dL [facility] Alkaline Phosphatase 58 39 - 117 U/L [facility] 09/04/2022 4:25 PM EST 09/04/2022 4:30 PM EST [facility] External Provider LAB BLO OD ORDERABLES Final Result Performing Organization Address [facility] Co de Phone Number [facility] [address] [place] [phone] * APTT (09/04/2022 4:25 PM EST) Partial Thromboplastin Time 29.2 26.0 - 36.4 SEC [facility] 09/04/2022 4:25 PM EST 09/04/2022 4:30 PM EST [facility] External Provider LAB BLO OD ORDERABLES Final Result Performing Organization Address [facility] Co de Phone Number [facility] [address] [place] [phone] * Prothrombin Time-INR (09/04/2022 4:25 PM EST) Prothrombin Time 12.3 10.0 - 13.1 SEC [facility] INTERNATIONAL NORM RATIO 1.1 0.9 - 1.1 [facility] Comment:INTERNATIONAL NORMAL IZED RATIO (INR) [...] 4:25 PM EST 09/04/2022 4:30 PM EST [facility] External Provider LAB BLO OD ORDERABLES Final Result [facility] [address] [place] [phone] * (ABNORMAL) CBC auto differential (09/04/2022 4:25 PM EST) White Blood Count 8.9 4.8 - 10.8 X10*3/uL [facility] Red Blood Count 4.39 4.20 - 5.50 X10*6/uL [facility] Hemoglobin 11.7(L) 12.0 - 16.0 g/dl [facility] Hematocrit 36.8(L) 37.0 - 47.0 % [facility] Mean Corpuscular Volume 83.8 80.0 - 98.0 fL [facility] Mean Corpuscular Hemoglobin 26.7(L) 27.0 - 33.0 pg [facility] Mean Corpuscular HGB Conc 31.8 31.0 - 35.0 g/dl [facility] Red Cell Distribution Width 15.8 11.0 - 16.0 % [facility] Platelet Count 242 160 - 400 X10*3/uL [facility] Mean Platelet Volume 11.1 9.4 - 12.3 fL [facility] Neutrophils Percent Auto 44.2(L) 45 - 73 % [facility] Imm Gran Pct Auto 0.3 0.0 - 0.4 % [facility] Lymphocytes Percent Auto 44.3(H) 20 - 40 % [facility] Monocytes Percent Auto 6.4 2 - 11 % [facility] Eosinophils Percent Auto 4.0 0 - 4 % [facility] Basophils Percent Auto 0.8 0 - 2 % [facility] NRBC Pct Auto 0.0 0.0 - 0.2 /100WBC [facility] Neutrophils Absolute Auto 3.9 2.0 - 8.3 x10*3/uL [facility] Imm Gran Abs Auto 0.03 0.00 - 0.03 X10*3/uL [facility] Lymphocytes Absolute Auto 4.0 1.2 - 4.9 X10*3/uL [facility] Monocytes Absolute Auto 0.6 0.1 - 1.2 X10*3/uL [facility] Eosinophils Absolute Auto 0.4 0.0 - 0.4 X10*3/uL [facility] Basophils Absolute Auto 0.1 0.0 - 0.2 X10*3/uL [facility] NRBC Abs Auto 0.000 0.0 - 0.012 X10*3/uL [facility] 09/04/2022 4:25 PM EST 09/04/2022 4:30 PM EST us [facility] External Provider LAB BLO OD ORDERABLES Final Result Performing Organization Address City/State/[facility] Co de Phone Number [facility] [address] [place] [phone] documented in this encounter Visit Diagnoses Diagnosis Other specified hypothyroidism- Primary Blurry vision Other specified visual disturbances documented in this encounter Care Teams Lens Assistant Relationship Specialty Start Date End Date Mesha Ruff MD [address] [place] [phone] PCP - General Family Medicine 03/05/22 documented as of this encounter
--- OUTSIDE RECORDS SUMMARY | 2025-03-22 15:20 | XMS_ITS | Clinical Summary ---
Author Organization [employer] Address [address] [facility] [address] [place] [address] Care Team Providers Care Nuclear Equipment Operator Name Role Phone Mesha Ruff MD Primary Care Provider [phone] Allergies No known active allergies Medications ascorbic [...] congenital hearing loss and was evaluated in [facility] for hearing devices and surgery but was told she was not a candidate for either Current severe episode of mn ananya depressive disorder without psychotic features without [...] Encounters Date Type Department Care Team Description 03/22/2025 Results Follow-Up [facility] [address] [place] [phone] Lorraine Phillip ANP XR Chest 2 Views 03/21/2025 2:00 PM EDT Office Visit [facility] [address] [place] [phone] Lorraine Phillip ANP Nonintractable headache, unspecified chronicity pattern, unspecified headache type (Primary Dx); Acute low back pain, unspecified back pain laterality, unspecified whether sciatica present; Primary hypertension; Anxiety; Hypothyroidism, unspecified type; Migraine without aura and with status migrainosus, not intractable; Swelling; Pain of right upper extremity; Orthopnea 03/21/2025 Travel 03/15/2025 Refill [facility] [address] [place] [address] Mesha Ruff MD 03/10/2025 11:00 AM EDT Clinical Support [facility] [address] [place] [phone] Sharlene Jasmine, RN Vitamin B12 deficiency (dietary) anemia 03/10/2025 Travel 03/07/2025 Results Follow-Up [address] [address] Mesha Ruff MD Albumin, Random Urine W/Creatinine, POCT Glucose, POCT HGB A1C, TSH W/Reflex to FT4 02/25/2025 Orders Only [address] [address] Mesha Ruff MD 02/07/2025 11:00 AM EDT Clinical Support [address] [address] Sammie Jimenez, SHERLY Encounter for immunization 02/07/2025 Travel 01/13/2025 11:15 AM EDT Office Visit [address] [address] Mesha Ruff MD Acute bilateral low back pain with right-sided sciatica (Primary Dx); Dietary counseling; Exercise counseling; Class 2 severe obesity with serious comorbidity and body mass index (BMI) of 36.0 to 36.9 in adult, unspecified obesity type (CMS/HCC); 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 prior episode ([facility]/HCC); Mild intermittent asthma without complication; Controlled type 2 diabetes mellitus without complication, without long-term current use of insulin ([facility]); Encounter for screening for cervical cancer; Hypothyroidism, unspecified type 01/13/2025 Orders Only [address] [address] Mesha Ruff MD 01/13/2025 Travel 01/12/[address] [address] Mesha Ruff MD Chart prep 01/10/[address] [address] Mesha Ruff MD telephone call 01/06/2025 Telephone [facility] [address] [place] [address] Mesha Ruff MD chart prep 01/06/2025 Telephone [facility] [address] [place] [phone] Feli Singleton OD 01/05/2025 11:00 AM EDT Clinical Support [facility] [address] [place] [address] Sammie Jimenez, RN Encounter for immunization 01/05/2025 Travel 01/05/2025 Refill [facility] [address] [place] [address] Mesha Ruff MD Controlled type 2 diabetes mellitus without complication, without long-term current use of insulin ([facility]) 01/04/2025 Results Follow-Up [facility] [address] [place] [address] Shandra Rose FNP Vitamin B12/Folate, Serum Panel, TSH W/Reflex to FT4 01/03/2025 Orders Only [facility] [address] [place] [address] Mesha Ruff MD 12/31/2024 Patient Outreach [facility] [address] [place] [address] Mesha Ruff MD Pre-visit Planning (SDOH negative. Tobacco screening negative. ) 12/22/2024 Refill [facility] [address] [place] [address] Mesha Ruff MD from Last 3 Months [...] 11:00 AM EDT Clinical Support [facility] [address] [place] [address] 06/09/2025 1:00 PM EST Office Visit [facility] [address] [place] [address] Feli Singleton, OD [address] [place] [address] Health Maintenance Due Date Last Done Comments [...] 07/08/2025 02/07/2025, 01/05/2025 Diabetes: Hemoglobin A1C 07/16/2025 025, 05/18/2024, 12/04/2021 SDOH Screening 12/31/2025 12/31/2024 [...] Diagnosis Comments CBC WITH AUTO DIFFERENTIAL Routine 03/22/2025 11:35 AM EDT Swelling COMPREHENSIVE METABOLIC PANEL Routine 03/22/2025 11:35 AM EDT Swelling B TYPE NATRIURETIC PEPTIDE (BNP) Routine 03/22/2025 11:35 AM EDT Swelling TSH W/REFLEX TO FT4 Routine 03/22/2025 1 1:35 AM EDT Swelling C-REACTIVE PROTEIN Routine 03/22/2025 11 :35 AM EDT Nonintractable headache, unspecified chronicity pattern, unspecified headache type SED RATE BY MODIFIED WESTERGREN Routine 03/22/2025 11:35 AM EDT Nonintractable headache, unspecified chronicity pattern, unspecified headache type XR CHEST 2 VIEWS Routine 03/21/2025 4:03 PM EDT Orthopnea T4, FREE Routine 02/25/2025 10:54 AM EDT TSH W/REFLEX TO FT4 Routine 02/25/2025 1 0:54 AM EDT Hypothyroidism, unspecified type T4, FREE Routine 01/13/2025 12:05 PM EDT ALBUMIN, RANDOM URINE W/CREATININE Routine 01/13/2025 12:05 PM EDT Controlled type 2 diabetes mellitus without complication, without long-term current use of insulin (CMS/HCC) TSH W/REFLEX TO FT4 Routine 01/13/2025 1 [...] Results * (ABNORMAL) TSH W/Reflex to FT4 (03/22/2025 11:35 AM EDT) Only the most recent of4 resultswithin the time period is included. TSH reflex Free T4 10.30(H) 0.32 - 4.0 uIU/mL [facility] Blood Venous blood specimen / Unknown 03/22/2025 11:35 AM EDT 03/22/2025 1:20 PM EDT Lorraine Phillip [facility] LAB BLOOD ORDERABLES Final Resul t [facility] [address] [place] [address] [phone] * (ABNORMAL) CBC auto differential (03/22/2025 11:35 AM EDT) Only the most recent of2 resultswithin the time period is included. White Blood Count 7.4 4.8 - 10.8 X10*3/uL [facility] Red Blood Count 4.17(L) 4.20 - 5.50 X10*6/uL [facility] Hemoglobin 12.2 12.0 - 16.0 g/dl [facility] Hematocrit 37.6 37.0 - 47.0 % [facility] Mean Corpuscular Volume 90.2 80.0 - 98.0 fL [facility] Mean Corpuscular Hemoglobin 29.3 27.0 - 33.0 pg [facility] Mean Corpuscular HGB Conc 32.4 31.0 - 35.0 g/dl [facility] Red Cell Distribution Width 13.5 11.0 - 16.0 % [facility] Platelet Count 202 160 - 400 X10*3/uL [facility] Mean Platelet Volume 11.8 9.4 - 12.3 fL [facility] Neutrophils Percent Auto 49.7 45 - 73 % [facility] Imm Gran Pct Auto 0.5(H) 0.0 - 0.4 % [facility] Lymphocytes Percent Auto 38.3 20 - 40 % [facility] Monocytes Percent Auto 6.6 2 - 11 % [facility] Eosinophils Percent Auto 4.0 0 - 4 % [facility] Basophils Percent Auto 0.9 0 - 2 % [facility] NRBC Pct Auto 0.0 0.0 - 0.2 /100WBC [facility] Neutrophils Absolute Auto 3.7 2.0 - 8.3 x10*3/uL [facility] Imm Gran Abs Auto 0.04(H) 0.00 - 0.03 X10*3/uL [facility] Lymphocytes Absolute Auto 2.9 1.2 - 4.9 X10*3/uL [facility] Monocytes Absolute Auto 0.5 0.1 - 1.2 X10*3/uL [facility] Eosinophils Absolute Auto 0.3 0.0 - 0.4 X10*3/uL [facility] Basophils Absolute Auto 0.1 0.0 - 0.2 X10*3/uL [facility] NRBC Abs Auto 0.000 0.0 - 0.012 X10*3/uL [facility] Blood Venous blood specimen / Unknown 03/22/2025 11:35 AM EDT 03/22/2025 1:13 PM EDT Lorraine Phillip ANP LAB BLOOD ORDERABLES Final Resul t Performing Organization Address [facility] de Phone Number [facility] [address] [place] [phone] * Sed Rate by Modified Zulma (03/22/2025 11:35 AM EDT) Erythrocyte Sedimentation Rate 18 0 - 20 MM/HR [facility] Comment:Patients with polycy themia and many hemoglobin abnormalitiesmay have depressed sed rates whereas patients with anemiamay have elevated sed rates. Blood Venous blood specimen / Unknown 03/22/2025 11:35 AM EDT 03/22/2025 1:13 PM EDT Lorraine Phillip ANP LAB BLOOD ORDERABLES Final Resul t Performing Organization Address [facility]/ZIP Co de Phone Number [facility] [address] [place] [phone] * (ABNORMAL) C-reactive Protein (03/22/2025 11:35 AM EDT) Pathologist [facility] C Reactive Protein 1.01(H) < or = 0.50 mg/dL [facility] Blood Venous blood specimen / Unknown 03/22/2025 11:35 AM EDT 03/22/2025 1:20 PM EDT [facility] Phillip ANP LAB BLOOD ORDERABLES Final Resul t Performing Organization Address [facility] Co de Phone Number [facility] [address] [place] [phone] * B Type Natriuretic Peptide (BNP) (03/22/2025 11:35 AM EDT) [facility] B Type Natriuretic Peptide 34 <100 pg/mL [facility] Blood Venous blood specimen / Unknown 03/22/2025 11:35 AM EDT 03/22/2025 1:07 PM EDT [facility] ANP LAB BLOOD ORDERABLES Final Resul t Performing Organization Address [facility] de Phone Number [facility] [address] [place] [phone] * (ABNORMAL) Comprehensive Metabolic Panel (03/22/2025 11:35 AM EDT) Only the most recent of2 resultswithin the time period is included. [facility] Sodium 140 135 - 145 mmol/L [facility] Potassium 3.8 3.3 - 5.1 mmol/L [facility] Chloride 107 96 - 108 mmol/L [facility] Carbon Dioxide 27 22 - 29 mmol/L [facility] Anion Gap 10(L) 12 - 20 [facility] Urea Nitrogen (BUN) 13 9 - 16 mg/dL [facility] Creatinine, Serum 0.72 0.5 - 1.4 mg/dL [facility] Estimated Glomerular Filt Rate >60 [facility] Comment:Chronic Kidney Disea se: Estimated GFR < 60 mL/min/1.51t1Dkcjpi Kidney Disease: Estimated GFR < 15 mL/min/1.73m2 Glucose 107 60 - 115 mg/dL [facility] Calcium 9.9 8.4 - 10.2 mg/dL [facility] Bilirubin, Total 0.3 0.0 - 1.0 mg/dL [facility] Aspartate Amino Transferase 62(H) 5 - 31 U/L [facility] Alanine Aminotransferase 99(H) 0 - 31 U/L [facility] Total Protein 7.7 6.5 - 8.0 g/dL [facility] Albumin Level 4.3 3.5 - 5.0 g/dL [facility] Alkaline Phosphatase 60 39 - 117 U/L [facility] Blood Venous blood specimen / Unknown 03/22/2025 11:35 AM EDT 03/22/2025 1:20 PM EDT Lorraine Phillip ANP LAB BLOOD ORDERABLES Final Resul t Performing Organization Address City/State/[facility] Co de Phone Number [facility] [address] [place] [phone] * XR Chest 2 Views (03/21/2025 4:03 PM EDT) Anatomical Region Laterality Modality Chest Radiographic Mercedes ging 03/21/2025 4:03 PM EDT Narrative 03/21/2025 4:16 PM EDT [address] [address] XRay Report Signed Patient: Carmen Johnson MR#: [id number] : 1965 Acct:[id number] Age/Sex: 59 / F ADM Date: 03/21/25 Loc: HO.HHCX Attending Dr: Lorraine Phillip NP Ordering Physician: LORRAINE PHILLIP NP Date of Service: 03/21/25 Procedure(s): XR chest 2V Accession Number(s): [id number] cc: LORRAINE PHILLIP NP Reason for Exam: [...] OV> 03/21/25 1613 DD/ 1603 TD/TT: 03/21/25 160 Scenario Writer: Procedure Note Donotuseinterpreter, Image - 03/21/2025 [place] [address] XRay Report Signed Patient: Cesar Johnson#: [id number] : 1965Acct:[id number] Age/Sex: 59 / FADM Date: 03/21/25 Loc: HO.HHCX Attending Dr: Lorraine Phillip NP Ordering Physician: LORRAINE PHILLIP NP Date of Service: 03/21/25 Procedure(s): XR chest 2V Accession Number(s): [id number] cc: LORRAINE PHILLIP NP Reason for Exam: [...] OV> 03/21/25 1613 DD/ 1603 TD/TT: 03/21/25 160 Scenario Writer: Lorraine Phillip ANP IMG XR PROCEDURES Final Result * (ABNORMAL) T4, Free (02/25/2025 10:54 AM EDT) Only the most recent of3 resultswithin the time period is included. Free T4 (Free Thyroxine) 0.70(L) 0.71 - 1.85 ng/dL [facility] 02/25/2025 10:5 4 AM EDT 02/25/2025 11:51 AM EDT Mesha Ruff MD LAB BLOOD ORDERABLES Final Res ult Performing Organization Address [facility] Co de Phone Number [facility] [address] [place] [phone] * Albumin, Random Urine W/Creatinine (01/13/2025 12:05 PM EDT) Creatinine, Urine 229.46 mg/dL [facility] Microalbumin Urine 29.0 mg/L [facility] Microalbum Creatinine Ratio Ur 12.6 <30 ug/mg cr [facility] Comment:Albumin/Creatinine R atio Reference Ranges: Normal: < 30 ug/mg creatinine Microalbuminuria: 30 - 300 ug/mg creatinineClinical Albuminuria: > 300 ug/mg creatinine Urine (Urine, Random) 01/13/2025 12:05 PM EDT 01/13/2025 2:02 PM EDT Mesha Ruff MD LAB URINE ORDERABLES Final Res ult Performing Organization Address [facility]/ZIP Co de Phone Number [facility] [address] [place] [phone] * (ABNORMAL) POCT HGB A1C (01/13/2025 [...] B12/Folate, Serum Panel (01/03/2025 10:46 AM EDT) Pathologist [facility] Vitamin B12 540 200 - 900 pg/mL [facility] Comment:NORMAL 200-900 PG/ML INDETERMINATE 160-199 PG/ML DEFICIENT < 160 PG/ML Folate 10.8 > or = 4.0 ng/mL [facility] Comment:Reference Values:> o r = 4.0 ng/mL< 4.0 ng/mL suggests folate deficiency Methotrexate, aminopterin and folinic acid(leucovorin) are chemotherapeutic agents whose molecularstructures are similar to folate; therefore, the Architectfolate assay cannot be used for patients using these drugs. Blood Venous blood specimen / Unknown 01/03/2025 10:46 AM EDT 01/03/2025 1:06 PM EDT Mesha Ruff MD LAB BLOOD ORDERABLES Final Res ult [facility] [address] [place] [phone] * Measles, Mumps, and Rubella (MMR) Antibodies??(IgG) Panel, Immune Status (01/03/2025 10:46 AM EDT) Pathologist [facility] Mumps Virus IgG Antibody 272.00 AU/mL [facility] Comment:AU/mL Interpretation ------- <9.00 Not consistent with immunity9.00-10.99 Equivocal>10.99 Consistent with immunityThe presence of mumps IgG antibody suggests immunizationor past or current infection with mumps virus. Rubella IgG Antibody 29.20 Index [facility] Comment:Index Interpretation ----- <0.90 Not consistent with immunity 0.90-0.99 Equivocal > or = 1.00 Consistent with immunityThe presence of rubella IgG antibody suggestsimmunization or past or current infection withrubella virus.THIS TEST WAS PERFORMED AT:[facility] [place] [id number] BROWNING MD Rubeola IgG (Measles) >300.00 AU/mL [facility] Comment:AU/mL Interpretation ----- <13.50 Not consistent with emzyttov61.50-16.49 Equivocal>16.49 Consistent with immunityThe presence of measles IgG suggests immunization orpast or current infection with measles virus.For additional information, please refer tohttp://education.[employer]/faq/CAZ082(This link is being provided for informational/educational purposes only.) Blood Venous blood specimen / Unknown 01/03/2025 10:46 AM EDT 01/03/2025 1:06 PM EDT us Mesha Ruff MD LAB BLOOD ORDERABLES Final Res ult [facility] [address] [place] [address] [phone] * Hepatitis B Surface Antibody, Qualitative (01/03/2025 10:46 AM EDT) ~Hepatitis B Surface Antibody NONREACTIVE Nonreactive [facility] Comment:Nonreactive: < 8.00 mIU/mL Blood Venous blood specimen / Unknown 01/03/2025 10:46 AM EDT 01/03/2025 1:06 PM EDT Mesha Ruff MD LAB BLOOD ORDERABLES Final Res ult Performing Organization Address [facility] Co de Phone Number [facility] [address] [place] [phone] * Varicella Zoster Antibody, IgG (01/03/2025 10:44 AM EDT) Varicella IgG Antibody 12.80 S/CO [facility] Comment:Signal to Cut-off S/ CO [...] Antibody Immunity Screen, ACIF.THIS TEST WAS PERFORMED AT:[facility] [place] [phone] BROWNING MD Blood Venous blood specimen / Unknown 01/03/2025 10:44 AM EDT 01/03/2025 1:06 PM EDT Mesha Ruff MD LAB BLOOD ORDERABLES Final Res ult Performing Organization Address [facility] Co de Phone Number [facility] [address] [place] [phone] * (ABNORMAL) Lipid Panel, Standard (05/18/2024 11:10 AM EST) Triglycerides 174(H) <150 mg/dL [facility] Comment:Desirable Triglyceri de: less than 150 mg/dLBorderline High Triglyceride 150-199 mg/dLHigh Triglyceride: 200-499 mg/dLVery High Triglyceride: greater than or equal to 5OO mg/dL Cholesterol 196 <200 mg/dL [facility] Comment:Desirable Cholestero l: less than 200 mg/dLBorderline High Cholesterol: 200-239 mg/dLHigh Cholesterol: greater than 239 mg/dL LDL Cholesterol Calculated 127(H) <100 mg/dL [facility] Comment:Desirable LDL: less than 100 mg/dLNear Optimal/Above Optimal LDL: 110- 129 mg/dLBorderline High LDL: 130-159 mg/dLHigh LDL: 160-189 mg/dLVery High LDL: greater than or equal to 190 mg/dL HDL Cholesterol 35(L) >40 mg/dL [facility] Comment:Desirable HDL: great er than 40 mg/dL Note: This HDL assay may give artificially low results in patients with liver disease. Blood Venous blood specimen / Unknown 05/18/2024 11:10 AM EST 05/18/2024 1:45 PM EST us Mesha Ruff MD LAB BLOOD ORDERABLES Final Res ult [facility] [address] [place] [address] [phone] * BI Mammogram Screening Tomosynthesis Bilateral (03/17/2024 3:00 PM EDT) Anatomical Region Laterality Modality Breast Bilateral Mammography 03/17/2024 3:00 PM EDT Narrative 03/31/2024 12:52 PM EDT [facility] [address] [place] [address] [place] [address] Mammography Report Signed Patient: Carmen Johnson MR#: [id number] : 1965 Acct:[id number] Age/Sex: 58 / F ADM Date: 03/17/24 Loc: HO.MAMMO Attending Dr: Mesha Ruff MD Ordering Physician: Mesha Ruff Results: 1Negative Date of Service: 03/17/24 Follow Up: 1 Year From Orig inal Mammogram Procedure(s): MM tomosynthesis screening BI Accession Number(s): [id number] cc: Mesha Ruff EXAMINATION: MM SCREENING DIGITAL [...] 03/31/24 1249 DD/ 1500 TD/TT: 03/17/24 1513 Scenario Writer: Procedure Note Donotuseinterpreter, Image - 03/31/2024 [facility] [address] [place] [address] Mammography Report Signed Patient: Carmen Johnson#: MM [id number] : 1965Acct:[id number] Age/Sex: 58 / FADM Date: 03/17/24 Loc: ADAMAO Attending Dr: Mesha Ruff MD Ordering Physician: Ben Ruffults: 1Negative Date of Service: 03/17/24Follow Up: 1 Year From Orig inal Mammogram Procedure(s): MM tomosynthesis screening BI Accession Number(s): [id number] cc: Mesha Ruff EXAMINATION: MM SCREENING DIGITAL [...] 03/31/24 1249 DD/ 1500 TD/TT: 03/17/24 1513 Scenario Writer: us Mesha Ruff MD IMG BI PROCEDURES Edited Resul t - Final * Pap Smear (02/25/2023 2:04 PM EDT) 02/25/2023 2:04 PM EDT 02/26/2023 8:55 AM EDT [facility] - 03/14/2023 9:59 AM EDT ----- ------- Name: Natanaelguera VaughnCarmen Age/Sex: 57/F : 1965 Unit#: [id number] Attend Dr: Terese Hartmann [facility] Re02/25/23 Status: DEP REF Location: HOColinP Disch: ----- ------- SPEC : [id number] RECD: 02/26/23 STATUS: NETO COTTO NUM: [id number] DEANNA: 02/25/23-[address] [facility] [address]: Terese Hartmann ENTERED: 02/26/23 SP TYPE: Pap Smr OTHR DR: Mesha Ruff ORDERED: Pap Smear Interpretation Satisfactory for evaluation. Negative for intraepithelial lesion or malignancy. HPV mRNA E6/E7: NOT DETECTED This assay detects E6/E7 viral messenger RNA (mRNA) from 14 high-risk HPV types (16, 18, 31, 33, 35, 39, 45, 51, 52, 56, 58, 59, 66, 68) HPV testing performed by [facility], [place], [place]. See reference laboratory pion of the EMR for entire report. Clinical Information LMP: Menopausal Previous PAP test: 2021, ASCUS Material Received ThinPrep-Cervical Copies To: Mesha Ruff [address] [place] [address] [address] Estrada [address] [place] [id number] ----- ------- Signed (signature on file) MILLY Weeks ([facility]) 03/14/23 0959 ----- ------- END OF REPORT [facility] External Provider LAB CYT OLOGY ORDERABLES Final Result Performing Organization Address City/[facility]/ZIP Co de Phone Number [facility] [address] [place] [phone] [phone] * HPV E6/E7 RFLX KATHYA 16 18/45 (02/15/2022 2:57 PM EDT) [facility] HPV mRNA E6/E7 rflx Not Detected Not Detected [facility] Comment: Methodology: Help Desk Internship-Mediated Amplification This assay detects E6/E7 viral messenger RNA (mRNA) from 14 high-risk HPV types (16,18,31,33,35,39,45,51,52,56,58,59,66,68). Cervical sources are required for HPV testing. If a vaginal source from a patient who has had a total hysterectomy with removal of cervix was submitted, please contact the testing laboratory for alternative testing options. For additional information, please refer to http://education.[employer]/faq/UJR634c7 (This link if provided for information/ educational purposes only.) THIS TEST WAS PERFORMED AT: [facility] [address] [place] [address] [address],[place] [phone] DAVID BROWNING MD 02/15/2022 2:57 PM EDT Terese Hartmann HISTORICAL/NON ORDERABLE LABS Fi nal Result Performing Organization Address City/[facility]/ZIP Co de Phone Number [facility] [address] * HEPATITIS C AB W/REFL TO HCV RNA, QN, PCR (12/04/2021 3:34 PM EDT) HEPATITIS C ANTIBODY NON-REACT [facility] NON-REACT [facility] INDEX 0.02 <1.00 [facility] Comment: HCV antibody was non-reactive. There is no laboratory evidence of HCV infection. In most cases, no further action is required. However, if recent HCV exposure is suspected, a test for HCV RNA (test code 32773) is suggested. For additional information please refer to http://Miyaobabei.[employer]/faq/QWB75l7 (This link is being provided for informational/ educational purposes only.) 12/04/2021 3:34 PM EDT Sheri Marti [facility] HISTORICAL/NON ORDERABLE LABS Final Result Performing Organization Address [facility] de Phone Number [facility] [address] * HIV 1/2 ANTIGEN/ANTIBODY,FOURTH GENERATION W/RFL (12/04/2021 3:34 PM EDT) HIV-1/2 ANTIGEN AND ANTIBODIES, 4TH GENERATION W/ REFLEX NON-REACT EVELYN NON-REACT EVELYN [facility] Comment: HIV-1 antigen and HIV-1/HIV-2 [...] purpose. For additional information please refer to [email or web address] (This link is being provided for informational/ educational purposes only.) The performance of this assay has not been clinically validated in patients less than 2 years old. 12/04/2021 3:34 PM EDT Sheri Kidd NP LAB BLOOD ORDERABLES Final Res ult Performing Organization Address [facility] Co de Phone Number [facility] [address] [place] [address], from Last 3 Months or Most Recently Relevant to Health Maintenance Insurance [facility] C3 DENTAL-[facility] MEDICAID STAND ADULT Care Teams Nuclear Equipment Operator Relationship Specialty Start Date End Date Mesha Ruff MD [address] [place] [address] PCP - General Family Medicine 03/05/22
--- OUTSIDE RECORDS SUMMARY | 2025-03-22 15:20 | XMS_ITS | Encounter Summary ---
Author Organization [employer] Address [address] [facility] 7t [place] [address] Care Team Providers Care Poultry Feed Supervisor Name Role Phone Mesha Ruff MD Primary Care Provider [phone] Encounter Details Date Type Department Care Team ([facility] Contact Info) Description 11/25/2022 Orders Only [facility] MEDICINE [address] [place], [place] [phone] Mesha Ruff MD 230 [place] [address] Vitamin B deficiency Social History Tobacco Use [...] Upcoming Encounters Date Type Department Care Team ([facility] Contact Info) Description 04/11/2025 11:00 AM EDT Clinical Support [facility] [address] [facility] [place] [address] 06/09/2025 1:00 PM EST Office Visit [facility] OPTOMETRY [address] [place] [address] Feli Singleton, OD [address] [facility] [place] [address] documented as of this encounter Procedures Procedure Name Priority Date/Time Associated Diagnosis Comments BI MAMMOGRAM SCREENING TOMOSYNTHESIS BILATERAL Routine 12/19/2022 1:46 PM EDT documented in this encounter Results * BI Mammogram Screening Tomosynthesis Bilateral (12/19/2022 1:46 PM EDT) Anatomical Region Laterality Modality Breast Bilateral Mammography 12/19/2022 1:46 PM EDT Narrative 12/23/2022 7:53 AM EDT [facility] [address] [place] [address] Mammography Report Signed Patient: Carmen Johnson MR#: [id number] : 1965 Acct:[id number] Age/Sex: 57 / F ADM Date: 12/19/22 Loc: HO.MAMMO Attending Dr: Mesha Ruff MD Ordering Physician: Mesha Ruff Results: 1Negative Date of Service: 12/19/22 Follow Up: 1 Year From Orig inal Mammogram Procedure(s): MM tomosynthesis screening BI Accession Number(s): [id number] cc: Mesha Ruff EXAMINATION: MM SCREENING DIGITAL BREAST TOMOSYNTHESIS, BILATERAL CLINICAL INFORMATION: Screening. Asymptomatic. The lifetime risk of breast cancer based on the Tyrer-Cuzick Model is 9%. COMPARISON: Outside mammography: 02/05/2021 ([facility]) TECHNIQUE: Digital breast tomosynthesis is performed in [...] in OV> 12/23/22 0750 DD/ 1346 TD/TT: School Office Manager: SANDRA Procedure Note Donotuseinterpreter, Image - 01/02/2023 [facility] [address] [place] [address] Mammography Report Signed Patient: Carmen JohnsonMR#: [id number] : 1965Acct:[id number] Age/Sex: 57 / FADM Date: 12/19/22 Loc: HO.MAMMO Attending Dr: Mesha Ruff MD Ordering Physician: Ben Ruffults: 1Negative Date of Service: 12/19/22Follow Up: 1 Year From Orig ina Mammogram Procedure(s): MM tomosynthesis screening BI Accession Number(s): [id number] cc: Mesha Ruff EXAMINATION: MM SCREENING DIGITAL BREAST TOMOSYNTHESIS, BILATERAL CLINICAL INFORMATION: Screening. Asymptomatic. The lifetime risk of breast cancer based on the Tyrer-Cuzick Model is 9%. COMPARISON: Outside mammography: 02/05/2021 ([facility]) TECHNIQUE: Digital breast tomosynthesis is performed in [...] in OV> 12/23/22 0750 DD/ 1346 TD/TT: School Office Manager: BOAZ [facility] External Provider IMG BI PROCEDURES Final Result documented in this encounter Visit Diagnoses Diagnosis Vitamin B deficiency Unspecified vitamin B deficiency documented in this encounter Additional Health Concerns Assessment Noted Time PHQ-9 Depression Total Score: 23 023 4:04 PM EDT documented as of this encounter Care Teams Poultry Feed Supervisor Relationship Specialty Start Date End Date Mesha Ruff MD [address] [place] [phone] PCP - General Family Medicine 03/05/22 documented as of this encounter
--- OUTSIDE RECORDS SUMMARY | 2025-03-22 15:20 | XMS_ITS | Encounter Summary ---
Author Organization [employer] Address 75 [facility] 7t [place] [address] Care Team Providers Care Gis Database Administrator Name Role Phone Mesha Ruff MD Primary Care Provider [phone] Encounter Details Date Type Department Care Team ([facility] Contact Info) Description 11/14/2022 Orders Only [facility] MEDICINE [address] [place], [place] [phone] Mesha Ruff MD 230 [place] [address] Vitamin B deficiency (Primary Dx) Social History [...] Upcoming Encounters Date Type Department Care Team ([facility] Contact Info) Description 04/11/2025 11:00 AM EDT Clinical Support [facility] MEDICINE 230 [place] [address] 06/09/2025 1:00 PM EST Office Visit [facility] OPTOMETRY [address] [place] [address] Feli Singleton, MARTHA [address] [place] [address] documented as of this encounter Visit Diagnoses Diagnosis Vitamin B deficiency- Primary Unspecified vitamin B deficiency documented in this encounter Additional Health Concerns Assessment Noted Time PHQ-9 Depression Total Score: 23 023 4:04 PM EDT documented as of this encounter Care Teams Gis Database Administrator Relationship Specialty Start Date End Date Mesha Ruff MD [address] [place] [address] PCP - General Family Medicine 03/05/22 documented as of this encounter
--- OUTSIDE RECORDS SUMMARY | 2025-03-22 15:20 | XMS_ITS | Encounter Summary ---
Author Organization [employer] Address [address] [place] [address] [address] [place] [address] Care Team Providers Care Menswear Salesperson Name Role Phone Mesha Ruff MD Primary Care Provider [phone] Reason for Referral * Consultation (Routine) - Authorized Specialty Diagnoses / Procedures Referred By Contlorna t Referred To Contact Gastroenterology Diagnoses Iron deficiency anemia, unspecified iron deficiency anemia type Sandhya Subramanian MD [address] [place] [address] Phone: tel: fax: Janice Waldron MD [address] [place] [address] Phone: tel: fax: Referral ID Status Reason Start Date Expiration Date Visits Requested Visits Authorized [id number] Authorized Specialty Services Required 4 05/18/2025 1 1 Encounter Details Date Type Department Care Team (Late st Contact Info) Description 05/18/2024 Orders Only [facility] MED & PEDS [address] [place], [place] [phone] Sandhya Subramanian MD [address] [place], [place] [phone] Iron deficiency anemia, unspecified iron deficiency anemia [...] Description 04/11/2025 11:00 AM EDT Clinical Support [facility] MEDICINE 230 [place] [address] 06/09/2025 1:00 PM EST Office Visit [facility] OPTOMETRY 267 [place] [address] Feli Singleton, OD [address] [place] [address] Scheduled Referrals Name Type Priority Associated Diagnoses [...] AM EST) Follicle Stimulating Hormone 12.3 mIU/mL [facility] Comment:Reference Range Foll icular Phase 2.5-10.2 Mid-cycle Peak 3.1-17.7 Luteal Phase 1.5- 9.1 Postmenopausal 23.0-116.3THIS TEST WAS PERFORMED AT:[facility] [employer] [place] [phone] BROWNING MD 05/18/2024 11:1 0 AM EST 05/18/2024 1:45 PM EST us Generic External Data Provider LAB BLOOD ORDERAB LES Final Result [facility] [address] [place] [phone] documented in this encounter Visit Diagnoses Diagnosis Iron deficiency anemia, unspecified iron deficiency anemia type- Primary documented in this encounter Additional Health Concerns Assessment Noted Time PHQ-9 Depression Total Score: 24 023 3:33 PM EST documented as of this encounter Care Teams Menswear Salesperson Relationship Specialty Start Date End Date Mesha Ruff MD [address] [place] [address] PCP - General Family Medicine 03/05/22 documented as of this encounter
--- OUTSIDE RECORDS SUMMARY | 2025-03-22 15:20 | XMS_ITS | Clinical Summary ---
Author Organization [facility] Address [address] [place] [address] Care Team Providers Care Deputy Sheriff Generalist Name Role Phone Unavailable Primary Care Provider [...] due to other allergic trigger Place 1 [place] in both nostrils once daily 16 g [...] 07/07/2024 Lipid Screening 01/11/2025 01/12/2020, 10/06, 06/18/2018 Ilg-ZMFLP-45 ( season) 2025 05/24/2022, 11/21/2020, 10/25/2020 Imm-Influenza [...] TSH CASCADE 26.57(H) 0.40 - 4.00 uIU/ml [facility] Blood Blood / Unknown 08/15/2020 9 :45 AM EST 08/15/2020 9:47 AM EST [employer] [facility] - 08/15/2020 12:56 PM EST [employer], [place] [address] Universal Grinder Set Up Operator - Priti Cage MD PT ID [id number] ORD# [id number] Jill MCKINNEY LAB - BLOOD DRAW Final Result [address] [address], * HEPATITIS C ANTIBODY (08/15/2020 9:45 AM EST) Pathologist [facility] HEPATITIS C VIRUS SCREEN NEGATIVE NEGATIVE [facility] Blood Blood / Unknown 08/15/2020 9 :45 AM EST 08/15/2020 9:47 AM EST [employer] [facility] - 08/15/2020 1:35 PM EST [employer], a member of [address] [address] Universal Grinder Set Up Operator - Priti Cage MD PT ID [id number] ORD# [id number] Jill MCKINNEY LAB - BLOOD DRAW Final Result Performing Organization Address [facility] Co de Phone Number [address] [address], [place] [phone] * (ABNORMAL) LIPID PANEL (01/12/2020 10:56 AM EDT) CHOLESTEROL 173 0 - 200 mg/dL [facility] TRIGLYCERIDES 206(H) 0 - 150 mg/dL [facility] HDL CHOLESTEROL 31(L) >40 mg/dL [facility] LDL CALCULATED 101(H) 0 - 100 mg/dL [facility] TC-HDLC RATIO 5.6(H) 0 - 4.4 mg/dL [facility] Blood specimen (specimen) Blood / Unknown 01/12/2020 10:56 AM EDT 01/12/2020 3:51 PM EDT Narrative [facility] - 01/12/2020 5:13 PM EDT [employer], [place] [address] Universal Grinder Set Up Operator - Priti Cage MD PT ID [id number] ORD# [id number] Jill MCKINNEY LAB - BLOOD DRAW Edited Result - Final Performing Organization Address [facility]/ZIP Co de Phone Number [address] [address], [place] [phone] * COMPRE METAB PANEL (CMP) (01/12/2020 10:56 AM EDT) GLUCOSE 96 70 - 100 mg/dL [facility] Comment:Reference range appl icable to fasting specimens only BUN 12 5 - 25 mg/dL [facility] CREAT 0.71 0.5 - 1.1 mg/dL [facility] GLOMERULAR FILTRATION RATE > 60 [facility] Comment: If patient is -Syrian, multiply result by 1.21 Chronic Kidney Disease: < 60 ml/min/1.73 square meters Kidney Failure: < 15 ml/min/1.73 square meters SODIUM 137 135 - 145 mEq/L [facility] POTASSIUM 4.0 3.5 - 5.5 mmol/L [facility] CHLORIDE 107 96 - 110 mmol/L [facility] CO2 25 21 - 32 mmol/L [facility] ANION GAP 5 3 - 11 [facility] CALCIUM 9.1 8.5 - 10.5 mg/dL [facility] TOTAL PROTEIN 7.7 6.0 - 8.0 G/dL [facility] ALBUMIN 3.5 3.2 - 5.0 G/dL [facility] BILI, TOTAL 0.2 0.0 - 1.4 mg/dL [facility] SGOT 39 10 - 42 U/L [facility] SGPT 56 10 - 60 U/L [facility] ALK PHOS 55 42 - 121 U/L [facility] Blood specimen (specimen) Blood / Unknown 01/12/2020 10:56 AM EDT 01/12/2020 3:51 PM EDT Narrative [facility] - 01/12/2020 5:13 PM EDT [facility] [employer], [place] [address] Universal Grinder Set Up Operator - Priti Cage MD PT ID [id number] ORD# [id number] Jill HUDDLESTONP LAB - BLOOD DRAW [place] [address], * STOOL OCCULT BLOOD (POCT) (12/03/2018 4:30 [...] / Unknown 11/13/2018 2:07 PM EDT Impressions [facility] - 11/13/2018 2:07 PM EDT Thinprep pap: Negative for squamous intraepithelial lesion and malignancy Reactive cellular changes HPV: negative Emily Bangura BACK UP MACHINE OPERATOR LAB - PATHOLOGY AND CYTOLOG Y AMBULATORY Final Result Performing Organization Address City/[facility] Co de Phone Number [facility] [address] [address], * HIV future (10/30/2018 11:13 AM EDT) HIV 1 AND 2 ANTIBODY SCREEN NEGATIVE NEGATIVE [facility] Comment: This assay [...] AM EDT 10/30/2018 12:23 PM EDT Narrative [facility] - 10/30/2018 8:08 PM EDT [employer], a member of [address] [address] Universal Grinder Set Up Operator - Kimberlee Trujillo MD PT ID [id number] ORD# [id number] Jose Stafford MD LAB - BLOOD DRAW Final Result [facility] [address] [place] [address], from Last 3 Months or Most Recently Relevant to Health Maintenance Insurance [facility] [place] [address] [facility] SAFETY NET DENTAL
[2025-03-22 18:48] LABS: Free T4 (Free Thyroxine) 0.72 ng/dL (0.71-1.85)
== END 2025-03-22 11:14 | disposition home or self-care (01) ==
LOC: HO.HHCL 11:13
PROVIDERS: PCP Nurse Practitioner Primary Care; Visit Provider Nurse Practitioner Primary Care
DX: R60.9 Edema, unspecified (principal); R51.9 Headache, unspecified
CPT/HCPCS: 36415; 80053; 83880; 84439; 84443; 85025; 85652; 86140

== ENCOUNTER 2025-03-23 14:51 | Outpatient (REF) | payer MEDICAID, SELFPAY ==
--- OUTSIDE RECORDS SUMMARY | 2025-03-21 14:00 | XMS_ITS | Encounter Summary ---
Author Organization [employer] Address [address] [facility] [address] [place] [address] Care Team Providers Care Swabber Name Role Phone Mesha Ruff MD Primary Care Provider [phone] Reason for Visit * Reason Comments Headache Back Pain Abdominal Pain Encounter Details Date Type Department Care Team (Latest Contact Info) Description 03/21/2025 2:00 PM EDT Office Visit [facility] [address] [place] [phone] Lorraine Phillip ANP [address] [place] [address] Nonintractable headache, unspecified chronicity pattern, unspecified headache [...] the past 12 months, has t he [employer], gas, oil or water [employer] threatened to shut off services in your [...] refill hx suggests non-compliance Noah BROOKS provided Luxembourgish interpretation. Review of Systems Constitutional: Negative for [...] disorder without psychotic features without prior episode ([facility]) Encounter for screening mammogram for malignant neoplasm of breast Cerumen impaction Left otitis media Pain of right upper extremity Impacted cerumen, bilateral Dental root caries Controlled type 2 diabetes mellitus without complication, without long-term current use of insulin ([facility]) Vitamin B12 deficiency (dietary) anemia Objective BP [...] and time. Comments: Bilateral upper extremities with college basketball coach strength less than expected, symmetric. Psychiatric: Mood [...] Description 04/11/2025 11:00 AM EDT Clinical Support [facility] [address] [place] [address] 06/09/2025 1:00 PM EST Office Visit [facility] [address] [place] [address] Feli Singleton, OD [address] [place] [phone] documented as of this encounter Procedures Procedure Name Priority Date/Time Associated Diagnosis Comments TSH W/REFLEX TO FT4 Routine 03/22/2025 1 1:35 AM EDT Swelling CBC WITH AUTO DIFFERENTIAL Routine 03/22/2025 11:35 AM EDT Swelling SED RATE BY MODIFIED WESTERGREN Routine 03/22/2025 11:35 AM EDT Nonintractable headache, unspecified chronicity pattern, unspecified headache type C-REACTIVE PROTEIN Routine 03/22/2025 11 :35 AM EDT Nonintractable headache, unspecified chronicity pattern, unspecified headache type B TYPE NATRIURETIC PEPTIDE (BNP) Routine 03/22/2025 11:35 AM EDT Swelling COMPREHENSIVE METABOLIC PANEL Routine 03/22/2025 11:35 AM EDT Swelling XR CHEST 2 VIEWS Routine 03/21/2025 4:03 PM EDT Orthopnea documented in this encounter Results * (ABNORMAL) CBC auto differential (03/22/2025 11:35 AM EDT) White Blood Count 7.4 4.8 - 10.8 X10*3/uL [facility] Red Blood Count 4.17(L) 4.20 - 5.50 X10*6/uL [facility] Hemoglobin 12.2 12.0 - 16.0 g/dl [facility] Hematocrit 37.6 37.0 - 47.0 % [facility] Mean Corpuscular Volume 90.2 80.0 - 98.0 fL [facility] Mean Corpuscular Hemoglobin 29.3 27.0 - 33.0 pg [facility] Mean Corpuscular HGB Conc 32.4 31.0 - 35.0 g/dl [facility] Red Cell Distribution Width 13.5 11.0 - 16.0 % [facility] Platelet Count 202 160 - 400 X10*3/uL [facility] Mean Platelet Volume 11.8 9.4 - 12.3 fL [facility] Neutrophils Percent Auto 49.7 45 - 73 % [facility] Imm Gran Pct Auto 0.5(H) 0.0 - 0.4 % [facility] Lymphocytes Percent Auto 38.3 20 - 40 % [facility] Monocytes Percent Auto 6.6 2 - 11 % [facility] Eosinophils Percent Auto 4.0 0 - 4 % [facility] Basophils Percent Auto 0.9 0 - 2 % [facility] NRBC Pct Auto 0.0 0.0 - 0.2 /100WBC [facility] Neutrophils Absolute Auto 3.7 2.0 - 8.3 x10*3/uL [facility] Imm Gran Abs Auto 0.04(H) 0.00 - 0.03 X10*3/uL [facility] Lymphocytes Absolute Auto 2.9 1.2 - 4.9 X10*3/uL [facility] Monocytes Absolute Auto 0.5 0.1 - 1.2 X10*3/uL [facility] Eosinophils Absolute Auto 0.3 0.0 - 0.4 X10*3/uL [facility] Basophils Absolute Auto 0.1 0.0 - 0.2 X10*3/uL [facility] NRBC Abs Auto 0.000 0.0 - 0.012 X10*3/uL [facility] Blood Venous blood specimen / Unknown 03/22/2025 11:35 AM EDT 03/22/2025 1:13 PM EDT Lorraine Phillip [facility] LAB BLOOD ORDERABLES Final Resul t [facility] [address] [place], [place] [phone] * (ABNORMAL) Comprehensive Metabolic Panel (03/22/2025 11:35 AM EDT) Sodium 140 135 - 145 mmol/L [facility] Potassium 3.8 3.3 - 5.1 mmol/L [facility] Chloride 107 96 - 108 mmol/L [facility] Carbon Dioxide 27 22 - 29 mmol/L [facility] Anion Gap 10(L) 12 - 20 [facility] Urea Nitrogen (BUN) 13 9 - 16 mg/dL [facility] Creatinine, Serum 0.72 0.5 - 1.4 mg/dL [facility] Estimated Glomerular Filt Rate >60 [facility] Comment:Chronic Kidney Disea se: Estimated GFR < 60 mL/min/[id number] Kidney Disease: Estimated GFR < 15 mL/min/1.73m2 Glucose 107 60 - 115 mg/dL [facility] Calcium 9.9 8.4 - 10.2 mg/dL [facility] Bilirubin, Total 0.3 0.0 - 1.0 mg/dL [facility] Aspartate Amino Transferase 62(H) 5 - 31 U/L [facility] Alanine Aminotransferase 99(H) 0 - 31 U/L [facility] Total Protein 7.7 6.5 - 8.0 g/dL [facility] Albumin Level 4.3 3.5 - 5.0 g/dL [facility] Alkaline Phosphatase 60 39 - 117 U/L [facility] Blood Venous blood specimen / Unknown 03/22/2025 11:35 AM EDT 03/22/2025 1:20 PM EDT us Lorraine Phillip [facility] LAB BLOOD ORDERABLES Final Resul t [facility] [address] [place], [place] [phone] * B Type Natriuretic Peptide (BNP) (03/22/2025 11:35 AM EDT) B Type Natriuretic Peptide 34 <100 pg/mL [facility] Blood Venous blood specimen / Unknown 03/22/2025 11:35 AM EDT 03/22/2025 1:07 PM EDT Lorraine Phillip ANP LAB BLOOD ORDERABLES Final Resul t Performing Organization Address [facility] Phone Number [facility] [address] [place] [phone] * (ABNORMAL) TSH W/Reflex to FT4 (03/22/2025 11:35 AM EDT) TSH reflex Free T4 10.30(H) 0.32 - 4.0 uIU/mL [facility] Blood Venous blood specimen / Unknown 03/22/2025 11:35 AM EDT 03/22/2025 1:20 PM EDT us Lorraine Phillip [facility] BLOOD ORDERABLES Final Resul t Performing Organization Address [facility] Phone Number [facility] [address] [place] [phone] * (ABNORMAL) C-reactive Protein (03/22/2025 11:35 AM EDT) C Reactive Protein 1.01(H) < or = 0.50 mg/dL [facility] Blood Venous blood specimen / Unknown 03/22/2025 11:35 AM EDT 03/22/2025 1:20 PM EDT Lorraine Phillip ANP LAB BLOOD ORDERABLES Final Resul t Performing Organization Address [facility] de Phone Number [facility] [address] [place] [phone] * Sed Rate by Josafat Maya (03/22/2025 11:35 AM EDT) Erythrocyte Sedimentation Rate 18 0 - 20 MM/HR [facility] Comment:Patients with polycy themia and many hemoglobin abnormalitiesmay have depressed sed rates whereas patients with anemiamay have elevated sed rates. Blood Venous blood specimen / Unknown 03/22/2025 11:35 AM EDT 03/22/2025 1:13 PM EDT Lorraine Phillip ANP LAB BLOOD ORDERABLES Final Resul t [facility] [address] [place] [phone] * XR Chest 2 Views (03/21/2025 4:03 PM EDT) Anatomical Region Laterality Modality Chest Radiographic Mercedes ging 03/21/2025 4:03 PM EDT Narrative 03/21/2025 4:16 PM EDT [address] [address] XRay Report Signed Patient: Carmen Johnson MR#: [id number] : 1965 Acct:[id number] Age/Sex: 59 / F ADM Date: 03/21/25 Loc: HO.HHCX Attending Dr: Lorraine Phillip NP Ordering Physician: LORRAINE PHILLIP NP Date of Service: 03/21/25 Procedure(s): XR chest 2V Accession Number(s): [id number] cc: LORRAINE PHILLIP NP Reason for Exam: [...] Jose Rice MD 03/21/2025 04:13 PM EDT Dictated By: Juan Jose Rice MD Signed By: <Electronically signed by Juan Jose Rice MD in OV> 03/21/25 1613 DD/ 1603 TD/TT: 03/21/25 1605 Technical Buyer: Procedure Note Donotuseinterpreter, Image - 03/21/2025 [facility] [address] [place] [address] XRay Report Signed Patient: Carmen JohnsonMR#: [id number] : 1965Acct:[id number] Age/Sex: 59 / FADM Date: 03/21/25 Loc: HO.HHCX Attending Dr: Lorraine Phillip [employer]INE[employer] Ordering Physician: LORRAINE PHILLIP NP Date of Service: 03/21/25 Procedure(s): XR chest 2V Accession Number(s): [id number] cc: LORRAINE PHILLIP NP Reason for Exam: [...] 03/21/25 1613 DD/ 1603 TD/TT: 03/21/25 1605 Technical Buyer: Lorraine Phillip ANP IMG XR PROCEDURES Final Result documented in [...] documented as of this encounter Care Teams Swabber Relationship Specialty Start Date End Date Mesha Ruff MD [address] [place] [phone] PCP - General Family Medicine 03/05/22 documented as of this encounter
--- NOTE | ~2025-03-23 | MM_ITS ---
EXAMINATION: MM SCREENING DIGITAL BREAST TOMOSYNTHESIS, BILATERAL CLINICAL INFORMATION: Screening. Asymptomatic. COMPARISON: Mammography: Comparison is made with available priors TECHNIQUE: Digital breast mammography with tomosynthesis is performed in both the craniocaudal and mediolateral oblique views along with computer-aided detection (CAD). FINDINGS: The breasts are heterogeneously dense, which may obscure small masses (ACR BI-RADS breast composition Category c). There are no significant masses, abnormal calcifications, or other abnormalities. MM/MM tomosynthesis screening BI IMPRESSION: No mammographic evidence of malignancy. ASSESSMENT: BI-RADS BI-RADS 1 - Negative RECOMMENDATION: Routine annual mammography screening. 1 year F/U This examination should not preclude the clinical evaluation of a suspicious palpable abnormality. This patient's information was entered into a reminder system with a target due date for their next mammogram. Electronically signed by: Cyndi Thompson DO 03/28/2025 02:11 PM EDT
--- OUTSIDE RECORDS SUMMARY | 2025-03-23 18:26 | XMS_ITS | Encounter Summary ---
Author Organization [employer] Address [address] [facility] 7t [place] [address] Care Team Providers Care User Acceptance Tester Name Role Phone Mesha Ruff MD Primary Care Provider [phone] Encounter Details Date Type Department Care Team (Late Contact Info) Description 03/07/2023 Orders Only [facility] MEDICINE [address] [place] [phone] Mesha Ruff MD [address] [place] [address] Social History Tobacco Use Types Packs/Day Years [...] Description 04/11/2025 11:00 AM EDT Clinical Support [facility] MEDICINE 230 [place], [place] [phone] 06/09/2025 1:00 PM EST Office Visit [facility] OPTOMETRY [address] [place] [phone] Feli Singleton, OD [address] [place] [address] documented as of this encounter Visit Diagnoses Not on filedocumented in this encounter Additional Health Concerns Assessment Noted Time PHQ-9 Depression Total Score: 23 023 4:04 PM EDT documented as of this encounter Care Teams User Acceptance Tester Relationship Specialty Start Date End Date Mesha Ruff MD [address] [place] [address] PCP - General Family Medicine 03/05/22 documented as of this encounter
--- OUTSIDE RECORDS SUMMARY | 2025-03-23 18:26 | XMS_ITS | Clinical Summary ---
Author Organization [facility] Address [address] [place] [address] Care Team Providers Care Drawing Kiln Operator Name Role Phone Unavailable Primary Care Provider [...] due to other allergic trigger Place 1 [place] in both nostrils once daily 16 g [...] 07/07/2024 Lipid Screening 01/11/2025 01/12/2020, 10/06, 06/18/2018 Rmg-COXGI-12 ( season) 2025 05/24/2022, 11/21/2020, 10/25/2020 Imm-Influenza [...] TSH CASCADE 26.57(H) 0.40 - 4.00 uIU/ml [facility] Blood Blood / Unknown 08/15/2020 9 :45 AM EST 08/15/2020 9:47 AM EST [employer] [facility] - 08/15/2020 12:56 PM EST [facility], [place] [address] Demand Planning Analyst - Priti Cage MD PT ID [id number] ORD# [id number] Jill MCKINNEY LAB - BLOOD DRAW Final Result [address] [address], * HEPATITIS C ANTIBODY (08/15/2020 9:45 AM EST) Pathologist [facility] HEPATITIS C VIRUS SCREEN NEGATIVE NEGATIVE [facility] Blood Blood / Unknown 08/15/2020 9 :45 AM EST 08/15/2020 9:47 AM EST [employer] [facility] [email or web address] - 08/15/2020 1:35 PM EST [facility], a member of [address] [address] Demand Planning Analyst - rPiti Cage MD PT ID [id number] ORD# [id number] Jill MCKINNEY LAB - BLOOD DRAW Final Result Performing Organization Address [facility] Co de Phone Number [address] [address], [place] [phone] * (ABNORMAL) LIPID PANEL (01/12/2020 10:56 AM EDT) CHOLESTEROL 173 0 - 200 mg/dL [facility] TRIGLYCERIDES 206(H) 0 - 150 mg/dL [facility] HDL CHOLESTEROL 31(L) >40 mg/dL [facility] LDL CALCULATED 101(H) 0 - 100 mg/dL [facility] TC-HDLC RATIO 5.6(H) 0 - 4.4 mg/dL [facility] Blood specimen (specimen) Blood / Unknown 01/12/2020 10:56 AM EDT 01/12/2020 3:51 PM EDT Narrative [facility] - 01/12/2020 5:13 PM EDT [facility], [place] [address] Demand Planning Analyst - Priti Cage MD PT ID [id number] ORD# [id number] Jill MCKINNEY LAB - BLOOD DRAW Edited Result - Final Performing Organization Address [facility]/ZIP Co de Phone Number [address] [address], [place] [phone] * COMPRE METAB PANEL (CMP) (01/12/2020 10:56 AM EDT) GLUCOSE 96 70 - 100 mg/dL [facility] Comment:Reference range appl icable to fasting specimens only BUN 12 5 - 25 mg/dL [facility] CREAT 0.71 0.5 - 1.1 mg/dL [facility] GLOMERULAR FILTRATION RATE > 60 [facility] Comment: If patient is -Icelandic, multiply result by 1.21 Chronic Kidney Disease: < 60 ml/min/1.73 square meters Kidney Failure: < 15 ml/min/1.73 square meters SODIUM 137 135 - 145 mEq/L [facility] POTASSIUM 4.0 3.5 - 5.5 mmol/L [facility] CHLORIDE 107 96 - 110 mmol/L [facility] CO2 25 21 - 32 mmol/L [facility] ANION GAP 5 3 - 11 [facility] CALCIUM 9.1 8.5 - 10.5 mg/dL [facility] TOTAL PROTEIN 7.7 6.0 - 8.0 G/dL [facility] ALBUMIN 3.5 3.2 - 5.0 G/dL [facility] BILI, TOTAL 0.2 0.0 - 1.4 mg/dL [facility] SGOT 39 10 - 42 U/L [facility] SGPT 56 10 - 60 U/L [facility] ALK PHOS 55 42 - 121 U/L [facility] Blood specimen (specimen) Blood / Unknown 01/12/2020 10:56 AM EDT 01/12/2020 3:51 PM EDT Narrative [facility] - 01/12/2020 5:13 PM EDT [facility], [place] [address] Demand Planning Analyst - Priti Cage MD PT ID [id number] ORD# [id number] Jill HUDDLESTONP LAB - BLOOD DRAW [place] [address], * STOOL OCCULT BLOOD (POCT) (12/03/2018 4:30 [...] / Unknown 11/13/2018 2:07 PM EDT Impressions [facility] - 11/13/2018 2:07 PM EDT Thinprep pap: Negative for squamous intraepithelial lesion and malignancy Reactive cellular changes HPV: negative Emily Bangura AMERICAN INDIAN STUDIES PROFESSOR LAB - PATHOLOGY AND CYTOLOG Y AMBULATORY Final Result Performing Organization Address City/[facility] Co de Phone Number [facility] [address] [address], * HIV future (10/30/2018 11:13 AM EDT) HIV 1 AND 2 ANTIBODY SCREEN NEGATIVE NEGATIVE [facility] [email or web address] [facility] Comment: This assay is a [...] AM EDT 10/30/2018 12:23 PM EDT Narrative [email or web address] - 10/30/2018 8:08 PM EDT [facility], a member of [address] [address] Demand Planning Analyst - Kimberlee Trujillo MD PT ID [id number] ORD# [id number] Jose Stafford MD LAB - BLOOD DRAW Final Result [facility] [address] [place] [address], from Last 3 Months or Most Recently Relevant to Health Maintenance Insurance [facility] [place] [address] [facility] SAFETY NET DENTAL
--- OUTSIDE RECORDS SUMMARY | 2025-03-23 18:26 | XMS_ITS | Encounter Summary ---
Author Organization [employer] Address 75 [facility] 7t [place] [address] Care Team Providers Care Pediatrics Hospitalist Name Role Phone Mesha Ruff MD Primary Care Provider [phone] Encounter Details Date Type Department Care Team ([facility] st Contact Info) Description 05/19/2024 Orders Only [facility] [address] [place], [place] [phone] Mesha Ruff MD [address] [place], [place] [phone] Iron deficiency anemia, unspecified iron deficiency anemia type (Primary Dx); Vitamin B deficiency; Controlled type 2 diabetes mellitus without complication, without long-term current use of insulin ([facility]) Social History Tobacco Use Types [...] Description 04/11/2025 11:00 AM EDT Clinical Support [facility] [address] [place] [address] 06/09/2025 1:00 PM EST Office Visit [facility] [address] [place] [address] Feli Singleton, OD [address] [place] [address] Scheduled Orders Name Type Priority Associated Diagnoses [...] Blood Count 8.9 4.8 - 10.8 X10*3/uL [facility] Red Blood Count 4.48 4.20 - 5.50 X10*6/uL [facility] Hemoglobin 13.0 12.0 - 16.0 g/dl [facility] Hematocrit 40.6 37.0 - 47.0 % [facility] Mean Corpuscular Volume 90.6 80.0 - 98.0 fL [facility] Mean Corpuscular Hemoglobin 29.0 27.0 - 33.0 pg [facility] Mean Corpuscular HGB Conc 32.0 31.0 - 35.0 g/dl [facility] Red Cell Distribution Width 14.5 11.0 - 16.0 % [facility] Platelet Count 255 160 - 400 X10*3/uL [facility] Mean Platelet Volume 12.2 9.4 - 12.3 fL [facility] Neutrophils Percent Auto 43.6(L) 45 - 73 % [facility] Imm Gran Pct Auto 0.2 0.0 - 0.4 % [facility] Lymphocytes Percent Auto 45.8(H) 20 - 40 % [facility] Monocytes Percent Auto 5.3 2 - 11 % [facility] Eosinophils Percent Auto 4.2(H) 0 - 4 % [facility] Basophils Percent Auto 0.9 0 - 2 % [facility] NRBC Pct Auto 0.0 0.0 - 0.2 /100WBC [facility] Neutrophils Absolute Auto 3.9 2.0 - 8.3 x10*3/uL [facility] Imm Gran Abs Auto 0.02 0.00 - 0.03 X10*3/uL [facility] Lymphocytes Absolute Auto 4.1 1.2 - 4.9 X10*3/uL [facility] Monocytes Absolute Auto 0.5 0.1 - 1.2 X10*3/uL [facility] Eosinophils Absolute Auto 0.4 0.0 - 0.4 X10*3/uL [facility] Basophils Absolute Auto 0.1 0.0 - 0.2 X10*3/uL [facility] NRBC Abs Auto 0.000 0.0 - 0.012 X10*3/uL [facility] Blood Venous blood specimen / Unknown 01/03/2025 10:46 AM EDT 01/03/2025 1:06 PM EDT us Mesha Ruff MD LAB BLOOD ORDERABLES Final Res ult [facility] [address] [place] [address] [phone] documented in this encounter Visit Diagnoses Diagnosis Iron deficiency anemia, unspecified iron deficiency anemia type- Primary Vitamin B deficiency Unspecified vitamin B deficiency Controlled type 2 diabetes mellitus without complication, without long-term current use of insulin ([facility]) documented in this encounter Additional Health Concerns Assessment Noted Time PHQ-9 Depression Total Score: 24 023 3:33 PM EST documented as of this encounter Care Teams Pediatrics Hospitalist Relationship Specialty Start Date End Date Mesha Ruff MD [address] [place] [phone] PCP - General Family Medicine 03/05/22 documented as of this encounter
--- OUTSIDE RECORDS SUMMARY | 2025-03-23 18:26 | XMS_ITS | Encounter Summary ---
Author Organization [employer] Address 75 [facility] 7t [place] [address] Care Team Providers Care A Operator Name Role Phone Mesha Ruff MD Primary Care Provider [phone] Encounter Details Date Type Department Care Team ([facility] Contact Info) Description 11/14/2022 Orders Only [facility] [address] [place], [place] [phone] Mesha Ruff MD [address] [place] [address] Vitamin B deficiency (Primary Dx) Social History [...] Upcoming Encounters Date Type Department Care Team ([facility] Contact Info) Description 04/11/2025 11:00 AM EDT Clinical Support [facility] [address] [place] [address] 06/09/2025 1:00 PM EST Office Visit [facility] OPT[facility]ET[facility] [address] [place] [address] Feli Singleton, MARTHA [address] [place] [address] documented as of this encounter Visit Diagnoses Diagnosis Vitamin B deficiency- Primary Unspecified vitamin B deficiency documented in this encounter Additional Health Concerns Assessment Noted Time PHQ-9 Depression Total Score: 23 023 4:04 PM EDT documented as of this encounter Care Teams A Operator Relationship Specialty Start Date End Date Mesha Ruff MD [address] [place] [address] PCP - General Family Medicine 03/05/22 documented as of this encounter
--- OUTSIDE RECORDS SUMMARY | 2025-03-23 18:26 | XMS_ITS | Encounter Summary ---
Author Organization [employer] Address 75 [facility] 7 [place] [address] Care Team Providers Care Harpsichord Maker Name Role Phone Mesha Ruff MD Primary Care Provider [phone] Encounter Details Date Type Department Care Team (Late Contact Info) Description 08/05/2022 Orders Only [facility] [address] [place] [address] [phone] Mesha Ruff MD 230 [place] [address] Other specified hypothyroidism (Primary Dx); Blurry vision [...] Description 04/11/2025 11:00 AM EDT Clinical Support [facility] [address] [place], [place] [phone] 06/09/2025 1:00 PM EST Office Visit [facility] [address] [place], [place] [phone] Feli Singleton, OD [address] [place] [address] documented as of this encounter Procedures Procedure [...] SENSITIVITY TROPONIN I (09/04/2022 9:02 PM EST) [facility] TROPONIN I HIGH SENSITIVITY <3.5 <3.5 - 17.0 ng/L [facility] Comment:The [place] high sens itivity Troponin-I results should beused in conjunction with other diagnostic information suchas ECG, clinical observations and information, and patientsymptoms to aid in the diagnosis of ID. 09/04/2022 9:02 PM EST 09/04/2022 9:09 PM EST us [facility] External Provider LAB BLO OD ORDERABLES Final Result [facility] [address] [place] [phone] * HIGH SENSITIVITY TROPONIN I (09/04/2022 4:25 PM EST) [facility] TROPONIN I HIGH SENSITIVITY <3.5 <3.5 - 17.0 ng/L [facility] Comment:The [place] high sens itivity Troponin-I results should beused in conjunction with other diagnostic information suchas ECG, clinical observations and information, and patientsymptoms to aid in the diagnosis of ID. 09/04/2022 4:25 PM EST 09/04/2022 4:30 PM EST [facility] External Provider LAB BLO OD ORDERABLES Final Result Performing Organization Address [facility] Co de Phone Number [facility] [address] [place] [phone] * SARS-CoV-2 RNA, Influenza A/B, and RSV RNA, Ql NAAT (09/04/2022 4:25 PM EST) Influenza A PCR NEGATIVE Negative [facility] Influenza B PCR NEGATIVE Negative [facility] Resp Syncy Virus RNA Qual PCR NEGATIVE Negative [facility] SARS COV2 PCR NEGATIVE Negative [facility] SARS/Flu/RSV Note See Note [facility] Comment:All test results mus t [...] use by authorized laboratories.Testing performed on the [employer] GeneXpert utilizingreal-time RT-PCR.All SARS CoV2 and positive influenza A/B results arereported to [facility]. 09/04/2022 4:25 PM EST 09/04/2022 4:30 PM EST [facility] Exter nal Provider LAB MICROBIOLOGY - GENERAL ORDERABLES Final Result Performing Organization Address City/[facility]/ZIP Co de Phone Number [facility] [address] [place] [address] [phone] * Magnesium (09/04/2022 4:25 PM EST) Magnesium 1.9 1.6 - 2.6 mg/dL [facility] 09/04/2022 4:25 PM EST 09/04/2022 4:30 PM EST us [facility] External Provider LAB BLO OD ORDERABLES Final Result [facility] [address] [place] [address] [phone] * (ABNORMAL) Comprehensive Metabolic Panel (09/04/2022 4:25 PM EST) Sodium 139 135 - 145 mmol/L [facility] Potassium 3.8 3.3 - 5.1 mmol/L [facility] Chloride 104 96 - 108 mmol/L [facility] Carbon Dioxide 26 22 - 29 mmol/L [facility] Anion Gap 13 12 - 20 [facility] Urea Nitrogen (BUN) 10 9 - 16 mg/dL [facility] Creatinine, Serum 0.77 0.5 - 1.4 mg/dL [facility] Creatinine Clr Calc Pharmacy 107.9 [facility] Comment:Provided height and weight: 182.88 cm,97.3 kg.eGFR (calculated from the MDRD study equation) and eCrCl(calculated from the Cockcroft-Gault equation) are based ondifferent parameters and may not yield comparable results.If eCrCl result is absurd, please check patient'sheight/weight. Estimated Glomerular Filt Rate >60 [facility] Comment:NOTE: For -Am erican individuals, multiply the result by 1.210.Chronic Kidney Disease: Estimated GFR < 60 mL/min/1.26h7Jjlwva Kidney Disease: Estimated GFR < 15 mL/min/1.73m2 Glucose 91 60 - 115 mg/dL [facility] Calcium 9.7 8.4 - 10.2 mg/dL [facility] Bilirubin, Total 0.3 0.0 - 1.0 mg/dL [facility] Aspartate Amino Transferase 50(H) 5 - 31 U/L [facility] Alanine Aminotransferase 80(H) 0 - 31 U/L [facility] Total Protein 7.9 6.5 - 8.0 g/dL [facility] Albumin Level 4.2 3.5 - 5.0 g/dL [facility] Alkaline Phosphatase 58 39 - 117 U/L [facility] 09/04/2022 4:25 PM EST 09/04/2022 4:30 PM EST [facility] External Provider LAB BLO OD ORDERABLES Final Result Performing Organization Address [facility] Co de Phone Number [facility] [address] [place] [phone] * APTT (09/04/2022 4:25 PM EST) Partial Thromboplastin Time 29.2 26.0 - 36.4 SEC [facility] 09/04/2022 4:25 PM EST 09/04/2022 4:30 PM EST [facility] External Provider LAB BLO OD ORDERABLES Final Result Performing Organization Address [facility] Co de Phone Number [facility] [address] [place] [phone] * Prothrombin Time-INR (09/04/2022 4:25 PM EST) Prothrombin Time 12.3 10.0 - 13.1 SEC [facility] INTERNATIONAL NORM RATIO 1.1 0.9 - 1.1 [facility] Comment:INTERNATIONAL NORMAL IZED RATIO (INR) REFERENCE [...] 4:25 PM EST 09/04/2022 4:30 PM EST [facility] External Provider LAB BLO OD ORDERABLES Final Result [facility] [address] [place] [phone] * (ABNORMAL) CBC auto differential (09/04/2022 4:25 PM EST) White Blood Count 8.9 4.8 - 10.8 X10*3/uL [facility] Red Blood Count 4.39 4.20 - 5.50 X10*6/uL [facility] Hemoglobin 11.7(L) 12.0 - 16.0 g/dl [facility] Hematocrit 36.8(L) 37.0 - 47.0 % [facility] Mean Corpuscular Volume 83.8 80.0 - 98.0 fL [facility] Mean Corpuscular Hemoglobin 26.7(L) 27.0 - 33.0 pg [facility] Mean Corpuscular HGB Conc 31.8 31.0 - 35.0 g/dl [facility] Red Cell Distribution Width 15.8 11.0 - 16.0 % [facility] Platelet Count 242 160 - 400 X10*3/uL [facility] Mean Platelet Volume 11.1 9.4 - 12.3 fL [facility] Neutrophils Percent Auto 44.2(L) 45 - 73 % [facility] Imm Gran Pct Auto 0.3 0.0 - 0.4 % [facility] Lymphocytes Percent Auto 44.3(H) 20 - 40 % [facility] Monocytes Percent Auto 6.4 2 - 11 % [facility] Eosinophils Percent Auto 4.0 0 - 4 % [facility] Basophils Percent Auto 0.8 0 - 2 % [facility] NRBC Pct Auto 0.0 0.0 - 0.2 /100WBC [facility] Neutrophils Absolute Auto 3.9 2.0 - 8.3 x10*3/uL [facility] Imm Gran Abs Auto 0.03 0.00 - 0.03 X10*3/uL [facility] Lymphocytes Absolute Auto 4.0 1.2 - 4.9 X10*3/uL [facility] Monocytes Absolute Auto 0.6 0.1 - 1.2 X10*3/uL [facility] Eosinophils Absolute Auto 0.4 0.0 - 0.4 X10*3/uL [facility] Basophils Absolute Auto 0.1 0.0 - 0.2 X10*3/uL [facility] NRBC Abs Auto 0.000 0.0 - 0.012 X10*3/uL [facility] 09/04/2022 4:25 PM EST 09/04/2022 4:30 PM EST us [facility] External Provider LAB BLO OD ORDERABLES Final Result Performing Organization Address City/State/[facility] Co de Phone Number [facility] [address] [place] [address] [phone] documented in this encounter Visit Diagnoses Diagnosis Other specified hypothyroidism- Primary Blurry vision Other specified visual disturbances documented in this encounter Care Teams Harpsichord Maker Relationship Specialty Start Date End Date Mesha Ruff MD [address] [place] [phone] PCP - General Family Medicine 03/05/22 documented as of this encounter
--- OUTSIDE RECORDS SUMMARY | 2025-03-23 18:26 | XMS_ITS | Encounter Summary ---
Author Organization [employer] Address [address] [facility] 7t [place] [address] Care Team Providers Care Special Services Supervisor Name Role Phone Mesha Ruff MD Primary Care Provider [phone] Encounter Details Date Type Department Care Team ([facility] st Contact Info) Description 03/22/2025 Orders Only [facility] [address] [place], [place] [phone] Veronica Ny, ANP [address] [place], [place] [phone] Social History Tobacco Use Types Packs/Day Years [...] AM EDT documented as of this encounter Functional Status * Over the last 2 weeks, how often have you been bothered by any of the following problems? Question Answer Date of Assessment Author Feeling nervous, anxious, or on edge 3 03/22/2025 4:42 PM EDT Taya Bryant [employer]mega Not being able to stop or control worrying 3 03/22/2025 4:42 PM EDT Taya Bryant Worrying too much about different things 3 03/22/2025 4:42 PM EDT Taya Bryant Trouble relaxing 2 03/22/2025 4:42 PM EDT Christen Corey Being so restless that it is hard to sit still 1 03/22/2025 4:42 PM EDT Taya Bryant [employer]mega Becoming easily annoyed or irritable 1 03/22/2025 4:42 PM EDT Taya Bryant Feeling afraid as if somethi ng awful might happen 3 03/22/2025 4:42 PM EDT Taya Bryant [employer] ANTOINE-7 Total Score 16 03/22/2025 4:42 PM EDT Christen Bryant documented as of this encounter Plan of Treatment Upcoming Encounters Date Type Department Care Team (Late st Contact Info) Description 04/11/2025 11:00 AM EDT Clinical Support [address] [address] 06/09/2025 1:00 PM EST Office Visit [facility] [address] [place] [address] Feli Singleton, MARTHA [address] [place] [address] documented as of this encounter Procedures Procedure Name Priority Date/Time Associated Diagnosis Comments T4, FREE Routine 03/22/2025 11:35 AM EDT documented in this encounter Results * T4, Free (03/22/2025 11:35 AM EDT) Free T4 (Free Thyroxine) 0.72 0.71 - 1.85 ng/dL [facility] 03/22/2025 11:3 5 AM EDT 03/22/2025 1:20 PM EDT [facility] LAB BLOOD ORDERABLES Final Resul t [facility] [address] [place] [phone] documented in this encounter Visit Diagnoses Not on filedocumented in this encounter Additional Health Concerns Assessment Noted Time PHQ-9 Depression Total Score: 0 06/08/20 24 11:56 AM EST documented as of this encounter Care Teams Special Services Supervisor Relationship Specialty Start Date End Date Mesha Ruff MD [address] [place] [address] PCP - General Family Medicine 03/05/22 documented as of this encounter
--- OUTSIDE RECORDS SUMMARY | 2025-03-23 18:26 | XMS_ITS | Encounter Summary ---
Author Organization [employer] Address [address] [facility] 7t [place] [address] Care Team Providers Care Database Consultant Name Role Phone Mesha Ruff MD Primary Care Provider [phone] Encounter Details Date Type Department Care Team (Late Contact Info) Description 03/07/2023 Abstract [facility] MEDICINE [address] [place] [address] [phone] Mesha Ruff MD [address] [place] [address] Social History Tobacco Use Types Packs/Day Years [...] [facility] [address] [place], [place] [phone] 06/09/2025 1:00 PM EST Office Visit [facility] OPTOMETRY [address] [place] [address] [phone] Feli Singleton, OD [address] [place] [address] documented as of this encounter Visit Diagnoses Not on filedocumented in this encounter Additional Health Concerns Assessment Noted Time PHQ-9 Depression Total Score: 23 023 4:04 PM EDT documented as of this encounter Care Teams Database Consultant Relationship Specialty Start Date End Date Mesha Ruff MD [address] [place] [address] PCP - General Family Medicine 03/05/22 documented as of this encounter
--- OUTSIDE RECORDS SUMMARY | 2025-03-23 18:26 | XMS_ITS | Encounter Summary ---
Author Organization [employer] Address [address] [facility] 7t [place] [address] Care Team Providers Care Loss Prevention Officer Name Role Phone Mesha Ruff MD Primary Care Provider [phone] Encounter Details Date Type Department Care Team (Late Contact Info) Description 03/27/2023 Orders Only [facility] MEDICINE [address] [place] [address] [phone] Provider, MD Melissa Social History Tobacco Use [...] Description 04/11/2025 11:00 AM EDT Clinical Support [facility] [address] [place], [place] [phone] 06/09/2025 1:00 PM EST Office Visit [facility] OPTOMETRY [address] [place], [place] [phone] Feli Singleton, OD [address] [place], [place] [phone] documented as of this encounter Procedures Procedure [...] documented as of this encounter Care Teams Loss Prevention Officer Relationship Specialty Start Date End Date Mesha Ruff MD [address] [place] [address] PCP - General Family Medicine 03/05/22 documented as of this encounter
--- OUTSIDE RECORDS SUMMARY | 2025-03-23 18:26 | XMS_ITS | Encounter Summary ---
Author Organization [employer] Address [address] [facility] 7t [place] [address] Care Team Providers Care Aerospace Physiological Technician Name Role Phone Mesha Ruff MD Primary Care Provider [phone] Encounter Details Date Type Department Care Team [...] 04/11/2025 11:00 AM EDT Clinical Support [facility]ICINE [address] [place] [address] 06/09/2025 1:00 PM EST Office Visit [facility] OPTOMETRY [address] [place] [address] Feli Singleton, OD [address] [place] [address] documented as of this encounter Visit Diagnoses Not on filedocumented in this encounter Additional Health Concerns Assessment Noted Time PHQ-9 Depression Total Score: 0 06/08/20 24 11:56 AM EST documented as of this encounter Care Teams Aerospace Physiological Technician Relationship Specialty Start Date End Date Mesha Ruff MD [address] [place] [address] PCP - General Family Medicine 03/05/22 documented as of this encounter
--- OUTSIDE RECORDS SUMMARY | 2025-03-23 18:26 | XMS_ITS | Encounter Summary ---
Author Organization [employer] Address [address] [place] [address] 7 [place] [address] Care Team Providers Care Nursing Aide Name Role Phone Mesha Ruff MD Primary Care Provider [phone] Reason for Referral * Consultation (STAT) - Pending Review Specialty Diagnoses / Procedures Referred By Margie restrepo Referred To Contact General Surgery Diagnoses Elevated C-reactive protein (CRP) Nonintractable headache, unspecified chronicity pattern, unspecified headache type Lorraine Phillip ANP [address] [place] [address] Phone: tel: fax: Referral ID Status Reason Start Date Expiration Date Visits Requested Visits Authorized [id number] Pending Review Specialty Services Required 03/23/2025 03/23/2026 1 1 * Imaging (STAT) - Pending Review Specialty Diagnoses / Procedures Referred By Margie restrepo Referred To Contact Radiology Diagnoses Elevated C-reactive protein (CRP) Nonintractable headache, unspecified chronicity pattern, unspecified headache type Procedures MR Brain w/o Contrast Lorraine Phillip ANP [address] [place] [address] Phone: tel: fax: Referral ID Status Reason Start Date Expiration Date V isits Requested Visits Authorized [id number] Pending Review 03/23/2025 03/23/2026 1 1 Reason for Visit * Reason Onset Date Comments Results 03/22/2025 Encounter Details Date Type Department Care Team (Late st Contact Info) Description 03/22/2025 Results Follow-Up [facility] MED[facility] [address] [place] [address] Lorraine Phillip ANP [address] [place] [address] XR Chest 2 Views, Sed Rate by Modified Westergren, C-reactive Protein, Additional followed-up results: 4 Social History Tobacco Use Types Packs/Day Years [...] 3 03/22/2025 4:42 PM EDT Taya Bryant ctoria Not being able to stop or control worrying 3 03/22/2025 4:42 PM EDT Taya Bryant ctmega Worrying too much about different things 3 03/22/2025 4:42 PM EDT Taya Bryant Trouble relaxing 2 03/22/2025 4:42 PM EDT Christen Corey Being so restless that it is hard to sit still 1 03/22/2025 4:42 PM EDT Taya Bryant ctoria Becoming easily annoyed or irritable 1 03/22/2025 4:42 PM EDT Taya Bryant ctmega Feeling afraid as if somethi ng awful might happen 3 03/22/2025 4:42 PM EDT Taya Bryant ctmega ANTOINE-7 Total Score 16 03/22/2025 4:42 PM EDT Christen Bryant documented as of this encounter Miscellaneous Notes * Addendum Note - CHARITY Andrew - 03/23/2025 5:45 PM EDTAddended by: LORRAINE PHILLIP on: 03/23/2025 05:45 PM Modules accepted: Orders * Result Encounter Note - CHARITY Andrew - 03/23/2025 5:45 PM EDT Hi - I called pt but did not reach - please try again this evening - d/t elevated inflammatory marker, I would like to start daily prednisone right away for a possible condition called giant cell arteritis (carries risk of vision loss) - I will also order a stat MRI, ask her to see the eye dr right away and refer for a biopsy of the temporal artery to confirm or rule-out this diagnosis. If she is feeling worse, direct to ED. If she is feeling better, please let me know. Please schedule f/u w/PCP or me within next 2 weeks. Called pt, no answer, LVM to call clinic. [employer] utilized for Indonesian interpretation via phone, # [phone] * Telephone Encounter - Michelle Dia RN - 03/23/2025 8:45 AM EDT Another attempt made to discuss normal imaging results pt to follow up prn ----- Message from Lorraine Phillip sent at 03/22/2025 8:48 AM EDT ----- Hi - XR was negative/normal. Please remind her to get labs if she has not already. Direct to ED iufshe feels any worse. thanks ----- Message ----- From: Interface, Ris Results In Sent: 03/21/2025 4:17 PM EDT To: CHARITY Andrew * Telephone Encounter - Fransisca Marcus RN - 03/22/2025 4:07 PM EDT Tc to pt via BLS ID: [id number] to let them know per covering provider Hi - XR was negative/normal. Please remind her to get labs if she has not already. Direct to ED iuf she feels any worse. Thanks . No answer, lvm to return call and ask to speak to walk in center nurses. [facility] nurse will re-attempt outreach in the AM. * Telephone Encounter - Fransisca Marcus RN - 03/22/2025 4:07 PM EDT ----- Message from Lorraine Phillip sent at 03/22/2025 8:48 AM EDT ----- Hi - XR was negative/normal. Please remind her to get labs if she has not already. Direct to ED iufshe feels any worse. thanks ----- Message ----- From: Interface, Ris Results In Sent: 03/21/2025 4:17 PM EDT To: CHARITY Andrew * Telephone Encounter - Fransisca Marcus RN - 03/22/2025 9:21 AM EDT Tc to pt to let them know per covering provider Hi - XR was negative/normal. Please remind her toget labs if she has not already. Direct to ED iuf she feels any worse. Thanks . No answer, lvm to return call and ask to speak to walk in center nurses. Health Safety Coordinator will re-attempt outreach in the PM. * Telephone Encounter - Fransisca Marcus RN - 03/22/2025 9:21 AM EDT ----- Message from Lorraine Phillip sent at 03/22/2025 8:48 AM EDT ----- Hi - XR was negative/normal. Please remind her to get labs if she has not already. Direct to ED iufshe feels any worse. thanks ----- Message ----- From: [employer], Ris Results In Sent: 03/21/2025 4:17 PM EDT [...] Description 04/11/2025 11:00 AM EDT Clinical Support [facility] [address] [place] [address] 06/09/2025 1:00 PM EST Office Visit [facility] OPTOMETRY [address] [place] [address] Fanytanya Feli, OD [address] [place] [address] Scheduled Orders Name Type Priority Associated Diagnoses Orde r Schedule MR Brain w/o Contrast Imaging STAT Elevated C-reactive protein (CRP) Nonintractable headache, unspecified chronicity pattern, unspecified headache type Expected: 03/23/2025, Expires: 03/23/2026 Scheduled Referrals Name Type Priority Associated Diagnoses Orde r Schedule Referral to General Surgery Outpatient Referral STAT Elevated C-reactive protein (CRP) Nonintractable headache, unspecified chronicity pattern, unspecified headache type Expected: 03/23/2025 (Approximate), Expires: 03/23/2026 documented as of this encounter Visit Diagnoses Diagnosis Elevated C-reactive protein (CRP)- Primary Nonintractable headache, unspecified chronicity pattern, unspecified headache type documented in this encounter Additional Health Concerns Assessment Noted Time PHQ-9 Depression Total Score: 0 06/08/20 24 11:56 AM EST documented as of this encounter Care Teams Nursing Aide Relationship Specialty Start Date End Date Mesha Ruff MD [address] [place] [address] PCP - General Family Medicine 03/05/22 documented as of this encounter
--- OUTSIDE RECORDS SUMMARY | 2025-03-23 18:26 | XMS_ITS | Encounter Summary ---
Author Organization [employer] Address [address] [facility] 7t [place] [address] Care Team Providers Care Clinical Research Physician Name Role Phone Mesha Ruff MD Primary Care Provider [phone] Encounter Details Date Type Department Care Team ([facility] Contact Info) Description 11/25/2022 Orders Only [facility] MEDICINE [address] [place], [place] [phone] Mesha Ruff MD [address] [place] [address] Vitamin B deficiency Social History Tobacco Use [...] Upcoming Encounters Date Type Department Care Team ([facility] Contact Info) Description 04/11/2025 11:00 AM EDT Clinical Support [facility] MEDICINE [address] [place] [address] 06/09/2025 1:00 PM EST Office Visit [facility] OPTOMETRY [address] [place] [address] Feli Singleton, OD [address] [place] [address] documented as of this encounter Procedures Procedure Name Priority Date/Time Associated Diagnosis Comments BI MAMMOGRAM SCREENING TOMOSYNTHESIS BILATERAL Routine 12/19/2022 1:46 PM EDT documented in this encounter Results * BI Mammogram Screening Tomosynthesis Bilateral (12/19/2022 1:46 PM EDT) Anatomical Region Laterality Modality Breast Bilateral Mammography 12/19/2022 1:46 PM EDT Narrative 12/23/2022 7:53 AM EDT [facility] [address] [place] [address] Mammography Report Signed Patient: Carmen Johnson MR#: [id number] : 1965 Acct:[id number] Age/Sex: 57 / F ADM Date: 12/19/22 Loc: HO.MAMMO Attending Dr: Mesha Ruff MD Ordering Physician: Mesha Ruff Results: 1Negative Date of Service: 12/19/22 Follow Up: 1 Year From Orig inal Mammogram Procedure(s): MM tomosynthesis screening BI Accession Number(s): [id number] cc: Mesha Ruff EXAMINATION: MM SCREENING DIGITAL BREAST TOMOSYNTHESIS, BILATERAL CLINICAL INFORMATION: Screening. Asymptomatic. The lifetime risk of breast cancer based on the Tyrer-Cuzick Model is 9%. COMPARISON: Outside mammography: 02/05/2021 ([facility]) TECHNIQUE: Digital breast tomosynthesis is performed [...] in OV> 12/23/22 0750 DD/ 1346 TD/TT: Patch Setter: SANDRA Procedure Note Donotuseinterpreter, Image - 01/02/2023 [facility] [address] [place] [address] Mammography Report Signed Patient: Carmen JohnsonMR#: [id number] : 1965Acct:[id number] Age/Sex: 57 / FADM Date: 12/19/22 Loc: HO.MAMMO Attending Dr: Mesha Ruff MD Ordering Physician: Ben Ruffults: 1Negative Date of Service: 12/19/22Follow Up: 1 Year From Orig ina Mammogram Procedure(s): MM tomosynthesis screening BI Accession Number(s): [id number] cc: Mesha Ruff EXAMINATION: MM SCREENING DIGITAL BREAST TOMOSYNTHESIS, BILATERAL CLINICAL INFORMATION: Screening. Asymptomatic. The lifetime risk of breast cancer based on the Tyrer-Cuzick Model is 9%. COMPARISON: Outside mammography: 02/05/2021 ([facility]) TECHNIQUE: Digital breast tomosynthesis is performed [...] in OV> 12/23/22 0750 DD/ 1346 TD/TT: Patch Setter: BOAZ [facility] External Provider IMG BI PROCEDURES Final Result documented in this encounter Visit Diagnoses Diagnosis Vitamin B deficiency Unspecified vitamin B deficiency documented in this encounter Additional Health Concerns Assessment Noted Time PHQ-9 Depression Total Score: 23 023 4:04 PM EDT documented as of this encounter Care Teams Clinical Research Physician Relationship Specialty Start Date End Date Mesha Ruff MD [address] [place] [phone] PCP - General Family Medicine 03/05/22 documented as of this encounter
--- OUTSIDE RECORDS SUMMARY | 2025-03-23 18:26 | XMS_ITS | Encounter Summary ---
Author Organization [employer] Address [address] [place] [address] [address] [place] [address] Care Team Providers Care Processing Engineer Name Role Phone Mesha Ruff MD Primary Care Provider [phone] Reason for Referral * Consultation (Routine) - Authorized Specialty Diagnoses / Procedures Referred By Contlorna t Referred To Contact Gastroenterology Diagnoses Iron deficiency anemia, unspecified iron deficiency anemia type Sandhya Subramanian MD [address] [place] [address] Phone: tel: fax: Janice Waldron MD [address] [place] [address] Phone: tel: fax: Referral ID Status Reason Start Date Expiration Date Visits Requested Visits Authorized [id number] Authorized Specialty Services Required 4 05/18/2025 1 1 Encounter Details Date Type Department Care Team (Late st Contact Info) Description 05/18/[address] [facility] [address] [place], [place] [phone] Sandhya Subramanian MD [address] [place], [place] [phone] Iron deficiency anemia, unspecified iron deficiency anemia [...] Description 04/11/2025 11:00 AM EDT Clinical Support [facility] [address] [place] [address] 06/09/2025 1:00 PM EST Office Visit [facility] OPTOMETRY [address] [place] [address] Feli Singleton, OD [address] [place] [address] Scheduled Referrals Name Type Priority Associated Diagnoses [...] AM EST) Follicle Stimulating Hormone 12.3 mIU/mL [facility] Comment:Reference Range Foll icular Phase 2.5-10.2 Mid-cycle Peak 3.1-17.7 Luteal Phase 1.5- 9.1 Postmenopausal 23.0-116.3THIS TEST WAS PERFORMED AT:[facility] [place] [id number] BROWNING MD 05/18/2024 11:1 0 AM EST 05/18/2024 1:45 PM EST us Generic External Data Provider LAB BLOOD ORDERAB LES Final Result [facility] [address] [place] [phone] documented in this encounter Visit Diagnoses Diagnosis Iron deficiency anemia, unspecified iron deficiency anemia type- Primary documented in this encounter Additional Health Concerns Assessment Noted Time PHQ-9 Depression Total Score: 24 023 3:33 PM EST documented as of this encounter Care Teams Processing Engineer Relationship Specialty Start Date End Date Mesha Ruff MD [address] [place] [address] PCP - General Family Medicine 03/05/22 documented as of this encounter
--- OUTSIDE RECORDS SUMMARY | 2025-03-23 18:26 | XMS_ITS | Clinical Summary ---
Author Organization [employer] Address [address] [facility] [address] [place] [address] Care Team Providers Care County Manager Name Role Phone Mesha Ruff MD Primary Care Provider [phone] Allergies No known active allergies Medications * This document contains information received from the source organization and may not represent a complete record from that organization. ascorbic acid (Vitamin C) 250 MG tablet [...] cholecalcifero l (D3 Super Strength) 50 MCG (1999 UT) capsule Take 1 capsule (50 mcg) [...] AFFECTED EYE(S) TWICE DAILY 10 mL 1 025 Active metFORMIN (Glucophage) 500 MG tabletIndicati ons:Controlled type 2 diabetes mellitus without complication, without long-term current use of insulin (CMS/HCC) TAKE 1 TABLET BY MOUTH TWICE DAILY WITH BREAKFAST AND WITH DINNER 180 tablet 1 025 Active levothyroxine (Synthroid) 125 MCG tablet Take [...] as directed by MD. 30 patch 2 025 Active aspirin-acetam inophen-caffei ne (Excedrin Migraine) 250-250-65 MG tabletIndicati ons:Migraine without aura and with status migrainosus, not intractable Take 2 tablets as needed once for headache, do not take more than once in 24 hours 20 tablet 025 Active predniSONE (Deltasone) 20 MG tabletIndicati ons:Elevated C-reactive protein (CRP),Nonintra ctable headache, unspecified chronicity pattern, unspecified headache type Take 2 tablets (40 mg) by mouth Once per day. 28 tablet 025 Active Acetaminophen Extra Strength 500 [...] Active Problems Problem Noted Date Diagnosed Date Other mixed anxiety disorders 03/21/2025 Vitamin B12 deficiency (dietary) anemia 06/08/20 24 [...] congenital hearing loss and was evaluated in [facility] for hearing devices and surgery but was told she was not a candidate for either Current severe episode of ga ananya depressive disorder without psychotic features without [...] Vaginal irritation 10/30/2022 Prediabetes 12/05/2021 06/08/2024 Encounters * This document contains information received from the source organization and may not represent a complete record from that organization. Date Type Department Care Team Description 03/22/2025 Orders Only [facility] [address] [id number] Lorraine Phillip ANP 03/22/2025 Results Follow-Up [facility] [address] [place] [address] Lorraine Phillip ANP XR Chest 2 Views, Sed Rate by Modified Westergren, C-reactive Protein, Additional followed-up results: 4 03/21/2025 2:00 PM EDT Office Visit [facility] [address] [place] [phone] Lorraine Phillip ANP Nonintractable headache, unspecified chronicity pattern, unspecified headache type (Primary Dx); Acute low back pain, unspecified back pain laterality, unspecified whether sciatica present; Primary hypertension; Anxiety; Hypothyroidism, unspecified type; Migraine without aura and with status migrainosus, not intractable; Swelling; Pain of right upper extremity; Orthopnea 03/21/2025 Travel 03/15/[address] [address] Mesha Ruff MD 03/10/2025 11:00 AM EDT Clinical Support [address] [address] Sharlene Jasmine RN Vitamin B12 deficiency (dietary) anemia 03/10/2025 Travel 03/07/2025 Results Follow-Up [address] [address] Mesha Ruff MD Albumin, Random Urine W/Creatinine, POCT Glucose, POCT HGB A1C, TSH W/Reflex to FT4 02/25/2025 Orders Only [address] [address] Mesha Ruff MD 02/07/2025 11:00 AM EDT Clinical Support [address] [address] Sammie Jimenez RN Encounter for immunization 02/07/2025 Travel 01/13/2025 11:15 AM EDT Office Visit [address] [address] Mesha Ruff MD Acute bilateral low back pain with right-sided sciatica (Primary Dx); Dietary counseling; Exercise counseling; Class 2 severe obesity with serious comorbidity and body mass index (BMI) of 36.0 to 36.9 in adult, unspecified obesity type (CMS/HCC); 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 prior episode (CMS/HCC); Mild intermittent asthma without complication; Controlled type 2 diabetes mellitus without complication, without long-term current use of insulin ([facility]); Encounter for screening for cervical cancer; Hypothyroidism, unspecified type 01/13/2025 Orders Only [facility] [address] [place] [address] Mesha Ruff MD 01/13/2025 Travel 01/12/[address] [address] Mesha Ruff MD Chart prep 01/10/[address] [address] Mesha Ruff MD telephone call 01/06/2025 Telephone [facility] [address] [place] [address] Mesha Ruff MD chart prep 01/06/2025 Telephone [facility] [address] [place] [address] Feli Singleton OD 01/05/2025 11:00 AM EDT Clinical Support [address] [address] Sammie Jimenez RN Encounter for immunization 01/05/2025 Travel 01/05/[address] [address] Mesha Ruff MD Controlled type 2 diabetes mellitus without complication, without long-term current use of insulin ([facility]) 01/04/2025 Results Follow-Up [facility] [address] [place] [address] Shandra Rose FNP Vitamin B12/Folate, Serum Panel, TSH W/Reflex to FT4 01/03/2025 Orders Only [facility] [address] [place] [address] Mesha Ruff MD 12/31/2024 Patient Outreach [facility] [address] [place] [address] Mesha Ruff MD Pre-visit Planning (SDOH negative. Tobacco screening negative. ) 12/22/2024 Refill [facility] [address] [place] [phone] Mesha Ruff MD from Last 3 Months [...] 11:00 AM EDT Clinical Support [facility] [address] [place] [address] 06/09/2025 1:00 PM EST Office Visit [facility] [address] [place] [address] Feli Singleton, OD [address] [place] [address] Health Maintenance Due Date Last Done Comments [...] T4, FREE Routine 03/22/2025 11:35 AM EDT CBC WITH AUTO DIFFERENTIAL Routine 03/22/2025 11:35 [...] complication, without long-term current use of insulin ([facility]) TSH W/REFLEX TO FT4 Routine 01/13/2025 1 [...] of4 resultswithin the time period is included. Pathologist [facility] TSH reflex Free T4 10.30(H) 0.32 - 4.0 uIU/mL [facility] Blood Venous blood specimen / Unknown 03/22/2025 11:35 AM EDT 03/22/2025 1:20 PM EDT us [facility] LAB BLOOD ORDERABLES Final Resul t [facility] [address] [place] [phone] * (ABNORMAL) CBC auto differential (03/22/2025 11:35 AM EDT) Only the most recent of2 resultswithin the time period is included. Pathologist [facility] White Blood Count 7.4 4.8 - 10.8 X10*3/uL [facility] Red Blood Count 4.17(L) 4.20 - 5.50 X10*6/uL [facility] Hemoglobin 12.2 12.0 - 16.0 g/dl [facility] Hematocrit 37.6 37.0 - 47.0 % [facility] Mean Corpuscular Volume 90.2 80.0 - 98.0 fL [facility] Mean Corpuscular Hemoglobin 29.3 27.0 - 33.0 pg [facility] Mean Corpuscular HGB Conc 32.4 31.0 - 35.0 g/dl [facility] Red Cell Distribution Width 13.5 11.0 - 16.0 % [facility] Platelet Count 202 160 - 400 X10*3/uL [facility] Mean Platelet Volume 11.8 9.4 - 12.3 fL [facility] Neutrophils Percent Auto 49.7 45 - 73 % [facility] Imm Gran Pct Auto 0.5(H) 0.0 - 0.4 % [facility] Lymphocytes Percent Auto 38.3 20 - 40 % [facility] Monocytes Percent Auto 6.6 2 - 11 % [facility] Eosinophils Percent Auto 4.0 0 - 4 % [facility] Basophils Percent Auto 0.9 0 - 2 % [facility] NRBC Pct Auto 0.0 0.0 - 0.2 /100WBC [facility] Neutrophils Absolute Auto 3.7 2.0 - 8.3 x10*3/uL [facility] Imm Gran Abs Auto 0.04(H) 0.00 - 0.03 X10*3/uL [facility] Lymphocytes Absolute Auto 2.9 1.2 - 4.9 X10*3/uL [facility] Monocytes Absolute Auto 0.5 0.1 - 1.2 X10*3/uL [facility] Eosinophils Absolute Auto 0.3 0.0 - 0.4 X10*3/uL [facility] Basophils Absolute Auto 0.1 0.0 - 0.2 X10*3/uL [facility] NRBC Abs Auto 0.000 0.0 - 0.012 X10*3/uL [facility] Blood Venous blood specimen / Unknown 03/22/2025 11:35 AM EDT 03/22/2025 1:13 PM EDT Lorraine Phillip [facility] LAB BLOOD ORDERABLES Final Resul t [facility] [address] [place] [address] [phone] * Sed Rate by Modified Zulma (03/22/2025 11:35 AM EDT) Erythrocyte Sedimentation Rate 18 0 - 20 MM/HR [facility] Comment:Patients with polycy themia and many hemoglobin abnormalitiesmay have depressed sed rates whereas patients with anemiamay have elevated sed rates. Blood Venous blood specimen / Unknown 03/22/2025 11:35 AM EDT 03/22/2025 1:13 PM EDT Lorraine Phillip [facility] LAB BLOOD ORDERABLES Final Resul t Performing Organization Address [facility] Co de Phone Number [facility] [address] [place] [phone] * (ABNORMAL) C-reactive Protein (03/22/2025 11:35 AM EDT) C Reactive Protein 1.01(H) < or = 0.50 mg/dL [facility] Blood Venous blood specimen / Unknown 03/22/2025 11:35 AM EDT 03/22/2025 1:20 PM EDT Lorraine Phillip [facility] LAB BLOOD ORDERABLES Final Resul t Performing Organization Address [facility] Phone Number [facility] [address] [place] [phone] * T4, Free (03/22/2025 11:35 AM EDT) Only the most recent of4 resultswithin the time period is included. Free T4 (Free Thyroxine) 0.72 0.71 - 1.85 ng/dL [facility] 03/22/2025 11:3 5 AM EDT 03/22/2025 1:20 PM EDT Lorraine Phillip ANP LAB BLOOD ORDERABLES Final Resul t Performing Organization Address [facility] Co de Phone Number [facility] [address] [place] [phone] * B Type Natriuretic Peptide (BNP) (03/22/2025 11:35 AM EDT) B Type Natriuretic Peptide 34 <100 pg/mL [facility] Blood Venous blood specimen / Unknown 03/22/2025 11:35 AM EDT 03/22/2025 1:07 PM EDT [facility] LAB BLOOD ORDERABLES Final Resul t [facility] [address] [place] [address] [phone] * (ABNORMAL) Comprehensive Metabolic Panel (03/22/2025 11:35 AM EDT) Only the most recent of2 resultswithin the time period is included. Pathologist [facility] Sodium 140 135 - 145 mmol/L [facility] Potassium 3.8 3.3 - 5.1 mmol/L [facility] Chloride 107 96 - 108 mmol/L [facility] Carbon Dioxide 27 22 - 29 mmol/L [facility] Anion Gap 10(L) 12 - 20 [facility] Urea Nitrogen (BUN) 13 9 - 16 mg/dL [facility] Creatinine, Serum 0.72 0.5 - 1.4 mg/dL [facility] Estimated Glomerular Filt Rate >60 [facility] Comment:Chronic Kidney Disea se: Estimated GFR < 60 mL/min/1.61x4Nnjfrd Kidney Disease: Estimated GFR < 15 mL/min/1.73m2 Glucose 107 60 - 115 mg/dL [facility] Calcium 9.9 8.4 - 10.2 mg/dL [facility] Bilirubin, Total 0.3 0.0 - 1.0 mg/dL [facility] Aspartate Amino Transferase 62(H) 5 - 31 U/L [facility] Alanine Aminotransferase 99(H) 0 - 31 U/L [facility] Total Protein 7.7 6.5 - 8.0 g/dL [facility] Albumin Level 4.3 3.5 - 5.0 g/dL [facility] Alkaline Phosphatase 60 39 - 117 U/L [facility] Blood Venous blood specimen / Unknown 03/22/2025 11:35 AM EDT 03/22/2025 1:20 PM EDT Lorraine Phillip ANP LAB BLOOD ORDERABLES Final Resul t [facility] [address] [place] [phone] [phone] * XR Chest 2 Views (03/21/2025 4:03 PM EDT) Anatomical Region Laterality Modality Chest Radiographic Mercedes ging 03/21/2025 4:03 PM EDT Narrative 03/21/2025 4:16 PM EDT [address] [address] XRay Report Signed Patient: Carmen Johnson MR#: [id number] : 1965 Acct:[id number] Age/Sex: 59 / F ADM Date: 03/21/25 Loc: HO.HHCX Attending Dr: Lorraine Phillip NP Ordering Physician: LORRAINE PHILLIP NP Date of Service: 03/21/25 Procedure(s): XR chest 2V Accession Number(s): [id number] cc: LORRAINE PHILLIP NP Reason for Exam: [...] 03/21/25 1613 DD/ 1603 TD/TT: 03/21/25 1605 Medical Technical Writer: Procedure Note Donotuseinterpreter, Image - 03/21/2025 [facility] [address] [place] [address] XRay Report Signed Patient: Carmen JohnsonMR#: [id number] : 1965Acct:[id number] Age/Sex: 59 / FADM Date: 03/21/25 Loc: IDANIA.HHCX Attending Dr: Lorraine Phillip NP Ordering Physician: LORRAINE PHILLIP NP Date of Service: 03/21/25 Procedure(s): XR chest 2V Accession Number(s): [id number] cc: LORRAINE PHILLIP NP Reason for Exam: [...] 03/21/25 1613 DD/ 1603 TD/TT: 03/21/25 1605 Medical Technical Writer: Lorraine Phillip ANP IMG XR PROCEDURES Final Result * Albumin, Random Urine W/Creatinine (01/13/2025 12:05 PM EDT) Creatinine, Urine 229.46 mg/dL [facility] Microalbumin Urine 29.0 mg/L [facility] Microalbum Creatinine Ratio Ur 12.6 <30 ug/mg cr [facility] Comment:Albumin/Creatinine R atio Reference Ranges: Normal: < 30 ug/mg creatinine Microalbuminuria: 30 - 300 ug/mg creatinineClinical Albuminuria: > 300 ug/mg creatinine Urine (Urine, Random) 01/13/2025 12:05 PM EDT 01/13/2025 2:02 PM EDT Mesha Ruff MD LAB URINE ORDERABLES Final Res ult [facility] [address] [place] [phone] * (ABNORMAL) POCT HGB A1C (01/13/2025 [...] Vitamin B12 540 200 - 900 pg/mL [facility] Comment:NORMAL 200-900 PG/ML INDETERMINATE 160-199 PG/ML DEFICIENT < 160 PG/ML Folate 10.8 > or = 4.0 ng/mL [facility] Comment:Reference Values:> o r = [...] MD LAB BLOOD ORDERABLES Final Res ult [facility] [address] [place] [phone] * Measles, Mumps, and Rubella (MMR) Antibodies??(IgG) Panel, Immune Status (01/03/2025 10:46 AM EDT) Mumps Virus IgG Antibody 272.00 AU/mL [facility] Comment:AU/mL Interpretation ------- <9.00 Not consistent with immunity9.00-10.99 Equivocal>10.99 Consistent with immunityThe presence of mumps IgG antibody suggests immunizationor past or current infection with mumps virus. Rubella IgG Antibody 29.20 Index [facility] Comment:Index Interpretation ----- <0.90 Not consistent with immunity 0.90-0.99 Equivocal > or = 1.00 Consistent with immunityThe presence of rubella IgG antibody suggestsimmunization or past or current infection withrubella virus.THIS TEST WAS PERFORMED AT:[facility] [place] [phone] BROWNING MD Rubeola IgG (Measles) >300.00 AU/mL [facility] Comment:AU/mL Interpretation ----- <13.50 Not consistent with cggskypb79.50-16.49 Equivocal>16.49 Consistent with immunityThe presence of measles IgG suggests immunization orpast or current infection with measles virus.For additional information, please refer tohttp://FlowCardia.CrossChx/faq/[email or web address](This link is being provided for informational/educational purposes only.) Blood Venous blood specimen / Unknown 01/03/2025 10:46 AM EDT 01/03/2025 1:06 PM EDT Mesha Ruff MD LAB BLOOD ORDERABLES Final Res ult Performing Organization Address [facility] de Phone Number [facility] [address] [place] [phone] * Hepatitis B Surface Antibody, Qualitative (01/03/2025 10:46 AM EDT) Pathologist [facility] ~Hepatitis B Surface Antibody NONREACTIVE Nonreactive [facility] Comment:Nonreactive: < 8.00 mIU/mL Blood Venous blood specimen / Unknown 01/03/2025 10:46 AM EDT 01/03/2025 1:06 PM EDT Mesha Ruff MD LAB BLOOD ORDERABLES Final Res ult Performing Organization Address [facility] Phone Number [facility] [address] [place] [address] [phone] * Varicella Zoster Antibody, IgG (01/03/2025 10:44 AM EDT) [facility] Varicella IgG Antibody 12.80 S/CO [facility] Comment:Signal to Cut-off S/ CO [...] Antibody Immunity Screen, ACIF.THIS TEST WAS PERFORMED AT:[facility] [place] [phone] BROWNING MD Blood Venous blood specimen / Unknown 01/03/2025 10:44 AM EDT 01/03/2025 1:06 PM EDT Mesha Ruff MD LAB BLOOD ORDERABLES Final Res ult Performing Organization Address [facility] de Phone Number [facility] [address] [place] [phone] * (ABNORMAL) Lipid Panel, Standard (05/18/2024 11:10 AM EST) Triglycerides 174(H) <150 mg/dL [facility] Comment:Desirable Triglyceri de: less than 150 mg/dLBorderline High Triglyceride 150-199 mg/dLHigh Triglyceride: 200-499 mg/dLVery High Triglyceride: greater than or equal to 5OO mg/dL Cholesterol 196 <200 mg/dL [facility] Comment:Desirable Cholestero l: less than 200 mg/dLBorderline High Cholesterol: 200-239 mg/dLHigh Cholesterol: greater than 239 mg/dL LDL Cholesterol Calculated 127(H) <100 mg/dL [facility] Comment:Desirable LDL: less than 100 mg/dLNear Optimal/Above Optimal LDL: 110- 129 mg/dLBorderline High LDL: 130-159 mg/dLHigh LDL: 160-189 mg/dLVery High LDL: greater than or equal to 190 mg/dL HDL Cholesterol 35(L) >40 mg/dL [facility] Comment:Desirable HDL: great er than 40 mg/dL Note: This HDL assay may give artificially low results in patients with liver disease. Blood Venous blood specimen / Unknown 05/18/2024 11:10 AM EST 05/18/2024 1:45 PM EST Mesha Ruff MD LAB BLOOD ORDERABLES Final Res ult Performing Organization Address [facility] Co de Phone Number [facility] [address] [place] [phone] [phone] * BI Mammogram Screening Tomosynthesis Bilateral (03/17/2024 3:00 PM EDT) Anatomical Region Laterality Modality Breast Bilateral Mammography 03/17/2024 3:00 PM EDT Narrative 03/31/2024 12:52 PM EDT [facility] [address] [place] [address] Mammography Report Signed Patient: Carmen Johnson MR#: [id number] : 1965 Acct:[id number] Age/Sex: 58 / F ADM Date: 03/17/24 Loc: HO.MAMMO Attending Dr: Mesha Ruff MD Ordering Physician: Mesha Ruff Results: 1Negative Date of Service: 03/17/24 Follow Up: 1 Year From Orig inal Mammogram Procedure(s): MM tomosynthesis screening BI Accession Number(s): [id number] cc: Mesha Ruff EXAMINATION: MM SCREENING DIGITAL [...] 03/31/24 1249 DD/ 1500 TD/TT: 03/17/24 1513 Medical Technical Writer: Procedure Note Donotuseinterpreter, Image - 03/31/2024 [facility] [address] [place], [place] [address] Mammography Report Signed Patient: Cesar Johnson#: [id number] : 1965Acct:[id number] Age/Sex: 58 / FADM Date: 03/17/24 Loc: HO.MAMMO Attending Dr: Mesha Ruff MD Ordering Physician: Ben Ruffults: 1Negative Date of Service: 03/17/24Follow Up: 1 Year From Orig inal Mammogram Procedure(s): MM tomosynthesis screening BI Accession Number(s): [id number] cc: Mesha Ruff EXAMINATION: MM SCREENING DIGITAL [...] 03/31/24 1249 DD/ 1500 TD/TT: 03/17/24 1513 Medical Technical Writer: us Mesha Ruff MD IMG BI PROCEDURES Edited Resul t - Final * Pap Smear (02/25/2023 2:04 PM EDT) 02/25/2023 2:04 PM EDT 02/26/2023 8:55 AM EDT [facility] - 03/14/2023 9:59 AM EDT ----- ------- Name: Carmen Johnson Age/Sex: 57/F : 1965 Unit#: [id number] Attend Dr: Terese Hartmann CNM Re02/25/23 Status: DEP REF Location: [facility] Disch: ----- ------- SPEC : [id number] RECD: 02/26/23 STATUS: NETO KIRTI NUM: [id number] DEANNA: 02/25/23-[address] [facility] [address]: Tersee Hartmann CNM ENTERED: 02/26/23-1119 SP TYPE: Pap Smr OTHR DR: Mesha Ruff ORDERED: Pap Smear Interpretation Satisfactory for evaluation. Negative for intraepithelial lesion or malignancy. HPV mRNA E6/E7: NOT DETECTED This assay detects E6/E7 viral messenger RNA (mRNA) from 14 high-risk HPV types (16, 18, 31, 33, 35, 39, 45, 51, 52, 56, 58, 59, 66, 68) HPV testing performed by [employer], [place], [place]. See reference laboratory pion of the EMR for entire report. Clinical Information LMP: Menopausal Previous PAP test: 2021, ASCUS Material Received ThinPrep-Cervical Copies To: Mesha Ruff [address] [place] [address] Terese Hartmann [address] Natalie Awad [place], [place] [phone] ----- ------- Signed (signature on file) MILLY Weeks ([facility]) 03/14/23 0959 ----- ------- END OF REPORT [facility] External Provider LAB CYT OLOGY ORDERABLES Final Result [facility] [address] [place], [place] [phone] * HPV E6/E7 RFLX KATHYA 16 18/45 (02/15/2022 2:57 PM EDT) HPV mRNA E6/E7 rflx Not Detected Not Detected [facility] Comment: Methodology: Dancing Teacher-Mediated Amplification This assay detects E6/E7 viral messenger RNA (mRNA) from 14 high-risk HPV types (16,18,31,33,35,39,45,51,52,56,58,59,66,68). Cervical sources are required for HPV testing. If a vaginal source from a patient who has had a total hysterectomy with removal of cervix was submitted, please contact the testing laboratory for alternative testing options. For additional information, please refer to http://education.UXCam/faq/MTV766m0 (This link if provided for information/ educational purposes only.) THIS TEST WAS PERFORMED AT: [facility] [address] [place] [address],[place] [phone] DAVID BROWNING MD 02/15/2022 2:57 PM EDT Terese Hartmann HISTORICAL/NON ORDERABLE LABS Fi nal Result Performing Organization Address [facility] de Phone Number [facility] [address] [place] [address], * HEPATITIS C AB W/REFL TO HCV RNA, QN, PCR (12/04/2021 3:34 PM EDT) HEPATITIS C ANTIBODY NON-REACT EVELYN NON-REACT EVELYN [facility] INDEX 0.02 <1.00 [facility] Comment: HCV antibody was non-reactive. There is no laboratory evidence of HCV infection. In most cases, no further action is required. However, if recent HCV exposure is suspected, a test for HCV RNA (test code 88417) is suggested. For additional information please refer to http://FlowCardia.UXCam/faq/RHJ60k6 (This link is being provided for informational/ educational purposes only.) 12/04/2021 3:34 PM EDT Sheri Marti SHAFFER HISTORICAL/NON ORDERABLE LABS Final Result Performing Organization Address [facility] Phone Number [facility] [address] * HIV 1/2 ANTIGEN/ANTIBODY,FOURTH GENERATION W/RFL [...] purpose. For additional information please refer to http://education.UXCam/faq/UOG382 (This link is being provided for informational/ educational purposes only.) The performance of this assay has not been clinically validated in patients less than 2 years old. 12/04/2021 3:34 PM EDT us Sheri Kidd NP LAB BLOOD ORDERABLES Final Res ult [facility] Critical access hospital Anywhere [address] from Last 3 Months or Most Recently Relevant to Health Maintenance Insurance [facility] ST[facility] ADULT * Guarantor: Carmen Johnson Account Type Relation to Patient Date of Phone Billing Address Personal/Family Self [address] [place] [address] * Guarantor: Carmen Johnson Account Type Relation to Patient Date of Phone Billing Address Personal/Family Self [address] [place] [address] Care Teams County Manager Relationship Specialty Start Date End Date Mesha Ruff MD [address] [place] [id number] PCP - General Family Medicine 03/05/22
== END 2025-03-23 14:52 | disposition home or self-care (01) ==
LOC: HO.MAMMO 14:51
PROVIDERS: PCP General Practice; Visit Provider General Practice
DX: Z12.31 Encounter for screening mammogram for malignant neoplasm of breast (principal)
CPT/HCPCS: 77063; 77067

== ENCOUNTER → 2025-03-23 15:00 | Outpatient (BNV) | payer MEDICAID, SELFPAY | PROVIDERS: PCP General Practice; Visit Provider Internal Medicine | DX: Z12.31 Encounter for screening mammogram for malignant neoplasm of breast (principal) | CPT/HCPCS: 77063; 77067 ==

== ENCOUNTER → 2025-04-12 14:49 | Outpatient (BNV) | payer MEDICAID, SELFPAY | PROVIDERS: PCP General Practice; Visit Provider Radiology Diagnostic Radiology | DX: R51.9 Headache, unspecified (principal) | CPT/HCPCS: 70551 ==

== ENCOUNTER 2025-04-12 14:52 | Outpatient (REF) | payer MEDICAID, SELFPAY ==
--- OUTSIDE RECORDS SUMMARY | 2025-04-11 11:00 | XMS_ITS | Encounter Summary ---
Author Organization [employer] Address [address] [facility] 7t [place] [address] Care Team Providers Care Lvn Lpn Name Role Phone Mesha Ruff MD Primary Care Provider Reason for Visit * Reason Comments B12 Injection Encounter Details Date Type Department Care Team (Latest Contact Info) Description 04/11/2025 11:00 AM EDT Clinical Support [facility] [address] [place] [address] Sammie Jimenez, RN [address] [place] [address] Vitamin B12 deficiency (dietary) anemia [D51.8] Social History Tobacco Use Types Packs/Day Years [...] as of this encounter Progress Notes * Sammie Jimenez RN - 04/11/2025 11:00 AM EDT S: Pt here for nurse visit B12 injection. B12 standing order verified 12/08/24. Pt denies any difficulties with previous injections received adverse reactions to previous immunizations. O: Cyanocobalamin 1,000mcg/ML, 1mL given on left deltoid muscle, pt tolerated well. Pt observed for15 minutes, no adverse reaction. A: Vitamin B12 Deficiency P: Pt may go home and return for next B12 injection on 05/11/25, and bring Vitamin B12 vial to next appt. Advised to monitor injection site for any increased redness or swelling and follow up with PCPas needed. Pt agrees with plan and verbalized understanding. Sammie Jimenez RN documented in this encounter Plan of Treatment Upcoming Encounters Date Type Department Care Team (Late st Contact Info) Description 05/11/2025 11:00 AM EST Clinical Support [facility] [address] [place] [address] 05/26/2025 11:30 AM EST Office Visit [facility] [address] [place] [address] Hannah Gallo, OD [address] [place] [address] 06/09/2025 1:00 PM EST Office Visit [facility] [address] [place], [place] [id number] Feli Singleton, OD [address] [place] [address] documented as of this encounter Visit Diagnoses Diagnosis Vitamin B12 deficiency (dietary) anemia [D51.8] Other vitamin B12 deficiency anemia documented in this encounter Administered Medications Active Administered Medications - up to 3 most recent administrations Medication Order MAR Action Action Date Dose Rate Site cyanocobalamin (Vitamin B-12) injection 1,000 mcg 1,000 mcg, Intramuscular, Every 30 days, First dose on Fri12/08/24 at 1145, For 11 dosesIndications:Vitamin B12 deficiency (dietary) anemia Given 04/11/2025 11:42 AM EDT 1,000 mcg Left Deltoid Given 03/10/2025 11:00 AM EDT 1,000 mcg R ight Deltoid Given 02/07/2025 11:30 AM EDT 1,000 mcg R ight Deltoid documented in this encounter Additional Health Concerns Assessment Noted Time PHQ-9 Depression Total Score: 0 06/08/20 24 11:56 AM EST documented as of this encounter Care Teams Lvn Lpn Relationship Specialty Start Date End Date Mesha Ruff MD [address] [place] [address] PCP - General Family Medicine 03/05/22 documented as of this encounter
--- OUTSIDE RECORDS SUMMARY | 2025-04-11 15:30 | XMS_ITS | Encounter Summary ---
Author Organization [employer] Address [address] [facility] 7t [place] [address] Care Team Providers Care Guitar Technician Name Role Phone Mesha Ruff MD Primary Care Provider [phone] Encounter Details Date Type Department Care Team ([facility] Contact Info) Description 04/11/2025 3:30 PM EDT Office Visit [facility] [address] [place], [place] [id number] Hannah Gallo, OD [address] [place] [address] Social History Tobacco Use Types Packs/Day Years [...] Description 05/11/2025 11:00 AM EST Clinical Support [facility] [address] [place] [address] 05/26/2025 11:30 AM EST Office Visit [facility] [address] [place] [address] Tarmahamed, Hannah, OD [address] [place] [address] 06/09/2025 1:00 PM EST Office Visit [facility] [address] [place] [address] Feli Singleton, OD [address] [place] [address] documented as of this encounter Visit Diagnoses Not on filedocumented in this encounter Additional Health Concerns Assessment Noted Time PHQ-9 Depression Total Score: 0 06/08/20 11:56 AM EST documented as of this encounter Care Teams Guitar Technician Relationship Specialty Start Date End Date Mesha Ruff MD [address] [place] [address] PCP - General Family Medicine 03/05/22 documented as of this encounter
--- NOTE | ~2025-04-12 | MR_ITS ---
EXAMINATION: MR BRAIN WITHOUT CONTRAST CLINICAL INFORMATION: New onset headaches with new pattern. COMPARISON: None available. TECHNIQUE: MRI of the brain was obtained using routine sequences without contrast. Examination performed on a 1.5 Chitra Siemens high-field unit. FINDINGS: There is no diffusion restriction. There is no intracranial hemorrhage, acute infarction, mass effect, or edema. Ventricles, sulci, and cisterns are normal in size and configuration for patient age. No shift of midline. No abnormal hemosiderin deposition is identified. There are no significant white matter signal abnormalities identified. Midline structures appear normally formed. The pituitary gland appears normal. Posterior fossa structures appear normal. Cerebellar tonsils are appropriately located. Major flow voids are preserved within the skull base. The globes and orbital contents demonstrate no abnormalities. There is a tiny mucous retention cyst in the right maxillary sinus. Paranasal sinuses are otherwise clear bilaterally. Nasal septum is midline without spur. The mastoids and tympanic cavities are normally aerated. Extracranial soft tissues demonstrate no abnormalities. No suspicious bone marrow changes are evident. Atlantoaxial joint is normal. MR/MR head/brain wo con IMPRESSION: 1. No evidence of intracranial hemorrhage, acute infarction, mass effect, or edema. Normal MRI of the brain. Electronically signed by: Juan Jose Rice MD 04/12/2025 03:50 PM EDT
--- OUTSIDE RECORDS SUMMARY | 2025-04-12 18:13 | XMS_ITS | Clinical Summary ---
Author Organization [facility] Address [address] [place] [address] Care Team Providers Care Cement Block Maker Name Role Phone Unavailable Primary Care Provider [...] due to other allergic trigger Place 1 [place] in both nostrils once daily 16 g [...] 07/07/2024 Lipid Screening 01/11/2025 01/12/2020, 10/06, 06/18/2018 [id number] ( season) 2025 05/24/2022, 11/21/2020, 10/25/2020 Imm-Influenza [...] TSH CASCADE 26.57(H) 0.40 - 4.00 uIU/ml [facility] Blood Blood / Unknown 08/15/2020 9 :45 AM EST 08/15/2020 9:47 AM EST [employer] [facility] - 08/15/2020 12:56 PM EST [employer], [place] [address] Water Plant Maintenance Mechanic - Priti Cage MD PT ID [id number] ORD# [id number] Jill MCKINNEY [facility] - BLOOD DRAW Final Result [address] [address], * HEPATITIS C ANTIBODY (08/15/2020 9:45 AM EST) Pathologist [facility] HEPATITIS C VIRUS SCREEN NEGATIVE NEGATIVE [facility] Blood Blood / Unknown 08/15/2020 9 :45 AM EST 08/15/2020 9:47 AM EST [employer] [facility] - 08/15/2020 1:35 PM EST [employer], a member of [address] [address] Water Plant Maintenance Mechanic - Priti Cage MD PT ID [id number] ORD# [id number] Jill [facility] - BLOOD DRAW Final Result Performing Organization Address [facility] Co de Phone Number [address] [address], [place] [phone] * (ABNORMAL) LIPID PANEL (01/12/2020 10:56 AM [...] AM EDT 01/12/2020 3:51 PM EDT Narrative [facility] - 01/12/2020 5:13 PM EDT [employer], [place] [address] Water Plant Maintenance Mechanic - Priti Cage MD PT ID [id number] ORD# [id number] Jill [facility] - BLOOD DRAW Edited Result - Final Performing Organization Address [facility]/ZIP Co de Phone Number [address] [address], [place] [phone] * COMPRE METAB PANEL (CMP) (01/12/2020 10:56 AM EDT) GLUCOSE 96 70 - 100 mg/dL [facility] Comment:Reference range appl icable to fasting specimens only BUN 12 5 - 25 mg/dL [facility] CREAT 0.71 0.5 - 1.1 mg/dL [facility] GLOMERULAR FILTRATION RATE > 60 [facility] Comment: If patient is -[place], multiply result by 1.21 Chronic Kidney Disease: < 60 ml/min/1.73 square meters Kidney Failure: < 15 ml/min/1.73 square meters SODIUM 137 135 - 145 mEq/L [facility] POTASSIUM 4.0 3.5 - 5.5 mmol/L [facility] CHLORIDE 107 96 - 110 mmol/L [facility] CO2 25 21 - 32 mmol/L [facility] ANION GAP 5 3 - 11 [facility] CALCIUM 9.1 8.5 - 10.5 mg/dL [facility] TOTAL PROTEIN 7.7 6.0 - 8.0 G/dL [facility] ALBUMIN 3.5 3.2 - 5.0 G/dL [facility] BILI, TOTAL 0.2 0.0 - 1.4 mg/dL [facility] SGOT 39 10 - 42 U/L [facility] SGPT 56 10 - 60 U/L [facility] ALK PHOS 55 42 - 121 U/L [facility] Blood specimen (specimen) Blood / Unknown 01/12/2020 10:56 AM EDT 01/12/2020 3:51 PM EDT Narrative [facility] - 01/12/2020 5:13 PM EDT [facility] [employer], [place] [address] Water Plant Maintenance Mechanic - Priti Cage MD PT ID [id number] ORD# [id number] Jill [facility] - BLOOD DRAW [place] [address], * STOOL OCCULT BLOOD (POCT) (12/03/2018 4:30 [...] / Unknown 11/13/2018 2:07 PM EDT Impressions [facility] - 11/13/2018 2:07 PM EDT Thinprep pap: Negative for squamous intraepithelial lesion and malignancy Reactive cellular changes HPV: negative Emily Bangura [facility] - PATHOLOGY AND CYTOLOG Y AMBULATORY Final Result Performing Organization Address [facility] Co de Phone Number [facility] [address] [address], * HIV future (10/30/2018 11:13 AM EDT) HIV 1 AND 2 ANTIBODY SCREEN NEGATIVE NEGATIVE [facility] [facility] Comment: This assay is a 4th [...] AM EDT 10/30/2018 12:23 PM EDT Narrative [facility] - 10/30/2018 8:08 PM EDT [employer], a member of [address] [address] Water Plant Maintenance Mechanic - Kimberlee Trujillo MD PT ID [id number] ORD# [id number] Jose Stafford MD LAB - BLOOD DRAW Final Result [facility] [address] [facility] [place] [address], from Last 3 Months or Most Recently Relevant to Health Maintenance Insurance [facility] [place] [address] [facility] SAFETY NET DENTAL
--- OUTSIDE RECORDS SUMMARY | 2025-04-12 18:13 | XMS_ITS | Encounter Summary ---
Author Organization [employer] Address [address] [place] [address] 7t [place] [address] Care Team Providers Care Laundry Housekeeping Aide Name Role Phone Mesha Ruff MD Primary Care Provider [phone] Reason for Referral * Consultation (STAT) - Authorized Specialty Diagnoses / Procedures Referred By Contac t Referred To Contact General Surgery Diagnoses Elevated C-reactive protein (CRP) Nonintractable headache, unspecified chronicity pattern, unspecified headache type Lorraine Phillip ANP [address] [place], [place] Phone: tel: fax: Brandon Alexander MD [address] [place] [address] [address] [place], [place] Phone: tel: fax: Referral ID Status Reason Start Date Expiration Date Visits Requested Visits Authorized [id number] Authorized Specialty Services Required 03/23/2025 03/23/2026 12 12 * Imaging (STAT) - Authorized Specialty Diagnoses / Procedures Referred By Contac t Referred To Contact Radiology Diagnoses Elevated C-reactive protein (CRP) Nonintractable headache, unspecified chronicity pattern, unspecified headache type Procedures MR Brain w/o Contrast Lorraine Phillip ANP [address] [place], [place] Phone: tel: fax: [facility] [address] [place] [address] Phone: tel: fax: Referral ID Status Reason Start Date Expiration Date V isits Requested Visits Authorized [id number] Authorized 03/23/2025 03/23/2026 1 1 Reason for Visit * Reason Onset Date Comments Results 03/22/2025 Encounter Details Date Type Department Care Team (Late st Contact Info) Description 03/22/2025 Results Follow-Up [facility] [address] [place] [address] Lorraine Phillip ANP [address] [place] [address] XR Chest 2 Views, Sed Rate by Modified Westergren, C-reactive Protein, Additional followed-up results: 5 Social History Tobacco Use Types Packs/Day Years [...] happen 3 03/22/2025 4:42 PM EDT Taya rByant ctmega ANTOINE-7 Total Score 16 03/22/2025 4:42 PM EDT Christen Bryant documented as of this encounter Miscellaneous Notes * Telephone Encounter - Shivani Pedraza RN - 03/25/2025 1:07 PM EDT Telephone call placed to pt regarding below messages. Pt's spouse answered the phone and requested I tell him as pt is very tired and is sleeping. Informed that he is not on HIPAA and that this is a very important and urgent matter and requested that he wake her up, he did. Spoke with pt and spouseon speaker phone with assistance from CECILIA Fuller for interpretation. Informed of below results: elevated inflammatory marker which could possibly indicate a condition called giant cell arteritis which carries risk of vision loss. Advised to start prednisone 2 tabs daily immediately, script sent to [facility] pharmacy. Informed STAT MRI ordered so please keep an eye out for phone call to schedule. If she doesn't hear from anyone to schedule within the next 2 business days, let us know. Advised shecontact her eye doctor for evaluation. She reports that she sees [facility]. Informed that Iwould reach out to them. Booked follow up with PCP for: Future Appointments Date Time Provider Department Center 03/30/2025 11:30 AM Mesha Ruff MD MEDICINE [facility] 04/11/2025 11:00 AM [facility] RED TEAM NURSE MEDICINE [facility] 06/09/2025 1:00 PM Feli Singleton, OD VISION [facility] Lastly, gave ED precautions. Advised if feeling any worse, to go to the ED right away. Informed of NTTS. Spouse stated will come to pharmacy right away to get prednisone for pt. Answered all questions. Pt and spouse verbalized understanding and denied having any further questions at this time although expressed being worried. * Telephone Encounter - Agnes Vanessa RN - 03/24/2025 11:10 AM EDT T/C placed to pt again via S Grinder Tender #[id number] to advise of message from [facility] provider. No answer, v/m left to return call to [facility] nurses. * Telephone Encounter - Agnes Vanessa RN - 03/24/2025 11:02 AM EDT ----- Message from Lorraine Phillip sent at 03/23/2025 5:45 PM EDT ----- Hi - I called pt but did [...] please let me know. Please schedule f/u w/ PCP or me within next 2 weeks. Called pt, no answer, LVM to call clinic. [employer] utilized for [place] Citizen interpretation via phone, # [phone] ----- Message ----- From: Interface, Lab Results In Sent: 03/22/2025 1:24 PM EDT To: CHARITY Andrew * Addendum Note - CHARITY Andrew - [...] pt, no answer, LVM to call clinic. [employer] utilized for [place] Citizen interpretation via phone, # [phone] * Telephone Encounter - Michelle Dia RN [...] Tc to pt via BLS ID: [id number] to let them know per covering provider Hi - XR was negative/normal. Please remind her to get labs if she has not already. Direct to ED iuf she feels any worse. Thanks . No answer, lvm to return call and ask to speak to walk in center nurses. [facility] nurse will re-attempt outreach in the [...] to speak to walk in center nurses. Senior Benefits Analyst will re-attempt outreach in the PM. * [...] Description 05/11/2025 11:00 AM EST Clinical Support [facility] [address] [place] [address] 05/26/2025 11:30 AM EST Office Visit [facility] [address] [place] [address] Hannah Gallo, OD [address] [place] [address] 06/09/2025 1:00 PM EST Office Visit [facility] [address] [place] [address] Feli Singleton, OD [address] [place] [address] Scheduled Referrals Name Type Priority Associated Diagnoses Orde r Schedule Referral to General Surgery Outpatient Referral STAT Elevated C-reactive protein (CRP) Nonintractable headache, unspecified chronicity pattern, unspecified headache type Expected: 03/23/2025 (Approximate), Expires: 03/23/2026 documented as of this encounter Procedures Procedure Name Priority Date/Time Associated Diagnosis Comments MR BRAIN WO CONTRAST STAT 04/12/2025 3:16 PM EDT Elevated C-reactive protein (CRP) Nonintractable headache, unspecified chronicity pattern, unspecified headache type documented in this encounter Results * MR Brain w/o Contrast (04/12/2025 3:16 PM EDT) Anatomical Region Laterality Modality Brain Magnetic Resonan ce 04/12/2025 3:16 PM EDT Narrative 04/12/2025 3:53 PM EDT [address] [address] Magnetic Resonance Report Signed Patient: Carmen Johnson MR#: [id number] : 1965 Acct:[id number] Age/Sex: 59 / F ADM Date: 04/12/25 Loc: HO.MRI Attending Dr: Lorraine Phillip NP Ordering Physician: LORRAINE PHILLIP NP Date of Service: 04/12/25 Procedure(s): MR head/brain wo con Accession Number(s): [id number] cc: Mesha Ruff; LORRAINE PHILLIP NP Reason for Exam: new onset GAO, new pattern, pt > 50 EXAMINATION: MR BRAIN WITHOUT CONTRAST CLINICAL INFORMATION: New onset headaches with new pattern. COMPARISON: None available. TECHNIQUE: MRI of the brain was obtained using routine sequences without contrast. Examination performed on a 1.5 Chitra Siemens high-field unit. FINDINGS: There is no diffusion restriction. There is no intracranial hemorrhage, acute infarction, mass effect, or edema. Ventricles, sulci, and cisterns are normal in size and configuration for patient age. No shift of midline. No abnormal hemosiderin deposition is identified. There are no significant white matter signal abnormalities identified. Midline structures appear normally formed. The pituitary gland appears normal. Posterior fossa structures appear normal. Cerebellar tonsils are appropriately located. Major flow voids are preserved within the skull base. The globes and orbital contents demonstrate no abnormalities. There is a tiny mucous retention cyst in the right maxillary sinus. Paranasal sinuses are otherwise clear bilaterally. Nasal septum is midline without spur. The mastoids and tympanic cavities are normally aerated. Extracranial soft tissues demonstrate no abnormalities. No suspicious bone marrow changes are evident. Atlantoaxial joint is normal. MR/MR head/brain wo con IMPRESSION: 1. No evidence of intracranial hemorrhage, acute infarction, mass effect, or edema. Normal MRI of the brain. Electronically signed by: Juan Jose Rice MD 04/12/2025 03:50 PM EDT RP Dictated By: Juan Jose Rice MD Signed By: <Electronically signed by Juan Jose Rice MD in OV> 04/12/25 1550 DD/ 1516 TD/TT: 04/12/25 1528 Shirt Sewer: Procedure Note Donotuseinterpreter, Image - 04/12/2025 [place] [address] Magnetic Resonance Report Signed Patient: Carmen Johnson#: [id number] : 1965Acct:[id number] Age/Sex: 59 / FADM Date: 04/12/25 Loc: HO.MRI Attending Dr: Lorraine Phillip NP Ordering Physician: LORRAINE PHILLIP NP Date of Service: 04/12/25 Procedure(s): MR head/brain wo con Accession Number(s): [id number] cc: Mesha Ruff; LORRAINE PHILLIP NP Reason for Exam: new onset GAO, new pattern, pt > 50 EXAMINATION: MR BRAIN WITHOUT CONTRAST CLINICAL INFORMATION: New onset headaches with new pattern. COMPARISON: None available. TECHNIQUE: MRI of the brain was obtained using routine sequences without contrast. Examination performed on a 1.5 Chitra Siemens high-field unit. FINDINGS: There is no diffusion restriction. There is no intracranial hemorrhage, acute infarction, mass effect, or edema. Ventricles, sulci, and cisterns are normal in size and configuration for patient age. No shift of midline. No abnormal hemosiderin deposition is identified. There are no significant white matter signal abnormalities identified. Midline structures appear normally formed. The pituitary gland appears normal. Posterior fossa structures appear normal. Cerebellar tonsils are appropriately located. Major flow voids are preserved within the skull base. The globes and orbital contents demonstrate no abnormalities. There is a tiny mucous retention cyst in the right maxillary sinus. Paranasal sinuses are otherwise clear bilaterally. Nasal septum is midline without spur. The mastoids and tympanic cavities are normally aerated. Extracranial soft tissues demonstrate no abnormalities. No suspicious bone marrow changes are evident. Atlantoaxial joint is normal. MR/MR head/brain wo con IMPRESSION: 1. No evidence of intracranial hemorrhage, acute infarction, mass effect, or edema. Normal MRI of the brain. Electronically signed by: Juan Jose Rice MD 04/12/2025 03:50 PM EDT Dictated By: Juan Jose Rice MD Signed By: <Electronically signed by Juan Jose Rice MD in OV> 04/12/25 1550 DD/ 1516 TD/TT: 04/12/25 1528 Shirt Sewer: [facility] MRI PROCEDURES Final Result documented in this encounter Visit Diagnoses Diagnosis Elevated C-reactive protein (CRP)- Primary Nonintractable headache, unspecified chronicity pattern, unspecified headache type documented in this encounter Additional Health Concerns Assessment Noted Time PHQ-9 Depression Total Score: 0 06/08/20 24 11:56 AM EST documented as of this encounter Care Teams Laundry Housekeeping Aide Relationship Specialty Start Date End Date Mesha Ruff MD [address] [place] [address] PCP - General Family Medicine 03/05/22 documented as of this encounter
--- OUTSIDE RECORDS SUMMARY | 2025-04-12 18:13 | XMS_ITS | Encounter Summary ---
Author Organization [employer] Address [address] [place] [address] 7[address] [place] [address] Care Team Providers Care Craft Recruiter Name Role Phone Mesha Ruff MD Primary Care Provider [phone] Encounter Details Date Type Department Care Team (Late Contact Info) Description 08/05/2022 Orders Only [facility] [address] [place] [phone] Mesha Ruff MD [address] [place] [phone] Other specified hypothyroidism (Primary Dx); Blurry vision [...] Department Care Team (Late Contact Info) Description 05/11/2025 11:00 AM EST Clinical Support [facility] [address] [place] [phone] 05/26/2025 11:30 AM EST Office Visit [facility] [address] [place] [phone] Hannah Gallo, OD [address] [place] [address] 06/09/2025 1:00 PM EST Office Visit [facility] [address] [place] [address] Feli Singleton, OD [address] [place] [address] documented as of this encounter Procedures Procedure [...] SENSITIVITY TROPONIN I (09/04/2022 9:02 PM EST) TROPONIN I HIGH SENSITIVITY <3.5 <3.5 - 17.0 ng/L [facility] Comment:The [place] high sens itivity Troponin-I results should beused in conjunction with other diagnostic information suchas ECG, clinical observations and information, and patientsymptoms to aid in the diagnosis of [place]. 09/04/2022 9:02 PM EST 09/04/2022 9:09 PM EST us [facility] External Provider LAB BLO OD ORDERABLES Final Result [facility] [address] [place] [address] [phone] * HIGH SENSITIVITY TROPONIN I (09/04/2022 4:25 PM EST) TROPONIN I HIGH SENSITIVITY <3.5 <3.5 - 17.0 ng/L [facility] Comment:The [place] high sens itivity Troponin-I results should beused in conjunction with other diagnostic information suchas ECG, clinical observations and information, and patientsymptoms to aid in the diagnosis of [place]. 09/04/2022 4:25 PM EST 09/04/2022 4:30 PM EST [facility] External Provider LAB BLO OD ORDERABLES Final Result [facility] [address] [place] [address] [phone] * SARS-CoV-2 RNA, Influenza A/B, and RSV RNA, Ql NAAT (09/04/2022 4:25 PM EST) [facility] Influenza A PCR NEGATIVE Negative [facility] Influenza B PCR NEGATIVE Negative [facility] Resp Syncy Virus RNA Qual PCR NEGATIVE Negative [facility] SARS COV2 PCR NEGATIVE Negative [facility] SARS/Flu/RSV Note See Note [facility] Comment:All test results mus t be [...] use by authorized laboratories.Testing performed on the [employer] GeneXpert utilizingreal-time RT-PCR.All SARS CoV2 and positive influenza A/B results arereported to [facility]. 09/04/2022 4:25 PM EST 09/04/2022 4:30 PM EST [facility] Exter nal Provider LAB MICROBIOLOGY - GENERAL ORDERABLES Final Result Performing Organization Address City/[facility]/ZIP Co de Phone Number [facility] [address] [place] [address] [phone] * Magnesium (09/04/2022 4:25 PM EST) Magnesium 1.9 1.6 - 2.6 mg/dL [facility] 09/04/2022 4:25 PM EST 09/04/2022 4:30 PM EST [facility] External Provider LAB BLO OD ORDERABLES Final Result Performing Organization Address [facility] Co de Phone Number [facility] [address] [place] [address] [phone] * (ABNORMAL) Comprehensive Metabolic Panel (09/04/2022 4:25 PM EST) Sodium 139 135 - 145 mmol/L [facility] Potassium 3.8 3.3 - 5.1 mmol/L [facility] Chloride 104 96 - 108 mmol/L [facility] Carbon Dioxide 26 22 - 29 mmol/L [facility] Anion Gap 13 12 - 20 [facility] Urea Nitrogen (BUN) 10 9 - 16 mg/dL [facility] Creatinine, Serum 0.77 0.5 - 1.4 mg/dL [facility] Creatinine Clr Calc Pharmacy 107.9 [facility] Comment:Provided height and weight: 182.88 cm,97.3 kg.eGFR (calculated from the MDRD study equation) and eCrCl(calculated from the Cockcroft-Gault equation) are based ondifferent parameters and may not yield comparable results.If eCrCl result is absurd, please check patient'sheight/weight. Estimated Glomerular Filt Rate >60 [facility] Comment:NOTE: For -Am erican individuals, multiply the result by 1.210.Chronic Kidney Disease: Estimated GFR < 60 mL/min/[id number] Kidney Disease: Estimated GFR < 15 mL/min/1.73m2 Glucose 91 60 - 115 mg/dL [facility] Calcium 9.7 8.4 - 10.2 mg/dL [facility] Bilirubin, Total 0.3 0.0 - 1.0 mg/dL [facility] Aspartate Amino Transferase 50(H) 5 - 31 U/L [facility] Alanine Aminotransferase 80(H) 0 - 31 U/L [facility] Total Protein 7.9 6.5 - 8.0 g/dL [facility] Albumin Level 4.2 3.5 - 5.0 g/dL [facility] Alkaline Phosphatase 58 39 - 117 U/L [facility] 09/04/2022 4:25 PM EST 09/04/2022 4:30 PM EST [facility] External Provider LAB BLO OD ORDERABLES Final Result Performing Organization Address City/[facility]/ZIP Co de Phone Number [facility] [address] [place] [phone] * APTT (09/04/2022 4:25 PM EST) Partial Thromboplastin Time 29.2 26.0 - 36.4 SEC [facility] 09/04/2022 4:25 PM EST 09/04/2022 4:30 PM EST [facility] External Provider LAB BLO OD ORDERABLES Final Result Performing Organization Address [facility] Co de Phone Number [facility] [address] [place] [phone] * Prothrombin Time-INR (09/04/2022 4:25 PM EST) Prothrombin Time 12.3 10.0 - 13.1 SEC [facility] INTERNATIONAL NORM RATIO 1.1 0.9 - 1.1 [facility] Comment:INTERNATIONAL NORMAL IZED RATIO (INR) REFERENCE [...] PM EST 09/04/2022 4:30 PM EST us [facility] External Provider LAB BLO OD ORDERABLES Final Result Performing Organization Address City/State/[facility] Co de Phone Number [facility] [address] [place] [phone] * (ABNORMAL) CBC auto differential (09/04/2022 4:25 PM EST) White Blood Count 8.9 4.8 - 10.8 X10*3/uL [facility] Red Blood Count 4.39 4.20 - 5.50 X10*6/uL [facility] Hemoglobin 11.7(L) 12.0 - 16.0 g/dl [facility] Hematocrit 36.8(L) 37.0 - 47.0 % [facility] Mean Corpuscular Volume 83.8 80.0 - 98.0 fL [facility] Mean Corpuscular Hemoglobin 26.7(L) 27.0 - 33.0 pg [facility] Mean Corpuscular HGB Conc 31.8 31.0 - 35.0 g/dl [facility] Red Cell Distribution Width 15.8 11.0 - 16.0 % [facility] Platelet Count 242 160 - 400 X10*3/uL [facility] Mean Platelet Volume 11.1 9.4 - 12.3 fL [facility] Neutrophils Percent Auto 44.2(L) 45 - 73 % [facility] Imm Gran Pct Auto 0.3 0.0 - 0.4 % [facility] Lymphocytes Percent Auto 44.3(H) 20 - 40 % [facility] Monocytes Percent Auto 6.4 2 - 11 % [facility] Eosinophils Percent Auto 4.0 0 - 4 % [facility] Basophils Percent Auto 0.8 0 - 2 % [facility] NRBC Pct Auto 0.0 0.0 - 0.2 /100WBC [facility] Neutrophils Absolute Auto 3.9 2.0 - 8.3 x10*3/uL [facility] Imm Gran Abs Auto 0.03 0.00 - 0.03 X10*3/uL [facility] Lymphocytes Absolute Auto 4.0 1.2 - 4.9 X10*3/uL [facility] Monocytes Absolute Auto 0.6 0.1 - 1.2 X10*3/uL [facility] Eosinophils Absolute Auto 0.4 0.0 - 0.4 X10*3/uL [facility] Basophils Absolute Auto 0.1 0.0 - 0.2 X10*3/uL [facility] NRBC Abs Auto 0.000 0.0 - 0.012 X10*3/uL [facility] 09/04/2022 4:25 PM EST 09/04/2022 4:30 PM EST [facility] External Provider LAB BLO OD ORDERABLES Final Result Performing Organization Address City/State/[facility] Co de Phone Number [facility] [address] [place] [address] [phone] documented in this encounter Visit Diagnoses Diagnosis Other specified hypothyroidism- Primary Blurry vision Other specified visual disturbances documented in this encounter Care Teams Craft Recruiter Relationship Specialty Start Date End Date Mesha Ruff MD [address] [place] [phone] PCP - General Family Medicine 03/05/22 documented as of this encounter
--- OUTSIDE RECORDS SUMMARY | 2025-04-12 18:13 | XMS_ITS | Encounter Summary ---
Author Organization [employer] Address [address] [facility] [address]t [place] [address] Care Team Providers Care Supervisor Fish Processing Name Role Phone Mesha Ruff MD Primary Care Provider [phone] Encounter Details Date Type Department Care Team (Late Contact Info) Description 03/07/2023 Abstract [facility] [address] [place] [phone] Mesha Ruff MD [address] [place] [phone] Social History Tobacco Use Types Packs/Day Years [...] Description 05/11/2025 11:00 AM EST Clinical Support [facility] [address] [place], [place] [phone] 05/26/2025 11:30 AM EST Office Visit [facility] [address] [place], [place] [phone] Hannah Gallo, OD [address] [place] [address] 06/09/2025 1:00 PM EST Office Visit [facility] [address] [place], [place] [phone] Mani Feli, OD [address] [place], [place] [phone] documented as of this encounter Visit Diagnoses Not on filedocumented in this encounter Additional Health Concerns Assessment Noted Time PHQ-9 Depression Total Score: 23 023 4:04 PM EDT documented as of this encounter Care Teams Supervisor Fish Processing Relationship Specialty Start Date End Date Mesha Ruff MD [address] [place], [place] [phone] PCP - General Family Medicine 03/05/22 documented as of this encounter
--- OUTSIDE RECORDS SUMMARY | 2025-04-12 18:13 | XMS_ITS | Encounter Summary ---
Author Organization [employer] Address [address] [facility] 7t [place] [address] Care Team Providers Care Engraving Supervisor Name Role Phone Mesha Ruff MD Primary Care Provider [phone] Encounter Details Date Type Department Care Team ([facility] Contact Info) Description 11/25/2022 Orders Only [facility] [address] [place] [phone] Mesha Ruff MD [address] [place] [phone] Vitamin B deficiency Social History Tobacco Use [...] Description 05/11/2025 11:00 AM EST Clinical Support [facility] [address] [place] [address] 05/26/2025 11:30 AM EST Office Visit [facility] [address] [place] [address] Hannah Gallo, OD [address] [place] [address] 06/09/2025 1:00 PM EST Office Visit [facility] [address] [place] [address] Feli Singleton, OD [address] [place] [address] documented as of this encounter Procedures Procedure Name Priority Date/Time Associated Diagnosis Comments BI MAMMOGRAM SCREENING TOMOSYNTHESIS BILATERAL Routine 12/19/2022 1:46 PM EDT documented in this encounter Results * BI Mammogram Screening Tomosynthesis Bilateral (12/19/2022 1:46 PM EDT) Anatomical Region Laterality Modality Breast Bilateral Mammography 12/19/2022 1:46 PM EDT Narrative 12/23/2022 7:53 AM EDT [facility] [address] [place] [address] Mammography Report Signed Patient: Carmen Johnson MR#: [id number] : 1965 Acct:[id number] Age/Sex: 57 / F ADM Date: 12/19/22 Loc: HO.MAMMO Attending Dr: Mesha Ruff MD Ordering Physician: Mesha Ruff Results: 1Negative Date of Service: 12/19/22 Follow Up: 1 Year From Orig inal Mammogram Procedure(s): MM tomosynthesis screening BI Accession Number(s): [id number] cc: Mesha Ruff EXAMINATION: MM SCREENING DIGITAL BREAST TOMOSYNTHESIS, BILATERAL CLINICAL INFORMATION: Screening. Asymptomatic. The lifetime risk of breast cancer based on the Tyrer-Cuzick Model is 9%. COMPARISON: Outside mammography: 02/05/2021 ([facility]) TECHNIQUE: Digital breast tomosynthesis is performed [...] in OV> 12/23/22 0750 DD/ 1346 TD/TT: Marine Reporter: SANDRA Procedure Note Donotuseinterpreter, [facility] - [facility] [address] [place] [address] Mammography Report Signed Patient: Carmen JohnsonMR#: [id number] : 1965Acct:[id number] Age/Sex: 57 / FADM Date: 12/19/22 Loc: HO.MAMMO Attending Dr: Mesha Ruff MD Ordering Physician: Ben Ruffults: 1Negative Date of Service: 12/19/22Follow Up: 1 Year From Orig inal Mammogram Procedure(s): MM tomosynthesis screening BI Accession Number(s): [id number] cc: Mesha Ruff EXAMINATION: MM SCREENING DIGITAL BREAST TOMOSYNTHESIS, BILATERAL CLINICAL INFORMATION: Screening. Asymptomatic. The lifetime risk of breast cancer based on the Tyrer-Cuzick Model is 9%. COMPARISON: Outside mammography: 02/05/2021 ([facility]) TECHNIQUE: Digital breast tomosynthesis is performed [...] in OV> 12/23/22 0750 DD/ 1346 TD/TT: Marine Reporter: BO[facility] External Provider IMG BI PROCEDURES Final Result documented in this encounter Visit Diagnoses Diagnosis Vitamin B deficiency Unspecified vitamin B deficiency documented in this encounter Additional Health Concerns Assessment Noted Time PHQ-9 Depression Total Score: 23 023 4:04 PM EDT documented as of this encounter Care Teams Engraving Supervisor Relationship Specialty Start Date End Date Mesha Ruff MD [address] [place] [address] PCP - General Family Medicine 03/05/22 documented as of this encounter
--- OUTSIDE RECORDS SUMMARY | 2025-04-12 18:13 | XMS_ITS | Clinical Summary ---
Author Organization [employer] Address [address] [facility] [address] [address] [place] [address] Care Team Providers Care Manager Floor Name Role Phone Mesha Ruff MD Primary Care Provider [phone] Allergies No known active allergies Medications * [...] la vulva) TWICE DAILY FOR 7 DAYS Active SM All Day Allergy Relief 10 MG tablet TAKE 1 TABLET BY MOUTH EVERY DAY NEEDED FOR CONGESTION 90 tablet 3 Active albuterol 108 (90 Base) MCG/ACT inhaler Inhale 2 puffs every 4 (four) hours. 18 g 11 024 Active cholecalcifero l (D3 Super Strength) 50 MCG (1999 UT) capsule Take 1 capsule (50 mcg) by mouth in the morning. 90 capsule 3 024 Active ferrous gluconate (Fergon) 324 (38 [...] complication, without long-term current use of insulin (HCC) TAKE 1 TABLET BY MOUTH TWICE DAILY WITH BREAKFAST AND WITH DINNER 180 tablet 1 Active levothyroxine (Synthroid) 125 MCG tablet Take 1 tablet (125 mcg) by mouth before breakfast. 90 tablet 025 2025 Active fluticasone (Flonase) 50 MCG/ACT nasal spray INSTILL 1-2 SPRAYS IN EACH NOSTRIL ONCE DAILY 16 g 2 Active Acetaminophen Extra Strength 500 MG tabletIndicati ons:Nonintract able headache, unspecified chronicity pattern, unspecified headache type,Acute low back pain, unspecified back pain laterality, unspecified whether sciatica present,Pain of right upper extremity TAKE 1 TABLET BY MOUTH EVERY 6 TO 8 HOURS NEEDED FOR PAIN OR FEVER NO MORE THAN 8 TABLETS IN 24 HOURS 60 tablet Active lidocaine (Lidoderm) 5 % patchIndicatio ns:Acute low back pain, unspecified back pain laterality, unspecified whether sciatica present Apply 1 patch topically Once per day. Remove & discard patch within 12 hours or as directed by MD. 30 patch 2 Active predniSONE (Deltasone) 20 MG tabletIndicati ons:Elevated C-reactive protein (CRP),Nonintra ctable headache, unspecified chronicity pattern, unspecified headache type Take 2 tablets (40 mg) by mouth Once per day. 28 tablet 025 Active aspirin-acetam inophen-caffei ne (Excedrin Migraine) 250-250-65 MG tabletIndicati ons:Migraine without aura and with status migrainosus, not intractable Take 1 tablet by mouth if needed each day for headaches. Take 2 tablets as needed once for headache, do not take more than once in 24 hours 20 tablet 1 025 Active diphenhydrAMIN E (BENADryl) 25 MG tablet Take 1 tablet (25 mg) by mouth if needed at bedtime for sleep (headache). 30 tablet 025 2024 Active cyanocobalamin (Vitamin B-12) 1000 MCG/ML injection Inject 1 mL (1,000 mcg) into the muscle every 30 (thirty) days. 3 mL 3 025 Active Acetaminophen Extra Strength 500 MG [...] GENTLY 16 g 2 024 2024 Discontinued cyanocobalamin (Vitamin B-12) 1000 MCG/ML injection INJECT 1 ML INTRAMUSCULARLY EVERY 30 DAYS 1 mL 11 024 2024 Discontinued(R eorder (will not trigger notification to Pharmacy)) aspirin-acetam inophen-caffei ne (Excedrin Migraine) 250-250-65 MG tabletIndicati ons:Migraine without aura and with status migrainosus, not intractable Take 2 tablets as needed once for headache, do not take more than once in 24 hours 20 tablet 025 2024 Discontinued(R eorder (will not trigger notification to Pharmacy)) Hospital, Clinic, or Other Facility Administered Medication [...] provider Mild intermittent asthma 09/20/2022 Migraine 09/20/2022 Assessment & Plan (03/30/2025 4:21 PM EDT): Description of GAO pain more consistent with migraine, and no episodes of loss of vision - no real improvement in blurry vision after prednisone initiation - Optometry will overbook and see her 04/01/25 - continue prednisone until that time, will defer need for taper of prednisone after that visit Migraine without aura and with status migrainosus, not intractable: - Migraine headache is present and may be contributing to current symptoms. Differential diagnosis includes worsening of underlying migraine versus giant cell arteritis. - Continue Excedrin Migraine as needed for headache relief, ensuring total acetaminophen dose does not exceed recommended limits. May combine acetaminophen and Excedrin Migraine as discussed. Consider Benadryl or meclizine at night for headache and associated vertigo. Monitor symptoms and rest as able. Possible giant cell arteritis: - Giant cell arteritis is on the differential due to headache, vision changes, and elevated inflammatory markers. Diagnosis not yet confirmed; awaiting further evaluation. - Continue prednisone as prescribed. MRI of the head scheduled for April 12, 2025, to evaluate cranial arteries and nerves. If MRI findings are suggestive, proceed with temporal artery biopsy as scheduled; if MRI is not consistent with giant cell arteritis, cancel biopsy appointment. Vitamin D deficiency 09/20/2022 Anxiety 09/20/2022 Depressive disorder 09/20/2022 Iron deficiency anemia 08/20/2020 Vitamin B deficiency 01/17/2020 Bilateral hearing loss 01/06/2020 Overview (09/20/2022): Per pt's , pt has congenital hearing loss and was evaluated in [facility] for hearing devices and surgery but was told she was not a candidate for either Current severe episode of ut ananya depressive disorder without psychotic features without prior episode ([facility]) 02/05/2019 Assessment & Plan (10/21/2023 8:35 AM [...] organization. Date Type Department Care Team Description 04/11/2025 3:30 PM EDT Office Visit [facility] OPTOMETRY [address] [place] [address] Hannah Gallo OD 04/11/2025 11:00 AM EDT Clinical Support [facility] MEDICINE [address] [place] [address] Sammie Jimenez, RN Vitamin B12 deficiency (dietary) anemia [D51.8] 04/11/2025 Travel 04/11/2025 Refill [facility] MED[facility] [address] [place] [address] Mesha Ruff MD 03/30/2025 11:30 AM EDT Office Visit [facility] [place] Mustafa [phone] Mesha Ruff MD Migraine without aura and with status migrainosus, not intractable 03/30/2025 Travel 03/29/2025 Telephone [facility] [place] [address] Mesha Ruff MD chart prep 03/23/2025 Orders Only [facility] [place] [address] Mesha Ruff MD 03/22/2025 Orders Only [facility] [place] Mustafa [phone] Lorraine Phillip ANP 03/22/2025 Results Follow-Up [facility] [place] Mustafa [phone] Lorraine Phillip ANP XR Chest 2 Views, Sed Rate by Modified Westergren, C-reactive Protein, Additional followed-up results: 5 03/21/2025 2:00 PM EDT Office Visit [facility] [address] Lorraine Phillip ANP Nonintractable headache, unspecified chronicity pattern, unspecified headache type (Primary Dx); Acute low back pain, unspecified back pain laterality, unspecified whether sciatica present; Primary hypertension; Anxiety; Hypothyroidism, unspecified type; Migraine without aura and with status migrainosus, not intractable; Swelling; Pain of right upper extremity; Orthopnea; Elevated C-reactive protein (CRP) 03/21/2025 Travel 03/15/2025 Refill [facility] [place] [address] Mesha Ruff MD 03/10/2025 11:00 AM EDT Clinical Support [facility] [place] [address] Sharlene Jasmine, SHERLY Vitamin B12 deficiency (dietary) anemia 03/10/2025 Travel 03/07/2025 Results Follow-Up [facility] [phone] Mesha Ruff MD Albumin, Random Urine W/Creatinine, POCT Glucose, POCT HGB A1C, TSH W/Reflex to FT4 02/25/2025 Orders Only [address] [address] Mesha Ruff MD 02/07/2025 11:00 AM EDT Clinical Support [address] [address] Sammie Jimenez, SHERLY Encounter for immunization 02/07/2025 Travel 01/13/2025 11:15 AM EDT Office Visit [address] [address] Mesha Ruff MD Acute bilateral low back pain with right-sided sciatica (Primary Dx); Dietary counseling; Exercise counseling; Class 2 severe obesity with serious comorbidity and body mass index (BMI) of 36.0 to 36.9 in adult, unspecified obesity type (CMS/HCC); 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 prior episode ([facility]); Mild intermittent asthma without complication; Controlled type 2 diabetes mellitus without complication, without long-term current use of insulin ([facility]); Encounter for screening for cervical cancer; Hypothyroidism, unspecified type 01/13/2025 Orders Only [address] [address] Mesha Ruff MD 01/13/2025 Travel 01/12/[address] [address] Mesha Ruff MD Chart prep 01/10/[address] [address] Mesha Ruff MD telephone call from Last 3 Months Immunizations Immunization Administration [...] Sign Reading Time Taken Comments Blood Pressure 130/72 03/30/2025 11:35 AM EDT Pulse 82 03/30/2025 11:35 AM EDT Temperature 36.4 C (97.5 F) 03/30/2025 11:35 AM EDT Respiratory Rate 20 03/30/2025 11:35 AM EDT Oxygen Saturation 95% 03/21/2025 2:30 PM EDT Inhaled Oxygen Concentration - - Weight 99.8 kg (220 lb) 03/30/2025 11:35 AM EDT Height 175.3 cm (5' 9 ) 03/30/2025 11:35 AM EDT Body Mass Index 32.49 03/30/2025 11:35 AM EDT Plan of Treatment Upcoming Encounters Date Type Department Care Team (Late st Contact Info) Description 05/11/2025 11:00 AM EST Clinical Support [facility] MEDICINE [address] [place] [address] 05/26/2025 11:30 AM EST Office Visit [facility] OPTOMETRY [address] [place] [address] Hannah Gallo, OD [address] [place] [address] 06/09/2025 1:00 PM EST Office Visit [facility] OPTOMETRY [address] [place] [address] Feli Singleton, OD [address] [place] [address] Health Maintenance Due Date Last Done Comments [...] Influenza Vaccine (#1) 2025 , 05/24/2022, 08/15/2020 Lipid Panel 05/18/2025 05/18/2024, 12/04/2021 Depression Screening 06/08/2025 06/08/2024, 06/08/20 Hepatitis B Vaccines (3 of 3 - 19+ 3-dose series) 07/08/2025 02/07/2025, 01/05/2025 Diabetes: Hemoglobin A1C 07/16/2025 025, 05/18/2024, 12/04/2021 SDOH Screening 12/31/2025 12/31/2024 Alcohol/Substance Use Screening 01/13/2026 01/13/2025 Diabetes: Urine Protein Screening 01/13/2026 01/13/2025 Disability Screening 01/13/2026 01/13/2025 Mammogram 03/23/2026 03/23/2025, 03/07, 12/19/2022, Additional history exists Tobacco Screening 03/30/2026 03/30/2025 DTaP/Tdap/Td Vaccines (2 - Td or Tdap) [...] headache, unspecified chronicity pattern, unspecified headache type BI MAMMOGRAM SCREENING TOMOSYNTHESIS BILATERAL Routine 03/23/2025 3:00 PM EDT T4, FREE Routine 03/22/2025 11:35 AM EDT [...] without long-term current use of insulin (CMS/HCC) LIPID PANEL, STANDARD Routine 05/18/2024 11:10 AM EST Primary hypertension BITEWING - SINGLE RADIOGRAPHIC IMAGE Routine 12/10/2023 [...] Recently Relevant to Health Maintenance Results * MR Brain w/o Contrast (04/12/2025 3:16 PM EDT) Anatomical Region Laterality Modality Brain Magnetic Resonan ce 04/12/2025 3:16 PM EDT Narrative 04/12/2025 3:53 PM EDT [address] [address] Magnetic Resonance Report Signed Patient: Carmen Johnson MR#: [id number] : 1965 Acct:[id number] Age/Sex: 59 / F ADM Date: 04/12/25 Loc: HO.MRI Attending Dr: Lorraine Phillip NP Ordering Physician: LORRAINE PHILLIP NP Date of Service: 04/12/25 Procedure(s): MR head/brain wo con Accession Number(s): [id number] cc: Mesha Ruff; LORRAINE PHILLIP NP Reason [...] 04/12/25 1550 DD/ 1516 TD/TT: 04/12/25 1528 Ditch Worker: Procedure Note Donotuseinterpreter, Image - 04/12/[address] [address] Magnetic Resonance Report Signed Patient: Carmen oJhnson#: [id number] : 1965Acct:[id number] Age/Sex: 59 / FADM Date: 04/12/25 Loc: HO.MRI Attending Dr: Lorraine Phillip NP Ordering Physician: LORRAINE PHILLIP NP Date of Service: 04/12/25 Procedure(s): MR head/brain wo con Accession Number(s): [id number] cc: Mesha Ruff; LORRAINE PHILLIP NP Reason [...] 04/12/25 1550 DD/ 1516 TD/TT: 04/12/25 1528 Ditch Worker: Lorraine Phillip ANP IMG MRI PROCEDURES Final Result * BI Mammogram Screening Tomosynthesis Bilateral (03/23/2025 3:00 PM EDT) Anatomical Region Laterality Modality Breast Bilateral Mammography 03/23/2025 3:0 0 PM EDT Narrative 03/28/2025 2:14 PM EDT [facility] [address] [place], [place] [address] Mammography Report Signed Patient: Carmen Johnson MR#: [id number] : 1965 Acct:[id number] Age/Sex: 59 / F ADM Date: 03/23/25 Loc: HO.MAMMO Attending Dr: Mesha Ruff MD Ordering Physician: Mesha Ruff Results: 1Negative Date of Service: 03/23/25 Follow Up: 1 Year From Orig ina Mammogram Procedure(s): MM tomosynthesis screening BI Accession Number(s): [id number] cc: Mesha Ruff Reason For Exam: SCREENING EXAMINATION: MM SCREENING DIGITAL BREAST TOMOSYNTHESIS, BILATERAL [...] mammogram. Electronically signed by: Cyndi Thompson DO 03/28/2025 02:11 PM EDT Dictated By: Cyndi Thompson DO Signed By: <Electronically signed by Cyndi Thompson DO in OV> 03/28/25 1411 DD/ 1500 TD/TT: 03/23/25 1522 Ditch Worker: Procedure Note Donotuseinterpreter, Image - 03/28/2025 [facility] [address] [place], [place] [address] Mammography Report Signed Patient: Carmen JohnsonMR#: [id number] : 1965Acct:[id number] Age/Sex: 59 / FADM Date: 03/23/25 Loc: HO.MAMMO Attending Dr: Mesha Ruff MD Ordering Physician: Ben Ruffults: 1Negative Date of Service: 03/23/25Follow Up: 1 Year From Orig inal Mammogram Procedure(s): MM tomosynthesis screening BI Accession Number(s): [id number] cc: Mesha Ruff Reason For Exam: SCREENING EXAMINATION: MM SCREENING DIGITAL BREAST TOMOSYNTHESIS, BILATERAL [...] mammogram. Electronically signed by: Cyndi Thompson DO 03/28/2025 02:11 PM EDT Dictated By: Cyndi Thompson DO Signed By: <Electronically signed by Cyndi Thompson DO in OV> 03/28/25 1411 DD/ 1500 TD/TT: 03/23/25 1522 Ditch Worker: Mesha Ruff MD IMG BI PROCEDURES Final Result * (ABNORMAL) TSH W/Reflex to FT4 (03/22/2025 11:35 AM EDT) Only the most recent of3 resultswithin the time period is included. Pathologist [facility] TSH reflex Free T4 10.30(H) 0.32 - 4.0 uIU/mL [facility] Blood Venous blood specimen / Unknown 03/22/2025 11:35 AM EDT 03/22/2025 1:20 PM EDT [facility] LAB BLOOD ORDERABLES Final Resul t [facility] [address] [place] [phone] * (ABNORMAL) CBC auto differential (03/22/2025 11:35 AM EDT) Pathologist [facility] White Blood Count 7.4 4.8 - 10.8 X10*3/uL [facility] Red Blood Count 4.17(L) 4.20 - 5.50 X10*6/uL [facility] Hemoglobin 12.2 12.0 - 16.0 g/dl [facility] Hematocrit 37.6 37.0 - 47.0 % [facility] Mean Corpuscular Volume 90.2 80.0 - 98.0 fL [facility] Mean Corpuscular Hemoglobin 29.3 27.0 - 33.0 pg [facility] Mean Corpuscular HGB Conc 32.4 31.0 - 35.0 g/dl [facility] Red Cell Distribution Width 13.5 11.0 - 16.0 % [facility] Platelet Count 202 160 - 400 X10*3/uL [facility] Mean Platelet Volume 11.8 9.4 - 12.3 fL [facility] Neutrophils Percent Auto 49.7 45 - 73 % [facility] Imm Gran Pct Auto 0.5(H) 0.0 - 0.4 % [facility] Lymphocytes Percent Auto 38.3 20 - 40 % [facility] Monocytes Percent Auto 6.6 2 - 11 % [facility] Eosinophils Percent Auto 4.0 0 - 4 % [facility] Basophils Percent Auto 0.9 0 - 2 % [facility] NRBC Pct Auto 0.0 0.0 - 0.2 /100WBC [facility] Neutrophils Absolute Auto 3.7 2.0 - 8.3 x10*3/uL [facility] Imm Gran Abs Auto 0.04(H) 0.00 - 0.03 X10*3/uL [facility] Lymphocytes Absolute Auto 2.9 1.2 - 4.9 X10*3/uL [facility] Monocytes Absolute Auto 0.5 0.1 - 1.2 X10*3/uL [facility] Eosinophils Absolute Auto 0.3 0.0 - 0.4 X10*3/uL [facility] Basophils Absolute Auto 0.1 0.0 - 0.2 X10*3/uL [facility] NRBC Abs Auto 0.000 0.0 - 0.012 X10*3/uL [facility] Blood Venous blood specimen / Unknown 03/22/2025 11:35 AM EDT 03/22/2025 1:13 PM EDT Lorraine Phillip [facility] LAB BLOOD ORDERABLES Final Resul t Performing Organization Address City/[facility] Co de Phone Number [facility] [address] [place] [phone] * Sed Rate by Modified Virginiaren (03/22/2025 11:35 AM EDT) Erythrocyte Sedimentation Rate 18 0 - 20 MM/HR [facility] Comment:Patients with polycy themia and many hemoglobin abnormalitiesmay have depressed sed rates whereas patients with anemiamay have elevated sed rates. Blood Venous blood specimen / Unknown 03/22/2025 11:35 AM EDT 03/22/2025 1:13 PM EDT Lorraine Phillip ANP LAB BLOOD ORDERABLES Final Resul t [facility] [address] [place] [phone] * (ABNORMAL) C-reactive Protein (03/22/2025 11:35 AM EDT) C Reactive Protein 1.01(H) < or = 0.50 mg/dL [facility] Blood Venous blood specimen / Unknown 03/22/2025 11:35 AM EDT 03/22/2025 1:20 PM EDT Lorraine Phillip ANP LAB BLOOD ORDERABLES Final Resul t Performing Organization Address [facility] de Phone Number [facility] [address] [place] [phone] * T4, Free (03/22/2025 11:35 AM EDT) Only the most recent of3 resultswithin the time period is included. Free T4 (Free Thyroxine) 0.72 0.71 - 1.85 ng/dL [facility] 03/22/2025 11:3 5 AM EDT 03/22/2025 1:20 PM EDT us Lorraine Phillip ANP LAB BLOOD ORDERABLES Final Resul t Performing Organization Address [facility] de Phone Number [facility] [address] [place] [phone] * B Type Natriuretic Peptide (BNP) (03/22/2025 11:35 AM EDT) B Type Natriuretic Peptide 34 <100 pg/mL [facility] Blood Venous blood specimen / Unknown 03/22/2025 11:35 AM EDT 03/22/2025 1:07 PM EDT Lorraine Phillip ANP LAB BLOOD ORDERABLES Final Resul t Performing Organization Address [facility] Co de Phone Number [facility] [address] [place] [address] [phone] * (ABNORMAL) Comprehensive Metabolic Panel (03/22/2025 11:35 AM EDT) Sodium 140 135 - 145 mmol/L [facility] Potassium 3.8 3.3 - 5.1 mmol/L [facility] Chloride 107 96 - 108 mmol/L [facility] Carbon Dioxide 27 22 - 29 mmol/L [facility] Anion Gap 10(L) 12 - 20 [facility] Urea Nitrogen (BUN) 13 9 - 16 mg/dL [facility] Creatinine, Serum 0.72 0.5 - 1.4 mg/dL [facility] Estimated Glomerular Filt Rate >60 [facility] Comment:Chronic Kidney Disea se: Estimated GFR < 60 mL/min/1.00w8Fpmoad Kidney Disease: Estimated GFR < 15 mL/min/1.73m2 Glucose 107 60 - 115 mg/dL [facility] Calcium 9.9 8.4 - 10.2 mg/dL [facility] Bilirubin, Total 0.3 0.0 - 1.0 mg/dL [facility] Aspartate Amino Transferase 62(H) 5 - 31 U/L [facility] Alanine Aminotransferase 99(H) 0 - 31 U/L [facility] Total Protein 7.7 6.5 - 8.0 g/dL [facility] Albumin Level 4.3 3.5 - 5.0 g/dL [facility] Alkaline Phosphatase 60 39 - 117 U/L [facility] Blood Venous blood specimen / Unknown 03/22/2025 11:35 AM EDT 03/22/2025 1:20 PM EDT Lorraine Phillip [facility] BLOOD ORDERABLES Final Resul t [facility] [address] [place] [address] [phone] * XR Chest 2 Views (03/21/2025 4:03 PM EDT) Anatomical Region Laterality Modality Chest Radiographic Mercedes ging 03/21/2025 4:03 PM EDT Narrative 03/21/2025 4:16 PM EDT [address] [address] XRay Report Signed Patient: Carmen Johnson MR#: [id number] : 1965 Acct:[id number] Age/Sex: 59 / F ADM Date: 03/21/25 Loc: HAILEYCX Attending Dr: Lorraine Phillip NP Ordering Physician: LORRAINE PHILLIP NP Date of Service: 03/21/25 Procedure(s): XR chest 2V Accession Number(s): [id number] cc: LORRAINE PHILLIP NP Reason for Exam: [...] 03/21/25 1613 DD/ 1603 TD/TT: 03/21/25 1605 Ditch Worker: Procedure Note Donotuseinterpreter, Image - 03/21/[address] [address] XRay Report Signed Patient: Carmen JohnsonMR#: [id number] : 1965Acct:[id number] Age/Sex: 59 / FADM Date: 03/21/25 Loc: FRANCIA Attending Dr: Lorraine Phillip MINE ANALYST Ordering Physician: LORRAINE PHILLIP NP Date of Service: 03/21/25 Procedure(s): XR chest 2V Accession Number(s): [id number] cc: LORRAINE PHILLIP NP Reason for Exam: [...] Rice MD 03/21/2025 04:13 PM EDT RP Workstation: [id number] Dictated By: Juan Jose Rice MD Signed By: <Electronically signed by Juan Jose Rice MD in OV> 03/21/25 1613 DD/ 1603 TD/TT: 03/21/25 1605 Ditch Worker: Lorraine Phillip ANP IMG XR PROCEDURES Final Result * Albumin, Random Urine W/Creatinine (01/13/2025 12:05 PM EDT) Creatinine, Urine 229.46 mg/dL [facility] Microalbumin Urine 29.0 mg/L [facility] Microalbum Creatinine Ratio Ur 12.6 <30 ug/mg cr [facility] Comment:Albumin/Creatinine R atio Reference Ranges: Normal: < 30 ug/mg creatinine Microalbuminuria: 30 - 300 ug/mg creatinineClinical Albuminuria: > 300 ug/mg creatinine Urine (Urine, Random) 01/13/2025 12:05 PM EDT 01/13/2025 2:02 PM EDT us Mesha Ruff MD LAB URINE ORDERABLES Final Res ult [facility] [address] [place] [phone] * (ABNORMAL) POCT HGB A1C (01/13/2025 [...] Media Lot # [id number] Lot# Expiration Date 211 Blood Capillary blood specimen / Unknown 01/13/2025 11:34 AM EDT Mesha Ruff MD POINT OF CARE TEST ENTER/EDIT ORDERABLES Final Result * (ABNORMAL) Lipid Panel, Standard (05/18/2024 11:10 AM EST) Triglycerides 174(H) <150 mg/dL [facility] Comment:Desirable Triglyceri de: less than 150 mg/dLBorderline High Triglyceride 150-199 mg/dLHigh Triglyceride: 200-499 mg/dLVery High Triglyceride: greater than or equal to 5OO mg/dL Cholesterol 196 <200 mg/dL [facility] Comment:Desirable Cholestero l: less than 200 mg/dLBorderline High Cholesterol: 200-239 mg/dLHigh Cholesterol: greater than 239 mg/dL LDL Cholesterol Calculated 127(H) <100 mg/dL [facility] Comment:Desirable LDL: less than 100 mg/dLNear Optimal/Above Optimal LDL: 110- 129 mg/dLBorderline High LDL: 130-159 mg/dLHigh LDL: 160-189 mg/dLVery High LDL: greater than or equal to 190 mg/dL HDL Cholesterol 35(L) >40 mg/dL [facility] Comment:Desirable HDL: great er than 40 mg/dL Note: This HDL assay may give artificially low results in patients with liver disease. Blood Venous blood specimen / Unknown 05/18/2024 11:10 AM EST 05/18/2024 1:45 PM EST us Mesha Ruff MD LAB BLOOD ORDERABLES Final Res ult [facility] [address] [place] [phone] * Pap Smear (02/25/2023 2:04 PM EDT) 02/25/2023 2:04 PM EDT 02/26/2023 8:55 AM EDT Narrative [facility] - 03/14/2023 9:59 AM EDT ----- ------- Name: Carmen Johnson Age/Sex: 57/F : 1965 Unit#: [id number] Attend Dr: Terese Hartmann CNM Re02/25/23 Status: WILLIAM REF Location: HO.[facility] Disch: ----- ------- SPEC : [id number] RECD: 02/26/23 STATUS: NETO COTTO NUM: [id number] DEANNA: 02/25/23-[address]: Terese Hartmann CNM ENTERED: 02/26/23-1120 SP TYPE: Pap Smr OTHR DR: Mesha Ruff ORDERED: Pap Smear Interpretation Satisfactory for evaluation. Negative for intraepithelial lesion or malignancy. HPV mRNA E6/E7: NOT DETECTED This assay detects E6/E7 viral messenger RNA (mRNA) from 14 high-risk HPV types (16, 18, 31, 33, 35, 39, 45, 51, 52, 56, 58, 59, 66, 68) HPV testing performed by [facility], [place], [place]. See reference laboratory pion of the EMR for entire report. Clinical Information LMP: Menopausal Previous PAP test: 2021, ASCUS Material Received ThinPrep-Cervical Copies To: Mesha Ruff [address] [place], [place] [phone] Terese Hartmann [address] Estrada [address] [place] [address] [phone] ----- ------- Signed (signature on file) MILLY Weeks (ASCP) 03/14/23 0959 ----- ------- END OF REPORT us [facility] External Provider LAB CYT OLOGY ORDERABLES Final Result [facility] [address] [place], [place] [phone] * HPV E6/E7 RFLX KATHYA 16 18/45 (02/15/2022 2:57 PM EDT) HPV mRNA E6/E7 rflx Not Detected Not Detected [facility] Comment: Methodology: Milling Planer Operator-Mediated Amplification This assay detects E6/E7 viral messenger RNA (mRNA) from 14 high-risk HPV types (16,18,31,33,35,39,45,51,52,56,58,59,66,68). Cervical sources are required for HPV testing. If a vaginal source from a patient who has had a total hysterectomy with removal of cervix was submitted, please contact the testing laboratory for alternative testing options. For additional information, please refer to http://SocialMedia.com.enrich-in/faq/ZNH139l0 (This link if provided for information/ educational purposes only.) THIS TEST WAS PERFORMED AT: [facility] [address] [place] [address],[place] [address] DAVID BROWNING MD 02/15/2022 2:57 PM EDT Terese Hartmann HISTORICAL/NON ORDERABLE LABS Fi nal Result Performing Organization Address [facility] Co de Phone Number [facility] [address] [place] [address], * HEPATITIS C AB W/REFL TO HCV RNA, QN, PCR (12/04/2021 3:34 PM EDT) HEPATITIS C ANTIBODY NON-REACT EVELYN NON-REACT EVELYN [facility] INDEX 0.02 <1.00 [facility] Comment: HCV antibody was non-reactive. There is no laboratory evidence of HCV infection. In most cases, no further action is required. However, if recent HCV exposure is suspected, a test for HCV RNA (test code 01325) is suggested. For additional information please refer to http://SocialMedia.com.enrich-in/faq/AYT07i3 (This link is being provided for informational/ educational purposes only.) 12/04/2021 3:34 PM EDT Sheri Kidd NP HISTORICAL/NON ORDERABLE LABS Final Result Performing Organization Address [facility] Co de Phone Number [facility] [address] [place] [address], * HIV 1/2 ANTIGEN/ANTIBODY,FOURTH GENERATION W/RFL (12/04/2021 3:34 PM EDT) HIV-1/2 ANTIGEN AND ANTIBODIES, 4TH GENERATION W/ REFLEX NON-REACT EVELYN NON-REACT EVELYN [facility] Comment: HIV-1 antigen and [...] purpose. For additional information please refer to http://education.enrich-in/faq/VDS351 (This link is being provided for informational/ educational purposes only.) The performance of this assay has not been clinically validated in patients less than 2 years old. 12/04/2021 3:34 PM EDT us Sheri Kidd NP LAB BLOOD ORDERABLES Final Res ult [facility] [address] from Last 3 Months or Most Recently Relevant to Health Maintenance Insurance [facility] C[facility] MEDICA[facility] STAND ADULT Care Teams Manager Floor Relationship Specialty Start Date End Date Mesha Ruff MD [address] [place] [address] PCP - General Family Medicine 03/05/22
--- OUTSIDE RECORDS SUMMARY | 2025-04-12 18:13 | XMS_ITS | Encounter Summary ---
Author Organization [employer] Address 75 [facility] 7t [place] [address] Care Team Providers Care Maintenance Data Analyst Name Role Phone Mesha Ruff MD Primary Care Provider [phone] Encounter Details Date Type Department Care Team (Late Contact Info) Description 03/07/2023 Orders Only [facility] [address] [place] [phone] Mesha Ruff MD [address] [place] [address] Social History Tobacco Use Types Packs/Day Years [...] Description 05/11/2025 11:00 AM EST Clinical Support [facility] [address] [place], [place] [phone] 05/26/2025 11:30 AM EST Office Visit [facility] OPTOMETRY [address] [place] [address] [phone] Hannah Gallo, OD [address] [place] [address] 06/09/2025 1:00 PM EST Office Visit [facility] [address] [place], [place] [phone] Mani Feli, OD [address] [place], [place] [phone] documented as of this encounter Visit Diagnoses Not on filedocumented in this encounter Additional Health Concerns Assessment Noted Time PHQ-9 Depression Total Score: 23 023 4:04 PM EDT documented as of this encounter Care Teams Maintenance Data Analyst Relationship Specialty Start Date End Date Mesha Ruff MD [address] [place], [place] [phone] PCP - General Family Medicine 03/05/22 documented as of this encounter
--- OUTSIDE RECORDS SUMMARY | 2025-04-12 18:13 | XMS_ITS | Encounter Summary ---
Author Organization [employer] Address [address] [place] [address] 7 [place] [address] Care Team Providers Care Brick Grader Name Role Phone Mesha Ruff MD Primary Care Provider [phone] Reason for Referral * Consultation (Routine) - Authorized Specialty Diagnoses / Procedures Referred By Contac t Referred To Contact Gastroenterology Diagnoses Iron deficiency anemia, unspecified iron deficiency anemia type Sandhya Subramanian MD [address] [place] [address] Phone: tel: fax: Janice Waldron MD [address] [place] [address] [place] [address] Phone: tel: fax: Referral ID Status Reason Start Date Expiration Date Visits Requested Visits Authorized [id number] Authorized Specialty Services Required 4 05/18/2025 1 1 Encounter Details Date Type Department Care Team (Late st Contact Info) Description 05/18/2024 Orders Only [facility]EDS [address] [place], [place] [phone] Sandhya Subramanian MD [address] [place] [address] [phone] Iron deficiency anemia, unspecified iron deficiency anemia [...] Description 05/11/2025 11:00 AM EST Clinical Support [facility] MEDICINE [address] [place] [address] 05/26/2025 11:30 AM EST Office Visit [facility] OPTOMETRY [address] [place] [address] Hannah Gallo, OD [address] [place] [address] 06/09/2025 1:00 PM EST Office Visit [facility] OPTOMETRY [address] [place] [address] Feli Singleton, OD [address] [place] [address] Scheduled Referrals Name Type Priority Associated Diagnoses [...] AM EST) Follicle Stimulating Hormone 12.3 mIU/mL [facility] Comment:Reference Range Foll icular Phase 2.5-10.2 Mid-cycle Peak 3.1-17.7 Luteal Phase 1.5- 9.1 Postmenopausal 23.0-116.3THIS TEST WAS PERFORMED AT:[facility] [place] [id number] BROWNING MD 05/18/2024 11:1 0 AM EST 05/18/2024 1:45 PM EST us Generic External Data Provider LAB BLOOD ORDERAB LES Final Result [facility] [address] [place] [address] [phone] documented in this encounter Visit Diagnoses Diagnosis Iron deficiency anemia, unspecified iron deficiency anemia type- Primary documented in this encounter Additional Health Concerns Assessment Noted Time PHQ-9 Depression Total Score: 24 023 3:33 PM EST documented as of this encounter Care Teams Brick Grader Relationship Specialty Start Date End Date Mesha Ruff MD [address] [place] [address] PCP - General Family Medicine 03/05/22 documented as of this encounter
--- OUTSIDE RECORDS SUMMARY | 2025-04-12 18:13 | XMS_ITS | Encounter Summary ---
Author Organization [employer] Address 75 [facility] 7t [place] [address] Care Team Providers Care Retail Receiving Clerk Name Role Phone Mesha Ruff MD Primary Care Provider [phone] Reason for Visit * Reason Onset Date Comments Med Refill 04/11/2025 Encounter Details Date Type Department Care Team ([facility] st Contact Info) Description 04/11/2025 Refill [facility] MEDICINE [address] [place] [address] Mesha Ruff MD [address] [place] [address] Social History Tobacco Use Types Packs/Day Years [...] Description 05/11/2025 11:00 AM EST Clinical Support [facility] MEDICINE [address] [place] [address] 05/26/2025 11:30 AM EST Office Visit [facility] OPTOMETRY [address] [place] [address] Hannah Gallo, OD [address] [place] [address] 06/09/2025 1:00 PM EST Office Visit [facility] OPTOMETRY [address] [place] [address] Feli Singleton, OD [address] [place] [address] documented as of this encounter Visit Diagnoses Not on filedocumented in this encounter Additional Health Concerns Assessment Noted Time PHQ-9 Depression Total Score: 0 06/08/20 24 11:56 AM EST documented as of this encounter Care Teams Retail Receiving Clerk Relationship Specialty Start Date End Date Mesha Ruff MD [address] [place] [address] PCP - General Family Medicine 03/05/22 documented as of this encounter
--- OUTSIDE RECORDS SUMMARY | 2025-04-12 18:13 | XMS_ITS | Encounter Summary ---
Author Organization [employer] Address 75 [facility] 7t [place] [address] Care Team Providers Care Engineering Leader Name Role Phone Mesha Ruff MD Primary Care Provider [phone] Encounter Details Date Type Department Care Team (Latest Contact Info) Description 04/11/2025 Travel Social History Tobacco Use Types Packs/Day [...] Description 05/11/2025 11:00 AM EST Clinical Support [facility] [address] [place] [address] 05/26/2025 11:30 AM EST Office Visit [facility] OPTOMETRY [address] [place] [address] Tarka, Hannah, OD [address] [place] [address] 06/09/2025 1:00 PM EST Office Visit [facility] OPTOMETRY [address] [place] [address] Tolls, Feli, OD [address] [place] [address] documented as of this encounter Visit Diagnoses Not on filedocumented in this encounter Additional Health Concerns Assessment Noted Time PHQ-9 Depression Total Score: 0 06/08/20 24 11:56 AM EST documented as of this encounter Care Teams Engineering Leader Relationship Specialty Start Date End Date Mesha Ruff MD [address] [place] [address] PCP - General Family Medicine 03/05/22 documented as of this encounter
--- OUTSIDE RECORDS SUMMARY | 2025-04-12 18:13 | XMS_ITS | Encounter Summary ---
Author Organization [employer] Address 75 [facility] 7t [place] [address] Care Team Providers Care Child Care Centre Manager Name Role Phone Mesha Ruff MD Primary Care Provider [phone] Encounter Details Date Type Department Care Team ([facility] st Contact Info) Description 05/19/2024 Orders Only [facility] MEDICINE [address] [place], [place] [phone] Mesha Ruff MD [address] [place], [place] [phone] Iron deficiency anemia, unspecified iron deficiency anemia type (Primary Dx); Vitamin B deficiency; Controlled type 2 diabetes mellitus without complication, without long-term current use of insulin ([facility]) Social History Tobacco Use Types [...] 11:00 AM EST Clinical Support [facility] MEDICINE [address] [place] [address] 05/26/2025 11:30 AM EST Office Visit [facility] [address] [address] Hannah Gallo, OD [address] [place] [address] 06/09/2025 1:00 PM EST Office Visit [facility] OPTOMETRY [address] [place] [address] Feli Singleton, OD [address] [place] [address] Scheduled Orders Name Type Priority Associated Diagnoses [...] Blood Count 8.9 4.8 - 10.8 X10*3/uL [facility] Red Blood Count 4.48 4.20 - 5.50 X10*6/uL [facility] Hemoglobin 13.0 12.0 - 16.0 g/dl [facility] Hematocrit 40.6 37.0 - 47.0 % [facility] Mean Corpuscular Volume 90.6 80.0 - 98.0 fL [facility] Mean Corpuscular Hemoglobin 29.0 27.0 - 33.0 pg [facility] Mean Corpuscular HGB Conc 32.0 31.0 - 35.0 g/dl [facility] Red Cell Distribution Width 14.5 11.0 - 16.0 % [facility] Platelet Count 255 160 - 400 X10*3/uL [facility] Mean Platelet Volume 12.2 9.4 - 12.3 fL [facility] Neutrophils Percent Auto 43.6(L) 45 - 73 % [facility] Imm Gran Pct Auto 0.2 0.0 - 0.4 % [facility] Lymphocytes Percent Auto 45.8(H) 20 - 40 % [facility] Monocytes Percent Auto 5.3 2 - 11 % [facility] Eosinophils Percent Auto 4.2(H) 0 - 4 % [facility] Basophils Percent Auto 0.9 0 - 2 % [facility] NRBC Pct Auto 0.0 0.0 - 0.2 /100WBC [facility] Neutrophils Absolute Auto 3.9 2.0 - 8.3 x10*3/uL [facility] Imm Gran Abs Auto 0.02 0.00 - 0.03 X10*3/uL [facility] Lymphocytes Absolute Auto 4.1 1.2 - 4.9 X10*3/uL [facility] Monocytes Absolute Auto 0.5 0.1 - 1.2 X10*3/uL [facility] Eosinophils Absolute Auto 0.4 0.0 - 0.4 X10*3/uL [facility] Basophils Absolute Auto 0.1 0.0 - 0.2 X10*3/uL [facility] NRBC Abs Auto 0.000 0.0 - 0.012 X10*3/uL [facility] Blood Venous blood specimen / Unknown 01/03/2025 10:46 AM EDT 01/03/2025 1:06 PM EDT us Mesha Ruff MD LAB BLOOD ORDERABLES Final Res ult [facility] [address] [place] [address] [phone] documented in this encounter Visit Diagnoses Diagnosis Iron deficiency anemia, unspecified iron deficiency anemia type- Primary Vitamin B deficiency Unspecified vitamin B deficiency Controlled type 2 diabetes mellitus without complication, without long-term current use of insulin (HCC) documented in this encounter Additional Health Concerns Assessment Noted Time PHQ-9 Depression Total Score: 24 023 3:33 PM EST documented as of this encounter Care Teams Child Care Centre Manager Relationship Specialty Start Date End Date Mesha Ruff MD [address] [place] [address] PCP - General Family Medicine 03/05/22 documented as of this encounter
--- OUTSIDE RECORDS SUMMARY | 2025-04-12 18:13 | XMS_ITS | Encounter Summary ---
Author Organization [employer] Address 75 [facility] 7t [place] [address] Care Team Providers Care Generator Repairer Name Role Phone Mesha Ruff MD Primary Care Provider [phone] Encounter Details Date Type Department Care Team ([facility] Contact Info) Description 11/14/2022 Orders Only [facility] MEDICINE [address] [place] [phone] Mesha Ruff MD [address] [place] [phone] Vitamin B deficiency (Primary Dx) Social History [...] 11:00 AM EST Clinical Support [facility] MED[facility]INE [address] [place] [address] 05/26/2025 11:30 AM EST Office Visit [facility] OPTOMETRY [address] [place] [address] Hannah Gallo, OD [address] [place] [address] 06/09/2025 1:00 PM EST Office Visit [facility] OPTOMETRY [address] [place] [address] Mani Feli, OD [address] [place] [address] documented as of this encounter Visit Diagnoses Diagnosis Vitamin B deficiency- Primary Unspecified vitamin B deficiency documented in this encounter Additional Health Concerns Assessment Noted Time PHQ-9 Depression Total Score: 23 04/ 023 4:04 PM EDT documented as of this encounter Care Teams Generator Repairer Relationship Specialty Start Date End Date Mesha Ruff MD [address] [place] [address] PCP - General Family Medicine 03/05/22 documented as of this encounter
--- OUTSIDE RECORDS SUMMARY | 2025-04-12 18:13 | XMS_ITS | Encounter Summary ---
Author Organization [email or web address] Address [address] [place] [address] 7t [place] [address] Care Team Providers Care Mine Safety Director Name Role Phone Mesha Ruff MD Primary Care Provider [phone] Encounter Details Date Type Department Care Team (Late st Contact Info) Description 03/27/2023 Orders Only [facility] [address] [place] [address] Provider, MD Melissa Social History Tobacco Use [...] Description 05/11/2025 11:00 AM EST Clinical Support [facility] [address] [place] [address] [phone] 05/26/2025 11:30 AM EST Office Visit [facility] OPTOM[facility] [address] [place] [address] Hannah Gallo, OD [address] [place] [address] 06/09/2025 1:00 PM EST Office Visit [facility] OPT[facility] [address] [place] [address] Feli Singleton, OD [address] [place] [address] documented as of this encounter Procedures Procedure Name Priority Date/Time Associated Diagnosis Comments HM PAP/HPV Routine 02/15/2022 documented in this encounter Results * Hm Pap Smear (02/15/2022) Historical Provider HEALTH MAINTENANCE Final Result documented in this encounter Visit Diagnoses Not on filedocumented in this encounter Additional Health Concerns Assessment Noted Time PHQ-9 Depression Total Score: 23 023 4:04 PM EDT documented as of this encounter Care Teams Mine Safety Director Relationship Specialty Start Date End Date Mesha Ruff MD [address] [place] [address] PCP - General Family Medicine 03/05/22 documented as of this encounter
== END 2025-04-12 14:53 | disposition home or self-care (01) ==
LOC: HO.MRI 14:52
PROVIDERS: PCP General Practice; Visit Provider Nurse Practitioner Primary Care
DX: R51.9 Headache, unspecified (principal); R79.82 Elevated C-reactive protein (CRP)
CPT/HCPCS: 70551

== ENCOUNTER 2025-05-02 08:51 | Outpatient (AMB) | payer MEDICAID, SELFPAY ==
--- NOTE | 2025-05-02 09:01 | A.OFFVIS_ITS ---
Vital Signs 05/02/25 09:22 Height 5 ft 7 in Weight 222 lb 4 oz BMI 34.8 BP 160/77 H Blood Pressure Location Lt brachial Position Sitting Pulse 85 Intake Visit Reasons: temporal artery BX Intake Note: Patient is seen in office for temporal artery biopsy consult. Pt c/o: admits to headaches, blurry vision, tension for about a month, was given Prednisone 2 wks ago and states headaches are less, had a recent vision exam and was told is okay, had an MRI last week. Has an appt with her Department Head sched for 06/09/24 Pc Maintenance Technician Required: Yes Pc Maintenance Technician Language: Plate Colorer Services: Pc Maintenance Technician Present Pc Maintenance Technician Name: Hannah BROOKS Information Interpreted: non-clinical & clinical Belt Sander Stone: Belt Sander Stone Present Accompanied by: Self / Same As Patient Allergies No Known Allergies (No Known Allergies*) Allergy (Verified 05/02/25 09:12) Medication List - Last Reconciled 05/02/25 by Brandon Alexander MD albuterol sulfate 90 mcg/actuation (Ventolin HFA) 2 puffs inhalation QID chlorthalidone (Thalitone) 15 mg PO DAILY cholecalciferol (vitamin D3) (Vitamin D3) 50 mcg PO DAILY ciprofloxacin-dexamethasone 0.3-0.1 % drps otic (ear) right cyanocobalamin (vitamin B-12) 1,000 mcg IM diphenhydramine HCl (Mira-Dryl) 25 - 50 mg PO BEDTIME PRN escitalopram oxalate 10 mg PO DAILY hydroxyzine pamoate 25 mg PO Q12H PRN ketotifen fumarate 0.025%(0.035%) (Eye Itch Relief) 1 drp ophthalmic (eye) BID levothyroxine 100 mcg PO QAM loratadine 10 mg PO DAILY losartan 25 mg PO DAILY metformin ER 500 mg PO DAILY mirtazapine 30 mg PO BEDTIME HPI Comments Details: 59-year-old female patient presenting with a recent history of severe headaches felt bilaterally and in the occipital regions with the associated visual changes. Workup revealed a normal ESR of 18 however CRP was elevated at 1.01 (normal less than 0.5). She subsequently underwent MRI which revealed a normal examination. Patient was placed on prednisone 40 mg p.o. q.day for presumed giant cell arteritis. The patient reports that her symptoms improved after starting the prednisone. She continues to take prednisone currently. Patient presents today to discuss temporal artery biopsy. [facility] Medical History Urinary incontinence in female Chronic back pain Tinnitus Anemia Depression Migraine Stroke Heavy menstrual bleeding Hearing trouble Hypothyroidism Hypertension Asthma Surgical History Hx of section Social History Household Members: Spouse Housing: Apartment Alcohol intake: never Patient Tobacco Use Status: Former Tobacco user Review of Systems Const All systems reviewed & are unremarkable except as noted in HPI and below Denies chills, Denies fever(s), Reports headache(s), Denies poor appetite and Denies weakness ENT Reports headache(s) Card Denies chest pain, Denies irregular heart rhythm, Denies palpitations and Denies dyspnea Resp Denies cough, Denies excessive phlegm production and Denies dyspnea GI Denies abdominal pain, Denies bloating, Denies change in bowel habits, Denies constipation, Denies heartburn, Denies diarrhea, Denies nausea and Denies vomiting Denies urinary frequency Musc Denies back pain, Denies muscle weakness and Denies numbness Skin/Breast Denies changing lesions and Denies unusual bruising Neuro Reports headache(s), Denies numbness, Denies paresthesias and Denies weakness Psych Denies anxiety and Denies depression Endo Denies palpitations Bharat/Lymph Denies lymphadenopathy Physical Exam Const General: cooperative and no acute distress Nutritional Appearance: well nourished Orientation/consciousness: patient oriented x3 Limitations: no limitations HEENT Head: Yes normocephalic and Yes atraumatic Ears: hearing grossly normal bilaterally Resp Effort & Inspection: normal respiratory effort, no audible wheezes, no cough and no respiratory distress Cardio Jugular venous distension: no JVD GI Inspection: Yes normal to inspection Skin Other: Warm, dry, no rash Neuro General: patient oriented x3 Extrem General: Yes no clubbing, cyanosis or edema Assessment & Plan Assessment & Plan (1) Headache: Code(s): R51.9 - Headache, unspecified Category: Medical (2) Elevated C-reactive protein (CRP): Code(s): R79.82 - Elevated C-reactive protein (CRP) Category: Medical Plan 59-year-old female patient presenting with a recent history of headaches, visual changes and elevated CRP with a concern for giant cell arteritis. Patient presents to discuss temporal artery biopsy. I reviewed the procedure, risks and alternatives in detail and she gives her consent for the procedure. She will be scheduled as a short-stay surgery at her earliest convenience. Coding Level of Care Code New Pt Level 4 (88370) Diagnoses Headache R51.9 Elevated C-reactive protein (CRP) R79.82
[2025-05-02 09:22] VITALS: BP 160/77; PULSE 85; BMI 34.8
--- OUTSIDE RECORDS SUMMARY | 2025-05-02 09:28 | XMS_ITS | Encounter Summary ---
Author Organization [email or web address] Address [address] [facility] [employer] 7t [place] [address] Care Team Providers Care Tool Inspector Name Role Phone Mesha Ruff MD Primary Care Provider [phone] Encounter Details Date Type Department Care Team ([facility] Contact Info) Description 11/25/[address] [facility] [address] [place] [phone] Mesha Ruff MD [address] [place] [phone] Vitamin B deficiency Social History Tobacco Use [...] Description 05/11/2025 11:00 AM EST Clinical Support [facility] [address] [place] [address] 05/18/2025 11:30 AM EST Office Visit [facility] [address] [place] [address] Mesha Ruff MD [address] [place] [address] 05/26/2025 11:30 AM EST Office Visit [facility] [address] [place] [address] Hannah Gallo, OD [address] [place] [address] 06/09/2025 1:00 PM EST Office Visit [facility] [address] [place], [place] [phone] Feli Singleton, OD [address] [place] [address] documented as of this encounter Procedures Procedure Name Priority Date/Time Associated Diagnosis Comments BI MAMMOGRAM SCREENING TOMOSYNTHESIS BILATERAL Routine 12/19/2022 1:46 PM EDT documented in this encounter Results * BI Mammogram Screening Tomosynthesis Bilateral (12/19/2022 1:46 PM EDT) Anatomical Region Laterality Modality Breast Bilateral Mammography 12/19/2022 1:46 PM EDT Narrative 12/23/2022 7:53 AM EDT [facility] [address] [place] [address] Mammography Report Signed Patient: Carmen Johnson MR#: [id number] : 1965 Acct:[id number] Age/Sex: 57 / F ADM Date: 12/19/22 Loc: MAMMO Attending Dr: Mesha Ruff MD Ordering Physician: Mesha Ruff Results: 1Negative Date of Service: 12/19/22 Follow Up: 1 Year From Orig inal Mammogram Procedure(s): MM tomosynthesis screening BI Accession Number(s): [id number] cc: Mesha Ruff EXAMINATION: MM SCREENING DIGITAL BREAST TOMOSYNTHESIS, BILATERAL CLINICAL INFORMATION: Screening. Asymptomatic. The lifetime risk of breast cancer based on the Tyrer-Cuzick Model is 9%. COMPARISON: Outside mammography: 02/05/2021 ([facility]) TECHNIQUE: Digital breast tomosynthesis is performed [...] in OV> 12/23/22 0750 DD/ 1346 TD/TT: Securities Lending Trader: SANDRA Procedure Note Donotuseinterpreter, Image - 01/02/2023 [facility] [address] [place], [place] [address] Mammography Report Signed Patient: Carmen Johnson#: [id number] : 1965Acct:[id number] Age/Sex: 57 / FADM Date: 12/19/22 Loc: HO.MAMMO Attending Dr: Mesha Ruff MD Ordering Physician: Ben Ruffults: 1Negative Date of Service: 12/19/22Follow Up: 1 Year From Orig inal Mammogram Procedure(s): MM tomosynthesis screening BI Accession Number(s): [id number] cc: Mesha Ruff EXAMINATION: MM SCREENING DIGITAL BREAST TOMOSYNTHESIS, BILATERAL CLINICAL INFORMATION: Screening. Asymptomatic. The lifetime risk of breast cancer based on the Tyrer-Cuzick Model is 9%. COMPARISON: Outside mammography: 02/05/2021 ([facility]) TECHNIQUE: Digital breast tomosynthesis is performed [...] in OV> 12/23/22 0750 DD/ 1346 TD/TT: Securities Lending Trader: SANDRA [facility] External Provider IMG BI PROCEDURES Final Result documented in this encounter Visit Diagnoses Diagnosis Vitamin B deficiency Unspecified vitamin B deficiency documented in this encounter Additional Health Concerns Assessment Noted Time PHQ-9 Depression Total Score: 10/30/ 023 4:04 PM EDT documented as of this encounter Care Teams Tool Inspector Relationship Specialty Start Date End Date Mesha Ruff MD [address] [place] [phone] PCP - General Family Medicine 03/05/22 documented as of this encounter
--- OUTSIDE RECORDS SUMMARY | 2025-05-02 09:28 | XMS_ITS | Clinical Summary ---
Author Organization [facility] Address [address] [place] [address] Care Team Providers Care Mechanical Field Engineer Name Role Phone Unavailable Primary Care Provider [...] due to other allergic trigger Place 1 [place] in both nostrils once daily 16 g [...] congenital hearing loss and was evaluated in [facility] for hearing devices and surgery but [...] Done Comments Anxiety Screening 1965 HPV Screening (self-collect) 1965 HPV Screening 1965 Tobacco Screening 1965 [...] 07/07/2024 Lipid Screening 01/11/2025 01/12/2020, 10/06, 06/18/2018 [id number] ( season) 2025 05/24/2022, 11/21/2020, 10/25/2020 Imm-Influenza (#1) 2025 05/24/2022, 08/15/2020 Imm-DTaP/Tdap/Td (2 - Td or Tdap) 10/30/2028 019 HIV Screening Completed 10/30/2018 Hepatitis C Screening Completed 08/15/2020 Cervical Ablation/Cold-Knife Conization Discontinued Cervical Cryotherapy Discontinued Colposcopy Discontinued Excision/Leep Discontinued HPV Genotyping Discontinued Vaginal [...] THYROID CASCADE PROFILE (08/15/2020 9:45 AM EST) Pathologist [facility] TSH CASCADE 26.57(H) 0.40 - 4.00 uIU/ml [facility] Blood Blood / Unknown 08/15/2020 9 :45 AM EST 08/15/2020 9:47 AM EST [facility] - 08/15/2020 12:56 PM EST [employer], a member of [address] [address] Water Treatment Plant Repairer - Priti Cage MD PT ID [id number] ORD# [id number] Jill [facility]CK[facility] - BLOOD DRAW Final Result [address] [address], * HEPATITIS C ANTIBODY (08/15/2020 9:45 AM EST) Pathologist [facility] HEPATITIS C VIRUS SCREEN NEGATIVE NEGATIVE [facility] Blood Blood / Unknown 08/15/2020 9 :45 AM EST 08/15/2020 9:47 AM EST [facility] - 08/15/2020 1:35 PM EST [employer], [place] [address] Water Treatment Plant Repairer - Priti Cage MD PT ID [id number] ORD# [id number] Jill [facility] - BLOOD DRAW Final Result Performing Organization Address City/[facility]/ZIP Co de Phone Number [address] [address], [place] [phone] * (ABNORMAL) LIPID PANEL (01/12/2020 10:56 AM EDT) CHOLESTEROL 173 0 - 200 mg/dL [facility] TRIGLYCERIDES 206(H) 0 - 150 mg/dL [facility] HDL CHOLESTEROL 31(L) >40 mg/dL [facility] LDL CALCULATED 101(H) 0 - 100 mg/dL [facility] TC-HDLC RATIO 5.6(H) 0 - 4.4 mg/dL [facility] Blood specimen (specimen) Blood / Unknown 01/12/2020 10:56 AM EDT 01/12/2020 3:51 PM EDT [facility] - 01/12/2020 5:13 PM EDT [employer], [place] [address] Water Treatment Plant Repairer - Priti Cage MD PT ID [id number] ORD# [id number] Jill [facility] - BLOOD DRAW Edited Result - Final [address] [address], [place] [phone] * COMPRE METAB PANEL (CMP) (01/12/2020 10:56 AM EDT) GLUCOSE 96 70 - 100 mg/dL [facility] Comment:Reference range appl icable to fasting specimens only BUN 12 5 - 25 mg/dL [facility] CREAT 0.71 0.5 - 1.1 mg/dL [facility] GLOMERULAR FILTRATION RATE > 60 [facility] Comment: If patient is -Australian, multiply result by 1.21 Chronic Kidney Disease: < 60 ml/min/1.73 square meters Kidney Failure: < 15 ml/min/1.73 square meters SODIUM 137 135 - 145 mEq/L [facility] POTASSIUM 4.0 3.5 - 5.5 mmol/L [facility] CHLORIDE 107 96 - 110 mmol/L [facility] CO2 25 21 - 32 mmol/L [facility] ANION GAP 5 3 - 11 [facility] CALCIUM 9.1 8.5 - 10.5 mg/dL [facility] TOTAL PROTEIN 7.7 6.0 - 8.0 G/dL [facility] ALBUMIN 3.5 3.2 - 5.0 G/dL [facility] BILI, TOTAL 0.2 0.0 - 1.4 mg/dL [facility] SGOT 39 10 - 42 U/L [facility] SGPT 56 10 - 60 U/L [facility] ALK PHOS 55 42 - 121 U/L [facility] Blood specimen (specimen) Blood / Unknown 01/12/2020 10:56 AM EDT 01/12/2020 3:51 PM EDT Narrative [facility] - 01/12/2020 5:13 PM EDT [facility] [employer], [place] [address] Water Treatment Plant Repairer - Priti Cage MD PT ID [id number] ORD# [id number] Jill [facility] - BLOOD DRAW [place] [address], * STOOL OCCULT BLOOD (POCT) (12/03/2018 4:30 [...] / Unknown 11/13/2018 2:07 PM EDT Impressions [facility] - 11/13/2018 2:07 PM EDT Thinprep pap: Negative for squamous intraepithelial lesion and malignancy Reactive cellular changes HPV: negative Emily [facility] - PATHOLOGY AND CYTOLOG Y AMBULATORY Final Result Performing Organization Address City/[facility] Co de Phone Number [facility] [address] [address], * HIV future (10/30/2018 11:13 AM EDT) Pathologist [facility] HIV 1 AND 2 ANTIBODY SCREEN NEGATIVE NEGATIVE [facility] Comment: This assay is a [...] AM EDT 10/30/2018 12:23 PM EDT Narrative [facility] - 10/30/2018 8:08 PM EDT [employer], a member of [address] [address] Water Treatment Plant Repairer - Kimberlee Trujillo MD PT ID [id number] ORD# [id number] Jose Stafford MD LAB - BLOOD DRAW Final Result [facility] [address] [place] [address], from Last 3 Months or Most Recently Relevant to Health Maintenance Insurance [facility] [employer] [place] [address] [facility] NET DENTAL
--- OUTSIDE RECORDS SUMMARY | 2025-05-02 09:28 | XMS_ITS | Encounter Summary ---
Author Organization [employer] Address [address] [facility] 7t [place] [address] Care Team Providers Care Strings Teacher Name Role Phone Mesha Ruff MD Primary Care Provider Encounter Details Date Type Department Care Team (Late Contact Info) Description 03/07/2023 Orders Only [facility] [address] [place] [phone] Mesha Ruff MD [address] [place] [address] [phone] Social History Tobacco Use Types Packs/Day Years [...] Description 05/11/2025 11:00 AM EST Clinical Support [address] [phone] 05/18/2025 11:30 AM EST Office Visit [address] [phone] Mesha Ruff MD [address] [place] [address] 05/26/2025 11:30 AM EST Office Visit [facility] [address] [place], [place] [phone] Hannah Gallo, OD [address] [place] [address] 06/09/2025 1:00 PM EST Office Visit [facility] [address] [place], [place] [phone] Feli Singleton, OD [address] [place], [place] [phone] documented as of this encounter Visit Diagnoses Not on filedocumented in this encounter Additional Health Concerns Assessment Noted Time PHQ-9 Depression Total Score: 23 023 4:04 PM EDT documented as of this encounter Care Teams Strings Teacher Relationship Specialty Start Date End Date Mesha Ruff MD [address] [place], [place] [phone] PCP - General Family Medicine 03/05/22 documented as of this encounter
--- OUTSIDE RECORDS SUMMARY | 2025-05-02 09:28 | XMS_ITS | Encounter Summary ---
Author Organization [employer] Address [address] [facility] 7t [place] [address] Care Team Providers Care Editorial Intern Name Role Phone Mesha Ruff MD Primary Care Provider [phone] Encounter Details Date Type Department Care Team (Late Contact Info) Description 08/05/2022 Orders Only [facility] [address] [place] [address] [phone] Mesha Ruff MD [address] [place] [address] [phone] Other specified hypothyroidism (Primary Dx); Blurry vision [...] 11:00 AM EST Clinical Support [facility] [address] [place] [address] [phone] 05/18/2025 11:30 AM EST Office Visit [facility] [address] [place] [phone] Mesha Ruff MD [address] [place] [address] [phone] 05/26/2025 11:30 AM EST Office Visit [facility] [address] [place] [address] Hannah Gallo, OD [address] [place] [address] 06/09/2025 1:00 PM EST Office Visit [facility] [address] [place] [address] Feli Singleton, OD [address] [facility] [place] [address] documented as of this encounter Procedures Procedure [...] HIGH SENSITIVITY <3.5 <3.5 - 17.0 ng/L [facility] Comment:The [place] high sens itivity Troponin-I results should beused in conjunction with other diagnostic information suchas ECG, clinical observations and information, and patientsymptoms to aid in the diagnosis of PR. 09/04/2022 9:02 PM EST 09/04/2022 9:09 PM EST [facility] External Provider LAB BLO OD ORDERABLES Final Result Performing Organization Address [facility] Co de Phone Number [facility] [address] [place] [phone] * HIGH SENSITIVITY TROPONIN I (09/04/2022 4:25 PM EST) TROPONIN I HIGH SENSITIVITY <3.5 <3.5 - 17.0 ng/L [facility] Comment:The [place] high sens itivity Troponin-I results should beused in conjunction with other diagnostic information suchas ECG, clinical observations and information, and patientsymptoms to aid in the diagnosis of PR. 09/04/2022 4:25 PM EST 09/04/2022 4:30 PM EST [facility] External Provider LAB BLO OD ORDERABLES Final Result Performing Organization Address [facility] Co de Phone Number [facility] [address] [place] [phone] * SARS-CoV-2 RNA, Influenza A/B, and RSV RNA, Ql NAAT (09/04/2022 4:25 PM EST) Pathologist [facility] Influenza A PCR NEGATIVE Negative [facility] Influenza B PCR NEGATIVE Negative [facility] Resp Syncy Virus RNA Qual PCR NEGATIVE Negative [facility] SARS COV2 PCR NEGATIVE Negative [facility] SARS/Flu/RSV Note See Note [facility] Comment:All test results mus t [...] use by authorized laboratories.Testing performed on the [employer] GeneXpert utilizingreal-time RT-PCR.All SARS CoV2 and positive influenza A/B results arereported to [facility]. 09/04/2022 4:25 PM EST 09/04/2022 4:30 PM EST [facility] Exter nal Provider LAB MICROBIOLOGY - GENERAL ORDERABLES Final Result Performing Organization Address City/[facility]/ZIP Co de Phone Number [facility] [address] [place] [phone] * Magnesium (09/04/2022 4:25 PM EST) Magnesium 1.9 1.6 - 2.6 mg/dL [facility] 09/04/2022 4:25 PM EST 09/04/2022 4:30 PM EST [facility] External Provider LAB BLO OD ORDERABLES Final Result Performing Organization Address [facility] Co de Phone Number [facility] [address] [place] [phone] * (ABNORMAL) Comprehensive Metabolic Panel (09/04/2022 4:25 PM EST) Sodium 139 135 - 145 mmol/L [facility] Potassium 3.8 3.3 - 5.1 mmol/L [facility] Chloride 104 96 - 108 mmol/L [facility] Carbon Dioxide 26 22 - 29 mmol/L [facility] Anion Gap 13 12 - 20 [facility] Urea Nitrogen (BUN) 10 9 - 16 mg/dL [facility] Creatinine, Serum 0.77 0.5 - 1.4 mg/dL [facility] Creatinine Clr Calc Pharmacy 107.9 [facility] Comment:Provided height and weight: 182.88 cm,97.3 kg.eGFR (calculated from the MDRD study equation) and eCrCl(calculated from the Cockcroft-Gault equation) are based ondifferent parameters and may not yield comparable results.If eCrCl result is absurd, please check patient'sheight/weight. Estimated Glomerular Filt Rate >60 [facility] Comment:NOTE: For -Am erican individuals, multiply the result by 1.210.Chronic Kidney Disease: Estimated GFR < 60 mL/min/1.50s2Nxhkqr Kidney Disease: Estimated GFR < 15 mL/min/1.73m2 Glucose 91 60 - 115 mg/dL [facility] Calcium 9.7 8.4 - 10.2 mg/dL [facility] Bilirubin, Total 0.3 0.0 - 1.0 mg/dL [facility] Aspartate Amino Transferase 50(H) 5 - 31 U/L [facility] Alanine Aminotransferase 80(H) 0 - 31 U/L [facility] Total Protein 7.9 6.5 - 8.0 g/dL [facility] Albumin Level 4.2 3.5 - 5.0 g/dL [facility] Alkaline Phosphatase 58 39 - 117 U/L [facility] 09/04/2022 4:25 PM EST 09/04/2022 4:30 PM EST [facility] External Provider LAB BLO OD ORDERABLES Final Result Performing Organization Address [facility]/ZIP Co de Phone Number [facility] [address] [place] [address] [phone] * APTT (09/04/2022 4:25 PM EST) Partial Thromboplastin Time 29.2 26.0 - 36.4 SEC [facility] 09/04/2022 4:25 PM EST 09/04/2022 4:30 PM EST [facility] External Provider LAB BLO OD ORDERABLES Final Result Performing Organization Address [facility]/ZIP Co de Phone Number [facility] [address] [place] [address] [phone] * Prothrombin Time-INR (09/04/2022 4:25 PM EST) [facility] Prothrombin Time 12.3 10.0 - 13.1 SEC [facility] INTERNATIONAL NORM RATIO 1.1 0.9 - 1.1 [facility] Comment:INTERNATIONAL NORMAL IZED RATIO (INR) REFERENCE [...] PM EST 09/04/2022 4:30 PM EST us [facility] External Provider LAB BLO OD ORDERABLES Final Result [facility] [address] [place] [phone] * (ABNORMAL) CBC auto differential (09/04/2022 4:25 PM EST) [facility] White Blood Count 8.9 4.8 - 10.8 X10*3/uL [facility] Red Blood Count 4.39 4.20 - 5.50 X10*6/uL [facility] Hemoglobin 11.7(L) 12.0 - 16.0 g/dl [facility] Hematocrit 36.8(L) 37.0 - 47.0 % [facility] Mean Corpuscular Volume 83.8 80.0 - 98.0 fL [facility] Mean Corpuscular Hemoglobin 26.7(L) 27.0 - 33.0 pg [facility] Mean Corpuscular HGB Conc 31.8 31.0 - 35.0 g/dl [facility] Red Cell Distribution Width 15.8 11.0 - 16.0 % [facility] Platelet Count 242 160 - 400 X10*3/uL [facility] Mean Platelet Volume 11.1 9.4 - 12.3 fL [facility] Neutrophils Percent Auto 44.2(L) 45 - 73 % [facility] Imm Gran Pct Auto 0.3 0.0 - 0.4 % [facility] Lymphocytes Percent Auto 44.3(H) 20 - 40 % [facility] Monocytes Percent Auto 6.4 2 - 11 % [facility] Eosinophils Percent Auto 4.0 0 - 4 % [facility] Basophils Percent Auto 0.8 0 - 2 % [facility] NRBC Pct Auto 0.0 0.0 - 0.2 /100WBC [facility] Neutrophils Absolute Auto 3.9 2.0 - 8.3 x10*3/uL [facility] Imm Gran Abs Auto 0.03 0.00 - 0.03 X10*3/uL [facility] Lymphocytes Absolute Auto 4.0 1.2 - 4.9 X10*3/uL [facility] Monocytes Absolute Auto 0.6 0.1 - 1.2 X10*3/uL [facility] Eosinophils Absolute Auto 0.4 0.0 - 0.4 X10*3/uL [facility] Basophils Absolute Auto 0.1 0.0 - 0.2 X10*3/uL [facility] NRBC Abs Auto 0.000 0.0 - 0.012 X10*3/uL [facility] 09/04/2022 4:25 PM EST 09/04/2022 4:30 PM EST us [facility] External Provider LAB BLO OD ORDERABLES Final Result [facility] [address] [place] [address] [phone] documented in this encounter Visit Diagnoses Diagnosis Other specified hypothyroidism- Primary Blurry vision Other specified visual disturbances documented in this encounter Care Teams Editorial Intern Relationship Specialty Start Date End Date Mesha Ruff MD [address] [place] [phone] PCP - General Family Medicine 03/05/22 documented as of this encounter
--- OUTSIDE RECORDS SUMMARY | 2025-05-02 09:28 | XMS_ITS | Clinical Summary ---
Author Organization [employer] Address [address] [facility] [address] [place] [address] Care Team Providers Care Power Sweeper Operator Name Role Phone Mesha Ruff MD Primary Care Provider [phone] Allergies No known active allergies Medications * [...] by MD. 30 patch 2 025 Active predniSONE (Deltasone) 20 MG tabletIndicati [...] bedtime for sleep (headache). 30 tablet 025 Active cyanocobalamin (Vitamin B-12) 1000 MCG/ML injection Inject 1 mL (1,000 mcg) into the muscle every 30 (thirty) days. 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 ([facility]) 02/05/2019 Assessment & Plan (10/21/2023 [...] Description 04/11/2025 3:30 PM EDT Office Visit [facility] [address] [place] [address] Hannah Gallo OD Migraine syndrome (Primary Dx) 04/11/2025 11:00 AM EDT Clinical Support [facility] [place] [address] Sammie Jimenez, SHERLY Vitamin B12 deficiency (dietary) anemia [D51.8] 04/11/2025 Travel 04/11/2025 Refill [facility] [address] [facility] [place] [address] Mesha Ruff MD 03/30/2025 11:30 AM EDT Office Visit [facility] [place] [address] Mesha Ruff MD Migraine without aura and with status migrainosus, not intractable 03/30/2025 Travel 03/29/2025 Telephone [facility] [place] [address] Mesha Ruff MD chart prep 03/23/2025 Orders Only [facility] [place] [address] Mesha Ruff MD 03/22/2025 Orders Only [facility] [place] [address] Lorraine Phillip ANP 03/22/2025 Results Follow-Up [facility] [place] [address] Lorraine Phillip ANP XR Chest 2 Views, Sed Rate by Modified [place], C-reactive Protein, Additional followed-up results: 5 03/21/2025 2:00 PM EDT Office Visit [facility] [address] [place] [address] Lorraine Phillip ANP Nonintractable headache, unspecified chronicity pattern, unspecified headache type (Primary Dx); Acute low back pain, unspecified back pain laterality, unspecified whether sciatica present; Primary hypertension; Anxiety; Hypothyroidism, unspecified type; Migraine without aura and with status migrainosus, not intractable; Swelling; Pain of right upper extremity; Orthopnea; Elevated C-reactive protein (CRP) 03/21/2025 Travel 03/15/2025 Refill [facility] [address] [place] [address] Mesha Ruff MD 03/10/2025 11:00 AM EDT Clinical Support [address] [address] Sharlene Jasmine RN Vitamin B12 deficiency (dietary) anemia 03/10/2025 Travel 03/07/2025 Results Follow-Up [address] [address] Mesha Ruff MD Albumin, Random Urine W/Creatinine, POCT Glucose, POCT HGB A1C, TSH W/Reflex to FT4 02/25/2025 Orders Only [facility] [address] [place] [address] Mesha Ruff MD 02/07/2025 11:00 AM EDT Clinical Support [address] [address] Sammie Jimenez, SHERLY Encounter for immunization 02/07/2025 Travel from Last 3 Months Immunizations Immunization [...] Description 05/11/2025 11:00 AM EST Clinical Support [facility] [address] [place] [address] 05/18/2025 11:30 AM EST Office Visit [facility] [address] [place] [address] Mesha Ruff MD [address] [place] [address] 05/26/2025 11:30 AM EST Office Visit [facility] [address] [place] [address] Hannah Gallo, OD [address] [place] [address] 06/09/2025 1:00 PM EST Office Visit [facility] [address] [place] [address] Feli Singleton, OD [address] [place] [address] Health Maintenance Due Date Last Done Comments [...] 02/25/2023, 02/15/2022 Dental X-Ray: [facility] 12/10/2024 12/10/2023 Influenza Vaccine (#1) 2025 , 05/24/2022, 08/15/2020 [...] Additional history exists Tobacco Screening 03/30/2026 03/30/2025 Eye Exam 04/11/2027 04/11/2025, 100 12/2024, 04/11/2025, Additional history exists DTaP/Tdap/Td Vaccines (2 - Td or Tdap) [...] 1 0:54 AM EDT Hypothyroidism, unspecified type ALBUMIN, RANDOM URINE W/CREATININE Routine 01/13/2025 12:05 PM EDT Controlled type 2 diabetes mellitus without complication, without long-term current use of insulin (CMS/HCC) POCT GLYCATED HEMOGLOBIN, TOTAL Routine 01/13/2025 11:34 [...] PM EDT Narrative 04/12/2025 3:53 PM EDT [place] [address] Magnetic Resonance Report Signed Patient: Carmen Johnson MR#: [id number] : 1965 Acct:[id number] Age/Sex: 59 / F ADM Date: 04/12/25 Loc: HO.MRI Attending Dr: Lorraine Phillip NP Ordering Physician: LORRAINE PHILLIP NP Date of Service: 04/12/25 Procedure(s): MR head/brain wo con Accession Number(s): [id number] cc: Mesha Ruff; LORRAINE PHILLIP NP Reason [...] 04/12/25 1550 DD/ 1516 TD/TT: 04/12/25 1528 Preform Machine Operator: Procedure Note Donotuseinterpreter, Image - 04/12/[address] [address] Magnetic Resonance Report Signed Patient: Carmen Johnson#: MM [id number] : 1965Acct:[id number] Age/Sex: 59 / FADM Date: 04/12/25 Loc: HO.MRI Attending Dr: Lorraine Phillip NP Ordering Physician: LORRAINE PHILLIP NP Date of Service: 04/12/25 Procedure(s): MR head/brain wo con Accession Number(s): [id number] cc: Mesha Ruff; LORRAINE PHILLIP NP Reason [...] 04/12/25 1550 DD/ 1516 TD/TT: 04/12/25 1528 Preform Machine Operator: Lorraine NASH IMG MRI PROCEDURES Final Result * BI Mammogram Screening Tomosynthesis Bilateral (03/23/2025 3:00 PM EDT) Anatomical Region Laterality Modality Breast Bilateral Mammography 03/23/2025 3:00 PM EDT Narrative 03/28/2025 2:14 PM EDT [address] [place] [address] Mammography Report Signed Patient: Carmen Johnson MR#: [id number] : 1965 Acct:[id number] Age/Sex: 59 / F ADM Date: 03/23/25 Loc: HO.MAMMO Attending Dr: Mesha Ruff MD Ordering Physician: Mesha Ruff Results: 1Negative Date of Service: 03/23/25 Follow Up: 1 Year From Orig inal Mammogram Procedure(s): MM tomosynthesis screening BI Accession Number(s): [id number] cc: Mesha Ruff Reason For Exam: SCREENING [...] 03/28/25 1411 DD/ 1500 TD/TT: 03/23/25 1522 Preform Machine Operator: Procedure Note Donotuseinterpreter, Image - 03/28/[address] [place] [address] Mammography Report Signed Patient: Carmen JohnsonMR#: [id number] : 1965Acct:[id number] Age/Sex: 59 / FADM Date: 03/23/25 Loc: HO.MAMMO Attending Dr: Mesha Ruff MD Ordering Physician: Ben Ruffults: 1Negative Date of Service: 03/23/25Follow Up: 1 Year From Orig inal Mammogram Procedure(s): MM tomosynthesis screening BI Accession Number(s): [id number] cc: Mesha Ruff Reason For Exam: SCREENING [...] 03/28/25 1411 DD/ 1500 TD/TT: 03/23/25 1522 Preform Machine Operator: Mesha Ruff MD IMG BI PROCEDURES Final Result * (ABNORMAL) TSH W/Reflex to FT4 (03/22/2025 11:35 AM EDT) Only the most recent of2 resultswithin the time period is included. TSH reflex Free T4 10.30(H) 0.32 - 4.0 uIU/mL [facility] Blood Venous blood specimen / Unknown 03/22/2025 11:35 AM EDT 03/22/2025 1:20 PM EDT Lorraine Phillip [facility] BLOOD ORDERABLES Final Resul t [facility] [address] [place] [address] [phone] * (ABNORMAL) CBC auto differential (03/22/2025 11:35 AM EDT) White Blood Count 7.4 4.8 - 10.8 X10*3/uL [facility] Red Blood Count 4.17(L) 4.20 - 5.50 X10*6/uL [facility] Hemoglobin 12.2 12.0 - 16.0 g/dl [facility] Hematocrit 37.6 37.0 - 47.0 % [facility] Mean Corpuscular Volume 90.2 80.0 - 98.0 fL [facility] Mean Corpuscular Hemoglobin 29.3 27.0 - 33.0 pg [facility] Mean Corpuscular HGB Conc 32.4 31.0 - 35.0 g/dl [facility] Red Cell Distribution Width 13.5 11.0 - 16.0 % [facility] Platelet Count 202 160 - 400 X10*3/uL [facility] Mean Platelet Volume 11.8 9.4 - 12.3 fL [facility] Neutrophils Percent Auto 49.7 45 - 73 % [facility] Imm Gran Pct Auto 0.5(H) 0.0 - 0.4 % [facility] Lymphocytes Percent Auto 38.3 20 - 40 % [facility] Monocytes Percent Auto 6.6 2 - 11 % [facility] Eosinophils Percent Auto 4.0 0 - 4 % [facility] Basophils Percent Auto 0.9 0 - 2 % [facility] NRBC Pct Auto 0.0 0.0 - 0.2 /100WBC [facility] Neutrophils Absolute Auto 3.7 2.0 - 8.3 x10*3/uL [facility] Imm Gran Abs Auto 0.04(H) 0.00 - 0.03 X10*3/uL [facility] Lymphocytes Absolute Auto 2.9 1.2 - 4.9 X10*3/uL [facility] Monocytes Absolute Auto 0.5 0.1 - 1.2 X10*3/uL [facility] Eosinophils Absolute Auto 0.3 0.0 - 0.4 X10*3/uL [facility] Basophils Absolute Auto 0.1 0.0 - 0.2 X10*3/uL [facility] NRBC Abs Auto 0.000 0.0 - 0.012 X10*3/uL [facility] Blood Venous blood specimen / Unknown 03/22/2025 11:35 AM EDT 03/22/2025 1:13 PM EDT Lorraine Phillip [facility] BLOOD ORDERABLES Final Resul t Performing Organization Address [facility] de Phone Number [facility] [address] [place] [phone] * Sed Rate by Modified Zulma (03/22/2025 11:35 AM EDT) [facility] Erythrocyte Sedimentation Rate 18 0 - 20 MM/HR [facility] Comment:Patients with polycy themia and many hemoglobin abnormalitiesmay have depressed sed rates whereas patients with anemiamay have elevated sed rates. Blood Venous blood specimen / Unknown 03/22/2025 11:35 AM EDT 03/22/2025 1:13 PM EDT Lorraine Phillip ANP LAB BLOOD ORDERABLES Final Resul t Performing Organization Address [facility] de Phone Number [facility] [address] [place] [phone] * (ABNORMAL) C-reactive Protein (03/22/2025 11:35 AM EDT) C Reactive Protein 1.01(H) < or = 0.50 mg/dL [facility] Blood Venous blood specimen / Unknown 03/22/2025 11:35 AM EDT 03/22/2025 1:20 PM EDT Lorraine Phillip ANP LAB BLOOD ORDERABLES Final Resul t Performing Organization Address [facility] de Phone Number [facility] [address] [place] [phone] * T4, Free (03/22/2025 11:35 AM EDT) Only the most recent of2 resultswithin the time period is included. Free T4 (Free Thyroxine) 0.72 0.71 - 1.85 ng/dL [facility] 03/22/2025 11:3 5 AM EDT 03/22/2025 1:20 PM EDT Lorraine Phillip ANP LAB BLOOD ORDERABLES Final Resul t Performing Organization Address [facility] de Phone Number [facility] [address] [place] [phone] * B Type Natriuretic Peptide (BNP) (03/22/2025 11:35 AM EDT) B Type Natriuretic Peptide 34 <100 pg/mL [facility] Blood Venous blood specimen / Unknown 03/22/2025 11:35 AM EDT 03/22/2025 1:07 PM EDT Lorraine Phillip ANP LAB BLOOD ORDERABLES Final Resul t Performing Organization Address [facility] de Phone Number [facility] [address] [place] [phone] * (ABNORMAL) Comprehensive Metabolic Panel (03/22/2025 11:35 AM EDT) Pathologist [facility] Sodium 140 135 - 145 mmol/L [facility] Potassium 3.8 3.3 - 5.1 mmol/L [facility] Chloride 107 96 - 108 mmol/L [facility] Carbon Dioxide 27 22 - 29 mmol/L [facility] Anion Gap 10(L) 12 - 20 [facility] Urea Nitrogen (BUN) 13 9 - 16 mg/dL [facility] Creatinine, Serum 0.72 0.5 - 1.4 mg/dL [facility] Estimated Glomerular Filt Rate >60 [facility] Comment:Chronic Kidney Disea se: Estimated GFR < 60 mL/min/1.28i9Kpsddm Kidney Disease: Estimated GFR < 15 mL/min/1.73m2 Glucose 107 60 - 115 mg/dL [facility] Calcium 9.9 8.4 - 10.2 mg/dL [facility] Bilirubin, Total 0.3 0.0 - 1.0 mg/dL [facility] Aspartate Amino Transferase 62(H) 5 - 31 U/L [facility] Alanine Aminotransferase 99(H) 0 - 31 U/L [facility] Total Protein 7.7 6.5 - 8.0 g/dL [facility] Albumin Level 4.3 3.5 - 5.0 g/dL [facility] Alkaline Phosphatase 60 39 - 117 U/L [facility] Blood Venous blood specimen / Unknown 03/22/2025 11:35 AM EDT 03/22/2025 1:20 PM EDT [facility] LAB BLOOD ORDERABLES Final Resul t [facility] [address] [place] [address] [phone] * XR Chest 2 Views (03/21/2025 4:03 PM EDT) Anatomical Region Laterality Modality Chest Radiographic Mercedes ging 03/21/2025 4:03 PM EDT Narrative 03/21/2025 4:16 PM EDT [facility] [address] [place] [address] XRay Report Signed Patient: Carmen Johnson MR#: [id number] : 1965 Acct:[id number] Age/Sex: 59 / F ADM Date: 03/21/25 Loc: HAILEYCX Attending Dr: Lorraine Phillip NP Ordering Physician: LORRAINE PHILLIP NP Date of Service: 03/21/25 Procedure(s): XR chest 2V Accession Number(s): [id number] cc: LORRAINE PHILLIP NP Reason for Exam: [...] 03/21/25 1613 DD/ 1603 TD/TT: 03/21/25 1605 Preform Machine Operator: Procedure Note Donotuseinterpreter, Image - 03/21/2025 [place] [address] XRay Report Signed Patient: Carmen JohnsonMR#: MM [id number] : 1965Acct:[id number] Age/Sex: 59 / FADM Date: 03/21/25 Loc: [facility]CX Attending Dr: Lorraine Phillip NP Ordering Physician: LORRAINE PHILLIP NP Date of Service: 03/21/25 Procedure(s): XR chest 2V Accession Number(s): [id number] cc: LORRAINE PHILLIP NP Reason for Exam: [...] 03/21/25 1613 DD/ 1603 TD/TT: 03/21/25 1605 Preform Machine Operator: Lorraine Phillip ANP IMG XR PROCEDURES Final Result * Albumin, Random Urine W/Creatinine (01/13/2025 12:05 PM EDT) Creatinine, Urine 229.46 mg/dL [facility] Microalbumin Urine 29.0 mg/L [facility] Microalbum Creatinine Ratio Ur 12.6 <30 ug/mg cr [facility] Comment:Albumin/Creatinine R atio Reference Ranges: Normal: < 30 ug/mg creatinine Microalbuminuria: 30 - 300 ug/mg creatinineClinical Albuminuria: > 300 ug/mg creatinine Urine (Urine, Random) 01/13/2025 12:05 PM EDT 01/13/2025 2:02 PM EDT Result [facility] Mesha Ruff MD LAB URINE ORDERABLES Final Res ult [facility] [address] [place] [phone] * (ABNORMAL) POCT HGB A1C (01/13/2025 11:34 AM EDT) Hemoglobin A1C 6.7(A) 4.0 - 5.7 % QC Media Lot # [id number] Lot# Expiration Date Blood 01/13/2025 11:3 4 AM EDT Mesha Ruff MD POINT OF CARE TEST ENTER/EDIT ORDERABLES Final Result * (ABNORMAL) Lipid Panel, Standard (05/18/2024 11:10 AM EST) Triglycerides 174(H) <150 mg/dL [facility] Comment:Desirable Triglyceri de: less than 150 mg/dLBorderline High Triglyceride 150-199 mg/dLHigh Triglyceride: 200-499 mg/dLVery High Triglyceride: greater than or equal to 5OO mg/dL Cholesterol 196 <200 mg/dL [facility] Comment:Desirable Cholestero l: less than 200 mg/dLBorderline High Cholesterol: 200-239 mg/dLHigh Cholesterol: greater than 239 mg/dL LDL Cholesterol Calculated 127(H) <100 mg/dL [facility] Comment:Desirable LDL: less than 100 mg/dLNear Optimal/Above Optimal LDL: 110- 129 mg/dLBorderline High LDL: 130-159 mg/dLHigh LDL: 160-189 mg/dLVery High LDL: greater than or equal to 190 mg/dL HDL Cholesterol 35(L) >40 mg/dL [facility] Comment:Desirable HDL: great er than 40 mg/dL Note: This HDL assay may give artificially low results in patients with liver disease. Blood Venous blood specimen / Unknown 05/18/2024 11:10 AM EST 05/18/2024 1:45 PM EST us Mesha Ruff MD LAB BLOOD ORDERABLES Final Res ult [facility] [address] [place] [phone] * Pap Smear (02/25/2023 2:04 PM EDT) 02/25/2023 2:04 PM EDT 02/26/2023 8:55 AM EDT Narrative [facility] - 03/14/2023 9:59 AM EDT ----- ------- Name: Carmen Johnson Age/Sex: 57/F : 1965 Unit#: [id number] Attend Dr: Terese Hartmann [facility] Re02/25/23 Status: DEP REF Location: [facility] Disch: ----- ------- SPEC : [id number] RECD: 02/26/23 STATUS: CAROLINIhsan KIRTI NUM: [id number] DEANNA: 02/25/23-[address] [facility] [address]: Terese Hartmann CNM ENTERED: 02/26/23 SP TYPE: Pap Smr OTHR DR: Mesha Ruff ORDERED: Pap Smear Interpretation Satisfactory for evaluation. Negative for intraepithelial lesion or malignancy. HPV mRNA E6/E7: NOT DETECTED This assay detects E6/E7 viral messenger RNA (mRNA) from 14 high-risk HPV types (16, 18, 31, 33, 35, 39, 45, 51, 52, 56, 58, 59, 66, 68) HPV testing performed by [employer], [place], [place]. See reference laboratory pion of the EMR for entire report. Clinical Information LMP: Menopausal Previous PAP test: 2021, ASCUS Material Received ThinPrep-Cervical Copies To: Mesha Ruff [address] [place] [address] [address] Estrada [address] [place] [phone] ----- ------- Signed (signature on file) KimberleeMILLY Apple ([facility]) 03/14/23 0959 ----- ------- END OF REPORT [facility] External Provider LAB CYT OLOGY ORDERABLES Final Result [facility] [address] [place] [phone] * HPV E6/E7 RFLX KATHYA 16 18/45 (02/15/2022 2:57 PM EDT) [facility] HPV mRNA E6/E7 rflx Not Detected Not Detected [facility] Comment: Methodology: Mattress Packer-Mediated Amplification This assay detects E6/E7 viral messenger RNA (mRNA) from 14 high-risk HPV types (16,18,31,33,35,39,45,51,52,56,58,59,66,68). Cervical sources are required for HPV testing. If a vaginal source from a patient who has had a total hysterectomy with removal of cervix was submitted, please contact the testing laboratory for alternative testing options. For additional information, please refer to http://education.VibeDeck/faq/GJG943r0 (This link if provided for information/ educational purposes only.) THIS TEST WAS PERFORMED AT: [facility] [address] [place] [address],[place] [address] DAVID BROWNING MD 02/15/2022 2:57 PM EDT Terese Hartmann HISTORICAL/NON ORDERABLE LABS Fi nal Result Performing Organization Address [facility] de Phone Number [facility] [address] * HEPATITIS C AB W/REFL TO HCV RNA, QN, PCR (12/04/2021 3:34 PM EDT) HEPATITIS C ANTIBODY NON-REACT EVELYN NON-REACT EVELYN [facility] INDEX 0.02 <1.00 [facility] Comment: HCV antibody was non-reactive. There is no laboratory evidence of HCV infection. In most cases, no further action is required. However, if recent HCV exposure is suspected, a test for HCV RNA (test code 99430) is suggested. For additional information please refer to http://[employer].VibeDeck/faq/KYZ16p8 (This link is being provided for informational/ educational purposes only.) 12/04/2021 3:34 PM EDT Sheri Kidd NP HISTORICAL/NON ORDERABLE LABS Final Result Performing Organization Address [facility] Phone Number [facility] [address] * HIV 1/2 ANTIGEN/ANTIBODY,FOURTH GENERATION W/RFL (12/04/2021 3:34 PM EDT) HIV-1/2 ANTIGEN AND ANTIBODIES, 4TH GENERATION W/ REFLEX NON-REACT EVELYN NON-REACT EVELYN [facility] Comment: HIV-1 antigen and HIV-1/HIV-2 [...] purpose. For additional information please refer to http://education.VibeDeck/faq/ABW567 (This link is being provided for informational/ educational purposes only.) The performance of this assay has not been clinically validated in patients less than 2 years old. 12/04/2021 3:34 PM EDT us Sheri Kidd [employer] LAB BLOOD ORDERABLES Final Res ult [facility] [address] from Last 3 Months or Most Recently Relevant to Health Maintenance Insurance [facility] C3 DENTAL-[facility] MEDICAID STAND ADULT * Guarantor: Carmen Johnson Account Type Relation to Patient Date of Phone Billing Address Personal/Family Self [address] [place] [address] Care Teams Power Sweeper Operator Relationship Specialty Start Date End Date Mesha Ruff MD [address] [place] [address] PCP - General Family Medicine 03/05/22
--- OUTSIDE RECORDS SUMMARY | 2025-05-02 09:28 | XMS_ITS | Encounter Summary ---
Author Organization [employer] Address [address] [place] [address] 7 [place] [address] Care Team Providers Care Dairy Lab Technician Name Role Phone Mesha Ruff MD Primary Care Provider [phone] Reason for Referral * Consultation (Routine) - Authorized Specialty Diagnoses / Procedures Referred By Contac t Referred To Contact Gastroenterology Diagnoses Iron deficiency anemia, unspecified iron deficiency anemia type Sandhya Subramanian MD [address] [place] [address] Phone: tel: fax: Janice Waldron MD [address] [place] [address] [place] [address] Phone: tel: fax: Referral ID Status Reason Start Date Expiration Date Visits Requested Visits Authorized [id number] Authorized Specialty Services Required 4 05/18/2025 1 1 Encounter Details Date Type Department Care Team (Late st Contact Info) Description 05/18/2024 Orders Only [facility] [address] [place], [place] [phone] Sandhya Subramanian MD [address] [place] [address] [phone] Iron deficiency anemia, unspecified iron deficiency anemia [...] Description 05/11/2025 11:00 AM EST Clinical Support [facility] [address] [place] [address] 05/18/2025 11:30 AM EST Office Visit [facility] [address] [place] [address] Mesha Ruff MD [address] [place] [address] 05/26/2025 11:30 AM EST Office Visit [facility] OPT[facility] [address] [place] [address] Hannah Gallo, OD [address] [place] [address] 06/09/2025 1:00 PM EST Office Visit [facility] [address] [place] [address] Feli Singleton, OD [address] [place], [place] [phone] Scheduled Referrals Name Type Priority Associated Diagnoses [...] AM EST) Follicle Stimulating Hormone 12.3 mIU/mL [facility] Comment:Reference Range Foll icular Phase 2.5-10.2 Mid-cycle Peak 3.1-17.7 Luteal Phase 1.5- 9.1 Postmenopausal 23.0-116.3THIS TEST WAS PERFORMED AT:[facility] [place] [id number] BROWNING MD 05/18/2024 11:1 0 AM EST 05/18/2024 1:45 PM EST us Generic External Data Provider LAB BLOOD ORDERAB LES Final Result [facility] [address] [place] [address] [phone] documented in this encounter Visit Diagnoses Diagnosis Iron deficiency anemia, unspecified iron deficiency anemia type- Primary documented in this encounter Additional Health Concerns Assessment Noted Time PHQ-9 Depression Total Score: 24 023 3:33 PM EST documented as of this encounter Care Teams Dairy Lab Technician Relationship Specialty Start Date End Date Mesha Ruff MD [address] [place] [address] PCP - General Family Medicine 03/05/22 documented as of this encounter
--- OUTSIDE RECORDS SUMMARY | 2025-05-02 09:28 | XMS_ITS | Encounter Summary ---
Author Organization [employer] Address [address] [facility] 7t [place] [address] Care Team Providers Care Market Risk Manager Name Role Phone Mesha Ruff MD Primary Care Provider [phone] Encounter Details Date Type Department Care Team ([facility] Contact Info) Description 11/14/2022 Orders Only [facility] [address] [place] [address] Mesha Ruff MD [address] [place] [phone] Vitamin B deficiency (Primary Dx) Social History [...] Description 05/11/2025 11:00 AM EST Clinical Support [facility] [address] [place] [address] 05/18/2025 11:30 AM EST Office Visit [facility] [address] [place] [address] Mesha Ruff MD [address] [place] [address] 05/26/2025 11:30 AM EST Office Visit [facility] OPT[facility] [address] [place] [address] Hannah Gallo, OD [address] [place] [address] 06/09/2025 1:00 PM EST Office Visit [facility] [address] [place] [address] Feli Singleton, OD [address] [place] [address] documented as of this encounter Visit Diagnoses Diagnosis Vitamin B deficiency- Primary Unspecified vitamin B deficiency documented in this encounter Additional Health Concerns Assessment Noted Time PHQ-9 Depression Total Score: 23 023 4:04 PM EDT documented as of this encounter Care Teams Market Risk Manager Relationship Specialty Start Date End Date Mesha Ruff MD [address] [place] [address] PCP - General Family Medicine 03/05/22 documented as of this encounter
--- OUTSIDE RECORDS SUMMARY | 2025-05-02 09:28 | XMS_ITS | Encounter Summary ---
Author Organization [employer] Address 75 [facility] 7t [place] [address] Care Team Providers Care Cleater Name Role Phone Mesha Ruff MD Primary Care Provider [phone] Encounter Details Date Type Department Care Team ([facility] st Contact Info) Description 05/19/2024 Orders Only [facility] [address] [place], [place] [phone] Mesha Ruff MD [address] [place], [place] [phone] Iron deficiency anemia, unspecified iron deficiency anemia type (Primary Dx); Vitamin B deficiency; Controlled type 2 diabetes mellitus without complication, without long-term current use of insulin ([facility]) Social History Tobacco Use Types Packs/Day Years [...] Description 05/11/2025 11:00 AM EST Clinical Support [facility] [address] [place] [address] 05/18/2025 11:30 AM EST Office Visit [facility] [address] [place] [address] Mesha Ruff MD [address] [place] [address] 05/26/2025 11:30 AM EST Office Visit [facility] OPTOM[facility] [address] [place] [address] Hannah Gallo, OD [address] [place] [address] 06/09/2025 1:00 PM EST Office Visit [facility] OPT[facility] [address] [place] [address] Feli Singleton, OD [address] [place] [address] Scheduled Orders Name Type Priority Associated Diagnoses [...] Blood Count 8.9 4.8 - 10.8 X10*3/uL [facility] Red Blood Count 4.48 4.20 - 5.50 X10*6/uL [facility] Hemoglobin 13.0 12.0 - 16.0 g/dl [facility] Hematocrit 40.6 37.0 - 47.0 % [facility] Mean Corpuscular Volume 90.6 80.0 - 98.0 fL [facility] Mean Corpuscular Hemoglobin 29.0 27.0 - 33.0 pg [facility] Mean Corpuscular HGB Conc 32.0 31.0 - 35.0 g/dl [facility] Red Cell Distribution Width 14.5 11.0 - 16.0 % [facility] Platelet Count 255 160 - 400 X10*3/uL [facility] Mean Platelet Volume 12.2 9.4 - 12.3 fL [facility] Neutrophils Percent Auto 43.6(L) 45 - 73 % [facility] Imm Gran Pct Auto 0.2 0.0 - 0.4 % [facility] Lymphocytes Percent Auto 45.8(H) 20 - 40 % [facility] Monocytes Percent Auto 5.3 2 - 11 % [facility] Eosinophils Percent Auto 4.2(H) 0 - 4 % [facility] Basophils Percent Auto 0.9 0 - 2 % [facility] NRBC Pct Auto 0.0 0.0 - 0.2 /100WBC [facility] Neutrophils Absolute Auto 3.9 2.0 - 8.3 x10*3/uL [facility] Imm Gran Abs Auto 0.02 0.00 - 0.03 X10*3/uL [facility] Lymphocytes Absolute Auto 4.1 1.2 - 4.9 X10*3/uL [facility] Monocytes Absolute Auto 0.5 0.1 - 1.2 X10*3/uL [facility] Eosinophils Absolute Auto 0.4 0.0 - 0.4 X10*3/uL [facility] Basophils Absolute Auto 0.1 0.0 - 0.2 X10*3/uL [facility] NRBC Abs Auto 0.000 0.0 - 0.012 X10*3/uL [facility] Blood Venous blood specimen / Unknown 01/03/2025 10:46 AM EDT 01/03/2025 1:06 PM EDT us Mesha Ruff MD LAB BLOOD ORDERABLES Final Res ult [facility] [address] [place] [address] [phone] documented in this encounter Visit Diagnoses [...] documented as of this encounter Care Teams Cleater Relationship Specialty Start Date End Date Mesha Ruff MD [address] [place] [address] PCP - General Family Medicine 03/05/22 documented as of this encounter
--- OUTSIDE RECORDS SUMMARY | 2025-05-02 09:28 | XMS_ITS | Encounter Summary ---
Author Organization [employer] Address [address] [facility] 7t [place] [address] Care Team Providers Care Senior Technical Writer Name Role Phone Mesha Ruff MD Primary Care Provider [phone] Encounter Details Date Type Department Care Team (Late Contact Info) Description 03/07/2023 Abstract [facility] MEDICINE [address] [place] [address] Mesha Ruff MD [address] [place] [address] Social History Tobacco Use Types Packs/Day Years [...] Description 05/11/2025 11:00 AM EST Clinical Support [address] [phone] 05/18/2025 11:30 AM EST Office Visit [address] [phone] Mesha Ruff MD [address] [place] [address] 05/26/2025 11:30 AM EST Office Visit [facility] OPTOMETRY [address] [place], [place] [phone] Hannah Gallo, OD [address] [place] [address] 06/09/2025 1:00 PM EST Office Visit [facility] OPTOMETRY [address] [place], [place] [phone] Feli Singleton, OD [address] [place], [place] [phone] documented as of this encounter Visit Diagnoses Not on filedocumented in this encounter Additional Health Concerns Assessment Noted Time PHQ-9 Depression Total Score: 23 023 4:04 PM EDT documented as of this encounter Care Teams Senior Technical Writer Relationship Specialty Start Date End Date Mesha Ruff MD [address] [place], [place] [phone] PCP - General Family Medicine 03/05/22 documented as of this encounter
--- OUTSIDE RECORDS SUMMARY | 2025-05-02 09:28 | XMS_ITS | Encounter Summary ---
Author Organization [employer] Address [address] [place] [address] 7t [place] [address] Care Team Providers Care Clinical Nurse Leader Name Role Phone Mesha Ruff MD Primary Care Provider [phone] Encounter Details Date Type Department Care Team (Late st Contact Info) Description 03/27/2023 Orders Only [address] [address] ProviderMelissa MD Social History Tobacco Use Types Packs/Day Years [...] 05/11/2025 11:00 AM EST Clinical Support [address] [address] 05/18/2025 11:30 AM EST Office Visit [address] [address] Mesha Ruff MD [address] [place] [address] 05/26/2025 11:30 AM EST Office Visit [facility] OPT[facility] [address] [place] [address] Hannah Gallo, OD [address] [place] [address] 06/09/2025 1:00 PM EST Office Visit [facility] OPT[facility]RY [address] [place] [address] Bari Singletonothy, OD [address] [place] [address] documented as of this encounter Procedures Procedure [...] as of this encounter Care Teams Clinical Nurse Leader Relationship Specialty Start Date End Date Mesha Ruff MD [address] [place], [place] [phone] PCP - General Family Medicine 03/05/22 documented as of this encounter
== END 2025-05-02 10:13 | disposition home or self-care (01) ==
LOC: HO.HGS 08:51
PROVIDERS: PCP General Practice; Visit Provider Surgery
DX: R51.9 Headache, unspecified (principal); R79.82 Elevated C-reactive protein (CRP)
CPT/HCPCS: 99204

== ENCOUNTER → 2025-05-02 08:51 | Outpatient (BNVA) | payer MEDICAID, SELFPAY | PROVIDERS: PCP General Practice; Visit Provider Surgery | DX: R79.82 Elevated C-reactive protein (CRP) (principal); R51.9 Headache, unspecified | CPT/HCPCS: 99202 ==

== ENCOUNTER 2025-05-02 09:34 | Outpatient (REF) | payer MEDICAID, SELFPAY | END 2025-05-02 09:35 | disposition home or self-care (01) | LOC: HO.HAP 09:34 | PROVIDERS: Visit Provider General Practice | DX: Z46.1 Encounter for fitting and adjustment of hearing aid (principal); H90.3 Sensorineural hearing loss, bilateral | CPT/HCPCS: V5266 ==

== ENCOUNTER 2025-05-04 10:46 | Outpatient (AMB) | payer MEDICAID, SELFPAY ==
--- NOTE | 2025-05-04 10:49 | MHC.OFFVIS ---
Vital Signs 05/04/25 10:52 Height 5 ft 7 in Weight 218 lb 4.122 oz BMI 34.2 BP 130/84 Blood Pressure Location Lt brachial Position Sitting Pulse 94 Pulse Source Monitor Intake Visit Reasons: Preop/ Catherine temporal artery bypass Intake Note: Pre-op temporal artery bypass with ekg Extrusion Press Operator Required: Yes Extrusion Press Operator Services: Extrusion Press Operator Present Extrusion Press Operator Name: brenda Rocha Allergies No Known Allergies (No Known Allergies*) Allergy (Verified 05/02/25 09:12) Medication List - Last Reconciled 05/04/25 by Nicholas Cantu MD albuterol sulfate 90 mcg/actuation (Ventolin HFA) 2 puffs inhalation QID fleslmr-jjjgwnbetdyyf-ztpxshoi 250-250-65 mg (Pain Reliever Plus) 2 tabs PO DAILY PRN chlorthalidone (Thalitone) 15 mg PO DAILY ciprofloxacin-dexamethasone 0.3-0.1 % drps otic (ear) right cyanocobalamin (vitamin B-12) 1,000 mcg IM diphenhydramine HCl (Mira-Dryl) 25 - 50 mg PO BEDTIME PRN escitalopram oxalate 10 mg PO DAILY hydroxyzine pamoate 25 mg PO Q12H PRN ketotifen fumarate 0.025%(0.035%) (Eye Itch Relief) 1 drp ophthalmic (eye) BID levothyroxine 100 mcg PO QAM losartan 25 mg PO DAILY prednisone 20 mg PO DAILY HPI Comments Details: Patient was referred her because she is to undergo temporal artery biopsy which was done under general anesthesia in his low risk procedure. Patient had an abnormal EKG in his past but could not undergo any form of testing. She is here with no active cardiac complaints. A stress test in the past was nondiagnostic. She has no new symptoms [facility] Medical History Urinary incontinence in female Chronic back pain Tinnitus Anemia Depression Migraine Stroke Heavy menstrual bleeding Hearing trouble Hypothyroidism Hypertension Asthma Surgical History Hx of section Social History Household Members: Spouse Housing: Apartment Alcohol intake: never Patient Tobacco Use Status: Former Tobacco user Review of Systems Const Denies chills, Denies fatigue, Denies fever(s), Denies frequent falls, Denies weakness, Denies weight gain and Denies weight loss ENT Denies dizziness Card Denies chest pain, Denies leg edema, Denies lightheadedness, Denies palpitations, Denies dyspnea, Denies dyspnea on exertion, Denies orthopnea and Denies other (loss of consciousness) Resp Denies cough, Denies dyspnea and Denies dyspnea on exertion GI Denies hematochezia and Denies change in stool character Musc Denies abnormal gait, Denies muscle weakness, Denies numbness, Denies radiating pain into limb and Denies tingling Neuro Denies abnormal gait, Denies dizziness, Denies frequent falls, Denies numbness, Denies tingling and Denies weakness Endo Denies fatigue and Denies palpitations Physical Exam Vital Signs: Last Vital Signs Pulse 94 05/04/25 10:52 BP 130/84 05/04/25 10:52 BMI result Body Mass Index 34.2 Const General: cooperative, healthy appearing, comfortable and no acute distress Orientation/consciousness: patient oriented x3 Neck Neck: Yes normal visual inspection and Yes no JVD Resp Effort & Inspection: normal respiratory effort Auscultation: clear to auscultation bilaterally, no crackles, no rales, no rhonchi and no wheezes Cardio Jugular venous distension: no JVD Rate: regular rate Rhythm: regular rhythm Heart sounds: S1 normal heart sound present, S2 normal heart sound present, no murmurs and no rubs Neuro General: patient oriented x3 Extrem General: Yes normal to inspection and No no pedal edema Psych Appearance: grossly normal Mental Status: mental status grossly normal Speech and movement: Normal speech and movement present Assessment & Plan Assessment & Plan (1) Preoperative cardiovascular examination: Code(s): Z01.810 - Encounter for preprocedural cardiovascular examination Plan: Preoperative cardiovascular exam for low risk procedure. Patient does not require any testing prior to the procedure. This is a low risk procedure and risk for cardiovascular events in his low. Can proceed with the procedure (2) Abnormal EKG: Code(s): R94.31 - Abnormal electrocardiogram [ECG] [EKG] Category: Medical Plan: Abnormal EKGs with risk factors. She needs evaluation for myocardial ischemia. Her echocardiogram was within normal limits. Given her low exercise capacity myocardial ischemia can not be appropriately evaluated. Discussed with help of senior officer that she requires vasodilating myocardial perfusion imaging and should pursue that to rule out myocardial ischemia which may impact prognosis. She is agreeable. Will see her in the clinic if need be if the stress test is abnormal. Otherwise follow up with primary care physician. Orders: Orders CA lexiscan stress w tracie Today R94.31 - Abnormal electrocardiogram [ECG] [EKG] Coding Level of Care Code Est Pt Level 4 (87664) Complex EM visit Add On G2211 Diagnoses Preoperative cardiovascular examination Z01.810 Abnormal EKG R94.31
[2025-05-04 10:52] VITALS: BP 130/84; PULSE 94; BMI 34.2
--- OUTSIDE RECORDS SUMMARY | 2025-05-04 13:30 | XMS_ITS | Encounter Summary ---
Author Organization [employer] Address [address] [place] [address] 7t [place] [address] Care Team Providers Care Equine Dentist Name Role Phone Mesha Ruff MD Primary Care Provider [phone] Reason for Referral * Consultation (STAT) - Authorized Specialty Diagnoses / Procedures Referred By Contac t Referred To Contact General Surgery Diagnoses Elevated C-reactive protein (CRP) Nonintractable headache, unspecified chronicity pattern, unspecified headache type Lorraine Phillip ANP [address] [place], [place] Phone: tel: fax: Brandon Alexander MD [address] [place] [address] [address] [place], [place] Phone: tel: fax: Referral ID Status Reason Start Date Expiration Date Visits Requested Visits Authorized [id number] Authorized Specialty Services Required 03/23/2025 03/23/2026 12 12 * Imaging (STAT) - Closed Specialty Diagnoses / Procedures Referred By Contac t Referred To Contact Radiology Diagnoses Elevated C-reactive protein (CRP) Nonintractable headache, unspecified chronicity pattern, unspecified headache type Procedures MR Brain w/o Contrast Lorraine Phillip ANP [address] [place], [place] Phone: tel: fax: [facility] [address] [place] [address] Phone: tel: fax: Referral ID Status Reason Start Date Expiration Date Visits Re quested Visits Authorized [id number] Closed 03/23/2025 03/23/2026 1 1 Reason for Visit * Reason Onset Date Comments Results 03/22/2025 Encounter Details Date Type Department Care Team (Late st Contact Info) Description 03/22/2025 Results Follow-Up [facility] MEDICINE [address] [place] [address] Lorraine Phillip ANP [address] [place] [address] XR Chest 2 Views, Sed Rate by [...] encounter Miscellaneous Notes * Telephone Encounter - Sammie Jimenez RN - 05/02/2025 10:57 AM EDT TC placed to patient [phone] via [employer] interpreters (Arash #[id number]) in regards to below message. RN spoke to (on HIPAA) in regards to below message. verbalized understanding and didnot have any further questions. to f/u PRN. ----- Message from Mesha Ruff MD sent at 05/02/2025 10:34 AM EDT ----- Please let patient know that her MRI was normal, as was her visual exam with Dr Gallo, meaning no giant cell arteritis. She likely is suffering from her migraines, which we can continue to work on in clinic. Thank you! ----- Message ----- From: Interface, Ris Results In Sent: 04/12/2025 3:53 PM EDT To: Mesha Ruff MD * Result Encounter Note - Mesha Ruff MD - 05/02/2025 10:34 AM EDT Please let patient know that her MRI was normal, as was her visual exam with Dr Gallo, meaning no giant cell arteritis. She likely is suffering from her migraines, which [facility] Thank you! * Telephone Encounter - Yola Cabrera RN - 04/13/2025 9:09 AM EDT Telephone call x1 to pt to advise of below result. No answer, left voicemail to call back. * Result Encounter Note - CHARITY Andrew - 04/12/2025 6:28 PM EDT Please let pt know, MRI head was normal - this is good news. Keep follow-up appointment w/ rheum. * Telephone Encounter - Shivani Pedraza RN [...] 2 tabs daily immediately, script sent to [facility] pharmacy. Informed STAT MRI ordered so please keep an eye out for phone call to schedule. If she doesn't hear from anyone to schedule within the next 2 business days, let us know. Advised shecontact her eye doctor for evaluation. She reports that she sees [facility]. Informed that Iwould reach out to them. Booked follow up with PCP for: Future Appointments Date Time Provider Department Center 03/30/2025 11:30 AM Mesha Ruff MD MEDICINE [facility] 04/11/2025 11:00 AM [facility] RED TEAM NURSE MEDICINE [facility] 06/09/2025 1:00 PM Feli Singleton, OD [facility] Lastly, gave ED precautions. Advised if feeling [...] T/C placed to pt again via [employer] #[id number] to advise of message from [facility] provider. No answer, v/m left to return call to [facility] nurses. * Telephone Encounter - Agnes [...] pt, no answer, LVM to call clinic. [employer] utilized for Malagasy interpretation via phone, # [phone] ----- Message ----- From: Interface, Lab Results [...] pt, no answer, LVM to call clinic. [employer] interpreters utilized for Malagasy interpretation via phone, # [phone] * Telephone Encounter - Michelle Dia RN [...] 4:07 PM EDT Tc to pt via S ID: [id number] to let them know per covering provider Hi - XR was negative/normal. Please remind her to get labs if she has not already. Direct to ED iuf she feels any worse. Thanks . No answer, lvm to return call and ask to speak to walk in center nurses. [facility] nurse will re-attempt outreach in the [...] to speak to walk in center nurses. [employer] will re-attempt outreach in the PM. * Telephone Encounter - Fransisca Marcus RN - 03/22/2025 9:21 AM EDT ----- Message from Lorraine Phillip sent at 03/22/2025 8:48 AM EDT ----- Hi - XR was negative/normal. Please remind her to get labs if she has not already. Direct to ED iufshe feels any worse. thanks ----- Message ----- From: Jazmine, Ris Results In Sent: 03/21/2025 4:17 PM [...] Description 05/11/2025 11:00 AM EST Clinical Support [address] [address] 05/18/2025 11:30 AM EST Office Visit [address] [address] Mesha Ruff MD [address] [place] [address] 05/26/2025 11:30 AM EST Office Visit [facility] OPTOMETRY [address] [place] [address] Hannah Gallo, OD [address] [place] [address] 06/09/2025 1:00 PM EST Office Visit [facility] OPTOMETRY [address] [place], [place] [phone] Feli Singleton, OD [address] [place], [place] [phone] Scheduled Referrals Name Type Priority Associated Diagnoses [...] PM EDT Narrative 04/12/2025 3:53 PM EDT [address] [address] Magnetic Resonance Report Signed Patient: Caremn Johnson MR#: [id number] : 1965 Acct:[id number] Age/Sex: 59 / F ADM Date: 04/12/25 Loc: HO.MRI Attending Dr: Lorraine Phillip NP Ordering Physician: LORRAINE PHILLIP NP Date of Service: 04/12/25 Procedure(s): MR head/brain wo con Accession Number(s): [id number] cc: Mesha Ruff; LORRAINE PHILLIP NP Reason [...] 04/12/25 1550 DD/ 1516 TD/TT: 04/12/25 1528 Optics Technical Officer: Procedure Note Donotuseinterpreter, Image - 04/12/2025 [place] [address] Magnetic Resonance Report Signed Patient: Carmen Johnson#: [id number] : 1965Acct:[id number] Age/Sex: 59 / FADM Date: 04/12/25 Loc: HO.MRI Attending Dr: Lorraine Phillip NP Ordering Physician: LORRAINE PHILLIP NP Date of Service: 04/12/25 Procedure(s): MR head/brain wo con Accession Number(s): [id number] cc: Mesha Ruff; LORRAINE PHILLIP NP Reason [...] 04/12/25 1550 DD/ 1516 TD/TT: 04/12/25 1528 Optics Technical Officer: Lorraine NASH IMTanvir MRI PROCEDURES Final Result documented in this encounter Visit Diagnoses Diagnosis Elevated C-reactive protein (CRP)- Primary Nonintractable headache, unspecified chronicity pattern, unspecified headache type documented in this encounter Additional Health Concerns Assessment Noted Time PHQ-9 Depression Total Score: 0 06/08/20 24 11:56 AM EST documented as of this encounter Care Teams Equine Dentist Relationship Specialty Start Date End Date Mesha Ruff MD [address] [place] [address] PCP - General Family Medicine 03/05/22 documented as of this encounter
--- OUTSIDE RECORDS SUMMARY | 2025-05-04 13:31 | XMS_ITS | Clinical Summary ---
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 ([facility]) 02/05/2019 Assessment & Plan (10/21/2023 8:35 AM [...] Description 04/11/2025 3:30 PM EDT Office Visit [facility] [address] [place] [address] Hannah Gallo OD Migraine syndrome (Primary Dx) 04/11/2025 11:00 AM EDT Clinical Support [facility] [place] [address] Sammie Jimenez, SHERLY Vitamin B12 deficiency (dietary) anemia [D51.8] 04/11/2025 Travel 04/11/2025 Refill [facility] [address] [facility] [place] [address] Mesha Ruff MD 03/30/2025 11:30 AM EDT Office Visit [facility] [address] Mesha Ruff MD Migraine without aura and with status migrainosus, not intractable 03/30/2025 Travel 03/29/2025 Telephone [facility] [place] [address] Mesha Ruff MD chart prep 03/23/2025 Orders Only [facility] [place] [address] Mesha Ruff MD 03/22/2025 Orders Only [facility] [place] [address] Lorraine Phillip ANP 03/22/2025 Results Follow-Up [facility] [place] [address] Lorraine Phillip ANP XR Chest 2 Views, Sed Rate by Modified Westergren, C-reactive Protein, Additional followed-up results: 5 03/21/2025 2:00 PM EDT Office Visit [facility] [address] [place] [address] Lorraine Phillip ANP Nonintractable headache, unspecified chronicity pattern, unspecified headache type (Primary Dx); Acute low back pain, unspecified back pain laterality, unspecified whether sciatica present; Primary hypertension; Anxiety; Hypothyroidism, unspecified type; Migraine without aura and with status migrainosus, not intractable; Swelling; Pain of right upper extremity; Orthopnea; Elevated C-reactive protein (CRP) 03/21/2025 Travel 03/15/2025 Refill [facility] [address] [place] [address] Mesha Ruff MD 03/10/2025 11:00 AM EDT Clinical Support [address] [address] Sharlene Jasmine RN Vitamin B12 deficiency (dietary) anemia 03/10/2025 Travel 03/07/2025 Results Follow-Up [address] [address] Mesha Ruff MD Albumin, Random Urine W/Creatinine, POCT Glucose, POCT HGB A1C, TSH W/Reflex to FT4 02/25/2025 Orders Only [facility] [address] [place] [address] Mesha Ruff MD 02/07/2025 11:00 AM EDT Clinical Support [address] [address] Sammie Jimenez, SHERLY Encounter for immunization 02/07/2025 [...] Description 05/11/2025 11:00 AM EST Clinical Support [facility] [address] [place] [address] 05/18/2025 11:30 AM EST Office Visit [facility] [address] [place] [address] Mesha Ruff MD [address] [place] [address] 05/26/2025 11:30 AM EST Office Visit [facility] [address] [place] [address] Hannah Gallo, OD [address] [place] [address] 06/09/2025 1:00 PM EST Office Visit [facility] [address] [place] [address] Feli Singleton, OD [address] [place] [address] Health Maintenance Due Date Last Done Comments [...] PM EDT Narrative 04/12/2025 3:53 PM EDT [place] [address] Magnetic Resonance Report Signed Patient: Carmen Johnson MR#: [id number] : 1965 Acct:[id number] Age/Sex: 59 / F ADM Date: 04/12/25 Loc: HO.MRI Attending Dr: Lorraine Phillip NP Ordering Physician: LORRAINE PHILLIP NP Date of Service: 04/12/25 Procedure(s): MR head/brain wo con Accession Number(s): [id number] cc: Mesha Ruff; LORRAINE PHILLIP NP Reason [...] 04/12/25 1550 DD/ 1516 TD/TT: 04/12/25 1528 Recreation Professor: Procedure Note Donotuseinterpreter, Image - 04/12/[address] [address] Magnetic Resonance Report Signed Patient: Carmen Johnson#: [id number] : 1965Acct:[id number] Age/Sex: 59 / FADM Date: 04/12/25 Loc: HO.MRI Attending Dr: Lorraine Phillip NP Ordering Physician: LORRAINE PHILLIP NP Date of Service: 04/12/25 Procedure(s): MR head/brain wo con Accession Number(s): [id number] cc: Mesha Ruff; LORRAINE PHILLIP NP Reason [...] 04/12/25 1550 DD/ 1516 TD/TT: 04/12/25 1528 Recreation Professor: Lorraine NASH IMG MRI PROCEDURES Final Result * BI Mammogram Screening Tomosynthesis Bilateral (03/23/2025 3:00 PM EDT) Anatomical Region Laterality Modality Breast Bilateral Mammography 03/23/2025 3:00 PM EDT Narrative 03/28/2025 2:14 PM EDT [address] [place] [address] Mammography Report Signed Patient: Carmen Johnson MR#: [id number] : 1965 Acct:[id number] Age/Sex: 59 / F ADM Date: 03/23/25 Loc: HO.MAMMO Attending Dr: Mesha Ruff MD Ordering Physician: Mesha Ruff Results: 1Negative Date of Service: 03/23/25 Follow Up: 1 Year From Orig inal Mammogram Procedure(s): MM tomosynthesis screening BI Accession Number(s): [id number] cc: Mesha Ruff Reason For Exam: SCREENING [...] 03/28/25 1411 DD/ 1500 TD/TT: 03/23/25 1522 Recreation Professor: Procedure Note Donotuseinterpreter, Image - 03/28/[address] [place] [address] Mammography Report Signed Patient: Carmen JohnsonMR#: [id number] : 1965Acct:[id number] Age/Sex: 59 / FADM Date: 03/23/25 Loc: HO.MAMMO Attending Dr: Mesha Ruff MD Ordering Physician: eBn Ruffults: 1Negative Date of Service: 03/23/25Follow Up: 1 Year From Orig inal Mammogram Procedure(s): MM tomosynthesis screening BI Accession Number(s): [id number] cc: Mesha Ruff Reason For Exam: SCREENING [...] 03/28/25 1411 DD/ 1500 TD/TT: 03/23/25 1522 Recreation Professor: Mesha Ruff MD IMG BI PROCEDURES Final Result * (ABNORMAL) TSH W/Reflex to FT4 (03/22/2025 11:35 AM EDT) Only the most recent of2 resultswithin the time period is included. TSH reflex Free T4 10.30(H) 0.32 - 4.0 uIU/mL [facility] Blood Venous blood specimen / Unknown 03/22/2025 11:35 AM EDT 03/22/2025 1:20 PM EDT Lorraine Phillip [facility] LAB BLOOD ORDERABLES Final Resul t [facility] [address] [place] [address] [phone] * (ABNORMAL) CBC auto differential (03/22/2025 11:35 AM EDT) White Blood Count 7.4 4.8 - 10.8 X10*3/uL [facility] Red Blood Count 4.17(L) 4.20 - 5.50 X10*6/uL [facility] Hemoglobin 12.2 12.0 - 16.0 g/dl [facility] Hematocrit 37.6 37.0 - 47.0 % [facility] Mean Corpuscular Volume 90.2 80.0 - 98.0 fL [facility] Mean Corpuscular Hemoglobin 29.3 27.0 - 33.0 pg [facility] Mean Corpuscular HGB Conc 32.4 31.0 - 35.0 g/dl [facility] Red Cell Distribution Width 13.5 11.0 - 16.0 % [facility] Platelet Count 202 160 - 400 X10*3/uL [facility] Mean Platelet Volume 11.8 9.4 - 12.3 fL [facility] Neutrophils Percent Auto 49.7 45 - 73 % [facility] Imm Gran Pct Auto 0.5(H) 0.0 - 0.4 % [facility] Lymphocytes Percent Auto 38.3 20 - 40 % [facility] Monocytes Percent Auto 6.6 2 - 11 % [facility] Eosinophils Percent Auto 4.0 0 - 4 % [facility] Basophils Percent Auto 0.9 0 - 2 % [facility] NRBC Pct Auto 0.0 0.0 - 0.2 /100WBC [facility] Neutrophils Absolute Auto 3.7 2.0 - 8.3 x10*3/uL [facility] Imm Gran Abs Auto 0.04(H) 0.00 - 0.03 X10*3/uL [facility] Lymphocytes Absolute Auto 2.9 1.2 - 4.9 X10*3/uL [facility] Monocytes Absolute Auto 0.5 0.1 - 1.2 X10*3/uL [facility] Eosinophils Absolute Auto 0.3 0.0 - 0.4 X10*3/uL [facility] Basophils Absolute Auto 0.1 0.0 - 0.2 X10*3/uL [facility] NRBC Abs Auto 0.000 0.0 - 0.012 X10*3/uL [facility] Blood Venous blood specimen / Unknown 03/22/2025 11:35 AM EDT 03/22/2025 1:13 PM EDT Lorraine Phillip [facility] LAB BLOOD ORDERABLES Final Resul t Performing Organization Address [facility] de Phone Number [facility] [address] [place] [phone] * Sed Rate by Modified Zulma (03/22/2025 11:35 AM EDT) [facility] Erythrocyte Sedimentation Rate 18 0 - 20 MM/HR [facility] Comment:Patients with polycy themia and many hemoglobin abnormalitiesmay have depressed sed rates whereas patients with anemiamay have elevated sed rates. Blood Venous blood specimen / Unknown 03/22/2025 11:35 AM EDT 03/22/2025 1:13 PM EDT Lorraine Phillip ANP LAB BLOOD ORDERABLES Final Resul t Performing Organization Address [facility] de Phone Number [facility] [address] [place] [phone] * (ABNORMAL) C-reactive Protein (03/22/2025 11:35 AM EDT) C Reactive Protein 1.01(H) < or = 0.50 mg/dL [facility] Blood Venous blood specimen / Unknown 03/22/2025 11:35 AM EDT 03/22/2025 1:20 PM EDT Lorraine Phillip ANP LAB BLOOD ORDERABLES Final Resul t Performing Organization Address [facility] de Phone Number [facility] [address] [place] [phone] * T4, Free (03/22/2025 11:35 AM EDT) Only the most recent of2 resultswithin the time period is included. Free T4 (Free Thyroxine) 0.72 0.71 - 1.85 ng/dL [facility] 03/22/2025 11:3 5 AM EDT 03/22/2025 1:20 PM EDT Lorraine Phillip ANP LAB BLOOD ORDERABLES Final Resul t Performing Organization Address [facility] de Phone Number [facility] [address] [place] [phone] * B Type Natriuretic Peptide (BNP) (03/22/2025 11:35 AM EDT) B Type Natriuretic Peptide 34 <100 pg/mL [facility] Blood Venous blood specimen / Unknown 03/22/2025 11:35 AM EDT 03/22/2025 1:07 PM EDT Lorraine Phillip ANP LAB BLOOD ORDERABLES Final Resul t Performing Organization Address [facility] de Phone Number [facility] [address] [place] [phone] * (ABNORMAL) Comprehensive Metabolic Panel (03/22/2025 11:35 AM EDT) Pathologist [facility] Sodium 140 135 - 145 mmol/L [facility] Potassium 3.8 3.3 - 5.1 mmol/L [facility] Chloride 107 96 - 108 mmol/L [facility] Carbon Dioxide 27 22 - 29 mmol/L [facility] Anion Gap 10(L) 12 - 20 [facility] Urea Nitrogen (BUN) 13 9 - 16 mg/dL [facility] Creatinine, Serum 0.72 0.5 - 1.4 mg/dL [facility] Estimated Glomerular Filt Rate >60 [facility] Comment:Chronic Kidney Disea se: Estimated GFR < 60 mL/min/1.18j0Wyknrn Kidney Disease: Estimated GFR < 15 mL/min/1.73m2 Glucose 107 60 - 115 mg/dL [facility] Calcium 9.9 8.4 - 10.2 mg/dL [facility] Bilirubin, Total 0.3 0.0 - 1.0 mg/dL [facility] Aspartate Amino Transferase 62(H) 5 - 31 U/L [facility] Alanine Aminotransferase 99(H) 0 - 31 U/L [facility] Total Protein 7.7 6.5 - 8.0 g/dL [facility] Albumin Level 4.3 3.5 - 5.0 g/dL [facility] Alkaline Phosphatase 60 39 - 117 U/L [facility] Blood Venous blood specimen / Unknown 03/22/2025 11:35 AM EDT 03/22/2025 1:20 PM EDT [facility] LAB BLOOD ORDERABLES Final Resul t [facility] [address] [place] [phone] * XR Chest 2 Views (03/21/2025 4:03 PM EDT) Anatomical Region Laterality Modality Chest Radiographic Mercedes ging 03/21/2025 4:03 PM EDT Narrative 03/21/2025 4:16 PM EDT [facility] [address] [place] [address] XRay Report Signed Patient: Carmen Johnson MR#: [id number] : 1965 Acct:[id number] Age/Sex: 59 / F ADM Date: 03/21/25 Loc: HAILEYCX Attending Dr: Lorraine Phillip NP Ordering Physician: LORRAINE PHILLIP NP Date of Service: 03/21/25 Procedure(s): XR chest 2V Accession Number(s): [id number] cc: LORRAINE PHILLIP NP Reason for Exam: [...] 03/21/25 1613 DD/ 1603 TD/TT: 03/21/25 1605 Recreation Professor: Procedure Note Donotuseinterpreter, Image - 03/21/2025 [place] [address] XRay Report Signed Patient: Carmen JohnsonMR#: [id number] : 1965Acct:[id number] Age/Sex: 59 / FADM Date: 03/21/25 Loc: HAILEYCX Attending Dr: Lorraine Phillip NP Ordering Physician: LORRAINE PHILLIP NP Date of Service: 03/21/25 Procedure(s): XR chest 2V Accession Number(s): [id number] cc: LORRAINE PHILLIP NP Reason for Exam: [...] 03/21/25 1613 DD/ 1603 TD/TT: 03/21/25 1605 Recreation Professor: Lorraine Phillip ANP IMG XR PROCEDURES Final Result * Albumin, Random Urine W/Creatinine (01/13/2025 12:05 PM EDT) Creatinine, Urine 229.46 mg/dL [facility] Microalbumin Urine 29.0 mg/L [facility] Microalbum Creatinine Ratio Ur 12.6 <30 ug/mg cr [facility] Comment:Albumin/Creatinine R atio Reference Ranges: Normal: < 30 ug/mg creatinine Microalbuminuria: 30 - 300 ug/mg creatinineClinical Albuminuria: > 300 ug/mg creatinine Urine (Urine, Random) 01/13/2025 12:05 PM EDT 01/13/2025 2:02 PM EDT Result [facility] Mesha Ruff MD LAB URINE ORDERABLES Final Res ult [facility] [address] [place] [phone] * (ABNORMAL) POCT HGB A1C (01/13/2025 11:34 AM EDT) Hemoglobin A1C 6.7(A) 4.0 - 5.7 % QC Media Lot # [id number] Lot# Expiration Date Blood 01/13/2025 11:3 4 AM EDT Mesha Ruff MD POINT OF CARE TEST ENTER/EDIT ORDERABLES Final Result * (ABNORMAL) Lipid Panel, Standard (05/18/2024 11:10 AM EST) Triglycerides 174(H) <150 mg/dL [facility] Comment:Desirable Triglyceri de: less than 150 mg/dLBorderline High Triglyceride 150-199 mg/dLHigh Triglyceride: 200-499 mg/dLVery High Triglyceride: greater than or equal to 5OO mg/dL Cholesterol 196 <200 mg/dL [facility] Comment:Desirable Cholestero l: less than 200 mg/dLBorderline High Cholesterol: 200-239 mg/dLHigh Cholesterol: greater than 239 mg/dL LDL Cholesterol Calculated 127(H) <100 mg/dL [facility] Comment:Desirable LDL: less than 100 mg/dLNear Optimal/Above Optimal LDL: 110- 129 mg/dLBorderline High LDL: 130-159 mg/dLHigh LDL: 160-189 mg/dLVery High LDL: greater than or equal to 190 mg/dL HDL Cholesterol 35(L) >40 mg/dL [facility] Comment:Desirable HDL: great er than 40 mg/dL Note: This HDL assay may give artificially low results in patients with liver disease. Blood Venous blood specimen / Unknown 05/18/2024 11:10 AM EST 05/18/2024 1:45 PM EST us Mesha Ruff MD LAB BLOOD ORDERABLES Final Res ult [facility] [address] [place] [phone] * Pap Smear (02/25/2023 2:04 PM EDT) 02/25/2023 2:04 PM EDT 02/26/2023 8:55 AM EDT Narrative [facility] - 03/14/2023 9:59 AM EDT ----- ------- Name: Carmen Johnson Age/Sex: 57/F : 1965 Unit#: [id number] Attend Dr: Terese Hartmann [facility] Re02/25/23 Status: DEP REF Location: [facility] Disch: ----- ------- SPEC : [id number] RECD: 02/26/23 STATUS: CAROLINIhsan KIRTI NUM: [id number] DEANNA: 02/25/23-1404 [facility] DR: Terese Hartmann CNM ENTERED: 02/26/23 SP TYPE: Pap Smr OTHR DR: Mesha Ruff ORDERED: Pap Smear Interpretation Satisfactory for evaluation. Negative for intraepithelial lesion or malignancy. HPV mRNA E6/E7: NOT DETECTED This assay detects E6/E7 viral messenger RNA (mRNA) from 14 high-risk HPV types (16, 18, 31, 33, 35, 39, 45, 51, 52, 56, 58, 59, 66, 68) HPV testing performed by [facility], [place], [place]. See reference laboratory pion of the EMR for entire report. Clinical Information LMP: Menopausal Previous PAP test: 2021, ASCUS Material Received ThinPrep-Cervical Copies To: Mesha Rfuf [address] [place] [address] [address] Estrada [address] [place] [id number] ----- ------- Signed (signature on file) KimberleeMILLY Apple ([facility]) 03/14/23 0959 ----- ------- END OF REPORT [facility] External Provider LAB CYT OLOGY ORDERABLES Final Result [facility] [address] [place] [phone] * HPV E6/E7 RFLX KATHYA 16 18/45 (02/15/2022 2:57 PM EDT) [facility] HPV mRNA E6/E7 rflx Not Detected Not Detected [facility] Comment: Methodology: Inventory Control Assistant-Mediated Amplification This assay detects E6/E7 viral messenger RNA (mRNA) from 14 high-risk HPV types (16,18,31,33,35,39,45,51,52,56,58,59,66,68). Cervical sources are required for HPV testing. If a vaginal source from a patient who has had a total hysterectomy with removal of cervix was submitted, please contact the testing laboratory for alternative testing options. For additional information, please refer to http://education.Plink/faq/YBH754q3 (This link if provided for information/ educational purposes only.) THIS TEST WAS PERFORMED AT: [employer] [address] [place] [address],[place] [address] DAVID BROWNING MD 02/15/2022 2:57 PM EDT Terese Hartmann HISTORICAL/NON ORDERABLE LABS Fi nal Result Performing Organization Address [facility] de Phone Number [facility] [address] * HEPATITIS C AB W/REFL TO HCV RNA, QN, PCR (12/04/2021 3:34 PM EDT) HEPATITIS C ANTIBODY NON-REACT EVELYN NON-REACT EVELYN [facility] INDEX 0.02 <1.00 [facility] Comment: HCV antibody was non-reactive. There is no laboratory evidence of HCV infection. In most cases, no further action is required. However, if recent HCV exposure is suspected, a test for HCV RNA (test code 86424) is suggested. For additional information please refer to http://Plastio.Plink/faq/LKS01r7 (This link is being provided for informational/ educational purposes only.) 12/04/2021 3:34 PM EDT Sheri Kidd NP HISTORICAL/NON ORDERABLE LABS Final Result Performing Organization Address [facility] Phone Number [facility] [address] * HIV 1/2 ANTIGEN/ANTIBODY,FOURTH GENERATION W/RFL (12/04/2021 3:34 PM EDT) HIV-1/2 ANTIGEN AND ANTIBODIES, 4TH GENERATION W/ REFLEX NON-REACT EVELYN NON-REACT EVELYN [facility] Comment: HIV-1 antigen and HIV-1/HIV-2 [...] purpose. For additional information please refer to http://education.Plink/faq/YUL895 (This link is being provided for informational/ educational purposes only.) The performance of this assay has not been clinically validated in patients less than 2 years old. 12/04/2021 3:34 PM EDT us Sheri Kidd [employer] LAB BLOOD ORDERABLES Final Res ult [facility] [address] from Last 3 Months or Most Recently Relevant to Health Maintenance Insurance [facility] C3 [facility] MEDICAID STAND ADULT * Guarantor: Carmen Johnson Account Type Relation to Patient Date of Phone Billing Address Personal/Family Self [address] [place] [address] Care Teams Core Machine Tender Relationship Specialty Start Date End Date Mesha Ruff MD [address] [place] [address] PCP - General Family Medicine 03/05/22
--- OUTSIDE RECORDS SUMMARY | 2025-05-04 13:31 | XMS_ITS | Encounter Summary ---
Author Organization [employer] Address [address] [facility] [address] [place] [address] Care Team Providers Care Custom Van Converter Name Role Phone Mesha Ruff MD Primary Care Provider [phone] Encounter Details Date Type Department Care Team (Late Contact Info) Description 03/07/2023 Abstract [facility] MED[facility] [address] [place] [phone] Mesha Ruff MD [address] [place] [phone] Social History Tobacco Use Types Packs/Day Years [...] Description 05/11/2025 11:00 AM EST Clinical Support [address] [phone] 05/18/2025 11:30 AM EST Office Visit [address] [phone] Mesha Ruff MD [address] [place] [address] 05/26/2025 11:30 AM EST Office Visit [facility] [address] [place], [place] [phone] Hannah Gallo, OD [address] [place] [address] 06/09/2025 1:00 PM EST Office Visit [facility] [address] [place], [place] [phone] Feli Singleton, OD [address] [place], [place] [phone] documented as of this encounter Visit Diagnoses Not on filedocumented in this encounter Additional Health Concerns Assessment Noted Time PHQ-9 Depression Total Score: 23 023 4:04 PM EDT documented as of this encounter Care Teams Custom Van Converter Relationship Specialty Start Date End Date Mesha Ruff MD [address] [place], [place] [phone] PCP - General Family Medicine 03/05/22 documented as of this encounter
--- OUTSIDE RECORDS SUMMARY | 2025-05-04 13:31 | XMS_ITS | Encounter Summary ---
Author Organization [employer] Address [address] [facility] 7t [place] [address] Care Team Providers Care Accountant Tax Name Role Phone Mesha Ruff MD Primary Care Provider [phone] Encounter Details Date Type Department Care Team ([facility] st Contact Info) Description 05/19/2024 Orders Only [facility] MEDICINE [address] [place], [place] [phone] Mesha Ruff MD [address] [place], [place] [phone] Iron deficiency anemia, unspecified iron deficiency anemia type (Primary Dx); Vitamin B deficiency; Controlled type 2 diabetes mellitus without complication, without long-term current use of insulin ([facility]) Social History Tobacco Use Types Packs/Day Years [...] Description 05/11/2025 11:00 AM EST Clinical Support [facility] MEDICINE [address] [place] [address] 05/18/2025 11:30 AM EST Office Visit [facility] MEDICINE [address] [place] [address] Mesha Ruff MD [address] [place] [address] 05/26/2025 11:30 AM EST Office Visit [facility] OPTOMETRY [address] [place] [address] Hannah Gallo, OD [address] [place] [address] 06/09/2025 1:00 PM EST Office Visit [facility] OPTOMETRY [address] [place] [address] Feli Singleton, OD [address] [place] [address] Scheduled Orders Name Type Priority Associated Diagnoses [...] Blood Count 8.9 4.8 - 10.8 X10*3/uL [facility] Red Blood Count 4.48 4.20 - 5.50 X10*6/uL [facility] Hemoglobin 13.0 12.0 - 16.0 g/dl [facility] Hematocrit 40.6 37.0 - 47.0 % [facility] Mean Corpuscular Volume 90.6 80.0 - 98.0 fL [facility] Mean Corpuscular Hemoglobin 29.0 27.0 - 33.0 pg [facility] Mean Corpuscular HGB Conc 32.0 31.0 - 35.0 g/dl [facility] Red Cell Distribution Width 14.5 11.0 - 16.0 % [facility] Platelet Count 255 160 - 400 X10*3/uL [facility] Mean Platelet Volume 12.2 9.4 - 12.3 fL [facility] Neutrophils Percent Auto 43.6(L) 45 - 73 % [facility] Imm Gran Pct Auto 0.2 0.0 - 0.4 % [facility] Lymphocytes Percent Auto 45.8(H) 20 - 40 % [facility] Monocytes Percent Auto 5.3 2 - 11 % [facility] Eosinophils Percent Auto 4.2(H) 0 - 4 % [facility] Basophils Percent Auto 0.9 0 - 2 % [facility] NRBC Pct Auto 0.0 0.0 - 0.2 /100WBC [facility] Neutrophils Absolute Auto 3.9 2.0 - 8.3 x10*3/uL [facility] Imm Gran Abs Auto 0.02 0.00 - 0.03 X10*3/uL [facility] Lymphocytes Absolute Auto 4.1 1.2 - 4.9 X10*3/uL [facility] Monocytes Absolute Auto 0.5 0.1 - 1.2 X10*3/uL [facility] Eosinophils Absolute Auto 0.4 0.0 - 0.4 X10*3/uL [facility] Basophils Absolute Auto 0.1 0.0 - 0.2 X10*3/uL [facility] NRBC Abs Auto 0.000 0.0 - 0.012 X10*3/uL [facility] Blood Venous blood specimen / Unknown 01/03/2025 10:46 AM EDT 01/03/2025 1:06 PM EDT us Mesha Ruff MD LAB BLOOD ORDERABLES Final Res ult [facility] [address] [place] [address] [phone] documented in this encounter Visit Diagnoses [...] documented as of this encounter Care Teams Accountant Tax Relationship Specialty Start Date End Date Mesha Ruff MD [address] [place] [address] PCP - General Family Medicine 03/05/22 documented as of this encounter
--- OUTSIDE RECORDS SUMMARY | 2025-05-04 13:31 | XMS_ITS | Clinical Summary ---
Author Organization [facility] Address [address] [place] [address] Care Team Providers Care Med Peds Name Role Phone Unavailable Primary Care Provider [...] due to other allergic trigger Place 1 [place] in both nostrils once daily 16 g [...] 07/07/2024 Lipid Screening 01/11/2025 01/12/2020, 10/06, 06/18/2018 [id number] ( season) 2025 05/24/2022, 11/21/2020, 10/25/2020 Imm-Influenza [...] CASCADE PROFILE (08/15/2020 9:45 AM EST) Pathologist [facility] TSH CASCADE 26.57(H) 0.40 - 4.00 uIU/ml [facility] Blood Blood / Unknown 08/15/2020 9 :45 AM EST 08/15/2020 9:47 AM EST [facility] 08/15/2020 12:56 PM EST [employer], a member of [address] [address] [address] Bailiff - Priti Cage MD PT ID [id number] ORD# [id number] Jill [facility] - BLOOD DRAW Final Result [address] [address], * HEPATITIS C ANTIBODY (08/15/2020 9:45 AM EST) Pathologist [facility] HEPATITIS C VIRUS SCREEN NEGATIVE NEGATIVE [facility] Blood Blood / Unknown 08/15/2020 9 :45 AM EST 08/15/2020 9:47 AM EST [facility] - 08/15/2020 1:35 PM EST [employer], [place] [address] Court Bailiff - Priti Cage MD PT ID [id number] ORD# [id number] [facility] - BLOOD DRAW Final Result Performing Organization Address City/[facility]/ZIP Co de Phone Number [address] [address], [place] [phone] * (ABNORMAL) LIPID PANEL (01/12/2020 10:56 AM EDT) CHOLESTEROL 173 0 - 200 mg/dL [facility] TRIGLYCERIDES 206(H) 0 - 150 mg/dL [facility] HDL CHOLESTEROL 31(L) >40 mg/dL [facility] LDL CALCULATED 101(H) 0 - 100 mg/dL [facility] TC-HDLC RATIO 5.6(H) 0 - 4.4 mg/dL [facility] Blood specimen (specimen) Blood / Unknown 01/12/2020 10:56 AM EDT 01/12/2020 3:51 PM EDT [facility] - 01/12/2020 5:13 PM EDT [employer], [place] [address] Court Bailiff - Priti Cage MD PT ID [id number] ORD# [id number] [facility] - BLOOD DRAW Edited Result - Final [address] [address], [place] [phone] * COMPRE METAB PANEL (CMP) (01/12/2020 10:56 AM EDT) GLUCOSE 96 70 - 100 mg/dL [facility] Comment:Reference range appl icable to fasting specimens only BUN 12 5 - 25 mg/dL [facility] CREAT 0.71 0.5 - 1.1 mg/dL [facility] GLOMERULAR FILTRATION RATE > 60 [facility] Comment: If patient is -Romanian, multiply result by 1.21 Chronic Kidney Disease: < 60 ml/min/1.73 square meters Kidney Failure: < 15 ml/min/1.73 square meters SODIUM 137 135 - 145 mEq/L [facility] POTASSIUM 4.0 3.5 - 5.5 mmol/L [facility] CHLORIDE 107 96 - 110 mmol/L [facility] CO2 25 21 - 32 mmol/L [facility] ANION GAP 5 3 - 11 [facility] CALCIUM 9.1 8.5 - 10.5 mg/dL [facility] TOTAL PROTEIN 7.7 6.0 - 8.0 G/dL [facility] ALBUMIN 3.5 3.2 - 5.0 G/dL [facility] BILI, TOTAL 0.2 0.0 - 1.4 mg/dL [facility] SGOT 39 10 - 42 U/L [facility] SGPT 56 10 - 60 U/L [facility] ALK PHOS 55 42 - 121 U/L [facility] Blood specimen (specimen) Blood / Unknown 01/12/2020 10:56 AM EDT 01/12/2020 3:51 PM EDT Narrative [facility] - 01/12/2020 5:13 PM EDT [facility], [place] [address] Court Bailiff - Priti Cage MD PT ID [id number] ORD# [id number] [facility] - BLOOD DRAW [place] [address], * STOOL OCCULT BLOOD (POCT) (12/03/2018 4:30 [...] / Unknown 11/13/2018 2:07 PM EDT Impressions [facility] - 11/13/2018 2:07 PM EDT Thinprep pap: Negative for squamous intraepithelial lesion and malignancy Reactive cellular changes HPV: negative Emily [facility] - PATHOLOGY AND CYTOLOG Y AMBULATORY Final Result Performing Organization Address City/[facility] Co de Phone Number [facility] [address] [address], * HIV future (10/30/2018 11:13 AM EDT) Pathologist [facility] HIV 1 AND 2 ANTIBODY SCREEN NEGATIVE NEGATIVE [facility] Comment: This assay is a [...] AM EDT 10/30/2018 12:23 PM EDT Narrative [facility] - 10/30/2018 8:08 PM EDT [employer], a member of [address] [address] [address] Bailiff - Kimberlee Trujillo MD [place] ID [id number] ORD# [id number] Jose Stafford MD LAB - BLOOD DRAW Final Result [facility] [address] [place] [address], from Last 3 Months or Most Recently Relevant to Health Maintenance Insurance [employer] [facility] [place] [address] [facility] NET DENTAL
--- OUTSIDE RECORDS SUMMARY | 2025-05-04 13:31 | XMS_ITS | Encounter Summary ---
Author Organization [email or web address] Address [address] [place] [address] 7 [place] [address] Care Team Providers Care Acquisition Analyst Name Role Phone Mesha Ruff MD Primary Care Provider [phone] Reason for Referral * Consultation (Routine) - Authorized Specialty Diagnoses / Procedures Referred By Contac t Referred To Contact Gastroenterology Diagnoses Iron deficiency anemia, unspecified iron deficiency anemia type Sandhya Subramanian MD [address] [place] [address] Phone: tel: fax: Janice Waldron MD [address] [place] [address] [place] [address] Phone: tel: fax: Referral ID Status Reason Start Date Expiration Date Visits Requested Visits Authorized [id number] Authorized Specialty Services Required 4 05/18/2025 1 1 Encounter Details Date Type Department Care Team (Late st Contact Info) Description 05/18/2024 Orders Only [facility] CHC MED & PEDS [address] [place], [place] [phone] Sandhya Subramanian MD [address] [place] [address] [phone] Iron deficiency anemia, unspecified iron deficiency anemia [...] 05/11/2025 11:00 AM EST Clinical Support [facility] MEDICINE [address] [place] [address] 05/18/2025 11:30 AM EST Office Visit [facility] MEDICINE [address] [place] [address] Mesha Ruff MD [address] [place] [address] 05/26/2025 11:30 AM EST Office Visit [facility] OPTOMETRY [address] [place] [address] Hannah Gallo, OD [address] [place] [address] 06/09/2025 1:00 PM EST Office Visit [facility] OPTOMETRY [address] [place] [address] Feli Singleton, OD [address] [place], [place] [phone] Scheduled Referrals Name Type Priority Associated Diagnoses [...] AM EST) Follicle Stimulating Hormone 12.3 mIU/mL [facility] Comment:Reference Range Foll icular Phase 2.5-10.2 Mid-cycle Peak 3.1-17.7 Luteal Phase 1.5- 9.1 Postmenopausal 23.0-116.3THIS TEST WAS PERFORMED AT:[employer] [place] [id number] BROWNING MD 05/18/2024 11:1 0 AM EST 05/18/2024 1:45 PM EST us Generic External Data Provider LAB BLOOD ORDERAB LES Final Result [facility] [address] [place] [address] [phone] documented in this encounter Visit Diagnoses Diagnosis Iron deficiency anemia, unspecified iron deficiency anemia type- Primary documented in this encounter Additional Health Concerns Assessment Noted Time PHQ-9 Depression Total Score: 24 023 3:33 PM EST documented as of this encounter Care Teams Acquisition Analyst Relationship Specialty Start Date End Date Mesha Ruff MD [address] [place] [address] PCP - General Family Medicine 03/05/22 documented as of this encounter
--- OUTSIDE RECORDS SUMMARY | 2025-05-04 13:31 | XMS_ITS | Encounter Summary ---
Author Organization [employer] Address [address] [facility] 7t [place] [address] Care Team Providers Care Rd Mechanical Engineer Name Role Phone Mesha Ruff MD Primary Care Provider [phone] Encounter Details Date Type Department Care Team ([facility] Contact Info) Description 11/14/2022 Orders Only [facility] MEDICINE [address] [place] [address] Mesha Ruff MD [address] [place] [address] Vitamin B deficiency (Primary Dx) Social History [...] Description 05/11/2025 11:00 AM EST Clinical Support [facility] MEDICINE [address] [place] [address] 05/18/2025 11:30 AM EST Office Visit [facility] MEDICINE [address] [place] [address] Mesha Ruff MD [address] [place] [address] 05/26/2025 11:30 AM EST Office Visit [facility] OPTOMETRY [address] [place] [address] Hannah Gallo, OD [address] [place] [address] 06/09/2025 1:00 PM EST Office Visit [facility] OPTOMETRY [address] [place] [address] Feli Singleton, OD [address] [place] [address] documented as of this encounter Visit Diagnoses Diagnosis Vitamin B deficiency- Primary Unspecified vitamin B deficiency documented in this encounter Additional Health Concerns Assessment Noted Time PHQ-9 Depression Total Score: 23 023 4:04 PM EDT documented as of this encounter Care Teams Rd Mechanical Engineer Relationship Specialty Start Date End Date Mesha Ruff MD [address] [place] [address] PCP - General Family Medicine 03/05/22 documented as of this encounter
--- OUTSIDE RECORDS SUMMARY | 2025-05-04 13:31 | XMS_ITS | Encounter Summary ---
Author Organization [employer] Address [address] [facility] 7t [place] [address] Care Team Providers Care Financial Service Professional Name Role Phone Mesha Ruff MD Primary Care Provider [phone] Encounter Details Date Type Department Care Team ([facility] Contact Info) Description 11/25/[address] [facility] MEDICINE [address] [place] [address] Mesha Ruff MD [address] [place] [address] Vitamin B deficiency Social History Tobacco Use [...] 05/11/2025 11:00 AM EST Clinical Support [facility] MEDICINE [address] [place] [address] 05/18/2025 11:30 AM EST Office Visit [facility] MEDICINE [address] [place] [address] Mesha Ruff MD [address] [place] [address] 05/26/2025 11:30 AM EST Office Visit [facility] OPTOMETRY [address] [place] [address] Hannah Gallo, OD [address] [place] [address] 06/09/2025 1:00 PM EST Office Visit [facility] OPTOMETRY [address] [place], [place] [phone] Feli Singleton, OD [address] [place] [address] documented as of this encounter Procedures Procedure Name Priority Date/Time Associated Diagnosis Comments BI MAMMOGRAM SCREENING TOMOSYNTHESIS BILATERAL Routine 12/19/2022 1:46 PM EDT documented in this encounter Results * BI Mammogram Screening Tomosynthesis Bilateral (12/19/2022 1:46 PM EDT) Anatomical Region Laterality Modality Breast Bilateral Mammography 12/19/2022 1:46 PM EDT Narrative 12/23/2022 7:53 AM EDT [facility] [address] [place] [address] Mammography Report Signed Patient: Carmen Johnson MR#: [id number] : 1965 Acct:[id number] Age/Sex: 57 / F ADM Date: 12/19/22 Loc: MAMMO Attending Dr: Mesha Ruff MD Ordering Physician: Mesha Ruff Results: 1Negative Date of Service: 12/19/22 Follow Up: 1 Year From Orig inal Mammogram Procedure(s): MM tomosynthesis screening BI Accession Number(s): [id number] cc: Mesha Ruff EXAMINATION: MM SCREENING DIGITAL BREAST TOMOSYNTHESIS, BILATERAL CLINICAL INFORMATION: Screening. Asymptomatic. The lifetime risk of breast cancer based on the Tyrer-Cuzick Model is 9%. COMPARISON: Outside mammography: 02/05/2021 ([facility]) TECHNIQUE: Digital breast tomosynthesis is performed [...] in OV> 12/23/22 0750 DD/ 1346 TD/TT: Corporate Wellness Coordinator: SANDRA Procedure Note Donotuseinterpreter, Image - 01/02/2023 [facility] [address] [place], [place] [address] Mammography Report Signed Patient: Carmen Johnson#: [id number] : 1965Acct:[id number] Age/Sex: 57 / FADM Date: 12/19/22 Loc: HO.MAMMO Attending Dr: Mesha Ruff MD Ordering Physician: Ben Ruffults: 1Negative Date of Service: 12/19/22Follow Up: 1 Year From Orig inal Mammogram Procedure(s): MM tomosynthesis screening BI Accession Number(s): [id number] cc: Mesha Ruff EXAMINATION: MM SCREENING DIGITAL BREAST TOMOSYNTHESIS, BILATERAL CLINICAL INFORMATION: Screening. Asymptomatic. The lifetime risk of breast cancer based on the Tyrer-Cuzick Model is 9%. COMPARISON: Outside mammography: 02/05/2021 ([facility]) TECHNIQUE: Digital breast tomosynthesis is performed [...] in OV> 12/23/22 0750 DD/ 1346 TD/TT: Corporate Wellness Coordinator: SANDRA [facility] External Provider IMG BI PROCEDURES Final Result documented in this encounter Visit Diagnoses Diagnosis Vitamin B deficiency Unspecified vitamin B deficiency documented in this encounter Additional Health Concerns Assessment Noted Time PHQ-9 Depression Total Score: 10/30/ 023 4:04 PM EDT documented as of this encounter Care Teams Financial Service Professional Relationship Specialty Start Date End Date Mesha Ruff MD [address] [place] [address] PCP - General Family Medicine 03/05/22 documented as of this encounter
--- OUTSIDE RECORDS SUMMARY | 2025-05-04 13:31 | XMS_ITS | Encounter Summary ---
Author Organization [employer] Address [address] [facility] 7t [place] [address] Care Team Providers Care Phosphoric Acid Supervisor Name Role Phone Mesha Ruff MD Primary Care Provider [phone] Encounter Details Date Type Department Care Team (Late Contact Info) Description 08/05/2022 Orders Only [facility] [address] [place] [address] [phone] Mesha Ruff MD [address] [place] [address] [phone] Other specified hypothyroidism (Primary Dx); Blurry vision [...] Description 05/11/2025 11:00 AM EST Clinical Support [facility] [address] [place] [address] [phone] 05/18/2025 11:30 AM EST Office Visit [facility] [address] [place] [phone] Mesha Ruff MD [address] [place] [address] [phone] 05/26/2025 11:30 AM EST Office Visit [facility] [address] [place] [address] Hannah Gallo, OD [address] [place] [address] 06/09/2025 1:00 PM EST Office Visit [facility] [address] [place] [address] Feli Singleton, OD [address] [facility] [address] documented as of this encounter Procedures Procedure [...] HIGH SENSITIVITY <3.5 <3.5 - 17.0 ng/L [facility] Comment:The [place] high sens itivity Troponin-I results should beused in conjunction with other diagnostic information suchas ECG, clinical observations and information, and patientsymptoms to aid in the diagnosis of [place]. 09/04/2022 9:02 PM EST 09/04/2022 9:09 PM EST [facility] External Provider LAB BLO OD ORDERABLES Final Result Performing Organization Address [facility] Co de Phone Number [facility] [address] [place] [phone] * HIGH SENSITIVITY TROPONIN I (09/04/2022 4:25 PM EST) TROPONIN I HIGH SENSITIVITY <3.5 <3.5 - 17.0 ng/L [facility] Comment:The [place] high sens itivity Troponin-I results should beused in conjunction with other diagnostic information suchas ECG, clinical observations and information, and patientsymptoms to aid in the diagnosis of [place]. 09/04/2022 4:25 PM EST 09/04/2022 4:30 PM EST [facility] External Provider LAB BLO OD ORDERABLES Final Result Performing Organization Address [facility] Co de Phone Number [facility] [address] [place] [phone] * SARS-CoV-2 RNA, Influenza A/B, and RSV RNA, Ql NAAT (09/04/2022 4:25 PM EST) Pathologist [facility] Influenza A PCR NEGATIVE Negative [facility] Influenza B PCR NEGATIVE Negative [facility] Resp Syncy Virus RNA Qual PCR NEGATIVE Negative [facility] SARS COV2 PCR NEGATIVE Negative [facility] SARS/Flu/RSV Note See Note [facility] Comment:All test results mus t [...] use by authorized laboratories.Testing performed on the [employer] GeneXpert utilizingreal-time RT-PCR.All SARS CoV2 and positive influenza A/B results arereported to [facility]. 09/04/2022 4:25 PM EST 09/04/2022 4:30 PM EST [facility] Exter nal Provider LAB MICROBIOLOGY - GENERAL ORDERABLES Final Result Performing Organization Address City/[facility]/ZIP Co de Phone Number [facility] [address] [place] [phone] * Magnesium (09/04/2022 4:25 PM EST) Magnesium 1.9 1.6 - 2.6 mg/dL [facility] 09/04/2022 4:25 PM EST 09/04/2022 4:30 PM EST [facility] External Provider LAB BLO OD ORDERABLES Final Result Performing Organization Address [facility] Co de Phone Number [facility] [address] [place] [phone] * (ABNORMAL) Comprehensive Metabolic Panel (09/04/2022 4:25 PM EST) Sodium 139 135 - 145 mmol/L [facility] Potassium 3.8 3.3 - 5.1 mmol/L [facility] Chloride 104 96 - 108 mmol/L [facility] Carbon Dioxide 26 22 - 29 mmol/L [facility] Anion Gap 13 12 - 20 [facility] Urea Nitrogen (BUN) 10 9 - 16 mg/dL [facility] Creatinine, Serum 0.77 0.5 - 1.4 mg/dL [facility] Creatinine Clr Calc Pharmacy 107.9 [facility] Comment:Provided height and weight: 182.88 cm,97.3 kg.eGFR (calculated from the MDRD study equation) and eCrCl(calculated from the Cockcroft-Gault equation) are based ondifferent parameters and may not yield comparable results.If eCrCl result is absurd, please check patient'sheight/weight. Estimated Glomerular Filt Rate >60 [facility] Comment:NOTE: For -Am erican individuals, multiply the result by 1.210.Chronic Kidney Disease: Estimated GFR < 60 mL/min/1.97t5Dgttsa Kidney Disease: Estimated GFR < 15 mL/min/1.73m2 Glucose 91 60 - 115 mg/dL [facility] Calcium 9.7 8.4 - 10.2 mg/dL [facility] Bilirubin, Total 0.3 0.0 - 1.0 mg/dL [facility] Aspartate Amino Transferase 50(H) 5 - 31 U/L [facility] Alanine Aminotransferase 80(H) 0 - 31 U/L [facility] Total Protein 7.9 6.5 - 8.0 g/dL [facility] Albumin Level 4.2 3.5 - 5.0 g/dL [facility] Alkaline Phosphatase 58 39 - 117 U/L [facility] 09/04/2022 4:25 PM EST 09/04/2022 4:30 PM EST [facility] External Provider LAB BLO OD ORDERABLES Final Result Performing Organization Address [facility]/ZIP Co de Phone Number [facility] [address] [place] [address] [phone] * APTT (09/04/2022 4:25 PM EST) Partial Thromboplastin Time 29.2 26.0 - 36.4 SEC [facility] 09/04/2022 4:25 PM EST 09/04/2022 4:30 PM EST [facility] External Provider LAB BLO OD ORDERABLES Final Result Performing Organization Address [facility]/ZIP Co de Phone Number [facility] [address] [place] [address] [phone] * Prothrombin Time-INR (09/04/2022 4:25 PM EST) [facility] Prothrombin Time 12.3 10.0 - 13.1 SEC [facility] INTERNATIONAL NORM RATIO 1.1 0.9 - 1.1 [facility] Comment:INTERNATIONAL NORMAL IZED RATIO (INR) [...] PM EST 09/04/2022 4:30 PM EST us [facility] External Provider LAB BLO OD ORDERABLES Final Result [facility] [address] [place] [phone] * (ABNORMAL) CBC auto differential (09/04/2022 4:25 PM EST) [facility] White Blood Count 8.9 4.8 - 10.8 X10*3/uL [facility] Red Blood Count 4.39 4.20 - 5.50 X10*6/uL [facility] Hemoglobin 11.7(L) 12.0 - 16.0 g/dl [facility] Hematocrit 36.8(L) 37.0 - 47.0 % [facility] Mean Corpuscular Volume 83.8 80.0 - 98.0 fL [facility] Mean Corpuscular Hemoglobin 26.7(L) 27.0 - 33.0 pg [facility] Mean Corpuscular HGB Conc 31.8 31.0 - 35.0 g/dl [facility] Red Cell Distribution Width 15.8 11.0 - 16.0 % [facility] Platelet Count 242 160 - 400 X10*3/uL [facility] Mean Platelet Volume 11.1 9.4 - 12.3 fL [facility] Neutrophils Percent Auto 44.2(L) 45 - 73 % [facility] Imm Gran Pct Auto 0.3 0.0 - 0.4 % [facility] Lymphocytes Percent Auto 44.3(H) 20 - 40 % [facility] Monocytes Percent Auto 6.4 2 - 11 % [facility] Eosinophils Percent Auto 4.0 0 - 4 % [facility] Basophils Percent Auto 0.8 0 - 2 % [facility] NRBC Pct Auto 0.0 0.0 - 0.2 /100WBC [facility] Neutrophils Absolute Auto 3.9 2.0 - 8.3 x10*3/uL [facility] Imm Gran Abs Auto 0.03 0.00 - 0.03 X10*3/uL [facility] Lymphocytes Absolute Auto 4.0 1.2 - 4.9 X10*3/uL [facility] Monocytes Absolute Auto 0.6 0.1 - 1.2 X10*3/uL [facility] Eosinophils Absolute Auto 0.4 0.0 - 0.4 X10*3/uL [facility] Basophils Absolute Auto 0.1 0.0 - 0.2 X10*3/uL [facility] NRBC Abs Auto 0.000 0.0 - 0.012 X10*3/uL [facility] 09/04/2022 4:25 PM EST 09/04/2022 4:30 PM EST us [facility] External Provider LAB BLO OD ORDERABLES Final Result [facility] [address] [place] [phone] documented in this encounter Visit Diagnoses Diagnosis Other specified hypothyroidism- Primary Blurry vision Other specified visual disturbances documented in this encounter Care Teams Phosphoric Acid Supervisor Relationship Specialty Start Date End Date Mesha Ruff MD [address] [place] [address] [phone] PCP - General Family Medicine 03/05/22 documented as of this encounter
--- OUTSIDE RECORDS SUMMARY | 2025-05-04 13:31 | XMS_ITS | Encounter Summary ---
Author Organization [employer] Address [address] [facility] [address] [place] [address] Care Team Providers Care Locomotive Engineer Electric Name Role Phone Mesha Ruff MD Primary Care Provider [phone] Encounter Details Date Type Department Care Team (Late Contact Info) Description 03/07/2023 Orders Only [facility] [address] [place] [address] [phone] Mesha Ruff MD [address] [place] [address] [phone] Social History Tobacco Use Types Packs/Day Years [...] Description 05/11/2025 11:00 AM EST Clinical Support [address] [phone] 05/18/2025 11:30 AM EST Office Visit [address] [phone] Mesha Ruff MD [address] [place] [address] 05/26/2025 11:30 AM EST Office Visit [facility] [address] [place], [place] [phone] Hannah Gallo, OD [address] [place] [address] 06/09/2025 1:00 PM EST Office Visit [facility] [address] [place], [place] [phone] Feli Singleton, OD [address] [place], [place] [phone] documented as of this encounter Visit Diagnoses Not on filedocumented in this encounter Additional Health Concerns Assessment Noted Time PHQ-9 Depression Total Score: 23 023 4:04 PM EDT documented as of this encounter Care Teams Locomotive Engineer Electric Relationship Specialty Start Date End Date Mesha Ruff MD [address] [place], [place] [phone] PCP - General Family Medicine 03/05/22 documented as of this encounter
--- OUTSIDE RECORDS SUMMARY | 2025-05-04 13:31 | XMS_ITS | Encounter Summary ---
Author Organization [employer] Address [address] [place] [address] [address]t [place] [address] Care Team Providers Care Metal And Plastic Heater Name Role Phone Mesha Ruff MD Primary Care Provider [phone] Encounter Details Date Type Department Care Team (Late st Contact Info) Description 03/27/2023 Orders Only [address] [phone] ProviderMelissa MD Social History Tobacco Use Types [...] 05/11/2025 11:00 AM EST Clinical Support [address] [address] 05/18/2025 11:30 AM EST Office Visit [address] [address] Mesha Ruff MD [address] [place] [phone] 05/26/2025 11:30 AM EST Office Visit [facility] [address] [place] [address] Hannah Gallo, OD [address] [place] [address] 06/09/2025 1:00 PM EST Office Visit [facility] [address] [place] [address] Bari Singletonothy, OD [address] [place] [address] documented as of this encounter Procedures Procedure [...] documented as of this encounter Care Teams Metal And Plastic Heater Relationship Specialty Start Date End Date Mesha Ruff MD [address] [place], [place] [phone] PCP - General Family Medicine 03/05/22 documented as of this encounter
== END 2025-05-04 11:21 | disposition home or self-care (01) ==
PROVIDERS: Visit Provider Internal Medicine Cardiovascular Disease
DX: Z01.810 Encounter for preprocedural cardiovascular examination (principal); R94.31 Abnormal electrocardiogram [ECG] [EKG]
CPT/HCPCS: 93010; 99214

== ENCOUNTER → 2025-05-04 10:46 | Outpatient (BNVA) | payer MEDICAID, SELFPAY | PROVIDERS: Visit Provider Internal Medicine Cardiovascular Disease | DX: Z01.810 Encounter for preprocedural cardiovascular examination (principal); R94.31 Abnormal electrocardiogram [ECG] [EKG] | CPT/HCPCS: 93005; 99212 ==